=== PATIENT | female | born 1940 | race Caucasian/White ===

== ENCOUNTER 2019-08-01 20:48 | Emergency (ER) | payer MEDICARE ==
--- NOTE | 2019-08-01 20:59 | ERPHSYRPT ---
- History of Present Illness Time Seen by Provider: 08/01/19 20:59 Source: patient, family Exam Limitations: no limitations, clinical condition Physician History: Pt is here with c/c of cough and congestion with her usual shortness of breath. Pt additionally has a runny congested nose. Pt has a sore throat aas well. Pt has been feeling poorly for 2 days and notes that whenever she gets ill it advances quickly into her chest and this is moving down. Ptnotes that she coughs alot and hard and to the point of vomiting. Pt has COPD so states that she is her usual amount of SOB. Pt had a Generic mix of Duoneb at 16:30 today. Timing/Duration: day(s) (2) Modifying Factors: Improves With: medication (Pt told nursing that she had taken a dose of Zithromax yesterday and then another one today and is worse anyway. ) Allergies/Adverse Reactions: Penicillins Allergy (Severe, Verified 08/01/19 21:05) Difficulty Breathing codeine Allergy (Intermediate, Verified 08/01/19 21:05) Nausea and Vomiting metformin Allergy (Intermediate, Verified 08/01/19 21:05) Nausea and Vomiting Sulfa (Sulfonamide Antibiotics) Allergy (Intermediate, Verified 08/01/19 21:05) Itching ibuprofen Allergy (Verified 08/01/19 21:05) morphine Adverse Reaction (Intermediate, Verified 08/01/19 21:05) HALLUCINATIONS Home Medications: Carvedilol 12.5 mg [Coreg 12.5 mg] 6.25 mg PO DAILY 06/11/13 [History] Glipizide 10 mg [Glucotrol 10 MG] 10 mg PO DAILY 06/11/13 [History] Losartan Potassium 50 mg [Cozaar 50 MG] 1 tab PO DAILY 06/11/13 [History] Vit/Fe Fumarate/FA [ Formula Tablet] 1 tab PO DAILY 06/11/13 [ History] Atorvastatin Calcium [Lipitor] 40 mg PO DAILY 06/19/13 [History] Aspirin [Aspirin EC] 81 mg PO DAILY 10/03/13 [History] Albuterol 2.5 mg/3 ml Neb [Proventil 2.5 mg/3 ml Neb] 2.5 mg IH TID [History] Alprazolam 0.25 mg [xanAX 0.25 MG] 0.25 mg PO BID PRN PRN 08/01/19 [ History] Clopidogrel Bisulfate 75 mg [PLAVIX 75 MG Tablet] 75 mg PO DAILY 08/01/19 [History] Hx Tetanus, Diphtheria Vaccination/Date Given: No Hx Influenza Vaccination/Date Given: No Hx Pneumococcal Vaccination/Date Given: No - Review of Systems Constitutional: Malaise Eyes: Itchy, Tearing Ears, Nose, & Throat: Ear Pain, Nose Congestion, Nose Discharge, Throat Pain, Hoarse Respiratory: Cough, Dyspnea Cardiac: No Symptoms Abdominal/Gastrointestinal: No Symptoms Genitourinary Symptoms: No Symptoms Musculoskeletal: No Symptoms Skin: No Symptoms Neurological: No Symptoms Psychological: No Symptoms Endocrine: No Symptoms Hematologic/Lymphatic: No Symptoms Immunological/Allergic: No Symptoms All Other Systems: Reviewed and Negative - Past Medical History Pertinent Past Medical History: Yes Neurological History: No Pertinent History ENT History: No Pertinent History Cardiac History: Coronary Artery Disease, High Cholesterol, Hypertension Respiratory History: COPD Endocrine Medical History: Diabetes Type II Musculoskeletal History: No Pertinent History GI Medical History: No Pertinent History History: No Pertinent History Psycho-Social History: No Pertinent History Female Reproductive Disorders: No Pertinent History - Past Surgical History Past Surgical History: Yes Neuro Surgical History: No Pertinent History Cardiac: CABG, Vascular Surgery, Other Respiratory: No Pertinent History Gastrointestinal: Other Genitourinary: No Pertinent History Musculoskeletal: No Pertinent History Female Surgical History: No Pertinent History Other Surgical History: right artery bypass grafT. QUAD BYPASS. COLONOSCOPY 1 WK AGO - Social History Smoking Status: Former smoker How long have you smoked: 40yrs Exposure to second hand smoke: No Drug Use: none Patient Lives Alone: No Significant Family History: heart disease - Nursing Vital Signs Nursing Vital Signs: Initial Vital Signs Temperature 98.2 F 08/01/19 20:55 Pulse Rate 96 H 08/01/19 20:55 Respiratory Rate 18 08/01/19 20:55 Blood Pressure 143/82 08/01/19 20:55 O2 Sat by Pulse Oximetry 94 L 08/01/19 20:55 Pain Scale Pain Intensity 4 - Physical Exam General Appearance: no apparent distress Eye Exam: PERRL/EOMI, eyes nml inspection, No scleral icterus, No pale conjunctivae Ears, Nose, Throat Exam: normal ENT inspection, TMs normal, pharyngeal erythema (minimal) Neck Exam: normal inspection Respiratory Exam: diminished breath sounds, prolonged expirations, wheezing, No crackles/rales Cardiovascular Exam: regular rate/rhythm, normal heart sounds, normal peripheral pulses, No murmur, No friction rub, No gallop Gastrointestinal/Abdomen Exam: soft, normal bowel sounds, No tenderness, No distention, No mass, No guarding, No pulsatile mass, No hepatomegaly, No bruit Pelvic Exam: not done Rectal Exam: not done Back Exam: normal inspection (increased kyphosis) Extremity Exam: normal inspection, normal range of motion (at baseline) Neurologic Exam: alert, oriented x 3, cooperative, normal mood/affect, nml cerebellar function, sensation nml, No motor deficits, No sensory deficit Skin Exam: normal color, warm, dry, No rash, No petechiae, No jaundice Lymphatic Exam: No adenopathy SpO2 Interpretation: normal SpO2: 94 O2 Delivery: Room Air Ordered Tests: Active Orders 24 hr Category Date Time Status CHEST 2 VIEWS (PA AND LAT) Stat Exams 08/01/19 22:03 Taken CBC W DIFF Stat Lab 08/01/19 21:30 Completed CMP Stat Lab 08/01/19 21:30 Completed Lactic Acid Stat Lab 08/01/19 21:32 Completed Peak Expiratory Flow Rate ONCE RT 08/01/19 21:34 Active Respiratory Therapy Assessment DAILY RT 08/01/19 21:34 Active Medication Summary Discontinued Medications Generic Name Dose Route Start Last Admin Trade Name Freq PRN Reason Stop Dose Admin Acetaminophen Confirm 08/02/19 00:26 Tylenol 325 Mg Administered 08/02/19 00:27 Dose 650 mg .ROUTE .STK-MED ONE Acetaminophen 650 mg 08/02/19 00:33 08/02/19 00:35 Tylenol 325 Mg PO 08/02/19 00:34 650 mg STAT STA Administration Albuterol/Ipratropium 3 ml 08/01/19 21:23 08/01/19 21:34 Duoneb 0.5-3 Mg/3 Ml Neb IH 08/01/19 21:24 3 ml STAT ONE Administration Albuterol/Ipratropium Confirm 08/01/19 21:32 Duoneb 0.5-3 Mg/3 Ml Neb Administered 08/01/19 21:33 Dose 3 ml IH .STK-MED ONE Levofloxacin/Dextrose 750 mg in 150 mls @ 100 mls/hr 08/01/19 22:58 08/02/19 00:56 Levofloxacin 750mg/150ml D5w IV 08/02/19 00:27 Infused STAT STA Infusion Levofloxacin/Dextrose Confirm 08/01/19 23:04 Levofloxacin 750mg/150ml D5w Administered 08/01/19 23:05 Dose 750 mg in 150 mls @ ud IV .STK-MED ONE Methylprednisolone Sodium Succinate 80 mg 08/01/19 21:23 08/01/19 21:40 Solu-Medrol 125 Mg IV 08/01/19 21:24 80 mg STAT ONE Administration Methylprednisolone Sodium Succinate Confirm 08/01/19 21:38 Solu-Medrol 125 Mg Administered 08/01/19 21:39 Dose 125 mg .ROUTE .STK-MED ONE Prochlorperazine Edisylate 10 mg 08/02/19 00:16 08/02/19 00:34 Compazine 10 Mg/2 Ml IV 08/02/19 00:17 Not Given STAT ONE Prochlorperazine Edisylate Confirm 08/02/19 00:22 Compazine 10 Mg/2 Ml Administered 08/02/19 00:23 Dose 10 mg .ROUTE .STK-MED ONE Lab/Rad Data: Laboratory Result Diagrams 08/01/19 21:30 08/01/19 21:30 Laboratory Results 08/01/19 08/01/19 08/01/19 Range/Units Unknown 22:00 21:32 WBC (4.0-10.5) K/mm3 RBC (4.1-5.4) M/mm3 Hgb (12.0-16.0) gm/dl Hct (35-47) % MCV (78-100) fl MCH (26-32) pg MCHC (32-36) g/dl RDW (11.5-14.0) % Plt Count (150-450) K/mm3 MPV (6-9.5) fl Gran % (36.0-66.0) % Eos # (Auto) (0-0.5) Absolute Lymphs (auto) (1.0-4.6) Absolute Monos (auto) (0.0-1.3) Lymphocytes % (24.0-44.0) % Monocytes % (0.0-12.0) % Eosinophils % (0.00-5.0) % Basophils % (0.0-0.4) % Absolute Granulocytes (1.4-6.9) Basophils # (0-0.4) Sodium (137-145) mmol/L Potassium (3.5-5.1) mmol/L Chloride (98-107) mmol/L Carbon Dioxide (22-30) mmol/L Anion Gap (5-15) MEQ/L BUN (7-17) mg/dL Creatinine (0.52-1.04) mg/dL Estimated GFR ML/MIN Glucose (74-106) mg/dL Lactic Acid 1.3 (0.4-2.0) Calcium (8.4-10.2) mg/dL Total Bilirubin (0.2-1.3) mg/dL AST (14-36) U/L ALT (0-35) U/L Alkaline Phosphatase (38-126) U/L Serum Total Protein (6.3-8.2) g/dL Albumin (3.5-5.0) g/dL Influenza Type A Ag NEGATIVE (NEGATIVE) Influenza Type B Ag NEGATIVE (NEGATIVE) RSV (PCR) NEGATIVE (Negative) Group A Strep Antibody NEGATIVE (NEGATIVE) 08/01/19 08/01/19 Range/Units 21:30 21:30 WBC 8.0 (4.0-10.5) K/mm3 RBC 4.54 (4.1-5.4) M/mm3 Hgb 13.3 (12.0-16.0) gm/dl Hct 41.0 (35-47) % MCV 90.3 (78-100) fl MCH 29.3 (26-32) pg MCHC 32.4 (32-36) g/dl RDW 13.9 (11.5-14.0) % Plt Count 194 (150-450) K/mm3 MPV 10.8 H (6-9.5) fl Gran % 67.9 H (36.0-66.0) % Eos # (Auto) 0.41 (0-0.5) Absolute Lymphs (auto) 1.20 (1.0-4.6) Absolute Monos (auto) 0.94 (0.0-1.3) Lymphocytes % 14.9 L (24.0-44.0) % Monocytes % 11.7 (0.0-12.0) % Eosinophils % 5.1 H (0.00-5.0) % Basophils % 0.4 (0.0-0.4) % Absolute Granulocytes 5.46 (1.4-6.9) Basophils # 0.03 (0-0.4) Sodium 138 (137-145) mmol/L Potassium 3.9 (3.5-5.1) mmol/L Chloride 101 (98-107) mmol/L Carbon Dioxide 29 (22-30) mmol/L Anion Gap 11.8 (5-15) MEQ/L BUN 18 H (7-17) mg/dL Creatinine 0.95 (0.52-1.04) mg/dL Estimated GFR > 60.0 ML/MIN Glucose 166 H (74-106) mg/dL Lactic Acid (0.4-2.0) Calcium 9.2 (8.4-10.2) mg/dL Total Bilirubin 0.60 (0.2-1.3) mg/dL AST 24 (14-36) U/L ALT 17 (0-35) U/L Alkaline Phosphatase 67 (38-126) U/L Serum Total Protein 7.5 (6.3-8.2) g/dL Albumin 4.0 (3.5-5.0) g/dL Influenza Type A Ag (NEGATIVE) Influenza Type B Ag (NEGATIVE) RSV (PCR) (Negative) Group A Strep Antibody (NEGATIVE) - Progress Progress: improved Progress Note: 08/02/19 01:04 Duoneb, antibiotic and tylenol have helped pt. Will have pt take meds for cough -tesselon and antibiotic at home and f/u with her PCP. Discussed with .: Jaxson - Departure Departure Disposition: Home Clinical Impression: Community acquired pneumonia Condition: Stable Critical Care Time: No Referrals: JONNY BROWNE MD [Primary Care Provider] - Additional Instructions: YOu have an early Pneumonia and will need to take the antibiotic Levaquin as well as you may benefit from the Tessalon Perles for cough suppression. You should continue with your home Albuterol and Ipatropium Gibson nebulizer treatments. Take prednisone as prescribed. Drink plenty of water to thin our secretions. Follow up with your primary care doctor in the next 2-7 days REturn to the ER with emergent medical issues. Prescriptions: Benzonatate [Tessalon Perle] 100 mg PO Q8H #30 capsule Levofloxacin [Levaquin 500 MG Tablet] 500 mg PO DAILY #7 tablet Prednisone 20 mg [Deltasone 20 mg] 20 mg PO DAILY 10 Days #11 tablet
[2019-08-01] MEDS ORDERED: DUONEB 0.5-3 MG/3 ml Neb IH ONE ×2 (21:23→21:32)
[2019-08-01] MEDS ORDERED: solu-MEDROL 125 MG IV ONE (21:23)
[2019-08-01] MEDS ORDERED: solu-MEDROL 125 MG ONE (21:38)
[2019-08-01 21:43] LABS: Absolute Neutrophil Ct (ANC) 5.46 (1.4-6.9); BASOPHIL % 0.4 % (0.0-0.4); Basophil (Absolute #) 0.03 (0-0.4); Eosinophil % 5.1 % (0.00-5.0); Eosinophil (Absolute #) 0.41 (0-0.5); Hemoglobin 13.3 gm/dl (12.0-16.0); Lymphocytes % 14.9 % (24.0-44.0); Mean Cell Volume 90.3 fl (78-100); Mean Corpuscular Hemoglobin 29.3 pg (26-32); Mean Corpuscular Hgb Concent. 32.4 g/dl (32-36); Mean Platelet Volume 10.8 fl (6-9.5); Monocyte (Absolute #) 0.94 (0.0-1.3); Monocytes % 11.7 % (0.0-12.0); Neutrophil % 67.9 % (36.0-66.0); Platelet Count 194 K/mm3 (150-450); Red Blood Count 4.54 M/mm3 (4.1-5.4); Red Cell Distribution Width 13.9 % (11.5-14.0)
[2019-08-01 21:55] LABS: ALKALINE PHOSPHATASE 67 U/L (38-126); ANION GAP 11.8 MEQ/L (5-15); BLOOD UREA NITROGEN 18 mg/dL (7-17); CHLORIDE 101 mmol/L (98-107); Calcium 9.2 mg/dL (8.4-10.2); Carbon Dioxide 29 mmol/L (22-30); Creatinine 1 0.95 mg/dL (0.52-1.04); Glucose 166 mg/dL (74-106); Potassium 3.9 mmol/L (3.5-5.1); SGOT/AST 24 U/L (14-36); SGPT/ALT 17 U/L (0-35); SODIUM 138 mmol/L (137-145); Total Protein 7.5 g/dL (6.3-8.2)
[2019-08-01 22:54] LABS: INFLUENZA A NEGATIVE (NEGATIVE); INFLUENZA B NEGATIVE (NEGATIVE); RESPIRATORY SYNCTIAL VIRUS NEGATIVE (Negative)
[2019-08-01] MEDS ORDERED: LEVOFLOXACIN 750MG/150ML D5W 750 MG/150 ML BAG IV STA (22:58)
[2019-08-01] MEDS ORDERED: LEVOFLOXACIN 750MG/150ML D5W 750 MG/150 ML BAG IV ONE (23:04)
[2019-08-02] MEDS ORDERED: Compazine 10 MG/2 ML IV ONE (00:16)
[2019-08-02] MEDS ORDERED: Compazine 10 MG/2 ML ONE (00:22)
[2019-08-02] MEDS ORDERED: TYLENOL 325 MG ONE (00:26)
[2019-08-02] MEDS ORDERED: TYLENOL 325 MG PO STA (00:33)
[2019-08-02 01:10] VITALS: O2SAT 94
[2019-08-02 01:35] VITALS: BP 134/84; PULSE 76
--- NOTE | 2019-08-02 08:42 | XRAY ---
Indication: Cough 6 days. Comparison: March 19, 2019. PA/lateral chest again demonstrates right middle lobe subsegmental atelectasis/scarring. No focal infiltrate, consolidation, or large effusion. Heart and mediastinal structures within normal limits again with CABG surgery. Bony thorax intact again with degenerative changes. Impression: Stable nonacute chest with chronic features.
== END 2019-08-02 01:35 | disposition home or self-care (01) ==
LOC: ED 20:48
DX: J18.9 Pneumonia, unspecified organism (principal); R09.89 Other specified symptoms and signs involving the circulatory and respiratory systems; J44.9 Chronic obstructive pulmonary disease, unspecified; Z79.899 Other long term (current) drug therapy; R05 Cough; H92.09 Otalgia, unspecified ear
CPT/HCPCS: 36000; 36415; 71046; 80053; 83605; 85025; 87631; 87651; 94150; 94640; 96365; 96366; 96374; 99284; J1956; J2930; A9270-GY

== ENCOUNTER 2019-08-17 10:39 | Emergency (ER) | payer MEDICARE ==
[2019-08-17 10:58] VITALS: BP 94/69; PULSE 92; O2SAT 98
--- NOTE | 2019-08-17 11:07 | ERPHSYRPT ---
- History of Present Illness Time Seen by Provider: 08/17/19 11:04 Source: patient Exam Limitations: no limitations Patient Subjective Stated Complaint: Pt sat up coughing in bed in the middle of the night and the next thing she knew her was standing over her, she had passed out from coughing, when she fell out of bed she thinks she hit the night stand or the trash can and she injured her right shoulder and right wrist , pt has a lot of bruising to both areas, denies hitting head, pt is on blood thinners Triage Nursing Assessment: Pt walked into the ER, bruising to right shoulder and right wrist, hypotensive, pulses normal, capillary refill normal, rates pain 7/10, denies hitting head, denies any other injury Physician History: Pt sat up coughing in bed in the middle of the night and the next thing she knew her was standing over her, she had passed out from coughing, when she fell out of bed she thinks she hit the night stand or the trash can and she injured her right shoulder and right wrist, pt has a lot of bruising to both areas, denies hitting head, pt is on blood thinners Occurred: this morning Method of Injury: fell Severity of Pain-Max: mild Severity of Pain-Current: mild Extremities Pain Location: shoulder: right, wrist: right Modifying Factors: Improves With: nothing Associated Symptoms: none Body Map: 1 - bruised area 2 - bruised area Allergies/Adverse Reactions: Penicillins Allergy (Severe, Verified 08/17/19 10:58) Difficulty Breathing codeine Allergy (Intermediate, Verified 08/17/19 10:58) Nausea and Vomiting metformin Allergy (Intermediate, Verified 08/17/19 10:58) Nausea and Vomiting Sulfa (Sulfonamide Antibiotics) Allergy (Intermediate, Verified 08/17/19 10:58) Itching ibuprofen Allergy (Verified 08/17/19 10:58) morphine Adverse Reaction (Intermediate, Verified 08/17/19 10:58) HALLUCINATIONS Home Medications: Carvedilol 12.5 mg [Coreg 12.5 mg] 6.25 mg PO DAILY 06/11/13 [History] Glipizide 10 mg [Glucotrol 10 MG] 10 mg PO DAILY 06/11/13 [History] Losartan Potassium 50 mg [Cozaar 50 MG] 1 tab PO DAILY 06/11/13 [History] Vit/Fe Fumarate/FA [ Formula Tablet] 1 tab PO DAILY 06/11/13 [ History] Atorvastatin Calcium [Lipitor] 40 mg PO DAILY 06/19/13 [History] Aspirin [Aspirin EC] 81 mg PO DAILY 10/03/13 [History] Albuterol 2.5 mg/3 ml Neb [Proventil 2.5 mg/3 ml Neb] 2.5 mg IH TID [History] Alprazolam 0.25 mg [xanAX 0.25 MG] 0.25 mg PO BID PRN PRN 08/01/19 [ History] Clopidogrel Bisulfate 75 mg [PLAVIX 75 MG Tablet] 75 mg PO DAILY 08/01/19 [History] Hx Tetanus, Diphtheria Vaccination/Date Given: No Hx Influenza Vaccination/Date Given: No Hx Pneumococcal Vaccination/Date Given: No - Review of Systems Constitutional: No Symptoms Eyes: No Symptoms Ears, Nose, & Throat: No Symptoms Respiratory: No Symptoms Cardiac: No Symptoms Abdominal/Gastrointestinal: No Symptoms Musculoskeletal: Fall Skin: No Symptoms Neurological: No Symptoms Psychological: No Symptoms - Past Medical History Pertinent Past Medical History: Yes Neurological History: No Pertinent History ENT History: No Pertinent History Cardiac History: Coronary Artery Disease, High Cholesterol, Hypertension Respiratory History: COPD Endocrine Medical History: Diabetes Type II Musculoskeletal History: No Pertinent History GI Medical History: No Pertinent History History: No Pertinent History Psycho-Social History: No Pertinent History Female Reproductive Disorders: No Pertinent History - Past Surgical History Past Surgical History: Yes Neuro Surgical History: No Pertinent History Cardiac: CABG, Vascular Surgery, Other Respiratory: No Pertinent History Gastrointestinal: Other Genitourinary: No Pertinent History Musculoskeletal: No Pertinent History Female Surgical History: No Pertinent History Other Surgical History: right artery bypass grafT. QUAD BYPASS. COLONOSCOPY 1 WK AGO - Social History Smoking Status: Former smoker How long have you smoked: 40yrs Exposure to second hand smoke: No Drug Use: none Patient Lives Alone: No Significant Family History: heart disease - Nursing Vital Signs Nursing Vital Signs: Initial Vital Signs Temperature 97.8 F 08/17/19 10:44 Pulse Rate 92 H 08/17/19 10:44 Blood Pressure 94/69 08/17/19 10:44 O2 Sat by Pulse Oximetry 98 08/17/19 10:44 Pain Scale Pain Intensity 7 - Physical Exam General Appearance: no apparent distress Eyes, Ears, Nose, Throat Exam: normal ENT inspection Neck Exam: normal inspection Cardiovascular/Respiratory Exam: chest non-tender Abdominal Exam: non-tender Shoulder Exam: ecchymosis (right shoulder) Wrist Exam: ecchymosis (right wrist) SpO2: 98 - Course Nursing assessment & vital signs reviewed: Yes - Radiology Exams Shoulder X-ray Interpretation: Reviewed by me, Negative, No Fracture, No Subluxation Wrist X-ray Interpretation: Reviewed by me, Negative, No Fracture, No Subluxation Ordered Tests: Active Orders 24 hr Category Date Time Status SHOULDER Stat Exams 08/17/19 10:55 Taken WRIST (MIN 3 VIEWS) Stat Exams 08/17/19 10:55 Taken - Progress Progress: improved, pain not gone completely Counseled pt/family regarding: diagnosis, need for follow-up, rad results - Departure Departure Disposition: Home Clinical Impression: Wrist contusion Qualifiers: Encounter type: initial encounter Laterality: right Qualified Code(s): S60.211A - Contusion of right wrist, initial encounter Shoulder contusion Qualifiers: Encounter type: initial encounter Laterality: right Qualified Code(s): S40.011A - Contusion of right shoulder, initial encounter Condition: Stable Critical Care Time: No Referrals: JONNY BROWNE MD [Primary Care Provider] - Instructions: Wrist Sprain, Shoulder Sprain Additional Instructions: SPRAINS/STRAINS/CONTUSIONS 1. Rest the affected area as much as possible for the next few days. 2. Apply ice to the affected area for 20-30 minutes at a time, several times a day. 3. If you receive an elastic wrap, wear it only while awake for comfort and support. Re-wrap the elastic wrap if it feels too tight or too loose. 4. If swelling is present, elevate the affected part above the level of the heart for at least 2 to 3 days. 5. Use splints, slings, or crutches as instructed. 6. Watch for severe swelling, coldness, numbness, and discoloration of the fingers and toes. See your family physician or return to the emergency department if any of these are noted. Discharge/Care Plan JACKMIGEL TERRY was seen on 08/17/19 in the Emergency Room. The patient was counseled regarding Diagnosis,Lab results, Imaging studies, need for follow up and when to return to the Emergency Room. Prescriptions given: Discharge Note I have spoken with the patient and/or caregivers. I have explained the patient' s condition, diagnosis and treatment plan based on the information available to me at this time. I have answered the patient's and/or caregiver's questions and addressed any concerns. The patient and/or caregivers have as good understanding of the patient's diagnosis, condition and treatment plan as can be expected at this point. The vital signs have been stable. The patient's condition is stable and appropriate for discharge from the emergency department. The patient will pursue further outpatient evaluation with the primary care physician or other designated or consulting physician as outlined in the discharge instructions. The patient and/or caregivers are agreeable to this plan of care and follow-up instructions have been explained in detail. The patient and/or caregivers have received these instruction. The patient/and or caregivers are aware that any significant change in condition or worsening of symptoms should prompt an immediate return to this or the closest emergency department or call 911.
--- NOTE | 2019-08-17 19:55 | XRAY ---
Indication: Pain following fall. Comparison: None AP and scapular Y view of the right shoulder demonstrates mild osteopenia, moderate AC degenerative arthropathy, axilla surgical clips, aortic calcifications, and CABG surgery. No other bony, articular, or soft tissue abnormalities.
--- NOTE | 2019-08-17 19:56 | XRAY ---
Indication: Pain following fall. Comparison: None 3 views of the right wrist demonstrates mild osteopenia and moderate degenerative changes of the 1st metacarpal multangular scaphoid articulation. No other bony, articular, or soft tissue abnormalities.
== END 2019-08-17 11:33 | disposition home or self-care (01) ==
LOC: ED 10:39
DX: S60.211A Contusion of right wrist, initial encounter (principal); S40.011A Contusion of right shoulder, initial encounter
CPT/HCPCS: 73030; 73110; 99283

== ENCOUNTER 2022-04-10 17:58 | Emergency (ER) | payer MEDICARE ==
[2022-04-10] MEDS ORDERED: ARZOL Silver Nitrate Applicator TP ONE (18:20)
--- NOTE | 2022-04-10 18:40 | ERPHSYRPT ---
- History of Present Illness Source: patient Exam Limitations: no limitations Patient Subjective Stated Complaint: pt to er with complaints of bleeding. pt states she had a skin tag lanced by doctor lynette on monday on her chest. pt states states her necklace got caught on the scab and she has been bleeding since. states she has gone through 3 bandages. Triage Nursing Assessment: pt to ER for bleeding on chest. pt had skin tag removed monday. pt state a necklace got caught today and ripped the scab off. pt gone through 3 bandages today. pt on blood thinners. pt ambulatory. skin pwd. A&Ox3. Physician History: 82 yo wf on Plavix/Aspirin presents w bleeding from skin tag removal site on chest. Pt had skin tag removed 2 days ago. She has no other complaints at this time. Timing/Duration: today Severity: mild Modifying Factors: Improves With: nothing Associated Symptoms: denies symptoms Allergies/Adverse Reactions: Penicillins Allergy (Severe, Verified 04/10/22 18:20) Difficulty Breathing codeine Allergy (Intermediate, Verified 04/10/22 18:20) Nausea and Vomiting metformin Allergy (Intermediate, Verified 04/10/22 18:20) Nausea and Vomiting Sulfa (Sulfonamide Antibiotics) Allergy (Intermediate, Verified 04/10/22 18:20) Itching ibuprofen Allergy (Verified 04/10/22 18:20) morphine Adverse Reaction (Intermediate, Verified 04/10/22 18:20) HALLUCINATIONS Home Medications: Carvedilol 12.5 mg [Coreg 12.5 mg] 6.25 mg PO DAILY 06/11/13 [History] Glipizide 10 mg [Glucotrol 10 MG] 10 mg PO DAILY 06/11/13 [History] Losartan Potassium 50 mg [Cozaar 50 MG] 1 tab PO DAILY 06/11/13 [History] Vit/Fe Fumarate/FA [ Formula Tablet] 1 tab PO DAILY 06/11/13 [History] Atorvastatin Calcium [Lipitor] 40 mg PO DAILY 06/19/13 [History] Aspirin [Aspirin EC] 81 mg PO DAILY 10/03/13 [History] ALPRAZolam 0.25 MG [xanAX 0.25 MG] 0.25 mg PO BID PRN PRN 08/01/19 [History] Albuterol 2.5 mg/3 ml Neb [Proventil 2.5 mg/3 ml Neb] 2.5 mg IH TID 08/01/19 [History] Clopidogrel Bisulfate [PLAVIX 75 MG Tablet] 75 mg PO DAILY 08/01/19 [History] Hx Tetanus, Diphtheria Vaccination/Date Given: No Hx Influenza Vaccination/Date Given: No Hx Pneumococcal Vaccination/Date Given: No Travel Risk - International Travel Have you traveled outside of the country in past 3 weeks: No - Coronavirus Screening Are you exhibiting any of the following symptoms?: No Close contact with a COVID-19 positive Pt in past 14-21 Days: No - Vaccine Status Have you recieved a Covid-19 vaccination: Yes [place] Operator: Unknown - Vaccination Dates Dates if Unknown: unk - Review of Systems Constitutional: No Symptoms Eyes: No Symptoms Ears, Nose, & Throat: No Symptoms Respiratory: No Symptoms Cardiac: No Symptoms Abdominal/Gastrointestinal: No Symptoms Genitourinary Symptoms: No Symptoms Musculoskeletal: No Symptoms Skin: No Symptoms Neurological: No Symptoms Psychological: No Symptoms Endocrine: No Symptoms Hematologic/Lymphatic: No Symptoms Immunological/Allergic: Pollen Allergy - Past Medical History Pertinent Past Medical History: Yes Neurological History: No Pertinent History ENT History: No Pertinent History Cardiac History: Coronary Artery Disease, High Cholesterol, Hypertension Respiratory History: COPD Endocrine Medical History: Diabetes Type II Musculoskeletal History: No Pertinent History GI Medical History: No Pertinent History History: No Pertinent History Psycho-Social History: No Pertinent History Female Reproductive Disorders: No Pertinent History - Past Surgical History Past Surgical History: Yes Neuro Surgical History: No Pertinent History Cardiac: CABG, Vascular Surgery, Other Respiratory: No Pertinent History Gastrointestinal: Other Genitourinary: No Pertinent History Musculoskeletal: No Pertinent History Female Surgical History: No Pertinent History Other Surgical History: right artery bypass grafT. QUAD BYPASS. COLONOSCOPY 1 WK AGO - Social History Smoking Status: Former smoker How long have you smoked: 40yrs Exposure to second hand smoke: No Drug Use: none Patient Lives Alone: No Significant Family History: heart disease - Nursing Vital Signs Nursing Vital Signs: Initial Vital Signs Temperature 96.8 F 04/10/22 18:08 Pulse Rate 77 04/10/22 18:08 Respiratory Rate 18 04/10/22 18:08 Blood Pressure 136/97 04/10/22 18:08 O2 Sat by Pulse Oximetry 87 L 04/10/22 18:08 Pain Scale Pain Intensity 0 Low sats - Physical Exam General Appearance: no apparent distress Eye Exam: PERRL/EOMI, eyes nml inspection Ears, Nose, Throat Exam: normal ENT inspection, TMs normal, pharynx normal, moist mucous membranes Neck Exam: normal inspection, non-tender, supple, full range of motion, No meningismus, No mass, No Brudzinski, No Kernig's Respiratory Exam: crackles/rales (Faints Rales at bases B), No respiratory distress Cardiovascular Exam: regular rate/rhythm, murmur (2/6 LENIN), capillary refill <2 sec Gastrointestinal/Abdomen Exam: soft, normal bowel sounds, No tenderness Back Exam: normal inspection, normal range of motion, No CVA tenderness, No vertebral tenderness Extremity Exam: normal inspection, normal range of motion Neurologic Exam: alert, oriented x 3, cooperative, 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 tested, normal mood/affect Skin Exam: other (Small amount of bleeding from superior chest skin tag removal site) Lymphatic Exam: No adenopathy SpO2 Interpretation: hypoxic SpO2: 87 O2 Delivery: Room Air - Course Nursing assessment & vital signs reviewed: Yes Ordered Tests: Medication Summary Discontinued Medications Generic Name Dose Route Start Last Admin Trade Name Kamryn PRN Reason Stop Dose Admin Silver Nitrate Confirm 04/10/22 18:20 Silver Nitrate 1 Pkt Each Administered 04/10/22 18:21 Dose 6 pkt TP .STK-MED ONE - Progress Progress: improved Progress Note: 04/10/22 18:37 Skin tag removal site bleeding easily stopped w AgNo3 stick x 3/No comps Counseled pt/family regarding: diagnosis, need for follow-up - Departure Departure Disposition: Home Clinical Impression: Post-op bleeding Condition: Stable Critical Care Time: No Referrals: JONNY BROWNE MD [Primary Care Provider] - Follow up/PCP as directed Instructions: Bleeding After Surgery Additional Instructions: Do not pick or scratch area If bleeding restarts hold pressure Return to ER if bleeding does not stop after 30 minutes of pressure
[2022-04-10 19:04] VITALS: BP 132/68; PULSE 69
[2022-04-10 20:02] VITALS: O2SAT 87
== END 2022-04-10 19:03 | disposition home or self-care (01) ==
LOC: ED 17:58
DX: L76.21 Postprocedural hemorrhage of skin and subcutaneous tissue following a dermatologic procedure (principal); E78.5 Hyperlipidemia, unspecified; I10 Essential (primary) hypertension; J44.9 Chronic obstructive pulmonary disease, unspecified; E11.9 Type 2 diabetes mellitus without complications; Z79.84 Long term (current) use of oral hypoglycemic drugs; Z79.02 Long term (current) use of antithrombotics/antiplatelets; Z79.899 Other long term (current) drug therapy
CPT/HCPCS: 99281; A9270-GY

== ENCOUNTER 2023-06-11 01:02 | Emergency (ER) | payer MEDICARE ==
[2023-06-11 01:36] VITALS: TEMP 99.6
[2023-06-11] MEDS ORDERED: DUONEB 0.5-3 MG/3 ml Neb IH ONE ×2 (02:09→02:17)
[2023-06-11 02:13] VITALS: O2SAT 97
[2023-06-11 02:31] LABS: BASOPHIL % 0.4 % (0.0-0.4); Basophil (Absolute #) 0.04 x10^3/uL (0-0.4); Eosinophil % 2.5 % (0.00-5.0); Eosinophil (Absolute #) 0.24 x10^3/uL (0-0.5); Hematocrit 45.1 % (35-47); Hemoglobin 14.4 g/dL (12.0-16.0); IMMATURE GRAN # 0.03 x10^3u/L (0.00-0.03); IMMATURE GRAN % 0.3 % (0.00-0.4); Lymphocyte (Absolute #) 0.82 x10^3/uL (1.0-4.6); Lymphocytes % 8.4 % (24.0-44.0); Mean Corpuscular Hemoglobin 29.7 pg (26-32); Mean Corpuscular Hgb Concent. 31.9 g/dL (32-36); Mean Platelet Volume 10.5 fL (7.5-11.0); Monocyte (Absolute #) 0.71 x10^3/uL (0.0-1.3); Monocytes % 7.3 % (0.0-12.0); Neutrophil % 81.1 % (36.0-66.0); Platelet Count 231 x10^3/uL (150-450); Red Blood Count 4.85 x10^6/uL (4.1-5.4); Red Cell Distribution Width 13.9 % (11.5-14.0); White Blood Count 9.7 x10^3/uL (4.0-10.5)
--- NOTE | 2023-06-11 02:33 | ERPHSYRPT ---
- History of Present Illness Time Seen by Provider: 06/11/23 01:55 Source: patient Exam Limitations: no limitations Patient Subjective Stated Complaint: pt states that her daughter has Covid and her has covid and was discharged this morning from this hospital. pt s tates she started coughing and has intermittently coughed up white phlegm. denies fever, chills, n/v, diarrhea, sob, difficulty with breathing, lightheadedness, dizziness, change in appetite, change in urination or bowel elimination. dry nonproductive cough noted. Triage Nursing Assessment: pt brought into room 7 via EMS stretcher and transfered into ED bed via staff x2. pt is alert and oriented times three, able to speak in complete sentences, able to move all extremities, and with resp even and unlabored. pt on 3LPM oxygen per [place] which pt using at home as needed. no JVD or edema noted, bilat radial and pedal pulses palpable, heart sounds present and regular, anterior/ posterior lung sounds coarse throughout. LBM 06/09/23. denies fever, chills, n/v, diarrhea, sob, difficulty with breathing, lightheadedness, dizziness, change in appetite, change in urination or bowel elimination. dry nonproductive cough noted. Physician History: 83yo f presents w/ complaints of cough. Pt states she tested positive for covid this afternoon and has had a significant dry cough for around 12h. Pt states her was recently hospitalized for covid and her daughter currently has covid. Pt currently denies cp, soa, n/v/abdominal pain, chills, fevers, body aches, diarrhea. Pt states "she just wanted to get checked out since she is covid positive." Pt has outpatient appt w/ PCP scheduled for Monday06/13/23. Timing/Duration: today Cough Quality/Degree: dry cough Possible Cause: no prior episodes Modifying Factors: Improves With: nothing Associated Symptoms: cough Allergies/Adverse Reactions: Penicillins Allergy (Severe, Verified 06/11/23 01:07) Difficulty Breathing codeine Allergy (Intermediate, Verified 06/11/23 01:07) Nausea and Vomiting metformin Allergy (Intermediate, Verified 06/11/23 01:07) Nausea and Vomiting Sulfa (Sulfonamide Antibiotics) Allergy (Intermediate, Verified 06/11/23 01:07) Itching ibuprofen Allergy (Verified 06/11/23 01:07) morphine Adverse Reaction (Intermediate, Verified 06/11/23 01:07) HALLUCINATIONS Home Medications: Carvedilol 12.5 mg [Coreg 12.5 mg] 6.25 mg PO DAILY 06/11/13 [History] Glipizide 10 mg [Glucotrol 10 MG] 10 mg PO DAILY 06/11/13 [History] Losartan Potassium 50 mg [Cozaar 50 MG] 1 tab PO DAILY 06/11/13 [History] Vit/Fe Fumarate/FA [ Formula Tablet] 1 tab PO DAILY 06/11/13 [History] Atorvastatin Calcium [Lipitor] 40 mg PO DAILY 06/19/13 [History] Aspirin [Aspirin EC] 81 mg PO DAILY 10/03/13 [History] ALPRAZolam 0.25 MG [xanAX 0.25 MG] 0.25 mg PO BID PRN PRN 08/01/19 [History] Albuterol 2.5 mg/3 ml Neb [Proventil 2.5 mg/3 ml Neb] 2.5 mg IH TID 1 10/02/18 [History] Clopidogrel Bisulfate [PLAVIX 75 MG Tablet] 75 mg PO DAILY 08/01/19 [History] Hx Tetanus, Diphtheria Vaccination/Date Given: Yes Hx Influenza Vaccination/Date Given: Yes (2021) Hx Pneumococcal Vaccination/Date Given: Yes Immunizations Up to Date: Yes Travel Risk - International Travel Have you traveled outside of the country in past 3 weeks: No - Coronavirus Screening Are you exhibiting any of the following symptoms?: Yes Symptoms: Cough: New Onset Close contact with a COVID-19 positive Pt in past 14-21 Days: Yes - Vaccine Status Have you recieved a Covid-19 vaccination: Yes 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 - Vaccination Dates Dates if Unknown: unknown - Review of Systems Constitutional: No Fever, No Chills Ears, Nose, & Throat: Sinus Drainage Respiratory: Cough Cardiac: No Chest Pain, No Edema, No Syncope Abdominal/Gastrointestinal: No Abdominal Pain, No Nausea, No Vomiting, No Diarrhea - Past Medical History Pertinent Past Medical History: Yes Neurological History: No Pertinent History ENT History: No Pertinent History Cardiac History: Coronary Artery Disease, High Cholesterol, Hypertension Respiratory History: COPD Endocrine Medical History: Diabetes Type II Musculoskeletal History: No Pertinent History GI Medical History: No Pertinent History History: No Pertinent History Psycho-Social History: No Pertinent History Female Reproductive Disorders: No Pertinent History - Past Surgical History Past Surgical History: Yes Neuro Surgical History: No Pertinent History Cardiac: CABG, Vascular Surgery, Other Respiratory: No Pertinent History Gastrointestinal: Other Genitourinary: No Pertinent History Musculoskeletal: Orthopedic Surgery Female Surgical History: No Pertinent History Other Surgical History: right artery bypass grafT. QUAD BYPASS. COLONOSCOPY 1 WK AGO. left hand surgery - Social History Smoking Status: Former smoker How long have you smoked: 40yrs Exposure to second hand smoke: No Drug Use: none Patient Lives Alone: No Significant Family History: heart disease - Nursing Vital Signs Nursing Vital Signs: Initial Vital Signs Temperature 99.6 F 06/11/23 01:07 Pulse Rate 97 H 06/11/23 01:07 Respiratory Rate 22 06/11/23 01:07 Blood Pressure 123/86 06/11/23 01:07 O2 Sat by Pulse Oximetry 93 L 06/11/23 01:07 Pain Scale Pain Intensity 0 - Physical Exam General Appearance: no apparent distress, alert Eye Exam: PERRL/EOMI, eyes nml inspection Ears, Nose, Throat Exam: normal ENT inspection, TMs normal, pharynx normal, moist mucous membranes Respiratory Exam: normal breath sounds, lungs clear, other (no wheezes, no rhonchi, no stridor, good air movement), No respiratory distress Cardiovascular Exam: regular rate/rhythm, normal heart sounds Neurologic Exam: alert, oriented x 3, cooperative, normal mood/affect, No motor deficits SpO2 Interpretation: normal SpO2: 97 O2 Delivery: Nasal Cannula (on 3L O2 at baseline) - Course Nursing assessment & vital signs reviewed: Yes Ordered Tests: Active Orders 24 hr Category Date Time Status Isolation, Initiate & Maintain STAT Care 06/11/23 02:09 Active CHEST 1 VIEW (PORTABLE) Stat Exams 06/11/23 02:09 Taken CBC W DIFF Stat Lab 06/11/23 02:29 Completed CMP Stat Lab 06/11/23 02:29 Completed Respiratory Therapy Assessment DAILY RT 06/11/23 02:33 Completed Medication Summary Discontinued Medications Generic Name Dose Route Start Last Admin Trade Name Freq PRN Reason Stop Dose Admin Albuterol/Ipratropium 3 ml 06/11/23 02:09 06/11/23 02:15 Ipratropium/Albuterol Sulfate 3 Ml Ampul.Neb IH 06/11/23 02:10 3 ml STAT ONE Administration Albuterol/Ipratropium Confirm 06/11/23 02:17 Ipratropium/Albuterol Sulfate 3 Ml Ampul.Neb Administered 06/11/23 02:18 Dose 3 ml IH .STK-MED ONE Lab/Rad Data: Laboratory Result Diagrams 06/11/23 02:29 06/11/23 02:29 Laboratory Results 06/11/23 06/11/23 Range/Units 02: 02:29 WBC 9.7 (4.0-10.5) x10^3/uL RBC 4.85 (4.1-5.4) x10^6/uL Hgb 14.4 (12.0-16.0) g/dL Hct 45.1 (35-47) % MCV 93.0 (78-100) fL MCH 29.7 (26-32) pg MCHC 31.9 L (32-36) g/dL RDW 13.9 (11.5-14.0) % Plt Count 231 (150-450) x10^3/uL MPV 10.5 (7.5-11.0) fL Gran % 81.1 H (36.0-66.0) % Immature Gran % (Auto) 0.3 (0.00-0.4) % Nucleat RBC Rel Count 0.0 (0.00-0.1) % Eos # (Auto) 0.24 (0-0.5) x10^3/uL Immature Gran # (Auto) 0.03 (0.00-0.03) x10^3u/L Absolute Lymphs (auto) 0.82 L (1.0-4.6) x10^3/uL Absolute Monos (auto) 0.71 (0.0-1.3) x10^3/uL Absolute Nucleated RBC 0.00 (0.00-0.01) x10^3u/L Lymphocytes % 8.4 L (24.0-44.0) % Monocytes % 7.3 (0.0-12.0) % Eosinophils % 2.5 (0.00-5.0) % Basophils % 0.4 (0.0-0.4) % Absolute Granulocytes 7.90 H (1.4-6.9) x10^3/uL Basophils # 0.04 (0-0.4) x10^3/uL Sodium 136 L (137-145) mmol/L Potassium 4.2 (3.5-5.1) mmol/L Chloride 96 L (98-107) mmol/L Carbon Dioxide 34 H (22-30) mmol/L Anion Gap 9.8 (5-15) MEQ/L BUN 14 (7-17) mg/dL Creatinine 0.69 (0.52-1.04) mg/dL Estimated GFR > 60.0 ML/MIN Glucose 141 H (74-106) mg/dL Calcium 8.9 (8.4-10.2) mg/dL Total Bilirubin 0.60 (0.2-1.3) mg/dL AST 39 H (14-36) U/L ALT 26 (0-35) U/L Alkaline Phosphatase 96 (38-126) U/L Serum Total Protein 7.4 (6.3-8.2) g/dL Albumin 4.0 (3.5-5.0) g/dL - Progress Progress: improved Air Movement: good Progress Note: 06/11/23 03:09 cxr negative for acute process positive covid at home w/ sick contacts lab workup insignificant, vitals stable pt reports feeling much better after duoneb pt agreeable to dc home w/ prescription for paxlovid and tesselon pearls Blood Culture(s) Obtained: No Antibiotics given: No Counseled pt/family regarding: lab results, diagnosis, need for follow-up, rad results Medical Desision Making - Diagnostic Testing Diagnostic test were ordered, analyzed, and reviewed by me: Yes Radiological Interpretation: Interpreted by me - Risk of complications Low Risk: Low risk of morbidity from additional dx testing or treatment - Departure Departure Disposition: Home Clinical Impression: COVID Cough Qualifiers: Cough type: acute Qualified Code(s): R05.1 - Acute cough Condition: Stable Critical Care Time: No Referrals: JONNY BROWNE MD [Primary Care Provider] - Follow up/PCP as directed Prescriptions: Nirmatrelvir/Ritonavir [Paxlovid 2X150 mg-100 mg (Eua)] 1 each PO UD 5 Days #1 dosepack
[2023-06-11 02:44] LABS: ALKALINE PHOSPHATASE 96 U/L (38-126); ANION GAP 9.8 MEQ/L (5-15); BLOOD UREA NITROGEN 14 mg/dL (7-17); CHLORIDE 96 mmol/L (98-107); Calcium 8.9 mg/dL (8.4-10.2); Carbon Dioxide 34 mmol/L (22-30); Creatinine 1 0.69 mg/dL (0.52-1.04); EST GLOMERULAR FILTRATION RATE > 60.0 ML/MIN; Glucose 141 mg/dL (74-106); Potassium 4.2 mmol/L (3.5-5.1); SGOT/AST 39 U/L (14-36); SGPT/ALT 26 U/L (0-35); SODIUM 136 mmol/L (137-145); Total Protein 7.4 g/dL (6.3-8.2)
[2023-06-11 03:18] VITALS: BP 104/76; PULSE 94; RESP 18
--- NOTE | 2023-06-11 08:34 | XRAY ---
Indication: Cough. Comparison: August 01, 2019 Portable chest again hyperinflated with chronic lung markings and small left infrahilar calcified granuloma. No focal infiltrate, consolidation, or large effusion. Heart not enlarged again with CABG. Bony thorax intact again with osteopenia, mild degenerative changes, and right axillary surgical clips. Impression: Nonacute hyperinflated chest with chronic features.
== END 2023-06-11 03:37 | disposition home or self-care (01) ==
LOC: ED 01:02
DX: U07.1 COVID-19 (principal); R05.1 Acute cough; E78.5 Hyperlipidemia, unspecified; I10 Essential (primary) hypertension; E11.9 Type 2 diabetes mellitus without complications; Z79.84 Long term (current) use of oral hypoglycemic drugs; Z79.02 Long term (current) use of antithrombotics/antiplatelets; Z79.899 Other long term (current) drug therapy
CPT/HCPCS: 36415; 71045; 80053; 85025; 94640; 99283; A9270-GY

== ENCOUNTER 2023-11-17 21:34 | Emergency (ER) | payer MEDICARE ==
[2023-11-17 21:55] VITALS: RESP 18; TEMP 96.9
[2023-11-17] MEDS ORDERED: ARZOL Silver Nitrate Applicator TP ONE (22:04)
[2023-11-17 22:38] VITALS: O2SAT 96
[2023-11-17] MEDS: ARZOL Silver Nitrate Applicator TP ONE (22:54)
[2023-11-17 23:02] VITALS: BP 177/109; PULSE 92
--- NOTE | 2023-11-17 23:09 | ERPHSYRPT ---
- History of Present Illness Time Seen by Provider: 11/17/23 21:45 Source: patient, family Patient Subjective Stated Complaint: pt states she a skin tag remove this morning and it has been bleeding all night Triage Nursing Assessment: pt ambulated into the er; pt is axo x4; c/o bleeding to the rt cheek; pt denies pain; moderate amound of bleed present to rt cheek; pin hole size hole to rt cheek; no respiratory distress present; hypertensive Physician History: 83yo f presents via private vehicle for bleeding lesion on right cheek following minor laser skin procedure at 0900 this AM. Pt reports she started to have some bleeding around 3h prior to arrival, bleeding did soak through multiple gauze pads and at that time decided to come to ED. Pt had small lesion removed by Dr Crespo, pt is unsure what the lesion was. Pt does take plavix, took her dose this evening. Pt currently denies cp, soa, n/v. Timing/Duration: today Allergies/Adverse Reactions: Penicillins Allergy (Severe, Verified 11/17/23 21:40) Difficulty Breathing codeine Allergy (Intermediate, Verified 11/17/23 21:40) Nausea and Vomiting metformin Allergy (Intermediate, Verified 11/17/23 21:40) Nausea and Vomiting Sulfa (Sulfonamide Antibiotics) Allergy (Intermediate, Verified 11/17/23 21:40) Itching ibuprofen Allergy (Verified 11/17/23 21:40) morphine Adverse Reaction (Intermediate, Verified 11/17/23 21:40) HALLUCINATIONS Home Medications: Carvedilol 12.5 mg [Coreg 12.5 mg] 6.25 mg PO DAILY 06/11/13 [History] Glipizide 10 mg [Glucotrol 10 MG] 10 mg PO DAILY 06/11/13 [History] Vit/Fe Fumarate/FA [ Formula Tablet] 1 tab PO DAILY 06/11/13 [History] Atorvastatin Calcium [Lipitor] 40 mg PO DAILY 06/19/13 [History] Aspirin [Aspirin EC] 81 mg PO DAILY 10/03/13 [History] ALPRAZolam 0.25 MG [xanAX 0.25 MG] 0.25 mg PO BID PRN PRN 08/01/19 [History] Albuterol 2.5 mg/3 ml Neb [Proventil 2.5 mg/3 ml Neb] 2.5 mg IH TID 08/01/19 [History] Clopidogrel Bisulfate [PLAVIX 75 MG Tablet] 75 mg PO DAILY 08/01/19 [History] Furosemide [Lasix] 20 mg PO DAILY 11/17/23 [History] Gabapentin 600 mg PO TID 11/17/23 [History] Insulin Detemir [Levemir Flexpen] 30 units SQ DAILY 11/17/23 [History] Ipratropium Rohwer 1 puff IH QID 11/17/23 [History] Metoprolol Succinate 12.5 mg PO DAILY 11/17/23 [History] Hx Tetanus, Diphtheria Vaccination/Date Given: Yes Hx Influenza Vaccination/Date Given: Yes Hx Pneumococcal Vaccination/Date Given: Yes Immunizations Up to Date: No Travel Risk - International Travel Have you traveled outside of the country in past 3 weeks: No - Emerging Infectious Disease Are you exhibiting symptoms associated with any current EIDs: No - Review of Systems Constitutional: No Symptoms Respiratory: No Symptoms Cardiac: No Symptoms Abdominal/Gastrointestinal: No Symptoms Skin: Skin Lesions - Past Medical History Pertinent Past Medical History: Yes Neurological History: No Pertinent History ENT History: No Pertinent History Cardiac History: Coronary Artery Disease, High Cholesterol, Hypertension, Myocardial Infarction (ND) Respiratory History: COPD, Other Endocrine Medical History: Diabetes Type II Musculoskeletal History: Osteoarthritis GI Medical History: No Pertinent History History: No Pertinent History Psycho-Social History: No Pertinent History Female Reproductive Disorders: No Pertinent History Other Medical History: PATIENT HAD CABG X 4 2010 AND REPORTS SOME ARTERY BYPASS FROM HER ARMPIT DOWN HER SIDE AND CAROTID ENDARTERECTOMY ON LEFT - Past Surgical History Past Surgical History: Yes Neuro Surgical History: No Pertinent History Cardiac: CABG, Vascular Surgery, Other Respiratory: No Pertinent History Gastrointestinal: Other Genitourinary: No Pertinent History Musculoskeletal: Orthopedic Surgery Female Surgical History: No Pertinent History Other Surgical History: right artery bypass grafT. QUAD BYPASS. COLONOSCOPY 1 WK AGO. left hand surgery Significant Family History: heart disease - Social History Smoking Status: Former smoker How long have you smoked: 40yrs Exposure to second hand smoke: No Drug Use: none Patient Lives Alone: No - Nursing Vital Signs Nursing Vital Signs: Initial Vital Signs Pulse Rate 92 H 11/17/23 21:40 Blood Pressure 182/112 11/17/23 21:40 O2 Sat by Pulse Oximetry 96 11/17/23 21:40 Pain Scale Pain Intensity 0 - Physical Exam General Appearance: no apparent distress, alert Respiratory Exam: normal breath sounds, lungs clear, No chest tenderness Cardiovascular Exam: regular rate/rhythm Neurologic Exam: alert, oriented x 3, cooperative, normal mood/affect, sensation nml Skin Exam: normal color, warm, other (post-op healing lesion w/ bleeding vessel roughly 1mm in diameter, productive of dark blood - small volume; lesion appears well healing otherwise; non TTP) SpO2 Interpretation: normal SpO2: 96 O2 Delivery: Room Air Ordered Tests: Medication Summary Discontinued Medications Generic Name Dose Route Start Last Admin Trade Name Freq PRN Reason Stop Dose Admin Silver Nitrate Confirm 11/17/23 22:04 Silver Nitrate 1 Pkt Each Administered 11/17/23 22:05 Dose 1 pkt TP .STK-MED ONE Silver Nitrate 1 pkt 11/17/23 22:05 11/17/23 22:54 Silver Nitrate 1 Pkt Each TP 11/17/23 22:06 1 pkt STAT ONE Administration - Progress Progress: improved Progress Note: 11/17/23 23:09 bleeding stopped following application of 3 silver nitrate sticks re-examination after 10-20-30 minutes showed continued hemostasis plan for dc home w/ non-stick gauze to be worn at night to avoid scratching while sleeping given additional non-stick gauze and tape for use for additional nights call for f/u appointment w/ PCP and/or Dr Crespo first lynette next week Return to ED if - bleeding returns and does not stop w/ application of direct pressure Medical Desision Making - Risk of complications Minimal Risk: Minimal risk of morbidity - Departure Departure Disposition: Home Clinical Impression: Postoperative hemorrhage of skin following dermatologic procedure Condition: Stable Critical Care Time: No Referrals: JONNY BROWNE MD [Primary Care Provider] - Follow up/PCP as directed Additional Instructions: plan for dc home w/ non-stick gauze to be worn at night to avoid scratching w hile sleeping given additional non-stick gauze and tape for use for additional nights call for f/u appointment w/ PCP and/or Dr Crespo first lynette next week Return to ED if - bleeding returns and does not stop w/ application of direct pressure
== END 2023-11-17 23:28 | disposition home or self-care (01) ==
LOC: ED 21:34
DX: L76.21 Postprocedural hemorrhage of skin and subcutaneous tissue following a dermatologic procedure (principal); E78.5 Hyperlipidemia, unspecified; I10 Essential (primary) hypertension; E11.9 Type 2 diabetes mellitus without complications; Z79.02 Long term (current) use of antithrombotics/antiplatelets; Z79.84 Long term (current) use of oral hypoglycemic drugs; Z79.4 Long term (current) use of insulin; Z79.899 Other long term (current) drug therapy
CPT/HCPCS: 99281; A9270-GY

== ENCOUNTER 2024-07-25 16:00 | Observation (INO) | payer MEDICARE ==
[2024-07-25] MEDS ORDERED: DUONEB 0.5-3 MG/3 ml Neb IH ONE (16:08)
[2024-07-25] MEDS: DUONEB 0.5-3 MG/3 ml Neb IH ONE (16:22)
[2024-07-25 16:27] LABS: A-aADO2 47; ABG HEMOGLOBIN 14.2; ABG POTASSIUM 3.8 (3.5-5.1); ABG SITE rt brach; ARTERIAL BLD GAS O2 SATURATION 99.9 % (95-100); ARTERIAL BLOOD GAS BASE EXCESS 8.7 (-2.0-2.0); ARTERIAL BLOOD GAS FIO2 32 %; ARTERIAL BLOOD GAS PCO2 51 mmHg (35-45); ARTERIAL BLOOD GAS PO2 117 mmHg (75-100); ARTERIAL BLOOD GAS pH 7.44 (7.35-7.45); CARBOXYHEMOGLOBIN 1.8 % THgb (0.0-6.9); HCO3- 34.6 (22-28); HGB O2 SAT 97.4 g/dF (94-100); Lactic Acid 1.1 (0.4-2.0); Methhemoglobin 0.7 % (1.4-1.5); paO2 pAO1 0.71
--- NOTE | 2024-07-25 16:27 | ERPHSYRPT ---
- History of Present Illness Time Seen by Provider: 07/25/24 16:02 Source: patient, family Exam Limitations: no limitations Patient Subjective Stated Complaint: Pt c/o of shortness of breath for 3 days Triage Nursing Assessment: Pt brought to the ER by her , hypoxic, denies pain, brought into the ER by a wheel chair, pt came in without oxygen but states that she has recently began wearing 24hrs a day just a couple of days ago, pulses normal, skin n/w/d, denies chest pain, resting comfortably on the bed at this time Physician History: 84 years old female with history of hypertension, hyperlipidemia, diabetes mellitus, coronary artery disease with CABG, chronic respiratory failure from COPD, 2.5 L oxygen as needed presented in the ER with 3 days history of increasing shortness of breath initially with exertion and no even resting. She is using neb treatments every 4 hourly with no significant relief. Patient can hardly move from one room to another without getting short of air. She has to rest to catch her breath. Denies any chest pain or tightness. Also reports having chronic cough which is worsening lately. Patient reports earlier she got choked on some fruit and was having a coughing spell. Denies any fever or chills/sick contact. Does have some lower extremity swelling which is a little worse than usual around ankles. Patient's oxygen saturation is in 80s on presentation, placed on 2.5 L oxygen and improved in low 90s. Allergies/Adverse Reactions: Penicillins Allergy (Severe, Verified 07/25/24 16:10) Difficulty Breathing codeine Allergy (Intermediate, Verified 07/25/24 16:10) Nausea and Vomiting metformin Allergy (Intermediate, Verified 07/25/24 16:10) Nausea and Vomiting Sulfa (Sulfonamide Antibiotics) Allergy (Intermediate, Verified 07/25/24 16:10) Itching ibuprofen Allergy (Verified 07/25/24 16:10) morphine Adverse Reaction (Intermediate, Verified 07/25/24 16:10) HALLUCINATIONS Home Medications: Carvedilol 12.5 mg [Coreg 12.5 mg] 6.25 mg PO DAILY 06/11/13 [History] Glipizide 10 mg [Glucotrol 10 MG] 10 mg PO DAILY 06/11/13 [History] Vit/Fe Fumarate/FA [ Formula Tablet] 1 tab PO DAILY 10/29/13 [History] Atorvastatin Calcium [Lipitor] 40 mg PO DAILY 06/19/13 [History] Aspirin [Aspirin EC] 81 mg PO DAILY 10/03/13 [History] ALPRAZolam 0.25 MG [xanAX 0.25 MG] 0.25 mg PO BID PRN PRN 08/01/19 [History] Albuterol 2.5 mg/3 ml Neb [Proventil 2.5 mg/3 ml Neb] 2.5 mg IH TID 08/01/19 [History] Clopidogrel Bisulfate [PLAVIX 75 MG Tablet] 75 mg PO DAILY 08/01/19 [History] Furosemide [Lasix] 20 mg PO DAILY 11/17/23 [History] Gabapentin 600 mg PO TID 11/17/23 [History] Insulin Detemir [Levemir Flexpen] 30 units SQ DAILY 11/17/23 [History] Ipratropium [place] 1 puff IH QID 11/17/23 [History] Metoprolol Succinate 12.5 mg PO DAILY 11/17/23 [History] Hx Tetanus, Diphtheria Vaccination/Date Given: Yes Hx Influenza Vaccination/Date Given: Yes Hx Pneumococcal Vaccination/Date Given: Yes Travel Risk - International Travel Have you traveled outside of the country in past 3 weeks: No - Emerging Infectious Disease Are you exhibiting symptoms associated with any current EIDs: Yes Symptoms: Shortness of Breath - Review of Systems Constitutional: Fatigue, Weakness Eyes: No Symptoms Ears, Nose, & Throat: No Symptoms Respiratory: Cough, Dyspnea, Dyspnea on Exertion (JOHN), Wheezing Cardiac: Edema Abdominal/Gastrointestinal: No Symptoms Genitourinary Symptoms: No Symptoms Musculoskeletal: Arthralgias Skin: No Symptoms Neurological: No Symptoms Psychological: No Symptoms Endocrine: No Symptoms Hematologic/Lymphatic: No Symptoms - Past Medical History Pertinent Past Medical History: Yes Neurological History: No Pertinent History ENT History: No Pertinent History Cardiac History: Coronary Artery Disease, High Cholesterol, Hypertension, Myocardial Infarction ([place]) Respiratory History: COPD, Other Endocrine Medical History: Diabetes Type II Musculoskeletal History: Osteoarthritis GI Medical History: No Pertinent History History: No Pertinent History Psycho-Social History: No Pertinent History Female Reproductive Disorders: No Pertinent History Other Medical History: CAROTID ENDARTERECTOMY ON LEFT, 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 - Past Surgical History Past Surgical History: Yes Neuro Surgical History: No Pertinent History Cardiac: CABG, Vascular Surgery, Other Respiratory: No Pertinent History Gastrointestinal: Other Genitourinary: No Pertinent History Musculoskeletal: Orthopedic Surgery Female Surgical History: No Pertinent History Other Surgical History: right artery bypass graft, left hand surgery Significant Family History: heart disease - Social History Smoking Status: Former smoker How long have you smoked: 40yrs Exposure to second hand smoke: No Drug Use: none Patient Lives Alone: No - Social Determinants of Health Will the patient participate in the screening: Yes Do you worry about a steady place to live?: No Do you have any problems with any of the following?: No known problems In the past 12 months,have you had to go without utilities?: No Transportation Issues: No Has anyone in your support network made you feel unsafe?: No Have you or anyone in your house had to go without enough: No - Nursing Vital Signs Nursing Vital Signs: Initial Vital Signs Pulse Rate 90 07/25/24 16:01 Respiratory Rate 22 07/25/24 16:01 Blood Pressure 114/78 07/25/24 16:01 O2 Sat by Pulse Oximetry 99 07/25/24 16:01 Pain Scale Pain Intensity 0 - Physical Exam General Appearance: no apparent distress, alert Eye Exam: eyes nml inspection Ears, Nose, Throat Exam: hearing grossly normal, normal pharynx Neck Exam: normal inspection, non-tender, supple, full range of motion Respiratory Exam: diminished breath sounds, rhonchi Cardiovascular/Chest Exam: normal heart sounds, regular rate/rhythm, edema (Non pitting edema around ankles) Abdominal/Gastrointestinal Exam: soft, normal bowel sounds, No tenderness Extremity Exam: non-tender, normal range of motion Neurologic Exam: alert, oriented x 3, cooperative Skin Exam: normal color SpO2 Interpretation: O2 applied SpO2: 88 O2 Delivery: Nasal Cannula - Course EKG Interpreted by Me: RATE (90), Sinus Rhythm, Right Lucas Deviation, Right [place] Block, Other (Mild ST depression in anterolateral leads) Ordered Tests: Active Orders 24 hr Category Date Time Status Bedrest ROUTINE Activity 07/25/24 22:29 Active Up With Assistance ROUTINE Activity 07/25/24 22:29 Active Call Admit Doctor for Orders ON ADMISSION Care 07/25/24 22:29 Active Code Status Order ROUTINE Care 07/25/24 22:29 Active Fall Protocol Q1H Care 07/25/24 22:29 Active Oxygen-ED Only Nasal Cannula 2 lpm Care 07/25/24 16:16 Completed POCT Glucose Check ACHS Care 07/25/24 22:[address] in Observation ROUTINE Care 07/25/24 22:29 Active Telemetry q6h Care 07/25/24 22:29 Active CHEST 1 VIEW (PORTABLE) Stat Exams 07/25/24 16:16 Completed ARTERIAL BLOOD GASES Stat Lab 07/25/24 16:16 Completed BLOOD CULTURE Stat Lab 07/25/24 16:54 Received CBC W DIFF Stat Lab 07/25/24 16:50 Completed CMP Stat Lab 07/25/24 16:50 Completed CULTURE,URINE Stat Lab 07/25/24 21:42 Received Lactic Acid Stat Lab 07/25/24 16:16 Completed MAGNESIUM Stat Lab 07/25/24 16:50 Completed NT PRO BNPII Stat Lab 07/25/24 16:50 Completed TROPONIN Q4H Lab 07/25/24 16:50 Completed TROPONIN Q4H Lab 07/25/24 19:15 Completed TROPONIN Q4H Lab 07/26/24 00:30 Ordered UA W/RFX UR CULTURE Stat Lab 07/25/24 21:42 Completed Oxygen Nasal Cannula 2 lpm RT 07/25/24 22:29 Active Pulse Oximetry CONTINUOUS RT 07/25/24 22:29 Completed Respiratory Therapy Assessment DAILY RT 07/25/24 16:23 Completed Respiratory Therapy Consult ONCE RT 07/25/24 22:29 Active Transfer Order Routine Transfer 07/25/24 Completed Medication Summary Discontinued Medications Generic Name Dose Route Start Last Admin Trade Name Jayq PRN Reason Stop Dose Admin Albuterol/Ipratropium Confirm 07/25/24 16:08 Ipratropium/Albuterol Sulfate 3 Ml Ampul.Neb Administered 07/25/24 16:09 Dose 3 ml IH .STK-MED ONE Albuterol/Ipratropium 3 ml 07/25/24 16:16 07/25/24 16:22 Ipratropium/Albuterol Sulfate 3 Ml Ampul.Neb IH 07/25/24 16:17 3 ml STAT ONE Administration Aspirin 324 mg 07/25/24 18:08 07/25/24 18:30 Aspirin 81 Mg Tab.Chew PO 07/25/24 18:09 324 mg STAT ONE Administration Aspirin Confirm 07/25/24 18:29 Aspirin 81 Mg Tab.Chew Administered 07/25/24 18:30 Dose 324 mg .ROUTE .STK-MED ONE Methylprednisolone Sodium 0 mg 07/25/24 16:16 07/25/24 17:36 Succinate 125 mg/ Sterile IV 07/25/24 16:17 125 mg Water 2 ml STAT ONE Administration Levofloxacin/Dextrose 750 mg in 150 mls @ 100 mls/hr 07/25/24 17:58 07/25/24 20:15 Levofloxacin 750mg/150ml D5w IV 07/25/24 19:27 Infused STAT STA Infusion Levofloxacin/Dextrose Confirm 07/25/24 18:29 Levofloxacin 750mg/150ml D5w Administered 07/25/24 18:30 Dose 750 mg in 150 mls @ ud IV .STK-MED ONE Methylprednisolone Sodium Succinate Confirm 07/25/24 17:35 Methylprednis Sod Succ 125 Mg/2 Ml Vial Administered 07/25/24 17:36 Dose 125 mg .ROUTE .STK-MED ONE Sterile Water Confirm 07/25/24 17:35 Water For Injection,Sterile 10 Ml Vial Administered 07/25/24 17:36 Dose 10 ml IJ .STK-MED ONE Lab/Rad Data: Laboratory Result Diagrams 07/25/24 16:50 07/25/24 16:50 Laboratory Results 07/25/24 07/25/24 07/25/24 Range/Units 21:42 19:15 17:00 WBC (3.98-10.04) x10^3/uL RBC (3.93-5.22) x10^6/uL Hgb (11.2-15.7) g/dL Hct (34.1-44.9) % MCV (79.4-94.8) fL MCH (25.6-32.2) pg MCHC (32.2-35.5) g/dL RDW (11.7-14.4) % Plt Count (182-369) x10^3/uL MPV (9.4-12.3) fL Gran % (34.0-71.1) % Immature Gran % (Auto) (0.001-0.429) % Nucleat RBC Rel Count (0.00-0.2) % Eos # (Auto) (0.04-0.36) x10^3/uL Immature Gran # (Auto) (0.001-0.031) x10^3u/L Absolute Lymphs (auto) (1.18-3.74) x10^3/uL Absolute Monos (auto) (0.24-0.86) x10^3/uL Absolute Nucleated RBC (0.00-0.012) x10^3u/L Lymphocytes % (19.3-51.7) % Monocytes % (4.7-12.5) % Eosinophils % (0.7-5.8) % Basophils % (0.1-1.2) % Absolute Granulocytes (1.56-6.13) x10^3/uL Basophils # (0.01-0.08) x10^3/uL Puncture Site pCO2 (35-45) mmHg pO2 (75-100) mmHg Base Excess (-2.0-2.0) O2 Saturation (94-100) g/dF ABG pH (7.35-7.45) ABG HCO3 (22-28) ABG O2 Sat (Measured) (95-100) % [place] Test A-a Gradient a/A Ratio Hemoglobin Carboxyhemoglobin (0.0-6.9) % THgb Methemoglobin (1.4-1.5) % Potassium (3.5-5.1) Temperature C POC O2 Flow Rate % Sodium (135-145) mmol/L Chloride (98-107) mmol/L Carbon Dioxide (22-30) mmol/L Anion Gap (5-15) MEQ/L BUN (7-17) mg/dL Creatinine (0.52-1.04) mg/dL Estimated GFR ML/MIN Glucose (74-106) mg/dL Lactic Acid (0.4-2.0) Calcium (8.4-10.2) mg/dL Magnesium (1.6-2.3) mg/dL Total Bilirubin (0.2-1.3) mg/dL AST (14-36) U/L ALT (0-35) U/L Alkaline Phosphatase (38-126) U/L Troponin I 0.108 H* (0.000-0.033) ng/mL NT-Pro-B Natriuret Pep (<300) pg/mL Serum Total Protein (6.3-8.2) g/dL Albumin (3.5-5.0) g/dL Urine Color Yellow (Yellow) Urine Appearance Clear (Clear) Urine pH 5.0 (4.6-8.0) Ur Specific [place] 1.020 (1.005-1.030) Urine Protein Negative (Negative) Urine Glucose (UA) >=1000 A (Negative) mg/dL Urine Ketones Negative (Negative) Urine Blood Negative (Negative) Urine Nitrite Negative (Negative) Urine Bilirubin Negative (Negative) Urine Urobilinogen 0.2 (0.2) mg/dL Ur Leukocyte Esterase Small A (Negative) U Hyaline Cast (Auto) NONE SEEN (0-2) /LPF Urine Microscopic RBC 0-2 (0-5) /HPF Urine Microscopic WBC 11-20 A (0-5) /HPF Ur Epithelial Cells Rare (None Seen) /HPF Urine Bacteria None Seen (None Seen) /HPF Urine Culture Reflexed YES (NO) Influenza Type A Ag NEGATIVE (NEGATIVE) Influenza Type B Ag NEGATIVE (NEGATIVE) RSV (PCR) NEGATIVE (NEGATIVE) SARS-CoV-2 (PCR) NEGATIVE (NEGATIVE) 07/25/24 07/25/24 07/25/24 Range/Units 16:50 16:50 16:16 WBC 5.5 (3.98-10.04) x10^3/uL RBC 4.73 (3.93-5.22) x10^6/uL Hgb 13.3 (11.2-15.7) g/dL Hct 41.7 (34.1-44.9) % MCV 88.2 (79.4-94.8) fL MCH 28.1 (25.6-32.2) pg MCHC 31.9 L (32.2-35.5) g/dL RDW 15.3 H (11.7-14.4) % Plt Count 179 L (182-369) x10^3/uL MPV 11.4 (9.4-12.3) fL Gran % 69.2 (34.0-71.1) % Immature Gran % (Auto) 0.2 (0.001-0.429) % Nucleat RBC Rel Count 0.0 (0.00-0.2) % Eos # (Auto) 0.11 (0.04-0.36) x10^3/uL Immature Gran # (Auto) 0.01 (0.001-0.031) x10^3u/L Absolute Lymphs (auto) 1.08 L (1.18-3.74) x10^3/uL Absolute Monos (auto) 0.43 (0.24-0.86) x10^3/uL Absolute Nucleated RBC 0.00 (0.00-0.012) x10^3u/L Lymphocytes % 19.8 (19.3-51.7) % Monocytes % 7.9 (4.7-12.5) % Eosinophils % 2.0 (0.7-5.8) % Basophils % 0.9 (0.1-1.2) % Absolute Granulocytes 3.77 (1.56-6.13) x10^3/uL Basophils # 0.05 (0.01-0.08) x10^3/uL Puncture Site rt brach pCO2 51 H (35-45) mmHg pO2 117 H (75-100) mmHg Base Excess 8.7 H (-2.0-2.0) O2 Saturation 97.4 (94-100) g/dF ABG pH 7.44 (7.35-7.45) ABG HCO3 34.6 H* (22-28) ABG O2 Sat (Measured) 99.9 (95-100) % [place]f Test n/a A-a Gradient 47 a/A Ratio 0.71 Hemoglobin 14.2 Carboxyhemoglobin 1.8 (0.0-6.9) % THgb Methemoglobin 0.7 L (1.4-1.5) % Potassium 3.9 3.8 (3.5-5.1) Temperature 37.0 C POC O2 Flow Rate 32 % Sodium 137 (135-145) mmol/L Chloride 101 (98-107) mmol/L Carbon Dioxide 31 H (22-30) mmol/L Anion Gap 8.9 (5-15) MEQ/L BUN 17 (7-17) mg/dL Creatinine 0.71 (0.52-1.04) mg/dL Estimated GFR 84.8 ML/MIN Glucose 117 H (74-106) mg/dL Lactic Acid 1.1 (0.4-2.0) Calcium 9.1 (8.4-10.2) mg/dL Magnesium 1.9 (1.6-2.3) mg/dL Total Bilirubin 0.70 (0.2-1.3) mg/dL AST 33 (14-36) U/L ALT 25 (0-35) U/L Alkaline Phosphatase 90 (38-126) U/L Troponin I 0.096 H* (0.000-0.033) ng/mL NT-Pro-B Natriuret Pep 7430 (<300) pg/mL Serum Total Protein 6.6 (6.3-8.2) g/dL Albumin 3.6 (3.5-5.0) g/dL Urine Color (Yellow) Urine Appearance (Clear) Urine pH (4.6-8.0) Ur Specific [place] (1.005-1.030) Urine Protein (Negative) Urine Glucose (UA) (Negative) mg/dL Urine Ketones (Negative) Urine Blood (Negative) Urine Nitrite (Negative) Urine Bilirubin (Negative) Urine Urobilinogen (0.2) mg/dL Ur Leukocyte Esterase (Negative) U Hyaline Cast (Auto) (0-2) /LPF Urine Microscopic RBC (0-5) /HPF Urine Microscopic WBC (0-5) /HPF Ur Epithelial Cells (None Seen) /HPF Urine Bacteria (None Seen) /HPF Urine Culture Reflexed (NO) Influenza Type A Ag (NEGATIVE) Influenza Type B Ag (NEGATIVE) RSV (PCR) (NEGATIVE) SARS-CoV-2 (PCR) (NEGATIVE) - Progress Progress: improved Air Movement: good Progress Note: 07/25/24 21:33 84 years old with multiple medical problems including CABG, COPD, diabetes mellitus is evaluated in the ER for worsening shortness of breath where she has to use oxygen which normally she does not at home. Even with oxygen she was getting short of breath. She is given Solu-Medrol and neb treatment on arrival, placed on 3 L oxygen with improvement in work of breathing. She is feeling better on reevaluation. Workup showed normal white count, chemistries fairly unremarkable except for initial troponin of 0.096 and the repeat is 0.108. She is given aspirin. She continues to deny having any chest pain. EKG showed sinus rhythm with right bundle branch block and no obvious ST elevation, does have some questionable depression in the anterolateral leads. Chest x-ray showe d right-sided pleural effusion with some infiltrative process. She is given a dose of Levaquin as well. I believe patient is having CHF exacerbation and elevated troponin is possibly secondary to it. On reevaluation patient is able to ambulate in the ER to the bathroom without any limitation and without oxygen and feeling better. I have shared the results of workup with Dr. Dorado, recommended obtaining CT chest without contrast which is done and patient is accepted for admission. I have shared the results of workup with patient and family and plan of admission which they understand and agree. Blood Culture(s) Obtained: Yes Antibiotics given: Yes Discussed with : Teddy Will see patient in: hospital (observation) Counseled pt/family regarding: lab results, diagnosis, rad results Medical Desision Making - Independent Historian Additional History obtained from: Spouse, Child - Discussion of managment Care discussed with:: hospitalist (Dr. Dorado) Reviewed:: Test results Agreed on:: Treatment plan, place in obs Will see patient: in hospital - Diagnostic Testing Diagnostic test were ordered, analyzed, and reviewed by me: Yes Radiological Interpretation: Reviewed by me - Risk of complications The pt has a mod risk of morbidity or mortality based on: Need for prescription drug management The pt has a high risk of morbidity or mortality based on: Decision regarding hospitilization or escalation of hosp level of care - Departure Departure Disposition: Observation Clinical Impression: Community acquired pneumonia, NSTEMI (non-ST elevated myocardial infarction) Condition: Stable Critical Care Time: No
[2024-07-25 17:08] LABS: Absolute Neutrophil Ct (ANC) 3.77 x10^3/uL (1.56-6.13); BASOPHIL % 0.9 % (0.1-1.2); Basophil (Absolute #) 0.05 x10^3/uL (0.01-0.08); Eosinophil (Absolute #) 0.11 x10^3/uL (0.04-0.36); Hematocrit 41.7 % (34.1-44.9); Hemoglobin 13.3 g/dL (11.2-15.7); IMMATURE GRAN # 0.01 x10^3u/L (0.001-0.031); IMMATURE GRAN % 0.2 % (0.001-0.429); Lymphocyte (Absolute #) 1.08 x10^3/uL (1.18-3.74); Lymphocytes % 19.8 % (19.3-51.7); Mean Cell Volume 88.2 fL (79.4-94.8); Mean Corpuscular Hemoglobin 28.1 pg (25.6-32.2); Mean Corpuscular Hgb Concent. 31.9 g/dL (32.2-35.5); Mean Platelet Volume 11.4 fL (9.4-12.3); Monocyte (Absolute #) 0.43 x10^3/uL (0.24-0.86); Monocytes % 7.9 % (4.7-12.5); Neutrophil % 69.2 % (34.0-71.1); Platelet Count 179 x10^3/uL (182-369); Red Blood Count 4.73 x10^6/uL (3.93-5.22); Red Cell Distribution Width 15.3 % (11.7-14.4); White Blood Count 5.5 x10^3/uL (3.98-10.04)
--- NOTE | 2024-07-25 17:26 | XRAY ---
Indication: Short of breath. Comparison: July 22, 2024 Portable chest demonstrates stable right costophrenic angle pleural effusion/thickening with new adjacent right base infiltrate/atelectasis. Remaining heart and left lung unremarkable again with incidental CABG.
[2024-07-25 17:35] LABS: ALBUMIN 3.6 g/dL (3.5-5.0); ANION GAP 8.9 MEQ/L (5-15); BILIRUBIN,TOTAL 0.7 mg/dL (0.2-1.3); Calcium 9.1 mg/dL (8.4-10.2); Creatinine 1 0.71 mg/dL (0.52-1.04); EST GLOMERULAR FILTRATION RATE 84.8 ML/MIN; MAGNESIUM 1.9 mg/dL (1.6-2.3); Potassium 3.9 mmol/L (3.5-5.1); Total Protein 6.6 g/dL (6.3-8.2)
[2024-07-25] MEDS ORDERED: Sterile H2O 10 ml IJ ONE (17:35)
[2024-07-25] MEDS ORDERED: solu-MEDROL ONE (17:35)
[2024-07-25] MEDS: solu-MEDROL 125 MG, Sterile H2O 10 ml 2 ML IV ONE (17:36)
[2024-07-25 17:44] LABS: INFLUENZA A NEGATIVE (NEGATIVE); INFLUENZA B NEGATIVE (NEGATIVE); RESPIRATORY SYNCTIAL VIRUS NEGATIVE (NEGATIVE); SARS-CoV-2 Xpert Express NEGATIVE (NEGATIVE)
[2024-07-25 17:56] LABS: TROPONIN 0.096 ng/mL (0.000-0.033)
[2024-07-25] MEDS ORDERED: BABY ASPIRIN 81 MG CHEW ONE (18:29)
[2024-07-25] MEDS ORDERED: LEVOFLOXACIN 750MG/150ML D5W 750 MG/150 ML BAG IV ONE (18:29)
[2024-07-25] MEDS: BABY ASPIRIN 81 MG CHEW PO ONE (18:30)
[2024-07-25] MEDS: LEVOFLOXACIN 750MG/150ML D5W 750 MG/150 ML BAG IV STA (18:33)
[2024-07-25 22:05] LABS: Appearance Clear (Clear); Bacteria None Seen /HPF (None Seen); Bilirubin Negative (Negative); Blood Negative (Negative); Epithelial Cells Rare /HPF (None Seen); Glucose, Urine >=1000 mg/dL (Negative); Hyaline Casts NONE SEEN /LPF (0-2); Ketones Negative (Negative); Leukocyte Esterase Small (Negative); Nitrite Negative (Negative); Protein,Urine Dip Negative (Negative); RBC 0-2 /HPF (0-5); Urobilinogen 0.2 mg/dL (0.2)
[2024-07-26] MEDS ORDERED: DUONEB 0.5-3 MG/3 ml Neb IH ONE (00:56)
[2024-07-26] MEDS: DUONEB 0.5-3 MG/3 ml Neb IH SCH (01:00)
[2024-07-26] MEDS: HUMALOG SQ PRN (04:12)
[2024-07-26 05:30] LABS: Hematocrit 40.7 % (34.1-44.9); Hemoglobin 12.8 g/dL (11.2-15.7); Mean Cell Volume 87.9 fL (79.4-94.8); Mean Corpuscular Hemoglobin 27.6 pg (25.6-32.2); Mean Corpuscular Hgb Concent. 31.4 g/dL (32.2-35.5); Mean Platelet Volume 11.3 fL (9.4-12.3); Platelet Count 181 x10^3/uL (182-369); Red Blood Count 4.63 x10^6/uL (3.93-5.22); Red Cell Distribution Width 15.1 % (11.7-14.4); White Blood Count 4.3 x10^3/uL (3.98-10.04)
[2024-07-26] MEDS ORDERED: Sterile H2O 10 ml IJ ONE (05:35)
[2024-07-26] MEDS ORDERED: solu-MEDROL ONE (05:35)
[2024-07-26 05:59] LABS: ALBUMIN 3.6 g/dL (3.5-5.0); ANION GAP 7.9 MEQ/L (5-15); BILIRUBIN,TOTAL 0.5 mg/dL (0.2-1.3); Calcium 8.8 mg/dL (8.4-10.2); Creatinine 1 0.75 mg/dL (0.52-1.04); EST GLOMERULAR FILTRATION RATE 79.4 ML/MIN; Potassium 4.1 mmol/L (3.5-5.1); Total Protein 6.7 g/dL (6.3-8.2)
[2024-07-26] MEDS: solu-MEDROL 40 MG, Sterile H2O 10 ml 1 ML IV SCH (06:08)
[2024-07-26] MEDS: PIPERACILLIN/TAZOBACTAM 3.375 GM in Sodium Chloride 100ML MINI-BAG PLUS 100 ML IV SCH (06:41)
[2024-07-26] MEDS ORDERED: NON-FORMULARY ITEM (Meclizine Hcl [Meclizine Hcl] 12.5 MG Tablet) PO PRN (11:37)
[2024-07-26] MEDS ORDERED: ANTIVERT 25 MG PO PRN (12:15)
[2024-07-26] MEDS: Lasix 20 MG/2 ML IV SCH (12:18)
[2024-07-26] MEDS: Zithromax 500 MG/ 250 ML NaCl Premix 500 MG/250 ML IVPB IV SCH (12:19)
[2024-07-26] MEDS ORDERED: MEDICATION INTERVENTION MC SCH (12:30)
[2024-07-26] MEDS ORDERED: PROVENTIL 2.5 MG/3 ML NEB IH SCH (13:00)
[2024-07-26] MEDS: Klor Con PO SCH (13:23)
[2024-07-26] MEDS: Cardizem 30 MG PO SCH (13:23)
[2024-07-26] MEDS: PLAVIX Tablet PO SCH (13:23)
[2024-07-26] MEDS: ECOTRIN 81 MG PO SCH (13:24)
[2024-07-26] MEDS: JARDIANCE PO SCH (13:40)
[2024-07-26] MEDS: Lopressor 25MG Tab PO SCH (15:26)
[2024-07-26] MEDS: Lyrica 50MG PO SCH (15:27)
--- NOTE | 2024-07-26 15:31 | PCM.HP ---
History of Present Illness - Chief Complaint Chief Complaint: NSTEMI, community acquired pneumonia Date: 07/26/24 History of Present Illness: Ms. Soriano is an 84 year-old gentleman with HTN, HLD, DM2, CAD s/p CABG, COPD who presents shortness of breath and cough. She admits to two days of symptoms and upon arrival to [place], she was noted to be hypoxic in the setting of laboratory data that was remarkable for elevated cardiac enzymes and chest imaging that was remarkable for air space disease. Flu and COVID were negative. On my examination, she is feeling better denying any current fevers, chills, nausea, vomiting, diarrhea, syncope, presyncope, visual changes, orthopnea, PND, odynophagia, dysphagia, chest pain, shortness of breath, belly pain, dysuria, hematuria, melena, hematochezia, or neurological changes. All other systems were reviewed and were negative. - Review of Systems Constitutional: No Fever, No Chills Eyes: No Symptoms Ears, Nose, & Throat: No Symptoms Respiratory: Cough, Short Of Breath Cardiac: No Chest Pain, No Edema, No Syncope Abdominal/Gastrointestinal: No Abdominal Pain, No Nausea, No Vomiting, No Diarrhea Genitourinary Symptoms: No Dysuria Musculoskeletal: No Back Pain, No Neck Pain Skin: No Rash Neurological: No Dizziness, No Focal Weakness, No Sensory Changes Psychological: No Symptoms Endocrine: No Symptoms Hematologic/Lymphatic: No Symptoms Immunological/Allergic: No Symptoms Medications & Allergies Home Medications: Home Medication List Glipizide 10 mg [Glucotrol 10 MG] 10 mg PO DAILY 06/11/13 [History Confirmed 07/26/24] Vit/Fe Fumarate/FA [ Formula Tablet] 1 tab PO DAILY 06/11/13 [History Confirmed 07/26/24] Atorvastatin Calcium [Lipitor] 40 mg PO HS 06/19/13 [History Confirmed 07/26/24] Aspirin [Aspirin EC] 81 mg PO DAILY 10/03/13 [History Confirmed 07/26/24] Albuterol 2.5 mg/3 ml Neb [Proventil 2.5 mg/3 ml Neb] 2.5 mg IH TID 08/01/19 [History Confirmed 07/26/24] Clopidogrel Bisulfate [PLAVIX 75 MG Tablet] 75 mg PO DAILY 08/01/19 [History Confirmed 07/26/24] Furosemide [Lasix] 20 mg PO DAILY 11/17/23 [History Confirmed 07/26/24] ALPRAZolam [Alprazolam] 0.5 mg PO HS PRN 07/26/24 [History Confirmed 07/26/24] Diltiazem HCl 30 mg [Cardizem 30 MG] 30 mg PO DAILY 07/26/24 [History Confirmed 07/26/24] Docusate Sodium 100 mg [Docusate Sodium 100 MG] 100 mg PO DAILY PRN 07/26/24 [History Confirmed 07/26/24] Empagliflozin [Jardiance] 10 mg PO DAILY 07/26/24 [History Confirmed 07/26/24] Insulin Glargine,Hum.rec.anlog [Lantus] 30 units SQ DAILY 07/26/24 [History Confirmed 07/26/24] Meclizine HCl 12.5 mg PO TID PRN 07/26/24 [History Confirmed 07/26/24] Metoprolol Tartrate 25 mg [Lopressor 25MG Tab] 12.5 mg PO TID 07/26/24 [History Confirmed 07/26/24] Potassium Chloride 10 meq PO UD 07/26/24 [History Confirmed 07/26/24] Pregabalin 50 mg [Lyrica 50MG] 50 mg PO TID 07/26/24 [History Confirmed 07/26/24] Tiotropium [place] Inhaler [Spiriva 18 Mcg/Cap Inhaler] 2 puff IH Q6H PRN PRN 07/26/24 [History Confirmed 07/26/24] Ubidecarenone [Co Q-10] 50 mg PO HS 07/26/24 [History Confirmed 07/26/24] Allergies/Adverse Reactions: Allergies Allergy/AdvReac Type Severity Reaction Status Date / Time Penicillins Allergy Severe Difficulty Verified 07/25/24 16:10 Breathing codeine Allergy Intermediate Nausea and Verified 07/25/24 16:10 Vomiting metformin Allergy Intermediate Nausea and Verified 07/25/24 16:10 Vomiting Sulfa (Sulfonamide Allergy Intermediate Itching Verified 07/25/24 16:10 Antibiotics) ibuprofen Allergy Verified 07/25/24 16:10 morphine AdvReac Intermediate HALLUCINATI Verified 07/25/24 16:10 ONS - Past Medical History Past Medical History: Yes Neurological History: No Pertinent History ENT History: No Pertinent History Cardiac History: Coronary Artery Disease, High Cholesterol, Hypertension, M yocardial Infarction ([place]) Respiratory History: COPD, Other Endocrine Medical History: Diabetes Type II Musculoskelatal History: Osteoarthritis GI Medical History: No Pertinent History History: No Pertinent History Pyscho-Social History: No Pertinent History Reproductive Disorders: No Pertinent History Comment: CAROTID ENDARTERECTOMY ON LEFT, [employer]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 - Past Surgical History Past Surgical History: Yes Neuro Surgical History: No Pertinent History Cardiac History: CABG, Vascular Surgery, Other Respiratory Surgery: No Pertinent History GI Surgical History: Other Genitourinary Surgical Hx: No Pertinent History Musculskeletal Surgical Hx: Orthopedic Surgery Female Surgical History: No Pertinent History Other Surgical History: right artery bypass graft, left hand surgery Significant Family History: heart disease - Social History Smoking Status: Former smoker How long have you smoked: 40yrs Exposure to second hand smoke: No Alcohol: None Drug Use: none - Social Determinants of Health Will the patient participate in the screening: Yes Do you worry about a steady place to live?: No Do you have any problems with any of the following?: No known problems In the past 12 months,have you had to go without utilities?: No Have you or anyone in your house had to go without enough: No Transportation Issues: No Has anyone in your support network made you feel unsafe?: No Does the patient want assistance with any of the above?: No - Physical Exam Vital Signs: Vital Signs - 24 hr Temp Pulse Resp BP BP Pulse Ox 07/26/24 11:34 97.9 F 99 H 18 113/62 98 07/26/24 10:20 96 H 16 96 07/26/24 08:00 97.3 F 81 18 93/50 95 07/26/24 06:36 78 18 95 07/26/24 04:43 98 07/26/24 04:00 98.1 F 91 H 16 115/60 97 07/26/24 01:00 94 H 20 98 07/26/24 00:13 88 L 07/26/24 00:00 97.6 F 106 H 18 125/72 93 L 07/25/24 22:32 97.6 F 106 H 18 125/72 93 L 07/25/24 22:00 94 H 18 112/78 95 07/25/24 21:30 97 H 18 121/83 95 07/25/24 21:18 100 H 20 132/88 96 07/25/24 20:00 90 19 110/79 96 07/25/24 19:30 94 H 20 119/76 97 07/25/24 19:00 91 H 22 132/78 97 07/25/24 18:30 91 H 18 124/98 97 07/25/24 18:00 86 19 132/80 97 07/25/24 17:30 89 15 106/66 99 07/25/24 17:00 85 17 111/79 99 07/25/24 16:30 85 13 117/71 97 07/25/24 16:23 94 H 19 98 07/25/24 16:03 98.3 F 91 H 16 114/78 88 L 07/25/24 16:01 90 22 114/78 99 General Appearance: no apparent distress, alert Neurologic Exam: alert, oriented x 3, cooperative, normal mood/affect, nml cerebellar function, nml station & gait, sensation nml, No motor deficits Eye Exam: PERRL/EOMI, eyes nml inspection Ears, Nose, Throat Exam: normal ENT inspection, TMs normal, pharynx normal, m oist mucous membranes Neck Exam: normal inspection, non-tender, supple, full range of motion Respiratory Exam: normal breath sounds, lungs clear, No respiratory distress Cardiovascular Exam: regular rate/rhythm, normal heart sounds, normal peripheral pulses Gastrointestinal/Abdomen Exam: soft, normal bowel sounds, No tenderness, No mass Back Exam: normal inspection, normal range of motion, No CVA tenderness, No vertebral tenderness Extremity Exam: normal inspection, normal range of motion, pelvis stable Skin Exam: normal color, warm, dry, No rash Lymphatic Exam: No adenopathy Results - Labs Lab/Micro Results: Lab Results-Last 24 Hours 07/25/24 07/25/24 07/25/24 Range/Units 16:16 16:50 16:50 WBC 5.5 (3.98-10.04) x10^3/uL RBC 4.73 (3.93-5.22) x10^6/uL Hgb 13.3 (11.2-15.7) g/dL Hct 41.7 (34.1-44.9) % MCV 88.2 (79.4-94.8) fL MCH 28.1 (25.6-32.2) pg MCHC 31.9 L (32.2-35.5) g/dL RDW 15.3 H (11.7-14.4) % Plt Count 179 L (182-369) x10^3/uL MPV 11.4 (9.4-12.3) fL Gran % 69.2 (34.0-71.1) % Immature Gran % (Auto) 0.2 (0.001-0.429) % Nucleat RBC Rel Count 0.0 (0.00-0.2) % Eos # (Auto) 0.11 (0.04-0.36) x10^3/uL Immature Gran # (Auto) 0.01 (0.001-0.031) x10^3u/L Absolute Lymphs (auto) 1.08 L (1.18-3.74) x10^3/uL Absolute Monos (auto) 0.43 (0.24-0.86) x10^3/uL Absolute Nucleated RBC 0.00 (0.00-0.012) x10^3u/L Lymphocytes % 19.8 (19.3-51.7) % Monocytes % 7.9 (4.7-12.5) % Eosinophils % 2.0 (0.7-5.8) % Basophils % 0.9 (0.1-1.2) % Absolute Granulocytes 3.77 (1.56-6.13) x10^3/uL Basophils # 0.05 (0.01-0.08) x10^3/uL Puncture Site rt brach pCO2 51 H (35-45) mmHg pO2 117 H (75-100) mmHg Base Excess 8.7 H (-2.0-2.0) O2 Saturation 97.4 (94-100) g/dF ABG pH 7.44 (7.35-7.45) ABG HCO3 34.6 H* (22-28) ABG O2 Sat (Measured) 99.9 (95-100) % Altaf Test n/a A-a Gradient 47 a/A Ratio 0.71 Hemoglobin 14.2 Carboxyhemoglobin 1.8 (0.0-6.9) % THgb Methemoglobin 0.7 L (1.4-1.5) % Potassium 3.8 3.9 (3.5-5.1) Temperature 37.0 C POC O2 Flow Rate 32 % Sodium 137 (135-145) mmol/L Chloride 101 (98-107) mmol/L Carbon Dioxide 31 H (22-30) mmol/L Anion Gap 8.9 (5-15) MEQ/L BUN 17 (7-17) mg/dL Creatinine 0.71 (0.52-1.04) mg/dL Estimated GFR 84.8 ML/MIN Glucose 117 H (74-106) mg/dL POC Glucometer (74 to 106) mg/dL Lactic Acid 1.1 (0.4-2.0) Calcium 9.1 (8.4-10.2) mg/dL Magnesium 1.9 (1.6-2.3) mg/dL Total Bilirubin 0.70 (0.2-1.3) mg/dL AST 33 (14-36) U/L ALT 25 (0-35) U/L Alkaline Phosphatase 90 (38-126) U/L Troponin I 0.096 H* (0.000-0.033) ng/mL NT-Pro-B Natriuret Pep 7430 (<300) pg/mL Serum Total Protein 6.6 (6.3-8.2) g/dL Albumin 3.6 (3.5-5.0) g/dL Urine Color (Yellow) Urine Appearance (Clear) Urine pH (4.6-8.0) Ur Specific [place] (1.005-1.030) Urine Protein (Negative) Urine Glucose (UA) (Negative) mg/dL Urine Ketones (Negative) Urine Blood (Negative) Urine Nitrite (Negative) Urine Bilirubin (Negative) Urine Urobilinogen (0.2) mg/dL Ur Leukocyte Esterase (Negative) U Hyaline Cast (Auto) (0-2) /LPF Urine Microscopic RBC (0-5) /HPF Urine Microscopic WBC (0-5) /HPF Ur Epithelial Cells (None Seen) /HPF Urine Bacteria (None Seen) /HPF Urine Culture Reflexed (NO) Influenza Type A Ag (NEGATIVE) Influenza Type B Ag (NEGATIVE) RSV (PCR) (NEGATIVE) SARS-CoV-2 (PCR) (NEGATIVE) 07/25/24 07/25/24 07/25/24 Range/Units 17:00 19:15 21:42 WBC (3.98-10.04) x10^3/uL RBC (3.93-5.22) x10^6/uL Hgb (11.2-15.7) g/dL Hct (34.1-44.9) % MCV (79.4-94.8) fL MCH (25.6-32.2) pg MCHC (32.2-35.5) g/dL RDW (11.7-14.4) % Plt Count (182-369) x10^3/uL MPV (9.4-12.3) fL Gran % (34.0-71.1) % Immature Gran % (Auto) (0.001-0.429) % Nucleat RBC Rel Count (0.00-0.2) % Eos # (Auto) (0.04-0.36) x10^3/uL Immature Gran # (Auto) (0.001-0.031) x10^3u/L Absolute Lymphs (auto) (1.18-3.74) x10^3/uL Absolute Monos (auto) (0.24-0.86) x10^3/uL Absolute Nucleated RBC (0.00-0.012) x10^3u/L Lymphocytes % (19.3-51.7) % Monocytes % (4.7-12.5) % Eosinophils % (0.7-5.8) % Basophils % (0.1-1.2) % Absolute Granulocytes (1.56-6.13) x10^3/uL Basophils # (0.01-0.08) x10^3/uL Puncture Site pCO2 (35-45) mmHg pO2 (75-100) mmHg Base Excess (-2.0-2.0) O2 Saturation (94-100) g/dF ABG pH (7.35-7.45) ABG HCO3 (22-28) ABG O2 Sat (Measured) (95-100) % [place]f Test A-a Gradient a/A Ratio Hemoglobin Carboxyhemoglobin (0.0-6.9) % THgb Methemoglobin (1.4-1.5) % Potassium (3.5-5.1) Temperature C POC O2 Flow Rate % Sodium (135-145) mmol/L Chloride (98-107) mmol/L Carbon Dioxide (22-30) mmol/L Anion Gap (5-15) MEQ/L BUN (7-17) mg/dL Creatinine (0.52-1.04) mg/dL Estimated GFR ML/MIN Glucose (74-106) mg/dL POC Glucometer (74 to 106) mg/dL Lactic Acid (0.4-2.0) Calcium (8.4-10.2) mg/dL Magnesium (1.6-2.3) mg/dL Total Bilirubin (0.2-1.3) mg/dL AST (14-36) U/L ALT (0-35) U/L Alkaline Phosphatase (38-126) U/L Troponin I 0.108 H* (0.000-0.033) ng/mL NT-Pro-B Natriuret Pep (<300) pg/mL Serum Total Protein (6.3-8.2) g/dL Albumin (3.5-5.0) g/dL Urine Color Yellow (Yellow) Urine Appearance Clear (Clear) Urine pH 5.0 (4.6-8.0) Ur Specific [place] 1.020 (1.005-1.030) Urine Protein Negative (Negative) Urine Glucose (UA) >=1000 A (Negative) mg/dL Urine Ketones Negative (Negative) Urine Blood Negative (Negative) Urine Nitrite Negative (Negative) Urine Bilirubin Negative (Negative) Urine Urobilinogen 0.2 (0.2) mg/dL Ur Leukocyte Esterase Small A (Negative) U Hyaline Cast (Auto) NONE SEEN (0-2) /LPF Urine Microscopic RBC 0-2 (0-5) /HPF Urine Microscopic WBC 11-20 A (0-5) /HPF Ur Epithelial Cells Rare (None Seen) /HPF Urine Bacteria None Seen (None Seen) /HPF Urine Culture Reflexed YES (NO) Influenza Type A Ag NEGATIVE (NEGATIVE) Influenza Type B Ag NEGATIVE (NEGATIVE) RSV (PCR) NEGATIVE (NEGATIVE) SARS-CoV-2 (PCR) NEGATIVE (NEGATIVE) 07/26/24 07/26/24 07/26/24 Range/Units 00:15 04:04 05:28 WBC 4.3 (3.98-10.04) x10^3/uL RBC 4.63 (3.93-5.22) x10^6/uL Hgb 12.8 (11.2-15.7) g/dL Hct 40.7 (34.1-44.9) % MCV 87.9 (79.4-94.8) fL MCH 27.6 (25.6-32.2) pg MCHC 31.4 L (32.2-35.5) g/dL RDW 15.1 H (11.7-14.4) % Plt Count 181 L (182-369) x10^3/uL MPV 11.3 (9.4-12.3) fL Gran % (34.0-71.1) % Immature Gran % (Auto) (0.001-0.429) % Nucleat RBC Rel Count (0.00-0.2) % Eos # (Auto) (0.04-0.36) x10^3/uL Immature Gran # (Auto) (0.001-0.031) x10^3u/L Absolute Lymphs (auto) (1.18-3.74) x10^3/uL Absolute Monos (auto) (0.24-0.86) x10^3/uL Absolute Nucleated RBC (0.00-0.012) x10^3u/L Lymphocytes % (19.3-51.7) % Monocytes % (4.7-12.5) % Eosinophils % (0.7-5.8) % Basophils % (0.1-1.2) % Absolute Granulocytes (1.56-6.13) x10^3/uL Basophils # (0.01-0.08) x10^3/uL Puncture Site pCO2 (35-45) mmHg pO2 (75-100) mmHg Base Excess (-2.0-2.0) O2 Saturation (94-100) g/dF ABG pH (7.35-7.45) ABG HCO3 (22-28) ABG O2 Sat (Measured) (95-100) % Altaf Test A-a Gradient a/A Ratio Hemoglobin Carboxyhemoglobin (0.0-6.9) % THgb Methemoglobin (1.4-1.5) % Potassium (3.5-5.1) Temperature C POC O2 Flow Rate % Sodium (135-145) mmol/L Chloride (98-107) mmol/L Carbon Dioxide (22-30) mmol/L Anion Gap (5-15) MEQ/L BUN (7-17) mg/dL Creatinine (0.52-1.04) mg/dL Estimated GFR ML/MIN Glucose (74-106) mg/dL POC Glucometer 201 H (74 to 106) mg/dL Lactic Acid (0.4-2.0) Calcium (8.4-10.2) mg/dL Magnesium (1.6-2.3) mg/dL Total Bilirubin (0.2-1.3) mg/dL AST (14-36) U/L ALT (0-35) U/L Alkaline Phosphatase (38-126) U/L Troponin I 0.083 H* (0.000-0.033) ng/mL NT-Pro-B Natriuret Pep (<300) pg/mL Serum Total Protein (6.3-8.2) g/dL Albumin (3.5-5.0) g/dL Urine Color (Yellow) Urine Appearance (Clear) Urine pH (4.6-8.0) Ur Specific [place] (1.005-1.030) Urine Protein (Negative) Urine Glucose (UA) (Negative) mg/dL Urine Ketones (Negative) Urine Blood (Negative) Urine Nitrite (Negative) Urine Bilirubin (Negative) Urine Urobilinogen (0.2) mg/dL Ur Leukocyte Esterase (Negative) U Hyaline Cast (Auto) (0-2) /LPF Urine Microscopic RBC (0-5) /HPF Urine Microscopic WBC (0-5) /HPF Ur Epithelial Cells (None Seen) /HPF Urine Bacteria (None Seen) /HPF Urine Culture Reflexed (NO) Influenza Type A Ag (NEGATIVE) Influenza Type B Ag (NEGATIVE) RSV (PCR) (NEGATIVE) SARS-CoV-2 (PCR) (NEGATIVE) 07/26/24 07/26/24 07/26/24 Range/Units 05:28 07:04 11:04 WBC (3.98-10.04) x10^3/uL RBC (3.93-5.22) x10^6/uL Hgb (11.2-15.7) g/dL Hct (34.1-44.9) % MCV (79.4-94.8) fL MCH (25.6-32.2) pg MCHC (32.2-35.5) g/dL RDW (11.7-14.4) % Plt Count (182-369) x10^3/uL MPV (9.4-12.3) fL Gran % (34.0-71.1) % Immature Gran % (Auto) (0.001-0.429) % Nucleat RBC Rel Count (0.00-0.2) % Eos # (Auto) (0.04-0.36) x10^3/uL Immature Gran # (Auto) (0.001-0.031) x10^3u/L Absolute Lymphs (auto) (1.18-3.74) x10^3/uL Absolute Monos (auto) (0.24-0.86) x10^3/uL Absolute Nucleated RBC (0.00-0.012) x10^3u/L Lymphocytes % (19.3-51.7) % Monocytes % (4.7-12.5) % Eosinophils % (0.7-5.8) % Basophils % (0.1-1.2) % Absolute Granulocytes (1.56-6.13) x10^3/uL Basophils # (0.01-0.08) x10^3/uL Puncture Site pCO2 (35-45) mmHg pO2 (75-100) mmHg Base Excess (-2.0-2.0) O2 Saturation (94-100) g/dF ABG pH (7.35-7.45) ABG HCO3 (22-28) ABG O2 Sat (Measured) (95-100) % [place]f Test A-a Gradient a/A Ratio Hemoglobin Carboxyhemoglobin (0.0-6.9) % THgb Methemoglobin (1.4-1.5) % Potassium 4.1 (3.5-5.1) Temperature C POC O2 Flow Rate % Sodium 137 (135-145) mmol/L Chloride 100 (98-107) mmol/L Carbon Dioxide 33 H (22-30) mmol/L Anion Gap 7.9 (5-15) MEQ/L BUN 22 H (7-17) mg/dL Creatinine 0.75 (0.52-1.04) mg/dL Estimated GFR 79.4 ML/MIN Glucose 206 H (74-106) mg/dL POC Glucometer 170 H 236 H (74 to 106) mg/dL Lactic Acid (0.4-2.0) Calcium 8.8 (8.4-10.2) mg/dL Magnesium 2.0 (1.6-2.3) mg/dL Total Bilirubin 0.50 (0.2-1.3) mg/dL AST 30 (14-36) U/L ALT 25 (0-35) U/L Alkaline Phosphatase 84 (38-126) U/L Troponin I (0.000-0.033) ng/mL NT-Pro-B Natriuret Pep (<300) pg/mL Serum Total Protein 6.7 (6.3-8.2) g/dL Albumin 3.6 (3.5-5.0) g/dL Urine Color (Yellow) Urine Appearance (Clear) Urine pH (4.6-8.0) Ur Specific [place] (1.005-1.030) Urine Protein (Negative) Urine Glucose (UA) (Negative) mg/dL Urine Ketones (Negative) Urine Blood (Negative) Urine Nitrite (Negative) Urine Bilirubin (Negative) Urine Urobilinogen (0.2) mg/dL Ur Leukocyte Esterase (Negative) U Hyaline Cast (Auto) (0-2) /LPF Urine Microscopic RBC (0-5) /HPF Urine Microscopic WBC (0-5) /HPF Ur Epithelial Cells (None Seen) /HPF Urine Bacteria (None Seen) /HPF Urine Culture Reflexed (NO) Influenza Type A Ag (NEGATIVE) Influenza Type B Ag (NEGATIVE) RSV (PCR) (NEGATIVE) SARS-CoV-2 (PCR) (NEGATIVE) Accuchecks Date 07/26/24 Date 07/26/24 Date 07/26/24 Time 04:00 - Radiology Impressions Radiology Exams & Impressions: Radiology Procedures Category Date Time Status CHEST 1 VIEW (PORTABLE) Stat Exams 07/25/24 16:16 Completed ECHO W/2D AND DOPPLER [US] Routine Exams 07/26/24 15:15 Ordered - Other Procedures and Tests Respiratory Therapy 07/25/24 16:23 Respiratory Therapy Assessment DAILY 07/25/24 22:29 Oxygen Nasal Cannula 2 lpm Assessment/Plan (1) Community acquired pneumonia Current Visit: Yes Status: Acute Assessment & Plan: ANTIBIOTICS AND STEROIDS Azithromycin Zosyn Solumedrol ASSESSMENT 1. Acute Hypoxemic Respiratory Failure 2. Pneumonia 3. Acute COPD Exacerbation 4. Non-ST Elevation Myocardial Infarction 5. Hypertension 6. Hyperlipidemia 7. Type II Diabetes Mellitus 8. Coronary Artery Disease s/p CAB PLAN 1. Wean oxygen to maintain SaO2 > 90%; currently on 2L 2. Chest imaging with airspace disease; CT non-contrasted ordered 3. Azithro + Zosyn; COVID/Flu negative 4. IV steroids + duonebs 5. Trend cardiac enzymyes; Echo in AM; no need for therapeutic AC 6. Continue home cardiac and diabetic regimen 7. Might need q4hr CBG + ISS given she will be on IV steroids Lovenox The entirety of this encounter was done via telemedicine with audio and visual. Consent was obtained for a telemedicine encounter. José Miguel Dorado MD Pulmonary and Critical Care Medicine Code(s): J18.9 - PNEUMONIA, UNSPECIFIED ORGANISM Telemedicine Encounter - Telemedicine Encounter Telemedicine Encounter: "The entirety of this encounter was performed via Telemedicine" This visit was performed using real-time audio and video connection between my location and thepatients locationwith the assistance of a surrogateat the patients location. Written or verbal consent was obtained from the patient/guardian to perform this visit usingHead[facility] technology. Any patient questions regarding the telemedicine interaction were answered.
[2024-07-26] MEDS: ENOXAPARIN SODIUM SQ SCH (16:20)
[2024-07-26] MEDS: Spiriva 18 Mcg/Cap Inhaler IH SCH (18:45)
[2024-07-26] MEDS: Docusate Sodium 100 MG PO PRN (19:37)
[2024-07-26] MEDS: ZOCOR 20MG PO SCH (21:13)
[2024-07-26] MEDS ORDERED: NON-FORMULARY ITEM (Atorvastatin Calcium [Lipitor] 20 MG Tablet) PO SCH (22:00)
[2024-07-26] MEDS ORDERED: UBIDECARENONE 50 MG PO SCH (22:00)
--- NOTE | 2024-07-27 05:05 | PCM.DS ---
Discharge Summary Date of Admission: 07/25/24 22:23 Date of Discharge: 07/27/24 Admitting Physician: HANY IRENE MD Primary Care Provider: JONNY BROWNE ORLIN Allergies Allergies Penicillins Allergy (Severe, Verified 07/25/24 16:10) Difficulty Breathing codeine Allergy (Intermediate, Verified 07/25/24 16:10) Nausea and Vomiting metformin Allergy (Intermediate, Verified 07/25/24 16:10) Nausea and Vomiting Sulfa (Sulfonamide Antibiotics) Allergy (Intermediate, Verified 07/25/24 16:10) Itching ibuprofen Allergy (Verified 07/25/24 16:10) morphine Adverse Reaction (Intermediate, Verified 07/25/24 16:10) HALLUCINATIONS Hospital Summary - Hospital Course Hospital Course: HPI: Ms. Soriano is an 84 year-old gentleman with HTN, HLD, DM2, CAD s/p CABG, COPD who presents shortness of breath and cough. She admits to two days of symptoms and u ad arrival to [place], she was noted to be hypoxic in the setting of laboratory data that was remarkable for elevated cardiac enzymes and chest imaging that was remarkable for right base infiltrate. Flu and COVID were negative. Patient refused chest CT. Received IP treatment with azithromycin/zosy n - changed to Levaquin due to allergy. Dyspnea and cough improved. UTI with gram + ID -pending final culture and sensitivity. At baseline oxygen. Patient requesting discharge home today. Will discharge on Levaquin and prednisone for pneumonia and UTI coverage. Will contact patient with final culture results if any antibiotic changes. Patient has home nebulizer and home oxygen. Discharge Note New Diagnosis:UTI/Pneumonia New Medications: Levaquin/prednisone Follow Up: PCP Results pending: Final urine culture Latest Assessment & Plan (1) Community acquired pneumonia Current Visit: Yes Status: Acute Assessment & Plan: ANTIBIOTICS AND STEROIDS Azithromycin Zosyn Solumedrol ASSESSMENT 1. Acute Hypoxemic Respiratory Failure 2. Pneumonia 3. Acute COPD Exacerbation 4. Non-ST Elevation Myocardial Infarction 5. Hypertension 6. Hyperlipidemia 7. Type II Diabetes Mellitus 8. Coronary Artery Disease s/p CAB 9. UTI PLAN 1. Wean oxygen to maintain SaO2 > 90%; currently on 2L 2. Chest imaging with airspace disease; CT non-contrasted ordered 3. Azithro + Zosyn; COVID/Flu negative 4. IV steroids + duonebs 5. Trend cardiac enzymyes; Echo in AM; no need for therapeutic AC 6. Continue home cardiac and diabetic regimen 7. Might need q4hr CBG + ISS given she will be on IV steroids Lovenox I spent 35 minutes [id number] with the patient on the day of discharge performing discharge exam, discussing hospital stay and discharge instructions with patient and caregivers, preparation of discharge records, prescriptions & referral forms and addressing any questions/concerns the patient had as documented above. - Vitals & Intake/Output Vital Signs: Vital Signs Temperature 97.2 F 07/26/24 23:40 Pulse Rate 76 07/26/24 23:40 Respiratory Rate 20 07/26/24 23:40 Blood Pressure 91/55 07/26/24 23:40 O2 Sat by Pulse Oximetry 100 07/26/24 23:40 Intake & Output: Intake & Output 07/24/24 07/25/24 07/26/24 07/27/24 11:59 11:59 11:59 11:59 Intake Total 960 1200 Output Total 500 400 Balance 460 800 Weight 58 kg - Lab Result Diagrams: 07/27/24 05:25 07/27/24 05:25 Lab Results-Last 24 Hrs: Lab Results-Last 24 Hours 07/26/24 07/26/24 07/26/24 Range/Units 05:28 05:28 07:04 WBC 4.3 (3.98-10.04) x10^3/uL RBC 4.63 (3.93-5.22) x10^6/uL Hgb 12.8 (11.2-15.7) g/dL Hct 40.7 (34.1-44.9) % MCV 87.9 (79.4-94.8) fL MCH 27.6 (25.6-32.2) pg MCHC 31.4 L (32.2-35.5) g/dL RDW 15.1 H (11.7-14.4) % Plt Count 181 L (182-369) x10^3/uL MPV 11.3 (9.4-12.3) fL Sodium 137 (135-145) mmol/L Potassium 4.1 (3.5-5.1) mmol/L Chloride 100 (98-107) mmol/L Carbon Dioxide 33 H (22-30) mmol/L Anion Gap 7.9 (5-15) MEQ/L BUN 22 H (7-17) mg/dL Creatinine 0.75 (0.52-1.04) mg/dL Estimated GFR 79.4 ML/MIN Glucose 206 H (74-106) mg/dL POC Glucometer 170 H (74 to 106) mg/dL Calcium 8.8 (8.4-10.2) mg/dL Magnesium 2.0 (1.6-2.3) mg/dL Total Bilirubin 0.50 (0.2-1.3) mg/dL AST 30 (14-36) U/L ALT 25 (0-35) U/L Alkaline Phosphatase 84 (38-126) U/L Serum Total Protein 6.7 (6.3-8.2) g/dL Albumin 3.6 (3.5-5.0) g/dL 07/26/24 07/26/24 07/26/24 Range/Units 11:04 16:19 20:53 WBC (3.98-10.04) x10^3/uL RBC (3.93-5.22) x10^6/uL Hgb (11.2-15.7) g/dL Hct (34.1-44.9) % MCV (79.4-94.8) fL MCH (25.6-32.2) pg MCHC (32.2-35.5) g/dL RDW (11.7-14.4) % Plt Count (182-369) x10^3/uL MPV (9.4-12.3) fL Sodium (135-145) mmol/L Potassium (3.5-5.1) mmol/L Chloride (98-107) mmol/L Carbon Dioxide (22-30) mmol/L Anion Gap (5-15) MEQ/L BUN (7-17) mg/dL Creatinine (0.52-1.04) mg/dL Estimated GFR ML/MIN Glucose (74-106) mg/dL POC Glucometer 236 H 212 H 287 H (74 to 106) mg/dL Calcium (8.4-10.2) mg/dL Magnesium (1.6-2.3) mg/dL Total Bilirubin (0.2-1.3) mg/dL AST (14-36) U/L ALT (0-35) U/L Alkaline Phosphatase (38-126) U/L Serum Total Protein (6.3-8.2) g/dL Albumin (3.5-5.0) g/dL 07/27/24 Range/Units 00:48 WBC (3.98-10.04) x10^3/uL RBC (3.93-5.22) x10^6/uL Hgb (11.2-15.7) g/dL Hct (34.1-44.9) % MCV (79.4-94.8) fL MCH (25.6-32.2) pg MCHC (32.2-35.5) g/dL RDW (11.7-14.4) % Plt Count (182-369) x10^3/uL MPV (9.4-12.3) fL Sodium (135-145) mmol/L Potassium (3.5-5.1) mmol/L Chloride (98-107) mmol/L Carbon Dioxide (22-30) mmol/L Anion Gap (5-15) MEQ/L BUN (7-17) mg/dL Creatinine (0.52-1.04) mg/dL Estimated GFR ML/MIN Glucose (74-106) mg/dL POC Glucometer 137 H (74 to 106) mg/dL Calcium (8.4-10.2) mg/dL Magnesium (1.6-2.3) mg/dL Total Bilirubin (0.2-1.3) mg/dL AST (14-36) U/L ALT (0-35) U/L Alkaline Phosphatase (38-126) U/L Serum Total Protein (6.3-8.2) g/dL Albumin (3.5-5.0) g/dL Micro Results-Entire Visit: Accuchecks Date 07/27/24 Date 07/26/24 Date 07/26/24 Date 07/26/24 Date 07/26/24 Time 00:45 Time 20:55 - Radiology Exams Ordered Rad Exams-Entire Visit: Radiology Procedures Category Date Time Status CHEST 1 VIEW (PORTABLE) Stat Exams 07/25/24 16:16 Completed ECHO W/2D AND DOPPLER [US] Routine Exams 07/26/24 15:15 Taken - Procedures and Test Procedures and Tests throughout Hospitalization: Therapy Orders & Screens 07/25/24 16:23 Respiratory Therapy Assessment DAILY Comment: 07/25/24 22:29 Oxygen Nasal Cannula 2 lpm Comment: Respiratory Therapy Consult ONCE Comment: Reason For Exam: 07/26/24 03:52 Respiratory Therapy Assessment DAILY Comment: Diagnosis: NSTEMI, community acquired pneumonia 07/26/24 18:49 Incentive Spirometry UD Comment: Diagnosis: NSTEMI, community acquired pneumonia Discharge Exam General Appearance: no apparent distress Neurologic Exam: alert, oriented x 3, cooperative Eye Exam: PERRL Ears, Nose, Throat Exam: normal ENT inspection Neck Exam: normal inspection Respiratory Exam: crackles/rales Cardiovascular Exam: regular rate/rhythm, normal heart sounds Gastrointestinal/Abdomen Exam: soft, normal bowel sounds Pelvic Exam: deferred Rectal Exam: deferred Back Exam: normal inspection Extremity Exam: normal inspection Skin Exam: normal color Final Diagnosis/Problem List - Final Discharge Diagnosis/Problem (1) Community acquired pneumonia Current Visit: Yes Status: Acute Code(s): J18.9 - PNEUMONIA, UNSPECIFIED ORGANISM (2) COPD exacerbation Current Visit: Yes Status: Chronic Code(s): J44.1 - CHRONIC OBSTRUCTIVE PULMONARY DISEASE W (ACUTE) EXACERBATION (3) HTN (hypertension) Current Visit: Yes Status: Chronic Code(s): I10 - ESSENTIAL (PRIMARY) HYPERTENSION (4) HLD (hyperlipidemia) Current Visit: Yes Status: Chronic Code(s): E78.5 - HYPERLIPIDEMIA, UNSPECIFIED (5) Type 2 diabetes mellitus Current Visit: Yes Status: Chronic (6) CAD (coronary artery disease) Current Visit: Yes Status: Chronic Code(s): I25.10 - ATHSCL HEART DISEASE OF [place] CORONARY ARTERY W/O ANG PCTRS - Discharge Discharge Date: 07/27/24 Disposition: Home, Self-Care Condition: Stable Prescriptions: New Prednisone 20 mg [Deltasone 20 mg] 20 mg PO BID 5 Days #10 tablet levoFLOXacin [Levofloxacin] 750 mg PO DAILY 7 Days #7 tablet Continue Vit/Fe Fumarate/FA [ Formula Tablet] 1 tab PO DAILY Glipizide 10 mg [Glucotrol 10 MG] 10 mg PO DAILY Atorvastatin Calcium [Lipitor] 40 mg PO HS Aspirin [Aspirin EC] 81 mg PO DAILY Clopidogrel Bisulfate [PLAVIX Tablet] 75 mg PO DAILY Albuterol 2.5 mg/3 ml Neb [Proventil 2.5 mg/3 ml Neb] 2.5 mg IH TID Furosemide [Lasix] 20 mg PO DAILY Metoprolol Tartrate 25 mg [Lopressor 25MG Tab] 12.5 mg PO TID Pregabalin 50 mg [Lyrica 50MG] 50 mg PO TID Docusate Sodium 100 mg [Docusate Sodium 100 MG] 100 mg PO DAILY PRN PRN Reason: Constipation Potassium Chloride 10 meq PO UD Meclizine HCl 12.5 mg PO TID PRN PRN Reason: Dizziness Diltiazem HCl 30 mg [Cardizem 30 MG] 30 mg PO DAILY Empagliflozin [Jardiance] 10 mg PO DAILY Ubidecarenone [Co Q-10] 50 mg PO HS Tiotropium [place] Inhaler [Spiriva 18 Mcg/Cap Inhaler] 2 puff IH Q6H PRN PRN PRN Reason: Shortness Of Breath ALPRAZolam [Alprazolam] 0.5 mg PO HS PRN PRN Reason: Anxiety/Agitation Insulin Glargine,Hum.rec.anlog [Lantus] 30 units SQ DAILY Instructions: Peptic ulcers Additional Instructions: IF YOU HAVE ANY TROUBLE WITH YOUR OXYGEN CALL [facility] AT [phone]. THEY SHOULD HAVE 24 HR EMERGENCY OPTION IF AFTER HOURS. Follow up with: JONNY BROWNE MD [Primary Care Provider] - 08/02/24 2:15 pm
[2024-07-27 05:36] LABS: Absolute Neutrophil Ct (ANC) 8.47 x10^3/uL (1.56-6.13); BASOPHIL % 0.1 % (0.1-1.2); Basophil (Absolute #) 0.01 x10^3/uL (0.01-0.08); Eosinophil (Absolute #) 0 x10^3/uL (0.04-0.36); Hematocrit 40.6 % (34.1-44.9); Hemoglobin 12.7 g/dL (11.2-15.7); IMMATURE GRAN # 0.05 x10^3u/L (0.001-0.031); IMMATURE GRAN % 0.5 % (0.001-0.429); Lymphocyte (Absolute #) 0.44 x10^3/uL (1.18-3.74); Lymphocytes % 4.8 % (19.3-51.7); Mean Cell Volume 87.9 fL (79.4-94.8); Mean Corpuscular Hemoglobin 27.5 pg (25.6-32.2); Mean Corpuscular Hgb Concent. 31.3 g/dL (32.2-35.5); Mean Platelet Volume 11.7 fL (9.4-12.3); Monocyte (Absolute #) 0.15 x10^3/uL (0.24-0.86); Monocytes % 1.6 % (4.7-12.5); Platelet Count 188 x10^3/uL (182-369); Red Blood Count 4.62 x10^6/uL (3.93-5.22); Red Cell Distribution Width 15.2 % (11.7-14.4); White Blood Count 9.1 x10^3/uL (3.98-10.04)
[2024-07-27 05:55] LABS: ALBUMIN 3.8 g/dL (3.5-5.0); ANION GAP 10.3 MEQ/L (5-15); BILIRUBIN,TOTAL 0.6 mg/dL (0.2-1.3); Creatinine 1 1.03 mg/dL (0.52-1.04); EST GLOMERULAR FILTRATION RATE 54.3 ML/MIN; Total Protein 6.7 g/dL (6.3-8.2)
[2024-07-27 08:26] LABS: Slide Review 1 YES
[2024-07-27] MEDS ORDERED: Levofloxacin 500 MG Tablet PO SCH (10:00)
[2024-07-27] MEDS ORDERED: PRENATAL VIT PO SCH (10:00)
[2024-07-27] MEDS ORDERED: [UNRECOGNIZED DRUG - OTHER] PO SCH (10:00)
[2024-07-27] MEDS ORDERED: FE FUMARATE PO SCH (10:00)
[2024-07-27] MEDS: Levofloxacin 250MG Tablet PO SCH (10:32)
[2024-07-27] MEDS: Levofloxacin 500 MG Tablet PO SCH (10:32)
[2024-07-27] MEDS: THERAGRAN MULTIVITAMIN PO SCH (10:33)
[2024-07-27] MEDS: LASIX 20 MG PO SCH (11:14)
[2024-07-27] MEDS: DELTASONE 20 MG PO SCH (11:14)
[2024-07-27] MEDS: Zithromax 500 MG/ 250 ML NaCl Premix 500 MG/250 ML IVPB IV ONE (11:14)
[2024-07-27 11:20] VITALS: BP 132/66; TEMP 97.5
[2024-07-27 11:22] VITALS: PULSE 88; RESP 16; O2SAT 97
[2024-07-27] MEDS: TYLENOL 325 MG PO STA (11:57)
== END 2024-07-27 14:23 | disposition home or self-care (01) ==
LOC: ED 16:00 → MED SURG 22:23
PROVIDERS: ADMIT Internal Medicine Critical Care Medicine; ATTEND Internal Medicine Critical Care Medicine
DX: J18.9 Pneumonia, unspecified organism (principal); J44.1 Chronic obstructive pulmonary disease with (acute) exacerbation; R06.02 Shortness of breath; I10 Essential (primary) hypertension; E78.5 Hyperlipidemia, unspecified; E11.9 Type 2 diabetes mellitus without complications; I25.10 Atherosclerotic heart disease of native coronary artery without angina pectoris; Z95.0 Presence of cardiac pacemaker; Z79.01 Long term (current) use of anticoagulants; Z79.899 Other long term (current) drug therapy
CPT/HCPCS: 0241U; 36415; 36600; 71045; 80053; 81001; 82375; 82803; 82947; 83605; 83735; 83880; 84484; 85025; 85027; 87040; 87086; 93268; 93306; 94640; 94760; 96360; 96374; 99285; G0378; Q3014; J0456; J1650; J1817; J1940; J1956; J2919; A9270-GY

== ENCOUNTER 2024-09-08 16:23 | Emergency (ER) | payer MEDICARE ==
[2024-09-08 16:39] VITALS: BP 134/86; PULSE 102; TEMP 96.9; O2SAT 93
--- NOTE | 2024-09-08 16:46 | ERPHSYRPT ---
- History of Present Illness Patient Subjective Stated Complaint: Pt c/o Triage Nursing Assessment: Pt brought to the ER by her , vitals wnl, rates pain as 8/10, pulses normal, skin n/w/d, left foot 2nd toe is bruised and red, remaining toes and pad of foot is red and swollen, pt denies injury, reports toe hurting off and on for a week but more painful today Physician History: Patient is a 84-year-old female with significant past medical history of coronary artery disease hypertension type 2 diabetes mellitus started having pain in her left second toe associated with redness and pain. She denies any other injury. She denies any fever chills nausea vomiting chest pain or shortness of breath. Patient was brought into ER by her in wheelchair. Method of Injury: unknown Quality: constant Severity of Pain-Max: mild Severity of Pain-Current: mild Lower Extremities Pain: foot: left, 2nd toe: left Modifying Factors: Improves With: nothing Associated Symptoms: none Allergies/Adverse Reactions: Penicillins Allergy (Severe, Verified 09/08/24 16:39) Difficulty Breathing codeine Allergy (Intermediate, Verified 09/08/24 16:39) Nausea and Vomiting metformin Allergy (Intermediate, Verified 09/08/24 16:39) Nausea and Vomiting Sulfa (Sulfonamide Antibiotics) Allergy (Intermediate, Verified 09/08/24 16:39) Itching ibuprofen Allergy (Verified 09/08/24 16:39) azithromycin [From Zithromax] Adverse Reaction (Intermediate, Verified 09/08/24 16:39) Headache IV ZITHROMAX CAUSEA HEADACHE AND MUSCLE SPASMS morphine Adverse Reaction (Intermediate, Verified 09/08/24 16:39) HALLUCINATIONS Home Medications: Glipizide 10 mg [Glucotrol 10 MG] 10 mg PO DAILY 06/11/13 [History] Vit/Fe Fumarate/FA [ Formula Tablet] 1 tab PO DAILY 06/11/13 [History] Atorvastatin Calcium [Lipitor] 40 mg PO HS 06/19/13 [History] Aspirin [Aspirin EC] 81 mg PO DAILY 10/03/13 [History] Albuterol 2.5 mg/3 ml Neb [Proventil 2.5 mg/3 ml Neb] 2.5 mg IH TID 08/01/19 [History] Clopidogrel Bisulfate [PLAVIX Tablet] 75 mg PO DAILY 08/01/19 [History] Furosemide [Lasix] 20 mg PO DAILY 11/17/23 [History] ALPRAZolam [Alprazolam] 0.5 mg PO HS PRN 07/26/24 [History] Diltiazem HCl 30 mg [Cardizem 30 MG] 30 mg PO DAILY 07/26/24 [History] Docusate Sodium 100 mg [Docusate Sodium 100 MG] 100 mg PO DAILY PRN 07/26/24 [History] Empagliflozin [Jardiance] 10 mg PO DAILY 07/26/24 [History] Insulin Glargine,Hum.rec.anlog [Lantus] 30 units SQ DAILY 07/26/24 [History] Meclizine HCl 12.5 mg PO TID PRN 07/26/24 [History] Metoprolol Tartrate 25 mg [Lopressor 25MG Tab] 12.5 mg PO TID 07/26/24 [History] Potassium Chloride 10 meq PO UD 07/26/24 [History] Pregabalin 50 mg [Lyrica 50MG] 50 mg PO TID 07/26/24 [History] Tiotropium [place] Inhaler [Spiriva 18 Mcg/Cap Inhaler] 2 puff IH Q6H PRN PRN 07/26/24 [History] Ubidecarenone [Co Q-10] 50 mg PO HS 07/26/24 [History] Hx Tetanus, Diphtheria Vaccination/Date Given: Yes Hx Influenza Vaccination/Date Given: Yes Hx Pneumococcal Vaccination/Date Given: Yes Travel Risk - International Travel Have you traveled outside of the country in past 3 weeks: No - Emerging Infectious Disease Are you exhibiting symptoms associated with any current EIDs: No Symptoms: Shortness of Breath - Review of Systems Constitutional: No Fever, No Chills Eyes: No Symptoms Ears, Nose, & Throat: No Symptoms Respiratory: No Cough, No Dyspnea Cardiac: No Chest Pain, No Edema, No Syncope Abdominal/Gastrointestinal: No Abdominal Pain, No Nausea, No Vomiting, No Diarrhea Genitourinary Symptoms: No Dysuria Musculoskeletal: Joint Pain, Joint Swelling (left foot), No Back Pain, No Neck Pain Skin: No Rash Neurological: No Dizziness, No Focal Weakness, No Sensory Changes Psychological: No Symptoms Endocrine: No Symptoms All Other Systems: Reviewed and Negative - Past Medical History Pertinent Past Medical History: Yes Neurological History: No Pertinent History ENT History: No Pertinent History Cardiac History: Coronary Artery Disease, High Cholesterol, Hypertension, Myocardial Infarction ([place]) Respiratory History: COPD, Other Endocrine Medical History: Diabetes Type II Musculoskeletal History: Osteoarthritis GI Medical History: No Pertinent History History: No Pertinent History Psycho-Social History: No Pertinent History Female Reproductive Disorders: No Pertinent History Other Medical History: CAROTID ENDARTERECTOMY ON LEFT, Medicaid Plan Compliance Director: Dr. Gavin - Past Surgical History Past Surgical History: Yes Neuro Surgical History: No Pertinent History Cardiac: CABG, Vascular Surgery, Other Respiratory: No Pertinent History Gastrointestinal: Other Genitourinary: No Pertinent History Musculoskeletal: Orthopedic Surgery Female Surgical History: No Pertinent History Other Surgical History: right artery bypass graft, left hand surgery Significant Family History: heart disease - Social History Smoking Status: Former smoker How long have you smoked: 40yrs Exposure to second hand smoke: No Drug Use: none Patient Lives Alone: No - Social Determinants of Health Will the patient participate in the screening: Yes Do you worry about a steady place to live?: No Do you have any problems with any of the following?: No known problems In the past 12 months,have you had to go without utilities?: No Transportation Issues: No Has anyone in your support network made you feel unsafe?: No Have you or anyone in your house had to go without enough: No - Nursing Vital Signs Nursing Vital Signs: Initial Vital Signs Temperature 96.9 F 09/08/24 16:29 Pulse Rate 102 H 09/08/24 16:29 Blood Pressure 134/86 09/08/24 16:29 O2 Sat by Pulse Oximetry 93 L 09/08/24 16:29 Pain Scale Pain Intensity 8 - Physical Exam General Appearance: alert Eyes, Ears, Nose, Throat Exam: moist mucous membranes Neck Exam: non-tender, supple Cardiovascular/Respiratory Exam: chest non-tender, normal breath sounds, regular rate/rhythm, no respiratory distress Gastrointestinal/Abdominal Exam: non-tender, guarding Back Exam: normal inspection, No vertebral tenderness Hips Exam: bilateral: non-tender Legs Exam: bilateral leg: non-tender Knees Exam: bilateral knee: non-tender Ankle Exam: bilateral ankle: non-tender Foot Exam: left foot: ecchymosis, pain, soft tissue tenderness, swelling (2nd toe) Neuro/Tendon Exam: normal sensation, normal motor functions Mental Status Exam: alert, oriented x 3, cooperative Skin Exam: normal color, warm, dry SpO2: 93 - Course Nursing assessment & vital signs reviewed: Yes - Radiology Exams Foot X-ray Interpretation: Interpreted by me, Reviewed by me, Negative, No Fracture Ordered Tests: Active Orders 24 hr Category Date Time Status FOOT (MINIMUM 3 VIEWS) Stat Exams 09/08/24 16:42 Taken CBC W DIFF Stat Lab 09/08/24 16:50 Completed CMP Stat Lab 09/08/24 16:50 Completed Uric Acid Stat Lab 09/08/24 16:50 Completed Lab/Rad Data: Laboratory Result Diagrams 09/08/24 16:50 09/08/24 16:50 Laboratory Results 09/08/24 09/08/24 Range/Units 16:50 16:50 WBC 7.2 (3.98-10.04) x10^3/uL RBC 4.65 (3.93-5.22) x10^6/uL Hgb 12.9 (11.2-15.7) g/dL Hct 41.2 (34.1-44.9) % MCV 88.6 (79.4-94.8) fL MCH 27.7 (25.6-32.2) pg MCHC 31.3 L (32.2-35.5) g/dL RDW 17.5 H (11.7-14.4) % Plt Count 144 L (182-369) x10^3/uL MPV 12.0 (9.4-12.3) fL Gran % 64.9 (34.0-71.1) % Immature Gran % (Auto) 0.3 (0.001-0.429) % Nucleat RBC Rel Count 0.0 (0.00-0.2) % Eos # (Auto) 0.12 (0.04-0.36) x10^3/uL Immature Gran # (Auto) 0.02 (0.001-0.031) x10^3u/L Absolute Lymphs (auto) 1.59 (1.18-3.74) x10^3/uL Absolute Monos (auto) 0.77 (0.24-0.86) x10^3/uL Absolute Nucleated RBC 0.00 (0.00-0.012) x10^3u/L Lymphocytes % 22.0 (19.3-51.7) % Monocytes % 10.7 (4.7-12.5) % Eosinophils % 1.7 (0.7-5.8) % Basophils % 0.4 (0.1-1.2) % Absolute Granulocytes 4.69 (1.56-6.13) x10^3/uL Basophils # 0.03 (0.01-0.08) x10^3/uL Sodium 140 (135-145) mmol/L Potassium 4.4 (3.5-5.1) mmol/L Chloride 104 (98-107) mmol/L Carbon Dioxide 30 (22-30) mmol/L Anion Gap 9.8 (5-15) MEQ/L BUN 24 H (7-17) mg/dL Creatinine 0.75 (0.52-1.04) mg/dL Estimated GFR 79.4 ML/MIN Glucose 122 H (74-106) mg/dL Uric Acid 4.3 (2.6-6.0) mg/dL Calcium 9.2 (8.4-10.2) mg/dL Total Bilirubin 0.70 (0.2-1.3) mg/dL AST 35 (14-36) U/L ALT 22 (0-35) U/L Alkaline Phosphatase 70 (38-126) U/L Serum Total Protein 6.6 (6.3-8.2) g/dL Albumin 3.9 (3.5-5.0) g/dL - Progress Progress: unchanged Counseled pt/family regarding: lab results, diagnosis, need for follow-up, rad results Medical Desision Making - Independent Historian Additional History obtained from: Spouse - Diagnostic Testing Diagnostic test were ordered, analyzed, and reviewed by me: Yes Radiological Interpretation: Interpreted by me, Reviewed by me - Risk of complications Low Risk: Low risk of morbidity from additional dx testing or treatment - Departure Departure Disposition: Home Clinical Impression: Metatarsalgia, left foot Condition: Stable Critical Care Time: No Referrals: JONNY BROWNE MD [Primary Care Provider] - Follow up/PCP as directed Instructions: Toe Injury (DC) Additional Instructions: Discharge/Care Plan MIGEL SANTIAGO was seen on 09/08/24 in the Emergency Room. The patient was counseled regarding Diagnosis,Lab results, Imaging studies, need for follow up and when to return to the Emergency Room. Prescriptions given: Discharge Note I have spoken with the patient and/or caregivers. I have explained the patient's condition, diagnosis and treatment plan based on the information available to me at this time. I have answered the patient's and/or caregiver's questions and addressed any concerns. The patient and/or caregivers have as good understanding of the patient's diagnosis, condition and treatment plan as can be expected at this point. The vital signs have been stable. The patient's condition is stable and appropriate for discharge from the emergency department. The patient will pursue further outpatient evaluation with the primary care physician or other designated or consulting physician as outlined in the discharge instructions. The patient and/or caregivers are agreeable to this plan of care and follow-up instructions have been explained in detail. The patient and/or caregivers have received these instruction. The patient/and or caregivers are aware that any significant change in condition or worsening of symptoms should prompt an immediate return to this or the closest emergency department or call 911. JACKMIGEL TERRY was seen on 09/08/24 n the Emergency Room. At that time you were treated for an emergent condition, during your visit Laboratory, Radiology and/or other procedures may have been ordered. It is very important that you follow-up with your Primary Care Physician JONNY BROWNE within the next 24- 48 hours to review your Emergency Room visit and the final results of testing that was ordered. Some test results such as Urine Cultures, Blood Cultures, and other cultures if ordered will not be finalized for 24-48 hours. If you do not have a Primary Care Provider please call the medical records department at [phone] ext [phone] to obtain a copy of your results or you may sign into our patient portal to obtain these results by visiting us @ [email or web address] and completing the following steps: 1. Click on the Patient Portal link 2. Click the Patient Self Enrollment Link to complete the enrollment form and entering your 3. Once the enrollment form is completed you will receive an email with a temporary ID and password at the email address you provided. 4. Next choose a user name and password. Your user name must be at least 4 characters long and your password must be at least 4 characters long. 5. Choose a security question from the list and provide your answer to the question. If you already have signed into the Health Portal you may access your Health Care Information 06/03 by the following steps: 1. Login to our website @ [email or web address] 2. Enter your original user name and password. FAQS The [facility] Health Portal is an online tool that contains your Lab Results, Radiology Reports, Visit History, Discharge Instructions and Health Summary Lab and Radiology Results will not be available for 72 hours on the portal. The Portal is a secure site, passwords are encryted and URLs are re-written so they cannot be copied and pasted. You and authorized family members are the only ones who can access your Portal. Also there is a timeout feature that protects your information if you leave the Portal page open. If you have technical difficulty please use the Contact Us link on the page this will allow you to submit any questions you have regarding the Portal or you may contact the Medical Record Department at [phone] ext [phone]. Prescriptions: Indomethacin 25 mg [Indocin 25 MG] 25 mg PO TID #10 cap
[2024-09-08 17:00] LABS: Absolute Neutrophil Ct (ANC) 4.69 x10^3/uL (1.56-6.13); BASOPHIL % 0.4 % (0.1-1.2); Basophil (Absolute #) 0.03 x10^3/uL (0.01-0.08); Eosinophil % 1.7 % (0.7-5.8); Eosinophil (Absolute #) 0.12 x10^3/uL (0.04-0.36); Hematocrit 41.2 % (34.1-44.9); Hemoglobin 12.9 g/dL (11.2-15.7); IMMATURE GRAN # 0.02 x10^3u/L (0.001-0.031); IMMATURE GRAN % 0.3 % (0.001-0.429); Lymphocyte (Absolute #) 1.59 x10^3/uL (1.18-3.74); Mean Cell Volume 88.6 fL (79.4-94.8); Mean Corpuscular Hemoglobin 27.7 pg (25.6-32.2); Mean Corpuscular Hgb Concent. 31.3 g/dL (32.2-35.5); Monocyte (Absolute #) 0.77 x10^3/uL (0.24-0.86); Monocytes % 10.7 % (4.7-12.5); Neutrophil % 64.9 % (34.0-71.1); Platelet Count 144 x10^3/uL (182-369); Red Blood Count 4.65 x10^6/uL (3.93-5.22); Red Cell Distribution Width 17.5 % (11.7-14.4); White Blood Count 7.2 x10^3/uL (3.98-10.04)
[2024-09-08 17:14] LABS: ALBUMIN 3.9 g/dL (3.5-5.0); ANION GAP 9.8 MEQ/L (5-15); BILIRUBIN,TOTAL 0.7 mg/dL (0.2-1.3); Calcium 9.2 mg/dL (8.4-10.2); Creatinine 1 0.75 mg/dL (0.52-1.04); EST GLOMERULAR FILTRATION RATE 79.4 ML/MIN; Potassium 4.4 mmol/L (3.5-5.1); Total Protein 6.6 g/dL (6.3-8.2); Uric Acid 4.3 mg/dL (2.6-6.0)
[2024-09-08] MEDS ORDERED: TORAdol 30 mg Injection ONE (17:29)
[2024-09-08] MEDS: TORAdol 30 mg Injection IM ONE (17:33)
--- NOTE | 2024-09-08 18:36 | XRAY ---
Indication: Pain. Comparison: None 3 nonweightbearing views left foot demonstrates osteopenia, tiny spurring base 5th metatarsal/plantar calcaneus, and mild scattered vascular calcifications. No acute bony, articular, or soft tissue abnormalities.
== END 2024-09-08 18:09 | disposition home or self-care (01) ==
LOC: ED 16:23
DX: M77.42 Metatarsalgia, left foot (principal); I10 Essential (primary) hypertension; E11.9 Type 2 diabetes mellitus without complications; Z79.84 Long term (current) use of oral hypoglycemic drugs; Z79.02 Long term (current) use of antithrombotics/antiplatelets; Z79.4 Long term (current) use of insulin; Z79.899 Other long term (current) drug therapy
CPT/HCPCS: 36415; 73630; 80053; 84550; 85025; 96372; 99283; 99284; J1885

== ENCOUNTER 2024-09-16 10:09 | Observation (INO) | payer MEDICARE ==
--- NOTE | 2024-09-16 10:17 | ERPHSYRPT ---
- History of Present Illness Time Seen by Provider: 09/16/24 10:17 Source: patient, family Exam Limitations: no limitations Physician History: This is an 84-year-old white female patient of Dr. Gracia who arrives by private vehicle accompanied by her spouse secondary to worsening shortness of breath over several weeks. Patient initially went to the urgent care clinic without her oxygen on and was found to be short of breath and her room air oxygen saturation levels in the 80s. She is supposed to be on 2 L of oxygen via nasal cannula 06/03. Patient was sent to our emergency department and we placed her on 2 L oxygen via nasal cannula and her room air oxygen saturation level was 98% at the time of my examination. She is in no distress and she states she is deyvi thing better. Patient has a history of CHF, COPD, hyperlipidemia, hypertension and diabetes. Patient states that she does get pneumonia often. Patient does not have chest pain Severity of Dyspnea-Max: moderate Severity of Dyspnea-Current: mild Possible Cause: occasional episodes Modifying Factors: Improves With: activity Associated Symptoms: weakness, No chest pain/discomfort Allergies/Adverse Reactions: Penicillins Allergy (Severe, Verified 09/16/24 10:14) Difficulty Breathing codeine Allergy (Intermediate, Verified 09/16/24 10:14) Nausea and Vomiting metformin Allergy (Intermediate, Verified 09/16/24 10:14) Nausea and Vomiting Sulfa (Sulfonamide Antibiotics) Allergy (Intermediate, Verified 09/16/24 10:14) Itching ibuprofen Allergy (Verified 09/16/24 10:14) azithromycin [From Zithromax] Adverse Reaction (Intermediate, Verified 09/16/24 10:14) Headache IV ZITHROMAX CAUSEA HEADACHE AND MUSCLE SPASMS morphine Adverse Reaction (Intermediate, Verified 09/16/24 10:14) HALLUCINATIONS Home Medications: Glipizide 10 mg [Glucotrol 10 MG] 10 mg PO DAILY 06/11/13 [History] Vit/Fe Fumarate/FA [ Formula Tablet] 1 tab PO DAILY 06/11/13 [History] Atorvastatin Calcium [Lipitor] 40 mg PO HS 06/19/13 [History] Aspirin [Aspirin EC] 81 mg PO DAILY 10/03/13 [History] Albuterol 2.5 mg/3 ml Neb [Proventil 2.5 mg/3 ml Neb] 2.5 mg IH TID 08/01/19 [History] Clopidogrel Bisulfate [PLAVIX Tablet] 75 mg PO DAILY 08/01/19 [History] Furosemide [Lasix] 20 mg PO DAILY 11/17/23 [History] ALPRAZolam [Alprazolam] 0.5 mg PO HS PRN 07/26/24 [History] Diltiazem HCl 30 mg [Cardizem 30 MG] 30 mg PO DAILY 07/26/24 [History] Docusate Sodium 100 mg [Docusate Sodium 100 MG] 100 mg PO DAILY PRN 07/26/24 [History] Empagliflozin [Jardiance] 10 mg PO DAILY 07/26/24 [History] Insulin Glargine,Hum.rec.anlog [Lantus] 30 units SQ DAILY 07/26/24 [History] Meclizine HCl 12.5 mg PO TID PRN 07/26/24 [History] Metoprolol Tartrate 25 mg [Lopressor 25MG Tab] 12.5 mg PO TID 07/26/24 [ History] Potassium Chloride 10 meq PO UD 07/26/24 [History] Pregabalin 50 mg [Lyrica 50MG] 50 mg PO TID 07/26/24 [History] Tiotropium [place] Inhaler [Spiriva 18 Mcg/Cap Inhaler] 2 puff IH Q6H PRN PRN 07/26/24 [History] Ubidecarenone [Co Q-10] 50 mg PO HS 07/26/24 [History] Hx Tetanus, Diphtheria Vaccination/Date Given: Yes Hx Influenza Vaccination/Date Given: Yes Hx Pneumococcal Vaccination/Date Given: Yes Travel Risk - Emerging Infectious Disease Are you exhibiting symptoms associated with any current EIDs: No Symptoms: Shortness of Breath - Review of Systems Constitutional: No Symptoms Eyes: No Symptoms Ears, Nose, & Throat: No Symptoms Respiratory: Dyspnea, Dyspnea on Exertion (JOHN) Cardiac: No Symptoms Abdominal/Gastrointestinal: No Symptoms Genitourinary Symptoms: No Symptoms Musculoskeletal: No Symptoms Skin: No Symptoms Neurological: No Symptoms Psychological: No Symptoms Endocrine: No Symptoms Hematologic/Lymphatic: No Symptoms Immunological/Allergic: No Symptoms All Other Systems: Reviewed and Negative - Past Medical History Pertinent Past Medical History: Yes Neurological History: No Pertinent History ENT History: No Pertinent History Cardiac History: Coronary Artery Disease, High Cholesterol, Hypertension, Myocardial Infarction (ID) Respiratory History: COPD, Other Endocrine Medical History: Diabetes Type II Musculoskeletal History: Osteoarthritis GI Medical History: No Pertinent History History: No Pertinent History Psycho-Social History: No Pertinent History Female Reproductive Disorders: No Pertinent History Other Medical History: CAROTID ENDARTERECTOMY ON LEFT, Certified Optician: Dr. Gavin - Past Surgical History Past Surgical History: Yes Neuro Surgical History: No Pertinent History Cardiac: CABG, Vascular Surgery, Other Respiratory: No Pertinent History Gastrointestinal: Other Genitourinary: No Pertinent History Musculoskeletal: Orthopedic Surgery Female Surgical History: No Pertinent History Other Surgical History: right artery bypass graft, left hand surgery Significant Family History: heart disease - Social History Smoking Status: Former smoker How long have you smoked: 40yrs Exposure to second hand smoke: No Drug Use: none Patient Lives Alone: No - Social Determinants of Health Will the patient participate in the screening: Yes Do you worry about a steady place to live?: No In the past 12 months,have you had to go without utilities?: No Transportation Issues: No Has anyone in your support network made you feel unsafe?: No Have you or anyone in your house had to go without enough: No - Nursing Vital Signs Nursing Vital Signs: Initial Vital Signs Temperature 97.3 F 09/16/24 10:15 Pulse Rate 98 H 09/16/24 10:15 Respiratory Rate 20 09/16/24 10:15 Blood Pressure 121/82 09/16/24 10:15 O2 Sat by Pulse Oximetry 98 09/16/24 10:15 Pain Scale Pain Intensity 0 - Physical Exam General Appearance: no apparent distress, alert, anxiety, thin Eye Exam: PERRL/EOMI, eyes nml inspection Ears, Nose, Throat Exam: hearing grossly normal, normal ENT inspection, normal pharynx Neck Exam: normal inspection, non-tender, supple, full range of motion Respiratory Exam: normal breath sounds, lungs clear, airway intact, No chest tenderness, No respiratory distress Cardiovascular/Chest Exam: normal heart sounds, regular rate/rhythm Abdominal/Gastrointestinal Exam: soft, normal bowel sounds, No tenderness Rectal Exam: not done Extremity Exam: non-tender, normal range of motion, normal inspection Neurologic Exam: alert, oriented x 3, cooperative, private household worker II-XII nml as tested, normal mood/affect, nml cerebellar function, nml station & gait, sensation nml Skin Exam: normal color, warm, dry Lymphatic Exam: No adenopathy SpO2 Interpretation: normal SpO2: 98 O2 Delivery: Nasal Cannula (2 L oxygen via nasal cannula) - Course Nursing assessment & vital signs reviewed: Yes EKG Interpreted by Me: RATE (100), Sinus Tach, NORMAL AXIS, NORMAL INTERVALS, Right Bundle Branch Block, Other (No acute ischemic changes. QTc is 498) Ordered Tests: Active Orders 24 hr Category Date Time Status EKG-ER Only STAT Care 09/16/24 10:35 Active IV Insertion STAT Care 09/16/24 10:35 Active Oxygen-ED Only Nasal Cannula 2 lpm Care 09/16/24 10:35 Active Pulse Oximetry (ED) STAT Care 09/16/24 10:35 Active CHEST 1 VIEW (PORTABLE) Stat Exams 09/16/24 10:36 Completed BLOOD CULTURE Stat Lab 09/16/24 10:55 Received CBC W DIFF Stat Lab 09/16/24 10:50 Completed CMP Stat Lab 09/16/24 10:50 Results Lactic Acid Stat Lab 09/16/24 10:35 Completed MAGNESIUM Stat Lab 09/16/24 10:50 Results NT PRO BNPII Stat Lab 09/16/24 10:50 Results TROPONIN Q4H Lab 09/16/24 10:50 Completed TROPONIN Q4H Lab 09/16/24 14:45 Ordered TROPONIN Q4H Lab 09/16/24 18:45 Ordered Medication Summary Discontinued Medications Generic Name Dose Route Start Last Admin Trade Name Freq PRN Reason Stop Dose Admin Furosemide 40 mg 09/16/24 11:34 09/16/24 12:00 Furosemide 40 Mg/4 Ml Vial IV 09/16/24 11:35 40 mg STAT ONE Administration Furosemide Confirm 09/16/24 11:58 Furosemide 40 Mg/4 Ml Vial Administered 09/16/24 11:59 Dose 40 mg .ROUTE .STK-MED ONE Levofloxacin/Dextrose 500 mg in 100 mls @ 100 mls/hr 09/16/24 11:35 09/16/24 13:05 Levofloxacin 500mg/100ml D5w IV 09/16/24 12:34 Infused STAT STA Infusion Levofloxacin/Dextrose Confirm 09/16/24 11:59 Levofloxacin 500mg/100ml D5w Administered 09/16/24 12:00 Dose 500 mg in 100 mls @ ud IV .K-MED ONE Lab/Rad Data: Laboratory Result Diagrams 09/16/24 10:50 09/16/24 10:50 Laboratory Results 09/16/24 09/16/24 09/16/24 Range/Units 10:50 10:50 10:50 WBC (3.98-10.04) x10^3/uL RBC (3.93-5.22) x10^6/uL Hgb (11.2-15.7) g/dL Hct (34.1-44.9) % MCV (79.4-94.8) fL MCH (25.6-32.2) pg MCHC (32.2-35.5) g/dL RDW (11.7-14.4) % Plt Count (182-369) x10^3/uL MPV (9.4-12.3) fL Gran % (34.0-71.1) % Immature Gran % (Auto) (0.001-0.429) % Nucleat RBC Rel Count (0.00-0.2) % Eos # (Auto) (0.04-0.36) x10^3/uL Immature Gran # (Auto) (0.001-0.031) x10^3u/L Absolute Lymphs (auto) (1.18-3.74) x10^3/uL Absolute Monos (auto) (0.24-0.86) x10^3/uL Absolute Nucleated RBC (0.00-0.012) x10^3u/L Lymphocytes % (19.3-51.7) % Monocytes % (4.7-12.5) % Eosinophils % (0.7-5.8) % Basophils % (0.1-1.2) % Absolute Granulocytes (1.56-6.13) x10^3/uL Basophils # (0.01-0.08) x10^3/uL Sodium 140 (135-145) mmol/L Sodium Direct Pending Potassium 4.3 (3.5-5.1) mmol/L Chloride 100 (98-107) mmol/L Carbon Dioxide 33 H (22-30) mmol/L Anion Gap 11.3 (5-15) MEQ/L BUN 16 (7-17) mg/dL Venous BUN Pending Creatinine 0.79 (0.52-1.04) mg/dL Estimated GFR 74.6 ML/MIN Glucose 88 (74-106) mg/dL Lactic Acid (0.4-2.0) Calcium 8.9 (8.4-10.2) mg/dL Ionized Calcium Pending Magnesium 2.0 (1.6-2.3) mg/dL Total Bilirubin 1.20 (0.2-1.3) mg/dL AST 33 (14-36) U/L ALT 20 (0-35) U/L Alkaline Phosphatase 91 (38-126) U/L Troponin I 0.027 (0.000-0.033) ng/mL NT-Pro-B Natriuret Pep 7100 (<300) pg/mL Serum Total Protein 6.4 (6.3-8.2) g/dL Albumin 3.9 (3.5-5.0) g/dL Influenza Type A Ag NEGATIVE (NEGATIVE) Influenza Type B Ag NEGATIVE (NEGATIVE) RSV (PCR) NEGATIVE (NEGATIVE) SARS-CoV-2 (PCR) NEGATIVE (NEGATIVE) 09/16/24 09/16/24 Range/Units 10:50 10:35 WBC 5.4 (3.98-10.04) x10^3/uL RBC 4.67 (3.93-5.22) x10^6/uL Hgb 13.2 (11.2-15.7) g/dL Hct 41.8 (34.1-44.9) % MCV 89.5 (79.4-94.8) fL MCH 28.3 (25.6-32.2) pg MCHC 31.6 L (32.2-35.5) g/dL RDW 17.8 H (11.7-14.4) % Plt Count 166 L (182-369) x10^3/uL MPV 10.9 (9.4-12.3) fL Gran % 72.3 H (34.0-71.1) % Immature Gran % (Auto) 0.7 H (0.001-0.429) % Nucleat RBC Rel Count 0.0 (0.00-0.2) % Eos # (Auto) 0.16 (0.04-0.36) x10^3/uL Immature Gran # (Auto) 0.04 H (0.001-0.031) x10^3u/L Absolute Lymphs (auto) 0.83 L (1.18-3.74) x10^3/uL Absolute Monos (auto) 0.44 (0.24-0.86) x10^3/uL Absolute Nucleated RBC 0.00 (0.00-0.012) x10^3u/L Lymphocytes % 15.3 L (19.3-51.7) % Monocytes % 8.1 (4.7-12.5) % Eosinophils % 2.9 (0.7-5.8) % Basophils % 0.7 (0.1-1.2) % Absolute Granulocytes 3.92 (1.56-6.13) x10^3/uL Basophils # 0.04 (0.01-0.08) x10^3/uL Sodium (135-145) mmol/L Sodium Direct Potassium (3.5-5.1) mmol/L Chloride (98-107) mmol/L Carbon Dioxide (22-30) mmol/L Anion Gap (5-15) MEQ/L BUN (7-17) mg/dL Venous BUN Creatinine (0.52-1.04) mg/dL Estimated GFR ML/MIN Glucose (74-106) mg/dL Lactic Acid 1.4 (0.4-2.0) Calcium (8.4-10.2) mg/dL Ionized Calcium Magnesium (1.6-2.3) mg/dL Total Bilirubin (0.2-1.3) mg/dL AST (14-36) U/L ALT (0-35) U/L Alkaline Phosphatase (38-126) U/L Troponin I (0.000-0.033) ng/mL NT-Pro-B Natriuret Pep (<300) pg/mL Serum Total Protein (6.3-8.2) g/dL Albumin (3.5-5.0) g/dL Influenza Type A Ag (NEGATIVE) Influenza Type B Ag (NEGATIVE) RSV (PCR) (NEGATIVE) SARS-CoV-2 (PCR) (NEGATIVE) - Progress Progress: improved, re-examined Air Movement: good Progress Note: 09/16/24 11:17 My medical decision making and the assignment of moderate complexity is based on review of the patient's past medical history, review the patient's medication list, reviewed patient drug allergy list, history present illness and physical findings on examination. The workup in this patient includes placement of intravenous line, twelve-lead EKG, CBC, CMP, BNP, troponin level, chest x-ray, viral swabs and monotest. Differential diagnosis includes but is not limited to arrhythmia, COPD exacerbation, CHF exacerbation, pneumonia, myocardial infarction, viral illness 09/16/24 11:34 The chest x-ray was interpreted by the radiologist and I reviewed the impression. The impression states new, mild bibasilar infiltrates versus atelec tasis. Stable small right and new small left base effusion 09/16/24 13:12 I interpreted the patient's laboratory data results. The troponin is in the normal range. Her BNP is over 7000 and there is physical findings, radiographic evidence of pleural effusion and CHF exacerbation as well as clinical signs. There is also evidence of mild bibasilar infiltrates and pleural effusion present. I spoke with Dr. Romero, our telehospitalist on-call at this time. I reviewed the patient history, presenting complaint, physical findings on examination and workup results. We will admit this patient into the hospital and provide the patient with diuretics and intravenous antibiotics. Blood Culture(s) Obtained: No Antibiotics given: Yes Counseled pt/family regarding: lab results, diagnosis, need for follow-up, rad results Medical Desision Making - Independent Historian Additional History obtained from: Spouse - Diagnostic Testing Diagnostic test were ordered, analyzed, and reviewed by me: Yes Radiological Interpretation: Reviewed by me, Teleradiologist Report - Risk of complications The pt has a high risk of morbidity or mortality based on: Decision regarding hospitilization or escalation of hosp level of care - Departure Departure Disposition: In-patient Admission Clinical Impression: CHF exacerbation, Bilateral pulmonary infiltrates on chest x-ray Condition: Fair Critical Care Time: No Referrals: JONNY GRACIA MD [Primary Care Provider] - Follow up/PCP as directed Instructions: Heart Failure
[2024-09-16 11:08] LABS: Absolute Neutrophil Ct (ANC) 3.92 x10^3/uL (1.56-6.13); BASOPHIL % 0.7 % (0.1-1.2); Basophil (Absolute #) 0.04 x10^3/uL (0.01-0.08); Eosinophil % 2.9 % (0.7-5.8); Eosinophil (Absolute #) 0.16 x10^3/uL (0.04-0.36); Hematocrit 41.8 % (34.1-44.9); Hemoglobin 13.2 g/dL (11.2-15.7); IMMATURE GRAN # 0.04 x10^3u/L (0.001-0.031); IMMATURE GRAN % 0.7 % (0.001-0.429); Lymphocyte (Absolute #) 0.83 x10^3/uL (1.18-3.74); Lymphocytes % 15.3 % (19.3-51.7); Mean Cell Volume 89.5 fL (79.4-94.8); Mean Corpuscular Hemoglobin 28.3 pg (25.6-32.2); Mean Corpuscular Hgb Concent. 31.6 g/dL (32.2-35.5); Mean Platelet Volume 10.9 fL (9.4-12.3); Monocyte (Absolute #) 0.44 x10^3/uL (0.24-0.86); Monocytes % 8.1 % (4.7-12.5); Neutrophil % 72.3 % (34.0-71.1); Platelet Count 166 x10^3/uL (182-369); Red Blood Count 4.67 x10^6/uL (3.93-5.22); Red Cell Distribution Width 17.8 % (11.7-14.4); White Blood Count 5.4 x10^3/uL (3.98-10.04)
--- NOTE | 2024-09-16 11:29 | XRAY ---
Indication: Short of breath. Comparison: August, Portable chest demonstrates new mild bibasilar infiltrates/atelectasis. Stable small right and new small left base effusions. Heart not enlarged again with CABG. Bony thorax intact again with osteopenia and degenerative changes.
[2024-09-16 11:47] LABS: INFLUENZA A NEGATIVE (NEGATIVE); INFLUENZA B NEGATIVE (NEGATIVE); RESPIRATORY SYNCTIAL VIRUS NEGATIVE (NEGATIVE); SARS-CoV-2 Xpert Express NEGATIVE (NEGATIVE)
[2024-09-16] MEDS ORDERED: Lasix 40 MG/4 ML ONE (11:58)
[2024-09-16] MEDS ORDERED: Levofloxacin 500MG/100ML D5W 500 MG/100 ML BAG IV ONE (11:59)
[2024-09-16] MEDS: Lasix 40 MG/4 ML IV ONE (12:00)
[2024-09-16] MEDS: Levofloxacin 500MG/100ML D5W 500 MG/100 ML BAG IV STA (12:01)
[2024-09-16 12:16] LABS: ALBUMIN 3.9 g/dL (3.5-5.0); ANION GAP 11.3 MEQ/L (5-15); BILIRUBIN,TOTAL 1.2 mg/dL (0.2-1.3); Calcium 8.9 mg/dL (8.4-10.2); Creatinine 1 0.79 mg/dL (0.52-1.04); EST GLOMERULAR FILTRATION RATE 74.6 ML/MIN; Potassium 4.3 mmol/L (3.5-5.1); Total Protein 6.4 g/dL (6.3-8.2)
--- NOTE | 2024-09-16 14:41 | PCM.HP ---
History of Present Illness - Chief Complaint Chief Complaint: SOB Date: 09/16/24 History of Present Illness: is a 84 year old female with a pmhx of CHF, CAD (CABG 2010), COPD (2L at baseline), DMII, HLD, HTN, and OA Who presented to ED 09/16/24 with complaints of shortness of breath. Patient reports symptoms have been ongoing over the past month but became worse yesterday. She denies cough, fever, CP, N/V/D. No recent sick contacts. She was admitted for pneumonia at [facility] 07-26-07/27/24 and reports she has not felt at baseline since. Upon arrival to ED patient was on RA and hypoxic. She was placed on 2L NC which is her baseline and spo2 improved to 98%. EKG per ED physician read RATE (100), Sinus Tach, NORMAL AXIS, NORMAL INTERVALS, Right Bundle Branch Block, Other (No acute ischemic changes. QTc is 498). CXR demonstrates new mild bibasilar infiltrates/atelectasis. Stable small right and new small left base effusions. Lab findings remarkable for BNP elevated at 7100. Patient given lasix and levofloxacin in ED. Admit for CHF exacerbation and pneumonia. Plan for diuresis, IV abx, and steroids. - Review of Systems Constitutional: Weakness Eyes: No Symptoms Ears, Nose, & Throat: No Symptoms Respiratory: Cough, Short Of Breath, Wheezing Cardiac: Edema (BLE 2+ pitting) Abdominal/Gastrointestinal: No Symptoms Genitourinary Symptoms: No Symptoms Musculoskeletal: No Symptoms Skin: No Symptoms Neurological: No Symptoms Psychological: No Symptoms Endocrine: No Symptoms Hematologic/Lymphatic: No Symptoms Immunological/Allergic: No Symptoms Medications & Allergies Home Medications: Home Medication List Glipizide 10 mg [Glucotrol 10 MG] 10 mg PO DAILY 06/11/13 [History Confirmed 09/16/24] Atorvastatin Calcium [Lipitor] 40 mg PO HS 06/19/13 [History Confirmed 09/16/24] Aspirin [Aspirin EC] 81 mg PO DAILY 10/03/13 [History Confirmed 09/16/24] Albuterol 2.5 mg/3 ml Neb [Proventil 2.5 mg/3 ml Neb] 2.5 mg IH TID 08/01/19 [History Confirmed 09/16/24] Clopidogrel Bisulfate [PLAVIX Tablet] 75 mg PO DAILY 08/01/19 [History Confirmed 09/16/24] Furosemide [Lasix] 20 mg PO DAILY 11/17/23 [History Confirmed 09/16/24] ALPRAZolam [Alprazolam] 0.5 mg PO HS PRN 07/26/24 [History Confirmed 09/16/24] Diltiazem HCl 30 mg [Cardizem 30 MG] 30 mg PO DAILY 07/26/24 [History Confirmed 09/16/24] Empagliflozin [Jardiance] 10 mg PO DAILY 07/26/24 [History Confirmed 09/16/24] Insulin Glargine,Hum.rec.anlog [Lantus] 30 units SQ DAILY 07/26/24 [History Confirmed 09/16/24] Meclizine HCl 12.5 mg PO TID PRN 07/26/24 [History Confirmed 09/16/24] Metoprolol Tartrate 25 mg [Lopressor 25MG Tab] 12.5 mg PO DAILY 07/26/24 [History Confirmed 09/16/24] Potassium Chloride 10 meq PO DAILY 07/26/24 [History Confirmed 09/16/24] Pregabalin 50 mg [Lyrica 50MG] 50 mg PO TID 07/26/24 [History Confirmed 09/16/24] Tiotropium [place] Inhaler [Spiriva 18 Mcg/Cap Inhaler] 2 puff IH Q6H PRN PRN 07/26/24 [History Confirmed 09/16/24] Nitroglycerin 0.4 mg Tablet [Nitrostat 0.4 MG Tablet] 0.4 mg PO Q5MIN PRN MR X 3 PRN 09/16/24 [History Confirmed 09/16/24] Allergies/Adverse Reactions: Allergies Allergy/AdvReac Type Severity Reaction Status Date / Time Penicillins Allergy Severe Difficulty Verified 09/16/24 10:14 Breathing codeine Allergy Intermediate Nausea and Verified 09/16/24 10:14 Vomiting metformin Allergy Intermediate Nausea and Verified 09/16/24 10:14 Vomiting Sulfa (Sulfonamide Allergy Intermediate Itching Verified 09/16/24 10:14 Antibiotics) ibuprofen Allergy Verified 09/16/24 10:14 azithromycin [From Zithromax] AdvReac Intermediate Headache Verified 09/16/24 10:14 morphine AdvReac Intermediate HALLUCINATI Verified 09/16/24 10:14 ONS - Past Medical History Past Medical History: Yes Neurological History: No Pertinent History ENT History: No Pertinent History Cardiac History: Congestive Heart Failure, Coronary Artery Disease, High Cholesterol, Hypertension, Myocardial Infarction (MA) Respiratory History: COPD, Other Endocrine Medical History: Diabetes Type II Musculoskelatal History: Osteoarthritis GI Medical History: No Pertinent History History: No Pertinent History Pyscho-Social History: No Pertinent History Reproductive Disorders: No Pertinent History Comment: CAROTID ENDARTERECTOMY ON LEFT, 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 - Past Surgical History Past Surgical History: Yes Neuro Surgical History: No Pertinent History Cardiac History: CABG, Vascular Surgery, Other Respiratory Surgery: No Pertinent History GI Surgical History: Other Genitourinary Surgical Hx: No Pertinent History Musculskeletal Surgical Hx: Orthopedic Surgery Female Surgical History: No Pertinent History Other Surgical History: right artery bypass graft, left hand surgery Significant Family History: heart disease - Social History Smoking Status: Former smoker How long have you smoked: 40yrs Exposure to second hand smoke: No Alcohol: None Drug Use: none - Social Determinants of Health Will the patient participate in the screening: Yes Do you worry about a steady place to live?: No Do you have any problems with any of the following?: No known problems In the past 12 months,have you had to go without utilities?: No Have you or anyone in your house had to go without enough: No Transportation Issues: No Has anyone in your support network made you feel unsafe?: No Does the patient want assistance with any of the above?: No - Physical Exam Vital Signs: Vital Signs - 24 hr Temp Pulse Resp BP BP Pulse Ox 09/16/24 13:30 88 18 104/71 99 09/16/24 13:18 98 09/16/24 13:00 86 15 113/72 09/16/24 12:30 88 19 124/75 09/16/24 12:10 90 20 113/86 100 09/16/24 12:05 96 09/16/24 12:00 94 H 23 113/86 100 09/16/24 11:30 96 H 20 132/90 100 09/16/24 11:00 94 H 19 131/88 100 09/16/24 10:30 97 H 21 130/85 09/16/24 10:15 97.3 F 103 H 20 121/82 121/82 88 L General Appearance: no apparent distress Neurologic Exam: alert, oriented x 3, cooperative Eye Exam: PERRL/EOMI Ears, Nose, Throat Exam: normal ENT inspection Neck Exam: normal inspection Respiratory Exam: diminished breath sounds, wheezing Cardiovascular Exam: regular rate/rhythm, normal heart sounds Pelvic Exam: not done Rectal Exam: deferred Back Exam: normal inspection Extremity Exam: swelling (BLE +2 pitting edema) Skin Exam: normal color Results - Labs Lab/Micro Results: Lab Results-Last 24 Hours 09/16/24 09/16/24 09/16/24 Range/Units 10:35 10:50 10:50 WBC 5.4 (3.98-10.04) x10^3/uL RBC 4.67 (3.93-5.22) x10^6/uL Hgb 13.2 (11.2-15.7) g/dL Hct 41.8 (34.1-44.9) % MCV 89.5 (79.4-94.8) fL MCH 28.3 (25.6-32.2) pg MCHC 31.6 L (32.2-35.5) g/dL RDW 17.8 H (11.7-14.4) % Plt Count 166 L (182-369) x10^3/uL MPV 10.9 (9.4-12.3) fL Gran % 72.3 H (34.0-71.1) % Immature Gran % (Auto) 0.7 H (0.001-0.429) % Nucleat RBC Rel Count 0.0 (0.00-0.2) % Eos # (Auto) 0.16 (0.04-0.36) x10^3/uL Immature Gran # (Auto) 0.04 H (0.001-0.031) x10^3u/L Absolute Lymphs (auto) 0.83 L (1.18-3.74) x10^3/uL Absolute Monos (auto) 0.44 (0.24-0.86) x10^3/uL Absolute Nucleated RBC 0.00 (0.00-0.012) x10^3u/L Lymphocytes % 15.3 L (19.3-51.7) % Monocytes % 8.1 (4.7-12.5) % Eosinophils % 2.9 (0.7-5.8) % Basophils % 0.7 (0.1-1.2) % Absolute Granulocytes 3.92 (1.56-6.13) x10^3/uL Basophils # 0.04 (0.01-0.08) x10^3/uL Sodium 140 (135-145) mmol/L Sodium Direct Cancelled Potassium 4.3 (3.5-5.1) mmol/L Chloride 100 (98-107) mmol/L Carbon Dioxide 33 H (22-30) mmol/L Anion Gap 11.3 (5-15) MEQ/L BUN 16 (7-17) mg/dL Venous BUN Cancelled Creatinine 0.79 (0.52-1.04) mg/dL Estimated GFR 74.6 ML/MIN Glucose 88 (74-106) mg/dL Lactic Acid 1.4 (0.4-2.0) Calcium 8.9 (8.4-10.2) mg/dL Ionized Calcium Cancelled Magnesium 2.0 (1.6-2.3) mg/dL Total Bilirubin 1.20 (0.2-1.3) mg/dL AST 33 (14-36) U/L ALT 20 (0-35) U/L Alkaline Phosphatase 91 (38-126) U/L Troponin I (0.000-0.033) ng/mL NT-Pro-B Natriuret Pep 7100 (<300) pg/mL Serum Total Protein 6.4 (6.3-8.2) g/dL Albumin 3.9 (3.5-5.0) g/dL Influenza Type A Ag (NEGATIVE) Influenza Type B Ag (NEGATIVE) RSV (PCR) (NEGATIVE) SARS-CoV-2 (PCR) (NEGATIVE) 09/16/24 09/16/24 Range/Units 10:50 10:50 WBC (3.98-10.04) x10^3/uL RBC (3.93-5.22) x10^6/uL Hgb (11.2-15.7) g/dL Hct (34.1-44.9) % MCV (79.4-94.8) fL MCH (25.6-32.2) pg MCHC (32.2-35.5) g/dL RDW (11.7-14.4) % Plt Count (182-369) x10^3/uL MPV (9.4-12.3) fL Gran % (34.0-71.1) % Immature Gran % (Auto) (0.001-0.429) % Nucleat RBC Rel Count (0.00-0.2) % Eos # (Auto) (0.04-0.36) x10^3/uL Immature Gran # (Auto) (0.001-0.031) x10^3u/L Absolute Lymphs (auto) (1.18-3.74) x10^3/uL Absolute Monos (auto) (0.24-0.86) x10^3/uL Absolute Nucleated RBC (0.00-0.012) x10^3u/L Lymphocytes % (19.3-51.7) % Monocytes % (4.7-12.5) % Eosinophils % (0.7-5.8) % Basophils % (0.1-1.2) % Absolute Granulocytes (1.56-6.13) x10^3/uL Basophils # (0.01-0.08) x10^3/uL Sodium (135-145) mmol/L Sodium Direct Potassium (3.5-5.1) mmol/L Chloride (98-107) mmol/L Carbon Dioxide (22-30) mmol/L Anion Gap (5-15) MEQ/L BUN (7-17) mg/dL Venous BUN Creatinine (0.52-1.04) mg/dL Estimated GFR ML/MIN Glucose (74-106) mg/dL Lactic Acid (0.4-2.0) Calcium (8.4-10.2) mg/dL Ionized Calcium Magnesium (1.6-2.3) mg/dL Total Bilirubin (0.2-1.3) mg/dL AST (14-36) U/L ALT (0-35) U/L Alkaline Phosphatase (38-126) U/L Troponin I 0.027 (0.000-0.033) ng/mL NT-Pro-B Natriuret Pep (<300) pg/mL Serum Total Protein (6.3-8.2) g/dL Albumin (3.5-5.0) g/dL Influenza Type A Ag NEGATIVE (NEGATIVE) Influenza Type B Ag NEGATIVE (NEGATIVE) RSV (PCR) NEGATIVE (NEGATIVE) SARS-CoV-2 (PCR) NEGATIVE (NEGATIVE) - Radiology Impressions Radiology Exams & Impressions: Radiology Procedures Category Date Time Status CHEST 1 VIEW (PORTABLE) Stat Exams 09/16/24 10:36 Completed Assessment/Plan (1) Pneumonia Current Visit: Yes Status: Acute Assessment & Plan: -Supplemental oxygen with goal spo2 > 91% - patient is supposed to be on 2L oxygen -ABG prn if significant hypoxia/lethargy -Patient given levaquin due to multiple allergies will continue -LA WNL -Respiratory panel negative -sputum culture -Bcult x 2 pending -RT eval -solumedrol 40 bid -NEBS/INH Code(s): J18.9 - PNEUMONIA, UNSPECIFIED ORGANISM (2) CHF exacerbation Current Visit: Yes Status: Acute Assessment & Plan: -Echo from 07/26/24 reviewed with EF at 30-35% -Pt follows with Dr. Gavin OP -Lasix given in ED- will continue 40mg bid -Trend cardiac enzymes -continue home meds Code(s): I50.9 - HEART FAILURE, UNSPECIFIED (3) COPD exacerbation Current Visit: Yes Status: Acute Assessment & Plan: -see pneumonia Code(s): J44.1 - CHRONIC OBSTRUCTIVE PULMONARY DISEASE W (ACUTE) EXACERBATION (4) HLD (hyperlipidemia) Current Visit: Yes Status: Acute Assessment & Plan: -continue home statin Code(s): E78.5 - HYPERLIPIDEMIA, UNSPECIFIED (5) HTN (hypertension) Current Visit: Yes Status: Acute Assessment & Plan: -stable continue home meds Code(s): I10 - ESSENTIAL (PRIMARY) HYPERTENSION (6) CAD (coronary artery disease) Current Visit: Yes Status: Acute Assessment & Plan: -s/p bypass -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 Gavin -continue home medications Code(s): I25.10 - ATHSCL HEART DISEASE OF [place] CORONARY ARTERY W/O ANG PCTRS (7) Type 2 diabetes mellitus Current Visit: No Status: Chronic Assessment & Plan: -ADA diet -SSI/glargine -accuchecks VTE: Lovenox PPI: Protonix Dispo: 1-2 days Telemedicine Encounter - Telemedicine Encounter Telemedicine Encounter: "The entirety of this encounter was performed via Telemedicine" This visit was performed using real-time audio and video connection between my location and thepatients locationwith the assistance of a surrogateat the patients location. Written or verbal consent was obtained from the patient/guardian to perform this visit usingsynchronoustelemedicine technology. Any patient questions regarding the telemedicine interaction were answered.
[2024-09-16] MEDS ORDERED: TYLENOL 325 MG PO PRN (15:03)
[2024-09-16] MEDS ORDERED: HUMULIN R SQ PRN (15:03)
[2024-09-16] MEDS ORDERED: DUONEB 0.5-3 MG/3 ml Neb IH PRN ×2 (15:16→16:33)
[2024-09-16] MEDS: DUONEB 0.5-3 MG/3 ml Neb IH SCH (16:36)
[2024-09-16] MEDS ORDERED: Spiriva 18 Mcg/Cap Inhaler IH PRN (17:18)
[2024-09-16] MEDS ORDERED: NON-FORMULARY ITEM (Meclizine Hcl [Meclizine Hcl] 12.5 MG Tablet) PO PRN (17:18)
[2024-09-16] MEDS ORDERED: xanAX 0.5 MG PO PRN (17:18)
[2024-09-16] MEDS ORDERED: Nitrostat 0.4 MG Tablet SL PRN (17:18)
[2024-09-16] MEDS: Lasix 40 MG/4 ML IV SCH (17:38)
[2024-09-16] MEDS: ZOCOR 20MG PO SCH (21:13)
[2024-09-16] MEDS ORDERED: PROVENTIL 2.5 MG/3 ML NEB IH SCH (22:00)
[2024-09-16] MEDS ORDERED: NON-FORMULARY ITEM (Atorvastatin Calcium [Lipitor] 20 MG Tablet) PO SCH (22:00)
[2024-09-17 05:10] LABS: Absolute Neutrophil Ct (ANC) 3.63 x10^3/uL (1.56-6.13); BASOPHIL % 0.5 % (0.1-1.2); Basophil (Absolute #) 0.03 x10^3/uL (0.01-0.08); Eosinophil (Absolute #) 0.28 x10^3/uL (0.04-0.36); Hematocrit 41.1 % (34.1-44.9); Hemoglobin 12.8 g/dL (11.2-15.7); IMMATURE GRAN # 0.02 x10^3u/L (0.001-0.031); IMMATURE GRAN % 0.4 % (0.001-0.429); Lymphocyte (Absolute #) 1.05 x10^3/uL (1.18-3.74); Lymphocytes % 18.8 % (19.3-51.7); Mean Corpuscular Hemoglobin 27.4 pg (25.6-32.2); Mean Corpuscular Hgb Concent. 31.1 g/dL (32.2-35.5); Mean Platelet Volume 11.5 fL (9.4-12.3); Monocyte (Absolute #) 0.57 x10^3/uL (0.24-0.86); Monocytes % 10.2 % (4.7-12.5); Neutrophil % 65.1 % (34.0-71.1); Platelet Count 180 x10^3/uL (182-369); Red Blood Count 4.67 x10^6/uL (3.93-5.22); Red Cell Distribution Width 17.3 % (11.7-14.4); White Blood Count 5.6 x10^3/uL (3.98-10.04)
--- NOTE | 2024-09-17 05:16 | PCM.NOTE ---
Date and Time: 09/17/24 0516 Subjective Assessment: is a 84 year old female with a pmhx of CHF, CAD (CABG 2010), COPD (2L at baseline), DMII, HLD, HTN, and OA Who presented to ED 09/16/24 with complaints of shortness of breath. Patient reports symptoms have been ongoing over the past month but became worse yesterday. She denies cough, fever, CP, N/V/D. No recent sick contacts. She was admitted for pneumonia at [facility] 07-26-07/27/24 and reports she has not felt at baseline since. Upon arrival to ED patient was on RA and hypoxic. She was placed on 2L NC which is her baseline and spo2 improved to 98%. EKG per ED physician read RATE (100), Sinus Tach, NORMAL AXIS, NORMAL INTERVALS, Right Bundle Branch Block, Other (No acute ischemic changes. QTc is 498). CXR demonstrates new mild bibasilar infiltrates/atelectasis. Stable small right and new small left base effusions. Lab findings remarkable for BNP elevated at 7100. Patient given lasix and levofloxacin in ED. Admit for CHF exacerbation and pneumonia. Plan for diuresis, IV abx, and steroids. 09/17/24: Met with patient bedside. Endorses improvement in dyspnea and BLE edema. At baseline oxygen of 2L. Advised patient to elevate legs. Plan to continue diuresis,steroids, and abx. Most likely can dc tomorrow pending treatment response. - Review of Systems Constitutional: No Symptoms Eyes: No Symptoms Ears, Nose, & Throat: No Symptoms Respiratory: Cough, Short Of Breath Cardiac: Edema (BLE +2 pitting) Abdominal/Gastrointestinal: No Symptoms Genitourinary Symptoms: No Symptoms Musculoskeletal: No Symptoms Skin: No Symptoms Neurological: No Symptoms Psychological: No Symptoms Endocrine: No Symptoms Hematologic/Lymphatic: No Symptoms Immunological/Allergic: No Symptoms Objective Exam General Appearance: no apparent distress Neurologic Exam: alert, oriented x 3, cooperative Skin Exam: normal color Eye Exam: PERRL Ears, Nose, Throat Exam: normal ENT inspection Neck Exam: normal inspection Respiratory Exam: crackles/rales Cardiovascular Exam: regular rate/rhythm, normal heart sounds Gastrointestinal/Abdomen Exam: soft, normal bowel sounds Extremity Exam: swelling (BLE 2+ pitting) Back Exam: normal inspection Pelvic Exam: deferred Rectal Exam: deferred Objective Data Vital Signs: Vital Signs - 24 hr Temp Pulse Resp BP BP Pulse Ox 09/17/24 04:00 97.3 F 94 H 18 118/78 96 09/17/24 00:00 98.2 F 88 17 115/70 96 09/16/24 20:00 97.8 F 97 H 20 111/60 96 09/16/24 17:15 97 F 88 18 130/72 91 L 09/16/24 17:03 88 18 91 L 09/16/24 14:35 97 F 88 15 130/72 96 09/16/24 14:00 67 18 124/80 99 09/16/24 13:30 88 18 104/71 99 09/16/24 13:18 98 09/16/24 13:00 86 15 113/72 09/16/24 12:30 88 19 124/75 09/16/24 12:10 90 20 113/86 100 09/16/24 12:05 96 09/16/24 12:00 94 H 23 113/86 100 09/16/24 11:30 96 H 20 132/90 100 09/16/24 11:00 94 H 19 131/88 100 09/16/24 10:30 97 H 21 130/85 09/16/24 10:15 97.3 F 103 H 20 121/82 121/82 88 L Pain Assessment - Last Documented Pain Intensity 0 Intake and Output: Intake & Output 09/14/24 09/15/24 09/16/24 09/17/24 11:59 11:59 11:59 11:59 Intake Total 360 Output Total 300 Balance 60 Weight 58.2 kg 56.1 kg Lab Results: Lab Results-Last 24 Hours 09/16/24 09/16/24 09/16/24 Range/Units 10:35 10:45 10:50 WBC 5.4 (3.98-10.04) x10^3/uL RBC 4.67 (3.93-5.22) x10^6/uL Hgb 13.2 (11.2-15.7) g/dL Hct 41.8 (34.1-44.9) % MCV 89.5 (79.4-94.8) fL MCH 28.3 (25.6-32.2) pg MCHC 31.6 L (32.2-35.5) g/dL RDW 17.8 H (11.7-14.4) % Plt Count 166 L (182-369) x10^3/uL MPV 10.9 (9.4-12.3) fL Gran % 72.3 H (34.0-71.1) % Immature Gran % (Auto) 0.7 H (0.001-0.429) % Nucleat RBC Rel Count 0.0 (0.00-0.2) % Eos # (Auto) 0.16 (0.04-0.36) x10^3/uL Immature Gran # (Auto) 0.04 H (0.001-0.031) x10^3u/L Absolute Lymphs (auto) 0.83 L (1.18-3.74) x10^3/uL Absolute Monos (auto) 0.44 (0.24-0.86) x10^3/uL Absolute Nucleated RBC 0.00 (0.00-0.012) x10^3u/L Lymphocytes % 15.3 L (19.3-51.7) % Monocytes % 8.1 (4.7-12.5) % Eosinophils % 2.9 (0.7-5.8) % Basophils % 0.7 (0.1-1.2) % Absolute Granulocytes 3.92 (1.56-6.13) x10^3/uL Basophils # 0.04 (0.01-0.08) x10^3/uL Sodium (135-145) mmol/L Sodium Direct Potassium (3.5-5.1) mmol/L Chloride (98-107) mmol/L Carbon Dioxide (22-30) mmol/L Anion Gap (5-15) MEQ/L BUN (7-17) mg/dL Venous BUN Creatinine (0.52-1.04) mg/dL Estimated GFR ML/MIN Glucose (74-106) mg/dL POC Glucometer (74 to 106) mg/dL Hemoglobin A1c 6.95 H (4.5-6.0) % Lactic Acid 1.4 (0.4-2.0) Calcium (8.4-10.2) mg/dL Ionized Calcium Magnesium (1.6-2.3) mg/dL Total Bilirubin (0.2-1.3) mg/dL AST (14-36) U/L ALT (0-35) U/L Alkaline Phosphatase (38-126) U/L Troponin I (0.000-0.033) ng/mL NT-Pro-B Natriuret Pep (<300) pg/mL Serum Total Protein (6.3-8.2) g/dL Albumin (3.5-5.0) g/dL Influenza Type A Ag (NEGATIVE) Influenza Type B Ag (NEGATIVE) RSV (PCR) (NEGATIVE) SARS-CoV-2 (PCR) (NEGATIVE) 09/16/24 09/16/24 09/16/24 Range/Units 10:50 10:50 10:50 WBC (3.98-10.04) x10^3/uL RBC (3.93-5.22) x10^6/uL Hgb (11.2-15.7) g/dL Hct (34.1-44.9) % MCV (79.4-94.8) fL MCH (25.6-32.2) pg MCHC (32.2-35.5) g/dL RDW (11.7-14.4) % Plt Count (182-369) x10^3/uL MPV (9.4-12.3) fL Gran % (34.0-71.1) % Immature Gran % (Auto) (0.001-0.429) % Nucleat RBC Rel Count (0.00-0.2) % Eos # (Auto) (0.04-0.36) x10^3/uL Immature Gran # (Auto) (0.001-0.031) x10^3u/L Absolute Lymphs (auto) (1.18-3.74) x10^3/uL Absolute Monos (auto) (0.24-0.86) x10^3/uL Absolute Nucleated RBC (0.00-0.012) x10^3u/L Lymphocytes % (19.3-51.7) % Monocytes % (4.7-12.5) % Eosinophils % (0.7-5.8) % Basophils % (0.1-1.2) % Absolute Granulocytes (1.56-6.13) x10^3/uL Basophils # (0.01-0.08) x10^3/uL Sodium 140 (135-145) mmol/L Sodium Direct Cancelled Potassium 4.3 (3.5-5.1) mmol/L Chloride 100 (98-107) mmol/L Carbon Dioxide 33 H (22-30) mmol/L Anion Gap 11.3 (5-15) MEQ/L BUN 16 (7-17) mg/dL Venous BUN Cancelled Creatinine 0.79 (0.52-1.04) mg/dL Estimated GFR 74.6 ML/MIN Glucose 88 (74-106) mg/dL POC Glucometer (74 to 106) mg/dL Hemoglobin A1c (4.5-6.0) % Lactic Acid (0.4-2.0) Calcium 8.9 (8.4-10.2) mg/dL Ionized Calcium Cancelled Magnesium 2.0 (1.6-2.3) mg/dL Total Bilirubin 1.20 (0.2-1.3) mg/dL AST 33 (14-36) U/L ALT 20 (0-35) U/L Alkaline Phosphatase 91 (38-126) U/L Troponin I 0.027 (0.000-0.033) ng/mL NT-Pro-B Natriuret Pep 7100 (<300) pg/mL Serum Total Protein 6.4 (6.3-8.2) g/dL Albumin 3.9 (3.5-5.0) g/dL Influenza Type A Ag NEGATIVE (NEGATIVE) Influenza Type B Ag NEGATIVE (NEGATIVE) RSV (PCR) NEGATIVE (NEGATIVE) SARS-CoV-2 (PCR) NEGATIVE (NEGATIVE) 09/16/24 09/16/24 09/16/24 Range/Units 14:47 16:40 19:00 WBC (3.98-10.04) x10^3/uL RBC (3.93-5.22) x10^6/uL Hgb (11.2-15.7) g/dL Hct (34.1-44.9) % MCV (79.4-94.8) fL MCH (25.6-32.2) pg MCHC (32.2-35.5) g/dL RDW (11.7-14.4) % Plt Count (182-369) x10^3/uL MPV (9.4-12.3) fL Gran % (34.0-71.1) % Immature Gran % (Auto) (0.001-0.429) % Nucleat RBC Rel Count (0.00-0.2) % Eos # (Auto) (0.04-0.36) x10^3/uL Immature Gran # (Auto) (0.001-0.031) x10^3u/L Absolute Lymphs (auto) (1.18-3.74) x10^3/uL Absolute Monos (auto) (0.24-0.86) x10^3/uL Absolute Nucleated RBC (0.00-0.012) x10^3u/L Lymphocytes % (19.3-51.7) % Monocytes % (4.7-12.5) % Eosinophils % (0.7-5.8) % Basophils % (0.1-1.2) % Absolute Granulocytes (1.56-6.13) x10^3/uL Basophils # (0.01-0.08) x10^3/uL Sodium (135-145) mmol/L Sodium Direct Potassium (3.5-5.1) mmol/L Chloride (98-107) mmol/L Carbon Dioxide (22-30) mmol/L Anion Gap (5-15) MEQ/L BUN (7-17) mg/dL Venous BUN Creatinine (0.52-1.04) mg/dL Estimated GFR ML/MIN Glucose (74-106) mg/dL POC Glucometer 73 L (74 to 106) mg/dL Hemoglobin A1c (4.5-6.0) % Lactic Acid (0.4-2.0) Calcium (8.4-10.2) mg/dL Ionized Calcium Magnesium (1.6-2.3) mg/dL Total Bilirubin (0.2-1.3) mg/dL AST (14-36) U/L ALT (0-35) U/L Alkaline Phosphatase (38-126) U/L Troponin I 0.042 H* 0.050 H* (0.000-0.033) ng/mL NT-Pro-B Natriuret Pep (<300) pg/mL Serum Total Protein (6.3-8.2) g/dL Albumin (3.5-5.0) g/dL Influenza Type A Ag (NEGATIVE) Influenza Type B Ag (NEGATIVE) RSV (PCR) (NEGATIVE) SARS-CoV-2 (PCR) (NEGATIVE) 09/16/24 09/16/24 Range/Units 21:21 21:55 WBC (3.98-10.04) x10^3/uL RBC (3.93-5.22) x10^6/uL Hgb (11.2-15.7) g/dL Hct (34.1-44.9) % MCV (79.4-94.8) fL MCH (25.6-32.2) pg MCHC (32.2-35.5) g/dL RDW (11.7-14.4) % Plt Count (182-369) x10^3/uL MPV (9.4-12.3) fL Gran % (34.0-71.1) % Immature Gran % (Auto) (0.001-0.429) % Nucleat RBC Rel Count (0.00-0.2) % Eos # (Auto) (0.04-0.36) x10^3/uL Immature Gran # (Auto) (0.001-0.031) x10^3u/L Absolute Lymphs (auto) (1.18-3.74) x10^3/uL Absolute Monos (auto) (0.24-0.86) x10^3/uL Absolute Nucleated RBC (0.00-0.012) x10^3u/L Lymphocytes % (19.3-51.7) % Monocytes % (4.7-12.5) % Eosinophils % (0.7-5.8) % Basophils % (0.1-1.2) % Absolute Granulocytes (1.56-6.13) x10^3/uL Basophils # (0.01-0.08) x10^3/uL Sodium (135-145) mmol/L Sodium Direct Potassium (3.5-5.1) mmol/L Chloride (98-107) mmol/L Carbon Dioxide (22-30) mmol/L Anion Gap (5-15) MEQ/L BUN (7-17) mg/dL Venous BUN Creatinine (0.52-1.04) mg/dL Estimated GFR ML/MIN Glucose (74-106) mg/dL POC Glucometer 117 H (74 to 106) mg/dL Hemoglobin A1c (4.5-6.0) % Lactic Acid (0.4-2.0) Calcium (8.4-10.2) mg/dL Ionized Calcium Magnesium (1.6-2.3) mg/dL Total Bilirubin (0.2-1.3) mg/dL AST (14-36) U/L ALT (0-35) U/L Alkaline Phosphatase (38-126) U/L Troponin I 0.056 H* (0.000-0.033) ng/mL NT-Pro-B Natriuret Pep (<300) pg/mL Serum Total Protein (6.3-8.2) g/dL Albumin (3.5-5.0) g/dL Influenza Type A Ag (NEGATIVE) Influenza Type B Ag (NEGATIVE) RSV (PCR) (NEGATIVE) SARS-CoV-2 (PCR) (NEGATIVE) Radiology Exams: Radiology Procedures Category Date Time Status CHEST 1 VIEW (PORTABLE) Stat Exams 09/16/24 10:36 Completed Assessment/Plan (1) Pneumonia Current Visit: Yes Status: Acute Assessment & Plan: -Supplemental oxygen with goal spo2 > 91% - patient is supposed to be on 2L oxygen -ABG prn if significant hypoxia/lethargy -Patient given levaquin due to multiple allergies will continue -LA WNL -Respiratory panel negative -sputum culture -Bcult x 2 pending -RT eval --NEBS/INH 09/17: -Prednisone 20mg bid -Continue levaquin -sp culture pending collection -at baseline oxygen 2L -bcult pending WBC reviewed and wnl at 5.6 Code(s): J18.9 - PNEUMONIA, UNSPECIFIED ORGANISM (2) CHF exacerbation Current Visit: Yes Status: Acute Assessment & Plan: -Echo from 07/26/24 reviewed with EF at 30-35% -Pt follows with Dr. Gavin OP -Lasix given in ED- will continue 40mg bid -Trend cardiac enzymes -continue home meds 09/17/24: -Continue lasix 40mg bid -CMP/CBC reviewed -BNP reviewed at 7340 Code(s): I50.9 - HEART FAILURE, UNSPECIFIED (3) COPD exacerbation Current Visit: Yes Status: Acute Assessment & Plan: -see pneumonia Code(s): J44.1 - CHRONIC OBSTRUCTIVE PULMONARY DISEASE W (ACUTE) EXACERBATION (4) HLD (hyperlipidemia) Current Visit: Yes Status: Acute Assessment & Plan: -continue home statin Code(s): E78.5 - HYPERLIPIDEMIA, UNSPECIFIED (5) HTN (hypertension) Current Visit: Yes Status: Acute Assessment & Plan: -stable continue home meds Code(s): I10 - ESSENTIAL (PRIMARY) HYPERTENSION (6) CAD (coronary artery disease) Current Visit: Yes Status: Acute Assessment & Plan: -s/p bypass -Director Of Development And Marketing - Dr. Gavin -continue home medications Code(s): I25.10 - ATHSCL HEART DISEASE OF [place] CORONARY ARTERY W/O ANG PCTRS (7) Type 2 diabetes mellitus Current Visit: No Status: Chronic Assessment & Plan: -ADA diet -SSI/glargine -accuchecks VTE: Lovenox PPI: Protonix Dispo: 1-2 days Code(s): J18.9 - PNEUMONIA, UNSPECIFIED ORGANISM (2) CHF exacerbation Current Visit: Yes Status: Acute Code(s): I50.9 - HEART FAILURE, UNSPECIFIED (3) COPD exacerbation Current Visit: Yes Status: Acute Code(s): J44.1 - CHRONIC OBSTRUCTIVE PULMONARY DISEASE W (ACUTE) EXACERBATION (4) HLD (hyperlipidemia) Current Visit: Yes Status: Acute Code(s): E78.5 - HYPERLIPIDEMIA, UNSPECIFIED (5) HTN (hypertension) Current Visit: Yes Status: Acute Code(s): I10 - ESSENTIAL (PRIMARY) HYPERTENSION (6) CAD (coronary artery disease) Current Visit: Yes Status: Acute Code(s): I25.10 - ATHSCL HEART DISEASE OF [place] CORONARY ARTERY W/O ANG PCTRS (7) Type 2 diabetes mellitus Current Visit: No Status: Chronic
[2024-09-17 05:35] LABS: ALBUMIN 3.7 g/dL (3.5-5.0); ANION GAP 8.5 MEQ/L (5-15); BILIRUBIN,TOTAL 1.1 mg/dL (0.2-1.3); Calcium 8.6 mg/dL (8.4-10.2); Creatinine 1 0.89 mg/dL (0.52-1.04); EST GLOMERULAR FILTRATION RATE 64.7 ML/MIN; Potassium 3.7 mmol/L (3.5-5.1); Total Protein 6.3 g/dL (6.3-8.2)
[2024-09-17] MEDS: Spiriva 18 Mcg/Cap Inhaler IH SCH (07:05)
[2024-09-17] MEDS: LEVOFLOXACIN 750MG/150ML D5W 750 MG/150 ML BAG IV SCH (09:18)
[2024-09-17] MEDS: ENOXAPARIN SODIUM SQ SCH (09:19)
[2024-09-17] MEDS: Lantus Insulin SQ SCH (09:20)
[2024-09-17] MEDS: HUMALOG SQ PRN (09:20)
[2024-09-17] MEDS: ANTIVERT 25 MG PO PRN (09:23)
[2024-09-17] MEDS: Lopressor 25MG Tab PO SCH (09:23)
[2024-09-17] MEDS: Klor Con PO SCH (09:23)
[2024-09-17] MEDS: PLAVIX Tablet PO SCH (09:24)
[2024-09-17] MEDS: Cardizem 30 MG PO SCH (09:24)
[2024-09-17] MEDS: ECOTRIN 81 MG PO SCH (09:25)
[2024-09-17] MEDS: JARDIANCE PO SCH (09:25)
[2024-09-17] MEDS ORDERED: DUONEB 0.5-3 MG/3 ml Neb IH PRN (12:30)
[2024-09-17] MEDS: Zofran 4 MG/2 ML VIAL IV PRN (12:46)
[2024-09-17] MEDS: DELTASONE 20 MG PO SCH (22:37)
[2024-09-18] MEDS: Lyrica 50MG PO SCH (01:17)
--- NOTE | 2024-09-18 04:55 | PCM.DS ---
Discharge Summary Date of Admission: 09/16/24 14:25 Date of Discharge: 09/18/24 Admitting Physician: JESSE VASQUEZ MD Primary Care Provider: JONNY BROWNE ORLIN Allergies Allergies Penicillins Allergy (Severe, Verified 09/17/24 00:46) Difficulty Breathing codeine Allergy (Intermediate, Verified 09/17/24 00:46) Nausea and Vomiting metformin Allergy (Intermediate, Verified 09/17/24 00:46) Nausea and Vomiting Sulfa (Sulfonamide Antibiotics) Allergy (Intermediate, Verified 09/17/24 00:46) Itching ibuprofen Allergy (Verified 09/17/24 00:46) azithromycin [From Zithromax] Adverse Reaction (Intermediate, Verified 09/17/24 00:46) Headache IV ZITHROMAX CAUSEA HEADACHE AND MUSCLE SPASMS morphine Adverse Reaction (Intermediate, Verified 09/17/24 00:46) HALLUCINATIONS Hospital Summary - Hospital Course Hospital Course: is a 84 year old female with a pmhx of CHF, CAD (CABG 2010), COPD (2L at baseline), DMII, HLD, HTN, and OA Who presented to ED 09/16/24 with complaints of shortness of breath. Patient reports symptoms have been ongoing over the past month but became worse yesterday. She denies cough, fever, CP, N/V/D. No recent sick contacts. She was admitted for pneumonia at [facility] 07-26-07/27/24 and reports she has not felt at baseline since. Upon arrival to ED patient was on RA and hypoxic. She was placed on 2L NC which is her baseline and spo2 improved to 98%. EKG per ED physician read RATE (100), Sinus Tach, NORMAL AXIS, NORMAL INTERVALS, Right Bundle Branch Block, Other (No acute ischemic changes. QTc is 498). CXR demonstrates new mild bibasilar infiltrates/atelectasis. Stable small right and new small left base effusions. Lab findings remarkable for BNP elevated at 7100. Patient given lasix and levofloxacin in ED. Admit for CHF exacerbation and pneumonia. IP treatment with levaquin/steroids/diuresis. Endorses improvement in dyspnea and BLE edema. At baseline oxygen of 2L. Advised patient to continue to elevate legs when sitting. Daily weights- if she gains 3lbs in on day or 5lbs in one week she is to contact her horse trainer. Will dismiss on levaquin and steroids. Discharge Note New Diagnosis: CHF exacerbation/pneumonia New Medications: Levaquin/prednisone Follow Up: pcp/pulm/cardiology Results pending: gram stain/sp culture Latest Assessment & Plan (1) Pneumonia Current Visit: Yes Status: Acute Assessment & Plan: -Supplemental oxygen with goal spo2 > 91% - patient is supposed to be on 2L oxygen -ABG prn if significant hypoxia/lethargy -Patient given levaquin due to multiple allergies will continue -LA WNL -Respiratory panel negative -sputum culture -Bcult x 2 pending -RT eval --NEBS/INH 09/17: -Prednisone 20mg bid -Continue levaquin -sp culture pending collection -at baseline oxygen 2L -bcult pending WBC reviewed and wnl at 5.6 Code(s): J18.9 - PNEUMONIA, UNSPECIFIED ORGANISM (2) CHF exacerbation Current Visit: Yes Status: Acute Assessment & Plan: -Echo from 07/26/24 reviewed with EF at 30-35% -Pt follows with Dr. Honeycutt OP -Lasix given in ED- will continue 40mg bid -Trend cardiac enzymes -continue home meds 09/17/24: -Continue lasix 40mg bid -CMP/CBC reviewed -BNP reviewed at 7340 Code(s): I50.9 - HEART FAILURE, UNSPECIFIED (3) COPD exacerbation Current Visit: Yes Status: Acute Assessment & Plan: -see pneumonia Code(s): J44.1 - CHRONIC OBSTRUCTIVE PULMONARY DISEASE W (ACUTE) EXACERBATION (4) HLD (hyperlipidemia) Current Visit: Yes Status: Acute Assessment & Plan: -continue home statin Code(s): E78.5 - HYPERLIPIDEMIA, UNSPECIFIED (5) HTN (hypertension) Current Visit: Yes Status: Acute Assessment & Plan: -stable continue home meds Code(s): I10 - ESSENTIAL (PRIMARY) HYPERTENSION (6) CAD (coronary artery disease) Current Visit: Yes Status: Acute Assessment & Plan: -s/p bypass -Painter Hand - Dr. Honeycutt -continue home medications Code(s): I25.10 - ATHSCL HEART DISEASE OF [place] CORONARY ARTERY W/O ANG PCTRS (7) Type 2 diabetes mellitus Current Visit: No Status: Chronic Assessment & Plan: -ADA diet -SSI/glargine -accuchecks I spent 35 minutes [id number] with the patient on the day of discharge performing discharge exam, discussing hospital stay and discharge instructions with patient and caregivers, preparation of discharge records, prescriptions & referral forms and addressing any questions/concerns the patient had as documented above. - Vitals & Intake/Output Vital Signs: Vital Signs Temperature 97.5 F 09/18/24 04:00 Pulse Rate 90 09/18/24 04:00 Respiratory Rate 18 09/18/24 04:00 Blood Pressure 86/50 09/18/24 04:00 O2 Sat by Pulse Oximetry 93 L 09/18/24 04:00 Intake & Output: Intake & Output 09/15/24 09/16/24 09/17/24 09/18/24 11:59 11:59 11:59 11:59 Intake Total 1420 749 Output Total 600 2450 Balance 820 -1701 Weight 58.2 kg 56.1 kg - Lab Result Diagrams: 09/17/24 04:47 09/17/24 04:47 Lab Results-Last 24 Hrs: Lab Results-Last 24 Hours 09/17/24 09/17/24 09/17/24 Range/Units 04:47 04:47 07:45 WBC 5.6 (3.98-10.04) x10^3/uL RBC 4.67 (3.93-5.22) x10^6/uL Hgb 12.8 (11.2-15.7) g/dL Hct 41.1 (34.1-44.9) % MCV 88.0 (79.4-94.8) fL MCH 27.4 (25.6-32.2) pg MCHC 31.1 L (32.2-35.5) g/dL RDW 17.3 H (11.7-14.4) % Plt Count 180 L (182-369) x10^3/uL MPV 11.5 (9.4-12.3) fL Gran % 65.1 (34.0-71.1) % Immature Gran % (Auto) 0.4 (0.001-0.429) % Nucleat RBC Rel Count 0.0 (0.00-0.2) % Eos # (Auto) 0.28 (0.04-0.36) x10^3/uL Immature Gran # (Auto) 0.02 (0.001-0.031) x10^3u/L Absolute Lymphs (auto) 1.05 L (1.18-3.74) x10^3/uL Absolute Monos (auto) 0.57 (0.24-0.86) x10^3/uL Absolute Nucleated RBC 0.00 (0.00-0.012) x10^3u/L Lymphocytes % 18.8 L (19.3-51.7) % Monocytes % 10.2 (4.7-12.5) % Eosinophils % 5.0 (0.7-5.8) % Basophils % 0.5 (0.1-1.2) % Absolute Granulocytes 3.63 (1.56-6.13) x10^3/uL Basophils # 0.03 (0.01-0.08) x10^3/uL Sodium 136 (135-145) mmol/L Potassium 3.7 (3.5-5.1) mmol/L Chloride 93 L (98-107) mmol/L Carbon Dioxide 38 H (22-30) mmol/L Anion Gap 8.5 (5-15) MEQ/L BUN 17 (7-17) mg/dL Creatinine 0.89 (0.52-1.04) mg/dL Estimated GFR 64.7 ML/MIN Glucose 123 H (74-106) mg/dL POC Glucometer 169 H (74 to 106) mg/dL Calcium 8.6 (8.4-10.2) mg/dL Total Bilirubin 1.10 (0.2-1.3) mg/dL AST 33 (14-36) U/L ALT 19 (0-35) U/L Alkaline Phosphatase 76 (38-126) U/L NT-Pro-B Natriuret Pep 7340 (<300) pg/mL Serum Total Protein 6.3 (6.3-8.2) g/dL Albumin 3.7 (3.5-5.0) g/dL 09/17/24 09/17/24 09/17/24 Range/Units 11:44 16:58 20:27 WBC (3.98-10.04) x10^3/uL RBC (3.93-5.22) x10^6/uL Hgb (11.2-15.7) g/dL Hct (34.1-44.9) % MCV (79.4-94.8) fL MCH (25.6-32.2) pg MCHC (32.2-35.5) g/dL RDW (11.7-14.4) % Plt Count (182-369) x10^3/uL MPV (9.4-12.3) fL Gran % (34.0-71.1) % Immature Gran % (Auto) (0.001-0.429) % Nucleat RBC Rel Count (0.00-0.2) % Eos # (Auto) (0.04-0.36) x10^3/uL Immature Gran # (Auto) (0.001-0.031) x10^3u/L Absolute Lymphs (auto) (1.18-3.74) x10^3/uL Absolute Monos (auto) (0.24-0.86) x10^3/uL Absolute Nucleated RBC (0.00-0.012) x10^3u/L Lymphocytes % (19.3-51.7) % Monocytes % (4.7-12.5) % Eosinophils % (0.7-5.8) % Basophils % (0.1-1.2) % Absolute Granulocytes (1.56-6.13) x10^3/uL Basophils # (0.01-0.08) x10^3/uL Sodium (135-145) mmol/L Potassium (3.5-5.1) mmol/L Chloride (98-107) mmol/L Carbon Dioxide (22-30) mmol/L Anion Gap (5-15) MEQ/L BUN (7-17) mg/dL Creatinine (0.52-1.04) mg/dL Estimated GFR ML/MIN Glucose (74-106) mg/dL POC Glucometer 178 H 96 148 H (74 to 106) mg/dL Calcium (8.4-10.2) mg/dL Total Bilirubin (0.2-1.3) mg/dL AST (14-36) U/L ALT (0-35) U/L Alkaline Phosphatase (38-126) U/L NT-Pro-B Natriuret Pep (<300) pg/mL Serum Total Protein (6.3-8.2) g/dL Albumin (3.5-5.0) g/dL Micro Results-Entire Visit: Microbiology 09/16/24 10:50 Blood Culture - Preliminary Blood 09/16/24 10:55 Blood Culture - Preliminary Blood Accuchecks Date 09/17/24 Date 09/17/24 Date 09/17/24 Time 20:45 Time 17:29 Time 07:59 - Radiology Exams Ordered Rad Exams-Entire Visit: Radiology Procedures Category Date Time Status CHEST 1 VIEW (PORTABLE) Stat Exams 09/16/24 10:36 Completed - Procedures and Test Procedures and Tests throughout Hospitalization: Therapy Orders & Screens 09/16/24 15:03 EKG REPEAT IN AM Comment: Oxygen Nasal Cannula 2 lpm Comment: Respiratory Therapy Consult ONCE Comment: Reason For Exam: 09/16/24 17:02 Respiratory Therapy Assessment DAILY Comment: Diagnosis: SOB 09/16/24 17:35 RT Screen per Nursing Assess ONCE Comment: Protocol Order Physician Instructions: Greater than 3 points order RT Admission Screen Reason For Exam: Triggered on Admission Diagnosis: SOB Diagnosis: SOB Pneumonia: No Home O2: Yes Asthma: No CHF: Yes Home CPAP/BIPAP: No Home Nebs/MDI: Yes Total Points: 13 Final Diagnosis/Problem List - Final Discharge Diagnosis/Problem (1) Pneumonia Current Visit: Yes Status: Acute Code(s): J18.9 - PNEUMONIA, UNSPECIFIED ORGANISM (2) CHF exacerbation Current Visit: Yes Status: Acute Code(s): I50.9 - HEART FAILURE, UNSPECIFIED (3) COPD exacerbation Current Visit: Yes Status: Chronic Code(s): J44.1 - CHRONIC OBSTRUCTIVE PULMONARY DISEASE W (ACUTE) EXACERBATION (4) HLD (hyperlipidemia) Current Visit: Yes Status: Chronic Code(s): E78.5 - HYPERLIPIDEMIA, UNSPECIFIED (5) HTN (hypertension) Current Visit: Yes Status: Chronic Code(s): I10 - ESSENTIAL (PRIMARY) HYPERTENSION (6) CAD (coronary artery disease) Current Visit: Yes Status: Chronic Code(s): I25.10 - ATHSCL HEART DISEASE OF [place] CORONARY ARTERY W/O ANG PCTRS (7) Type 2 diabetes mellitus Current Visit: No Status: Chronic - Discharge Discharge Date: 09/18/24 Disposition: Home, Self-Care Condition: Fair Prescriptions: No Action Glipizide 10 mg [Glucotrol 10 MG] 10 mg PO DAILY Atorvastatin Calcium [Lipitor] 40 mg PO HS Aspirin [Aspirin EC] 81 mg PO DAILY Clopidogrel Bisulfate [PLAVIX Tablet] 75 mg PO DAILY Albuterol 2.5 mg/3 ml Neb [Proventil 2.5 mg/3 ml Neb] 2.5 mg IH TID Furosemide [Lasix] 20 mg PO DAILY Metoprolol Tartrate 25 mg [Lopressor 25MG Tab] 12.5 mg PO DAILY Pregabalin 50 mg [Lyrica 50MG] 50 mg PO TID Potassium Chloride 10 meq PO DAILY Meclizine HCl 12.5 mg PO TID PRN PRN Reason: Dizziness Diltiazem HCl 30 mg [Cardizem 30 MG] 30 mg PO DAILY Empagliflozin [Jardiance] 10 mg PO DAILY Tiotropium Hassell Inhaler [Spiriva 18 Mcg/Cap Inhaler] 2 puff IH Q6H P RN PRN PRN Reason: Shortness Of Breath ALPRAZolam [Alprazolam] 0.5 mg PO HS PRN PRN Reason: Anxiety/Agitation Insulin Glargine,Hum.rec.anlog [Lantus] 30 units SQ DAILY Nitroglycerin 0.4 mg Tablet [Nitrostat 0.4 MG Tablet] 0.4 mg PO Q5MIN PRN MR X 3 PRN PRN Reason: Chest Pain Follow up with: JONNY BROWNE MD [Primary Care Provider] - KLEVER HONEYCUTT [Family Provider] -
[2024-09-18 05:22] LABS: Absolute Neutrophil Ct (ANC) 5.56 x10^3/uL (1.56-6.13); BASOPHIL % 0.3 % (0.1-1.2); Basophil (Absolute #) 0.02 x10^3/uL (0.01-0.08); Eosinophil % 0.5 % (0.7-5.8); Eosinophil (Absolute #) 0.03 x10^3/uL (0.04-0.36); Hematocrit 41.4 % (34.1-44.9); Hemoglobin 13.3 g/dL (11.2-15.7); IMMATURE GRAN # 0.01 x10^3u/L (0.001-0.031); IMMATURE GRAN % 0.2 % (0.001-0.429); Lymphocyte (Absolute #) 0.56 x10^3/uL (1.18-3.74); Lymphocytes % 8.8 % (19.3-51.7); Mean Cell Volume 86.3 fL (79.4-94.8); Mean Corpuscular Hemoglobin 27.7 pg (25.6-32.2); Mean Corpuscular Hgb Concent. 32.1 g/dL (32.2-35.5); Mean Platelet Volume 11.4 fL (9.4-12.3); Monocyte (Absolute #) 0.16 x10^3/uL (0.24-0.86); Monocytes % 2.5 % (4.7-12.5); Neutrophil % 87.7 % (34.0-71.1); Platelet Count 207 x10^3/uL (182-369); Red Cell Distribution Width 17.3 % (11.7-14.4); White Blood Count 6.3 x10^3/uL (3.98-10.04)
[2024-09-18 05:44] LABS: ALBUMIN 4.2 g/dL (3.5-5.0); ANION GAP 11.8 MEQ/L (5-15); BILIRUBIN,TOTAL 0.9 mg/dL (0.2-1.3); Calcium 9.2 mg/dL (8.4-10.2); Creatinine 1 1.03 mg/dL (0.52-1.04); EST GLOMERULAR FILTRATION RATE 54.3 ML/MIN; Potassium 4.1 mmol/L (3.5-5.1)
[2024-09-18 07:11] LABS: Slide Review 1 YES
[2024-09-18] MEDS: PROAMATINE PO ONE ×2 (09:06→15:36)
[2024-09-18] MEDS: Protonix 40MG Tablet PO SCH (09:45)
--- NOTE | 2024-09-18 12:57 | PCM.NOTE ---
Date and Time: 09/18/24 1250 Subjective Assessment: is a 84 year old female with a pmhx of CHF, CAD (CABG 2010), COPD (2L at baseline), DMII, HLD, HTN, and OA Who presented to ED 09/16/24 with complaints of shortness of breath. Patient reports symptoms have been ongoing over the past month but became worse yesterday. She denies cough, fever, CP, N/V/D. No recent sick contacts. She was admitted for pneumonia at [facility] 07-26-07/27/24 and reports she has not felt at baseline since. Upon arrival to ED patient was on RA and hypoxic. She was placed on 2L NC which is her baseline and spo2 improved to 98%. EKG per ED physician read RATE (100), Sinus Tach, NORMAL AXIS, NORMAL INTERVALS, Right Bundle Branch Block, Other (No acute ischemic changes. QTc is 498). CXR demonstrates new mild bibasilar infiltrates/atelectasis. Stable small right and new small left base effusions. Lab findings remarkable for BNP elevated at 7100. Patient given lasix and levofloxacin in ED. Admit for CHF exacerbation and pneumonia. IP treatment with levaquin/steroids/diuresis. Endorses improvement in dyspnea and BLE edema. At baseline oxygen of 2L. Advised patient to continue to elevate legs when sitting. 09/18/24: Met with patient bedside. Endorses continued improvement in dyspnea. Edema improved. BP low this morning. Patient states that she often has low blood pressure if her medications are all given at once and states she splits them up throughout the day. - Review of Systems Constitutional: Weakness Eyes: No Symptoms Ears, Nose, & Throat: No Symptoms Respiratory: Cough, Short Of Breath Cardiac: Edema Abdominal/Gastrointestinal: No Symptoms Genitourinary Symptoms: No Symptoms Musculoskeletal: No Symptoms Skin: No Symptoms Neurological: No Symptoms Psychological: No Symptoms Endocrine: No Symptoms Hematologic/Lymphatic: No Symptoms Immunological/Allergic: No Symptoms Objective Exam General Appearance: no apparent distress Neurologic Exam: alert, oriented x 3, cooperative Skin Exam: normal color Eye Exam: PERRL Ears, Nose, Throat Exam: normal ENT inspection Neck Exam: normal inspection Lymphatic Exam: adenopathy Respiratory Exam: crackles/rales, wheezing Cardiovascular Exam: regular rate/rhythm, normal heart sounds Gastrointestinal/Abdomen Exam: soft, normal bowel sounds Extremity Exam: swelling (BLE edema +2 pitting) Back Exam: normal inspection Pelvic Exam: deferred Rectal Exam: deferred Objective Data Vital Signs: Vital Signs - 24 hr Temp Pulse Resp BP BP Pulse Ox 09/18/24 11:37 97.7 F 94 H 16 87/53 92 L 09/18/24 10:51 85 16 98 09/18/24 09:45 82/60 09/18/24 08:00 78/42 09/18/24 07:30 97.8 F 95 H 16 92/53 98 09/18/24 05:21 93 H 16 95 09/18/24 04:00 97.5 F 90 18 86/50 93 L 09/18/24 00:00 97.7 F 90 16 88/55 94 L 09/17/24 20:00 98.3 F 88 18 105/70 94 L 09/17/24 19:01 85 16 94 L 09/17/24 16:00 97.6 F 85 16 89/53 97 09/17/24 14:36 78 16 96 Pain Assessment - Last Documented Pain Intensity 0 Intake and Output: Intake & Output 09/16/24 09/17/24 09/18/24 09/19/24 11:59 11:59 11:59 11:59 Intake Total 1420 1469 Output Total 600 2450 Balance 820 -981 Weight 58.2 kg 56.1 kg Lab Results: Lab Results-Last 24 Hours 09/17/24 09/17/24 09/18/24 Range/Units 16:58 20:27 05:12 WBC 6.3 (3.98-10.04) x10^3/uL RBC 4.80 (3.93-5.22) x10^6/uL Hgb 13.3 (11.2-15.7) g/dL Hct 41.4 (34.1-44.9) % MCV 86.3 (79.4-94.8) fL MCH 27.7 (25.6-32.2) pg MCHC 32.1 L (32.2-35.5) g/dL RDW 17.3 H (11.7-14.4) % Plt Count 207 (182-369) x10^3/uL MPV 11.4 (9.4-12.3) fL Gran % 87.7 H (34.0-71.1) % Immature Gran % (Auto) 0.2 (0.001-0.429) % Nucleat RBC Rel Count 0.0 (0.00-0.2) % Eos # (Auto) 0.03 L (0.04-0.36) x10^3/uL Immature Gran # (Auto) 0.01 (0.001-0.031) x10^3u/L Absolute Lymphs (auto) 0.56 L (1.18-3.74) x10^3/uL Absolute Monos (auto) 0.16 L (0.24-0.86) x10^3/uL Absolute Nucleated RBC 0.00 (0.00-0.012) x10^3u/L Lymphocytes % 8.8 L (19.3-51.7) % Monocytes % 2.5 L (4.7-12.5) % Eosinophils % 0.5 L (0.7-5.8) % Basophils % 0.3 (0.1-1.2) % Absolute Granulocytes 5.56 (1.56-6.13) x10^3/uL Basophils # 0.02 (0.01-0.08) x10^3/uL Sodium (135-145) mmol/L Potassium (3.5-5.1) mmol/L Chloride (98-107) mmol/L Carbon Dioxide (22-30) mmol/L Anion Gap (5-15) MEQ/L BUN (7-17) mg/dL Creatinine (0.52-1.04) mg/dL Estimated GFR ML/MIN Glucose (74-106) mg/dL POC Glucometer 96 148 H (74 to 106) mg/dL Calcium (8.4-10.2) mg/dL Total Bilirubin (0.2-1.3) mg/dL AST (14-36) U/L ALT (0-35) U/L Alkaline Phosphatase (38-126) U/L Serum Total Protein (6.3-8.2) g/dL Albumin (3.5-5.0) g/dL Slides for Path Review YES 09/18/24 09/18/24 09/18/24 Range/Units 05:12 07:42 11:26 WBC (3.98-10.04) x10^3/uL RBC (3.93-5.22) x10^6/uL Hgb (11.2-15.7) g/dL Hct (34.1-44.9) % MCV (79.4-94.8) fL MCH (25.6-32.2) pg MCHC (32.2-35.5) g/dL RDW (11.7-14.4) % Plt Count (182-369) x10^3/uL MPV (9.4-12.3) fL Gran % (34.0-71.1) % Immature Gran % (Auto) (0.001-0.429) % Nucleat RBC Rel Count (0.00-0.2) % Eos # (Auto) (0.04-0.36) x10^3/uL Immature Gran # (Auto) (0.001-0.031) x10^3u/L Absolute Lymphs (auto) (1.18-3.74) x10^3/uL Absolute Monos (auto) (0.24-0.86) x10^3/uL Absolute Nucleated RBC (0.00-0.012) x10^3u/L Lymphocytes % (19.3-51.7) % Monocytes % (4.7-12.5) % Eosinophils % (0.7-5.8) % Basophils % (0.1-1.2) % Absolute Granulocytes (1.56-6.13) x10^3/uL Basophils # (0.01-0.08) x10^3/uL Sodium 134 L (135-145) mmol/L Potassium 4.1 (3.5-5.1) mmol/L Chloride 91 L (98-107) mmol/L Carbon Dioxide 35 H (22-30) mmol/L Anion Gap 11.8 (5-15) MEQ/L BUN 22 H (7-17) mg/dL Creatinine 1.03 (0.52-1.04) mg/dL Estimated GFR 54.3 ML/MIN Glucose 172 H (74-106) mg/dL POC Glucometer 238 H 253 H (74 to 106) mg/dL Calcium 9.2 (8.4-10.2) mg/dL Total Bilirubin 0.90 (0.2-1.3) mg/dL AST 28 (14-36) U/L ALT 19 (0-35) U/L Alkaline Phosphatase 81 (38-126) U/L Serum Total Protein 7.0 (6.3-8.2) g/dL Albumin 4.2 (3.5-5.0) g/dL Slides for Path Review Multi-Disciplinary Progress Notes: Multi-Disciplinary Progress Notes 09/18/24 12:10 Case Management Note by Svetlana Ferrer S/W PATIENT- SHE CONTINUES TO PLAN TO RETURN HOME WITH HER SPOUSE AND HHC AT TIME OF DC. SHE DENIES ANY NEW NEEDS AT TIME OF DC. PATIENT ALREADY HAS 24/7 OXYGEN AT HOME Initialized on 09/18/24 12:10 - END OF NOTE 09/17/24 12:56 Case Management Note by Svetlana Ferrer PATIENT HAS [facility] THEY WERE NOTIFIED PATIENT HERE OBS. THEY WILL NEED NOTIFIED AT TIME OF DC AT [phone]. THEY WILL NEED FAXED THE DC INSTRUCTIONS, DC MED LIST AND DC SUMMARY TO [phone] Initialized on 09/17/24 12:56 - END OF NOTE Assessment/Plan (1) Pneumonia Current Visit: Yes Status: Acute Assessment & Plan: -Supplemental oxygen with goal spo2 > 91% - patient is supposed to be on 2L oxygen -ABG prn if significant hypoxia/lethargy -Patient given levaquin due to multiple allergies will continue -LA WNL -Respiratory panel negative -sputum culture -Bcult x 2 pending -RT eval --NEBS/INH 09/17: -Prednisone 20mg bid -Continue levaquin -sp culture pending collection -at baseline oxygen 2L -bcult pending WBC reviewed and wnl at 5.6 09/18: -WBC reviewed and wnl at 6.3 -At baseline oxygen 2L -Dyspnea/cough improved -continue levaquin and prednisone Code(s): J18.9 - PNEUMONIA, UNSPECIFIED ORGANISM (2) CHF exacerbation Current Visit: Yes Status: Acute Assessment & Plan: -Echo from 07/26/24 reviewed with EF at 30-35% -Pt follows with Dr. Gavin OP -Lasix given in ED- will continue 40mg bid -Trend cardiac enzymes -continue home meds 09/17/24: -Continue lasix 40mg bid -CMP/CBC reviewed -BNP reviewed at 7340 09/18/24 -BP soft this morning - hold morning dose -re-time home meds as she takes them at home Code(s): I50.9 - HEART FAILURE, UNSPECIFIED (3) COPD exacerbation Current Visit: Yes Status: Acute Assessment & Plan: -see pneumonia Code(s): J44.1 - CHRONIC OBSTRUCTIVE PULMONARY DISEASE W (ACUTE) EXACERBATION (4) HLD (hyperlipidemia) Current Visit: Yes Status: Acute Assessment & Plan: -continue home statin Code(s): E78.5 - HYPERLIPIDEMIA, UNSPECIFIED (5) HTN (hypertension) Current Visit: Yes Status: Acute Assessment & Plan: -stable continue home meds 09/18: -Hypotensive this morning- hold BP meds- continue to monitor closely Code(s): I10 - ESSENTIAL (PRIMARY) HYPERTENSION (6) CAD (coronary artery disease) Current Visit: Yes Status: Acute Assessment & Plan: -s/p bypass -New Account Interviewer - Dr. Gavin -continue home medications Code(s): I25.10 - ATHSCL HEART DISEASE OF [place] CORONARY ARTERY W/O ANG PCTRS (7) Type 2 diabetes mellitus Current Visit: No Status: Chronic Assessment & Plan: -ADA diet -SSI/glargine -accuchecks VTE: Lovenox PPI: Protonix Dispo: 1-2 days Code(s): J18.9 - PNEUMONIA, UNSPECIFIED ORGANISM (2) CHF exacerbation Current Visit: Yes Status: Acute Code(s): I50.9 - HEART FAILURE, UNSPECIFIED (3) COPD exacerbation Current Visit: Yes Status: Chronic Code(s): J44.1 - CHRONIC OBSTRUCTIVE PULMONARY DISEASE W (ACUTE) EXACERBATION (4) HLD (hyperlipidemia) Current Visit: Yes Status: Chronic Code(s): E78.5 - HYPERLIPIDEMIA, UNSPECIFIED (5) HTN (hypertension) Current Visit: Yes Status: Chronic Code(s): I10 - ESSENTIAL (PRIMARY) HYPERTENSION (6) CAD (coronary artery disease) Current Visit: Yes Status: Chronic Code(s): I25.10 - ATHSCL HEART DISEASE OF [place] CORONARY ARTERY W/O ANG PCTRS (7) Type 2 diabetes mellitus Current Visit: No Status: Chronic
[2024-09-19 05:15] LABS: Absolute Neutrophil Ct (ANC) 6.93 x10^3/uL (1.56-6.13); BASOPHIL % 0.1 % (0.1-1.2); Basophil (Absolute #) 0.01 x10^3/uL (0.01-0.08); Eosinophil (Absolute #) 0 x10^3/uL (0.04-0.36); Hematocrit 37.6 % (34.1-44.9); IMMATURE GRAN # 0.02 x10^3u/L (0.001-0.031); IMMATURE GRAN % 0.3 % (0.001-0.429); Lymphocyte (Absolute #) 0.42 x10^3/uL (1.18-3.74); Lymphocytes % 5.5 % (19.3-51.7); Mean Cell Volume 86.8 fL (79.4-94.8); Mean Corpuscular Hemoglobin 27.7 pg (25.6-32.2); Mean Corpuscular Hgb Concent. 31.9 g/dL (32.2-35.5); Mean Platelet Volume 11.7 fL (9.4-12.3); Monocyte (Absolute #) 0.25 x10^3/uL (0.24-0.86); Monocytes % 3.3 % (4.7-12.5); Neutrophil % 90.8 % (34.0-71.1); Platelet Count 222 x10^3/uL (182-369); Red Blood Count 4.33 x10^6/uL (3.93-5.22); White Blood Count 7.6 x10^3/uL (3.98-10.04)
--- NOTE | 2024-09-19 05:31 | PCM.NOTE ---
Date and Time: 09/19/24 0529 Subjective Assessment: is a 84 year old female with a pmhx of CHF, CAD (CABG 2010), COPD (2L at baseline), DMII, HLD, HTN, and OA Who presented to ED 09/16/24 with complaints of shortness of breath. Patient reports symptoms have been ongoing over the past month but became worse yesterday. She denies cough, fever, CP, N/V/D. No recent sick contacts. She was admitted for pneumonia at [facility] 07-26-07/27/24 and reports she has not felt at baseline since. Upon arrival to ED patient was on RA and hypoxic. She was placed on 2L NC which is her baseline and spo2 improved to 98%. EKG per ED physician read RATE (100), Sinus Tach, NORMAL AXIS, NORMAL INTERVALS, Right Bundle Branch Block, Other (No acute ischemic changes. QTc is 498). CXR demonstrates new mild bibasilar infiltrates/atelectasis. Stable small right and new small left base effusions. Lab findings remarkable for BNP elevated at 7100. Patient given lasix and levofloxacin in ED. Admit for CHF exacerbation and pneumonia. IP treatment with levaquin/steroids/diuresis. Endorses improvement in dyspnea and BLE edema. At baseline oxygen of 2L. Advised patient to continue to elevate legs when sitting. 09/18/24: Met with patient bedside. Endorses continued improvement in dyspnea. Edema improved. BP low this morning. Patient states that she often has low blood pressure if her medications are all given at once and states she splits them up throughout the day. Objective Data Vital Signs: Vital Signs - 24 hr Temp Pulse Resp BP BP Pulse Ox 09/19/24 05:00 81 18 96 09/19/24 03:51 97.7 F 78 15 80/50 97 09/19/24 01:00 73 17 09/18/24 19:48 98.8 F 85 18 91/51 97 09/18/24 18:29 85 16 93 L 09/18/24 17:00 86 15 83/47 93 L 09/18/24 14:56 74 14 96 09/18/24 14:00 88 82/54 09/18/24 11:37 97.7 F 94 H 16 87/53 92 L 09/18/24 10:51 85 16 98 09/18/24 09:45 82/60 09/18/24 08:00 78/42 09/18/24 07:30 97.8 F 95 H 16 92/53 98 Pain Assessment - Last Documented Pain Intensity 0 Intake and Output: Intake & Output 09/16/24 09/17/24 09/18/24 09/19/24 11:59 11:59 11:59 11:59 Intake Total 1420 1469 400 Output Total 600 2450 700 Balance 820 -981 -300 Weight 58.2 kg 56.1 kg 55.8 kg Lab Results: Lab Results-Last 24 Hours 09/18/24 09/18/24 09/18/24 Range/Units 05:12 05:12 07:42 WBC 6.3 (3.98-10.04) x10^3/uL RBC 4.80 (3.93-5.22) x10^6/uL Hgb 13.3 (11.2-15.7) g/dL Hct 41.4 (34.1-44.9) % MCV 86.3 (79.4-94.8) fL MCH 27.7 (25.6-32.2) pg MCHC 32.1 L (32.2-35.5) g/dL RDW 17.3 H (11.7-14.4) % Plt Count 207 (182-369) x10^3/uL MPV 11.4 (9.4-12.3) fL Gran % 87.7 H (34.0-71.1) % Immature Gran % (Auto) 0.2 (0.001-0.429) % Nucleat RBC Rel Count 0.0 (0.00-0.2) % Eos # (Auto) 0.03 L (0.04-0.36) x10^3/uL Immature Gran # (Auto) 0.01 (0.001-0.031) x10^3u/L Absolute Lymphs (auto) 0.56 L (1.18-3.74) x10^3/uL Absolute Monos (auto) 0.16 L (0.24-0.86) x10^3/uL Absolute Nucleated RBC 0.00 (0.00-0.012) x10^3u/L Lymphocytes % 8.8 L (19.3-51.7) % Monocytes % 2.5 L (4.7-12.5) % Eosinophils % 0.5 L (0.7-5.8) % Basophils % 0.3 (0.1-1.2) % Absolute Granulocytes 5.56 (1.56-6.13) x10^3/uL Basophils # 0.02 (0.01-0.08) x10^3/uL Sodium 134 L (135-145) mmol/L Potassium 4.1 (3.5-5.1) mmol/L Chloride 91 L (98-107) mmol/L Carbon Dioxide 35 H (22-30) mmol/L Anion Gap 11.8 (5-15) MEQ/L BUN 22 H (7-17) mg/dL Creatinine 1.03 (0.52-1.04) mg/dL Estimated GFR 54.3 ML/MIN Glucose 172 H (74-106) mg/dL POC Glucometer 238 H (74 to 106) mg/dL Calcium 9.2 (8.4-10.2) mg/dL Total Bilirubin 0.90 (0.2-1.3) mg/dL AST 28 (14-36) U/L ALT 19 (0-35) U/L Alkaline Phosphatase 81 (38-126) U/L Serum Total Protein 7.0 (6.3-8.2) g/dL Albumin 4.2 (3.5-5.0) g/dL Slides for Path Review YES 09/18/24 09/18/24 09/18/24 Range/Units 11:26 17:09 20:38 WBC (3.98-10.04) x10^3/uL RBC (3.93-5.22) x10^6/uL Hgb (11.2-15.7) g/dL Hct (34.1-44.9) % MCV (79.4-94.8) fL MCH (25.6-32.2) pg MCHC (32.2-35.5) g/dL RDW (11.7-14.4) % Plt Count (182-369) x10^3/uL MPV (9.4-12.3) fL Gran % (34.0-71.1) % Immature Gran % (Auto) (0.001-0.429) % Nucleat RBC Rel Count (0.00-0.2) % Eos # (Auto) (0.04-0.36) x10^3/uL Immature Gran # (Auto) (0.001-0.031) x10^3u/L Absolute Lymphs (auto) (1.18-3.74) x10^3/uL Absolute Monos (auto) (0.24-0.86) x10^3/uL Absolute Nucleated RBC (0.00-0.012) x10^3u/L Lymphocytes % (19.3-51.7) % Monocytes % (4.7-12.5) % Eosinophils % (0.7-5.8) % Basophils % (0.1-1.2) % Absolute Granulocytes (1.56-6.13) x10^3/uL Basophils # (0.01-0.08) x10^3/uL Sodium (135-145) mmol/L Potassium (3.5-5.1) mmol/L Chloride (98-107) mmol/L Carbon Dioxide (22-30) mmol/L Anion Gap (5-15) MEQ/L BUN (7-17) mg/dL Creatinine (0.52-1.04) mg/dL Estimated GFR ML/MIN Glucose (74-106) mg/dL POC Glucometer 253 H 170 H 252 H (74 to 106) mg/dL Calcium (8.4-10.2) mg/dL Total Bilirubin (0.2-1.3) mg/dL AST (14-36) U/L ALT (0-35) U/L Alkaline Phosphatase (38-126) U/L Serum Total Protein (6.3-8.2) g/dL Albumin (3.5-5.0) g/dL Slides for Path Review 09/19/24 09/19/24 Range/Units 03:31 05:07 WBC 7.6 (3.98-10.04) x10^3/uL RBC 4.33 (3.93-5.22) x10^6/uL Hgb 12.0 (11.2-15.7) g/dL Hct 37.6 (34.1-44.9) % MCV 86.8 (79.4-94.8) fL MCH 27.7 (25.6-32.2) pg MCHC 31.9 L (32.2-35.5) g/dL RDW 17.0 H (11.7-14.4) % Plt Count 222 (182-369) x10^3/uL MPV 11.7 (9.4-12.3) fL Gran % 90.8 H (34.0-71.1) % Immature Gran % (Auto) 0.3 (0.001-0.429) % Nucleat RBC Rel Count 0.0 (0.00-0.2) % Eos # (Auto) 0 L (0.04-0.36) x10^3/uL Immature Gran # (Auto) 0.02 (0.001-0.031) x10^3u/L Absolute Lymphs (auto) 0.42 L (1.18-3.74) x10^3/uL Absolute Monos (auto) 0.25 (0.24-0.86) x10^3/uL Absolute Nucleated RBC 0.00 (0.00-0.012) x10^3u/L Lymphocytes % 5.5 L (19.3-51.7) % Monocytes % 3.3 L (4.7-12.5) % Eosinophils % 0.0 L (0.7-5.8) % Basophils % 0.1 (0.1-1.2) % Absolute Granulocytes 6.93 H (1.56-6.13) x10^3/uL Basophils # 0.01 (0.01-0.08) x10^3/uL Sodium (135-145) mmol/L Potassium (3.5-5.1) mmol/L Chloride (98-107) mmol/L Carbon Dioxide (22-30) mmol/L Anion Gap (5-15) MEQ/L BUN (7-17) mg/dL Creatinine (0.52-1.04) mg/dL Estimated GFR ML/MIN Glucose (74-106) mg/dL POC Glucometer 213 H (74 to 106) mg/dL Calcium (8.4-10.2) mg/dL Total Bilirubin (0.2-1.3) mg/dL AST (14-36) U/L ALT (0-35) U/L Alkaline Phosphatase (38-126) U/L Serum Total Protein (6.3-8.2) g/dL Albumin (3.5-5.0) g/dL Slides for Path Review Multi-Disciplinary Progress Notes: Multi-Disciplinary Progress Notes 09/18/24 12:10 Case Management Note by Svetlana Ferrer S/W PATIENT- SHE CONTINUES TO PLAN TO RETURN HOME WITH HER SPOUSE AND HHC AT TIME OF DC. SHE DENIES ANY NEW NEEDS AT TIME OF DC. PATIENT ALREADY HAS 24/7 OXYGEN AT HOME Initialized on 09/18/24 12:10 - END OF NOTE Assessment/Plan (1) Pneumonia Current Visit: Yes Status: Acute Assessment & Plan: -Supplemental oxygen with goal spo2 > 91% - patient is supposed to be on 2L oxygen -ABG prn if significant hypoxia/lethargy -Patient given levaquin due to multiple allergies will continue -LA WNL -Respiratory panel negative -sputum culture -Bcult x 2 pending -RT eval --NEBS/INH 09/17: -Prednisone 20mg bid -Continue levaquin -sp culture pending collection -at baseline oxygen 2L -bcult pending WBC reviewed and wnl at 5.6 09/18: -WBC reviewed and wnl at 6.3 -At baseline oxygen 2L -Dyspnea/cough improved -continue levaquin and prednisone 09/19 -CBC reviewed with WBC WNL Code(s): J18.9 - PNEUMONIA, UNSPECIFIED ORGANISM (2) CHF exacerbation Current Visit: Yes Status: Acute Assessment & Plan: -Echo from 07/26/24 reviewed with EF at 30-35% -Pt follows with Dr. Gavin OP -Lasix given in ED- will continue 40mg bid -Trend cardiac enzymes -continue home meds 09/17/24: -Continue lasix 40mg bid -CMP/CBC reviewed -BNP reviewed at 7340 09/18/24 -BP soft this morning - hold lasix -re-time home meds as she takes them at home Code(s): I50.9 - HEART FAILURE, UNSPECIFIED (3) COPD exacerbation Current Visit: Yes Status: Acute Assessment & Plan: -see pneumonia Code(s): J44.1 - CHRONIC OBSTRUCTIVE PULMONARY DISEASE W (ACUTE) EXACERBATION (4) HLD (hyperlipidemia) Current Visit: Yes Status: Acute Assessment & Plan: -continue home statin Code(s): E78.5 - HYPERLIPIDEMIA, UNSPECIFIED (5) HTN (hypertension) Current Visit: Yes Status: Acute Assessment & Plan: -stable continue home meds 09/18: -Hypotensive this morning- hold BP meds- continue to monitor closely Code(s): I10 - ESSENTIAL (PRIMARY) HYPERTENSION (6) CAD (coronary artery disease) Current Visit: Yes Status: Acute Assessment & Plan: -s/p bypass -Float Nurse - Dr. Gavin -continue home medications Code(s): I25.10 - ATHSCL HEART DISEASE OF [place] CORONARY ARTERY W/O ANG PCTRS (7) Type 2 diabetes mellitus Current Visit: No Status: Chronic Assessment & Plan: -ADA diet -SSI/glargine -accuchecks VTE: Lovenox PPI: Protonix Dispo: 1-2 days Code(s): J18.9 - PNEUMONIA, UNSPECIFIED ORGANISM (2) CHF exacerbation Current Visit: Yes Status: Acute Code(s): I50.9 - HEART FAILURE, UNSPECIFIED (3) COPD exacerbation Current Visit: Yes Status: Chronic Code(s): J44.1 - CHRONIC OBSTRUCTIVE PULMONARY DISEASE W (ACUTE) EXACERBATION (4) HLD (hyperlipidemia) Current Visit: Yes Status: Chronic Code(s): E78.5 - HYPERLIPIDEMIA, UNSPECIFIED (5) HTN (hypertension) Current Visit: Yes Status: Chronic Code(s): I10 - ESSENTIAL (PRIMARY) HYPERTENSION (6) CAD (coronary artery disease) Current Visit: Yes Status: Chronic Code(s): I25.10 - ATHSCL HEART DISEASE OF [place] CORONARY ARTERY W/O ANG PCTRS (7) Type 2 diabetes mellitus Current Visit: No Status: Chronic
[2024-09-19 05:48] LABS: ALBUMIN 3.7 g/dL (3.5-5.0); ANION GAP 9.7 MEQ/L (5-15); BILIRUBIN,TOTAL 0.6 mg/dL (0.2-1.3); Calcium 9.2 mg/dL (8.4-10.2); Creatinine 1 0.9 mg/dL (0.52-1.04); EST GLOMERULAR FILTRATION RATE 63.8 ML/MIN; Potassium 4.1 mmol/L (3.5-5.1); Total Protein 6.3 g/dL (6.3-8.2)
[2024-09-19 07:56] LABS: Slide Review 1 YES
[2024-09-19] MEDS: HUMALOG SQ PRN (08:29)
[2024-09-19] MEDS: PROAMATINE PO SCH (10:34)
--- NOTE | 2024-09-19 10:47 | PCM.DS ---
Discharge Summary Date of Admission: 09/16/24 14:25 Date of Discharge: 09/19/24 Admitting Physician: JESSE VASQUEZ MD Primary Care Provider: JONNY BROWNE ORLIN Allergies Allergies Penicillins Allergy (Severe, Verified 09/17/24 00:46) Difficulty Breathing codeine Allergy (Intermediate, Verified 09/17/24 00:46) Nausea and Vomiting metformin Allergy (Intermediate, Verified 09/17/24 00:46) Nausea and Vomiting Sulfa (Sulfonamide Antibiotics) Allergy (Intermediate, Verified 09/17/24 00:46) Itching ibuprofen Allergy (Verified 09/17/24 00:46) azithromycin [From Zithromax] Adverse Reaction (Intermediate, Verified 09/17/24 00:46) Headache IV ZITHROMAX CAUSEA HEADACHE AND MUSCLE SPASMS morphine Adverse Reaction (Intermediate, Verified 09/17/24 00:46) HALLUCINATIONS Hospital Summary - Hospital Course Hospital Course: is a 84 year old female with a pmhx of CHF, CAD (CABG 2010), COPD (2L at baseline), DMII, HLD, HTN, and OA Who presented to ED 09/16/24 with complaints of shortness of breath. Patient reports symptoms have been ongoing over the past month but became worse yesterday. She denies cough, fever, CP, N/V/D. No recent sick contacts. She was admitted for pneumonia at [facility] 07-26-07/27/24 and reports she has not felt at baseline since. Upon arrival to ED patient was on RA and hypoxic. She was placed on 2L NC which is her baseline and spo2 improved to 98%. EKG per ED physician read RATE (100), Sinus Tach, NORMAL AXIS, NORMAL INTERVALS, Right Bundle Branch Block, Other (No acute ischemic changes. QTc is 498). CXR demonstrates new mild bibasilar infiltrates/atelectasis. Stable small right and new small left base effusions. Lab findings remarkable for BNP elevated at 7100. Patient given lasix and levofloxacin in ED. Admit for CHF exacerbation and pneumonia. IP treatment with levaquin/steroids/diuresis. Endorses improvement in dyspnea and BLE edema. At baseline oxygen of 2L. Endorses continued improvement in dyspnea. Edema improved. Patient states that she often has low blood pressure if her medications are all given at once and states she splits them up throughout the day. Will add midodrine to help with hypotension. Labs and vitals stable- patient ready for discharge. Discharge Note New Diagnosis: Pneumonia/CHF exacerbtion New Medications:Levaquin/prednisone/midodrine Follow Up: PCP/cardiology/pulm Latest Assessment & Plan (1) Pneumonia Current Visit: Yes Status: Acute Assessment & Plan: -Supplemental oxygen with goal spo2 > 91% - patient is supposed to be on 2L oxygen -ABG prn if significant hypoxia/lethargy -Patient given levaquin due to multiple allergies will continue -LA WNL -Respiratory panel negative -sputum culture -Bcult x 2 pending -RT eval --NEBS/INH 09/17: -Prednisone 20mg bid -Continue levaquin -sp culture pending collection -at baseline oxygen 2L -bcult pending WBC reviewed and wnl at 5.6 09/18: -WBC reviewed and wnl at 6.3 -At baseline oxygen 2L -Dyspnea/cough improved -continue levaquin and prednisone 09/19 -CBC reviewed with WBC WNL Code(s): J18.9 - PNEUMONIA, UNSPECIFIED ORGANISM (2) CHF exacerbation Current Visit: Yes Status: Acute Assessment & Plan: -Echo from 07/26/24 reviewed with EF at 30-35% -Pt follows with Dr. Romaine BATISTA -Lasix given in ED- will continue 40mg bid -Trend cardiac enzymes -continue home meds 09/17/24: -Continue lasix 40mg bid -CMP/CBC reviewed -BNP reviewed at 7340 09/18/24 -BP soft this morning - hold lasix -re-time home meds as she takes them at home Code(s): I50.9 - HEART FAILURE, UNSPECIFIED (3) COPD exacerbation Current Visit: Yes Status: Acute Assessment & Plan: -see pneumonia Code(s): J44.1 - CHRONIC OBSTRUCTIVE PULMONARY DISEASE W (ACUTE) EXACERBATION (4) HLD (hyperlipidemia) Current Visit: Yes Status: Acute Assessment & Plan: -continue home statin Code(s): E78.5 - HYPERLIPIDEMIA, UNSPECIFIED (5) HTN (hypertension) Current Visit: Yes Status: Acute Assessment & Plan: -stable continue home meds 09/18: -Hypotensive this morning- hold BP meds- continue to monitor closely Code(s): I10 - ESSENTIAL (PRIMARY) HYPERTENSION (6) CAD (coronary artery disease) Current Visit: Yes Status: Acute Assessment & Plan: -s/p bypass -[facility] - Dr. Gavin -continue home medications Code(s): I25.10 - ATHSCL HEART DISEASE OF [place] CORONARY ARTERY W/O ANG PCTRS (7) Type 2 diabetes mellitus Current Visit: No Status: Chronic Assessment & Plan: -ADA diet -SSI/glargine -accuchecks I spent 35 minutes [id number] with the patient on the day of discharge performing discharge exam, discussing hospital stay and discharge instructions with patient and caregivers, preparation of discharge records, prescriptions & referral forms and addressing any questions/concerns the patient had as doc umented above. - Vitals & Intake/Output Vital Signs: Vital Signs Temperature 98.1 F 09/19/24 07:39 Pulse Rate 85 09/19/24 07:39 Respiratory Rate 16 09/19/24 07:39 Blood Pressure 119/78 09/19/24 07:39 O2 Sat by Pulse Oximetry 97 09/19/24 07:39 Intake & Output: Intake & Output 09/16/24 09/17/24 09/18/24 09/19/24 11:59 11:59 11:59 11:59 Intake Total 1420 1469 840 Output Total 600 2450 1200 Balance 820 -981 -360 Weight 58.2 kg 56.1 kg 55.8 kg 53.8 kg - Lab Result Diagrams: 09/19/24 05:07 09/19/24 05:07 Lab Results-Last 24 Hrs: Lab Results-Last 24 Hours 09/18/24 09/18/24 09/18/24 Range/Units 11:26 17:09 20:38 WBC (3.98-10.04) x10^3/uL RBC (3.93-5.22) x10^6/uL Hgb (11.2-15.7) g/dL Hct (34.1-44.9) % MCV (79.4-94.8) fL MCH (25.6-32.2) pg MCHC (32.2-35.5) g/dL RDW (11.7-14.4) % Plt Count (182-369) x10^3/uL MPV (9.4-12.3) fL Gran % (34.0-71.1) % Immature Gran % (Auto) (0.001-0.429) % Nucleat RBC Rel Count (0.00-0.2) % Eos # (Auto) (0.04-0.36) x10^3/uL Immature Gran # (Auto) (0.001-0.031) x10^3u/L Absolute Lymphs (auto) (1.18-3.74) x10^3/uL Absolute Monos (auto) (0.24-0.86) x10^3/uL Absolute Nucleated RBC (0.00-0.012) x10^3u/L Lymphocytes % (19.3-51.7) % Monocytes % (4.7-12.5) % Eosinophils % (0.7-5.8) % Basophils % (0.1-1.2) % Absolute Granulocytes (1.56-6.13) x10^3/uL Basophils # (0.01-0.08) x10^3/uL Sodium (135-145) mmol/L Potassium (3.5-5.1) mmol/L Chloride (98-107) mmol/L Carbon Dioxide (22-30) mmol/L Anion Gap (5-15) MEQ/L BUN (7-17) mg/dL Creatinine (0.52-1.04) mg/dL Estimated GFR ML/MIN Glucose (74-106) mg/dL POC Glucometer 253 H 170 H 252 H (74 to 106) mg/dL Calcium (8.4-10.2) mg/dL Total Bilirubin (0.2-1.3) mg/dL AST (14-36) U/L ALT (0-35) U/L Alkaline Phosphatase (38-126) U/L Serum Total Protein (6.3-8.2) g/dL Albumin (3.5-5.0) g/dL Slides for Path Review 09/19/24 09/19/24 09/19/24 Range/Units 03:31 05:07 05:07 WBC 7.6 (3.98-10.04) x10^3/uL RBC 4.33 (3.93-5.22) x10^6/uL Hgb 12.0 (11.2-15.7) g/dL Hct 37.6 (34.1-44.9) % MCV 86.8 (79.4-94.8) fL MCH 27.7 (25.6-32.2) pg MCHC 31.9 L (32.2-35.5) g/dL RDW 17.0 H (11.7-14.4) % Plt Count 222 (182-369) x10^3/uL MPV 11.7 (9.4-12.3) fL Gran % 90.8 H (34.0-71.1) % Immature Gran % (Auto) 0.3 (0.001-0.429) % Nucleat RBC Rel Count 0.0 (0.00-0.2) % Eos # (Auto) 0 L (0.04-0.36) x10^3/uL Immature Gran # (Auto) 0.02 (0.001-0.031) x10^3u/L Absolute Lymphs (auto) 0.42 L (1.18-3.74) x10^3/uL Absolute Monos (auto) 0.25 (0.24-0.86) x10^3/uL Absolute Nucleated RBC 0.00 (0.00-0.012) x10^3u/L Lymphocytes % 5.5 L (19.3-51.7) % Monocytes % 3.3 L (4.7-12.5) % Eosinophils % 0.0 L (0.7-5.8) % Basophils % 0.1 (0.1-1.2) % Absolute Granulocytes 6.93 H (1.56-6.13) x10^3/uL Basophils # 0.01 (0.01-0.08) x10^3/uL Sodium 135 (135-145) mmol/L Potassium 4.1 (3.5-5.1) mmol/L Chloride 94 L (98-107) mmol/L Carbon Dioxide 36 H (22-30) mmol/L Anion Gap 9.7 (5-15) MEQ/L BUN 29 H (7-17) mg/dL Creatinine 0.90 (0.52-1.04) mg/dL Estimated GFR 63.8 ML/MIN Glucose 205 H (74-106) mg/dL POC Glucometer 213 H (74 to 106) mg/dL Calcium 9.2 (8.4-10.2) mg/dL Total Bilirubin 0.60 (0.2-1.3) mg/dL AST 26 (14-36) U/L ALT 18 (0-35) U/L Alkaline Phosphatase 70 (38-126) U/L Serum Total Protein 6.3 (6.3-8.2) g/dL Albumin 3.7 (3.5-5.0) g/dL Slides for Path Review YES 09/19/24 Range/Units 07:32 WBC (3.98-10.04) x10^3/uL RBC (3.93-5.22) x10^6/uL Hgb (11.2-15.7) g/dL Hct (34.1-44.9) % MCV (79.4-94.8) fL MCH (25.6-32.2) pg MCHC (32.2-35.5) g/dL RDW (11.7-14.4) % Plt Count (182-369) x10^3/uL MPV (9.4-12.3) fL Gran % (34.0-71.1) % Immature Gran % (Auto) (0.001-0.429) % Nucleat RBC Rel Count (0.00-0.2) % Eos # (Auto) (0.04-0.36) x10^3/uL Immature Gran # (Auto) (0.001-0.031) x10^3u/L Absolute Lymphs (auto) (1.18-3.74) x10^3/uL Absolute Monos (auto) (0.24-0.86) x10^3/uL Absolute Nucleated RBC (0.00-0.012) x10^3u/L Lymphocytes % (19.3-51.7) % Monocytes % (4.7-12.5) % Eosinophils % (0.7-5.8) % Basophils % (0.1-1.2) % Absolute Granulocytes (1.56-6.13) x10^3/uL Basophils # (0.01-0.08) x10^3/uL Sodium (135-145) mmol/L Potassium (3.5-5.1) mmol/L Chloride (98-107) mmol/L Carbon Dioxide (22-30) mmol/L Anion Gap (5-15) MEQ/L BUN (7-17) mg/dL Creatinine (0.52-1.04) mg/dL Estimated GFR ML/MIN Glucose (74-106) mg/dL POC Glucometer 270 H (74 to 106) mg/dL Calcium (8.4-10.2) mg/dL Total Bilirubin (0.2-1.3) mg/dL AST (14-36) U/L ALT (0-35) U/L Alkaline Phosphatase (38-126) U/L Serum Total Protein (6.3-8.2) g/dL Albumin (3.5-5.0) g/dL Slides for Path Review Micro Results-Entire Visit: Microbiology 09/16/24 10:50 Blood Culture - Preliminary Blood 09/16/24 10:55 Blood Culture - Preliminary Blood Accuchecks Date 09/19/24 Date 09/18/24 Date 09/18/24 Time 07:40 Time 21:30 Time 17:27 - Procedures and Test Procedures and Tests throughout Hospitalization: Therapy Orders & Screens 09/16/24 15:03 EKG REPEAT IN AM Comment: Oxygen Nasal Cannula 2 lpm Comment: Respiratory Therapy Consult ONCE Comment: Reason For Exam: 09/16/24 17:02 Respiratory Therapy Assessment DAILY Comment: Diagnosis: SOB 09/16/24 17:35 RT Screen per Nursing Assess ONCE Comment: Protocol Order Physician Instructions: Greater than 3 points order RT Admission Screen Reason For Exam: Triggered on Admission Diagnosis: SOB Diagnosis: SOB Pneumonia: No Home O2: Yes Asthma: No CHF: Yes Home CPAP/BIPAP: No Home Nebs/MDI: Yes Total Points: 13 Discharge Exam General Appearance: no apparent distress Neurologic Exam: alert, oriented x 3, cooperative Eye Exam: PERRL Ears, Nose, Throat Exam: normal ENT inspection Neck Exam: normal inspection Respiratory Exam: diminished breath sounds Cardiovascular Exam: regular rate/rhythm, normal heart sounds Gastrointestinal/Abdomen Exam: soft, normal bowel sounds Pelvic Exam: deferred Rectal Exam: deferred Back Exam: normal inspection Extremity Exam: swelling (BLE edema 1+) Skin Exam: normal color Final Diagnosis/Problem List - Final Discharge Diagnosis/Problem (1) Pneumonia Current Visit: Yes Status: Acute Code(s): J18.9 - PNEUMONIA, UNSPECIFIED ORGANISM (2) CHF exacerbation Current Visit: Yes Status: Acute Code(s): I50.9 - HEART FAILURE, UNSPECIFIED (3) COPD exacerbation Current Visit: Yes Status: Chronic Code(s): J44.1 - CHRONIC OBSTRUCTIVE PULMONARY DISEASE W (ACUTE) EXACERBATION (4) HLD (hyperlipidemia) Current Visit: Yes Status: Chronic Code(s): E78.5 - HYPERLIPIDEMIA, UNSPECIFIED (5) HTN (hypertension) Current Visit: Yes Status: Chronic Code(s): I10 - ESSENTIAL (PRIMARY) HYPERTENSION (6) CAD (coronary artery disease) Current Visit: Yes Status: Chronic Code(s): I25.10 - ATHSCL HEART DISEASE OF [place] CORONARY ARTERY W/O ANG PCTRS (7) Type 2 diabetes mellitus Current Visit: No Status: Chronic - Discharge Discharge Date: 09/19/24 Disposition: Home, Self-Care Condition: Stable Prescriptions: New Prednisone 20 mg [Deltasone 20 mg] 20 mg PO BID 5 Days #10 tablet levoFLOXacin [Levofloxacin] 750 mg PO DAILY 7 Days #7 tablet Midodrine HCl 5 mg PO TID 30 Days #90 tablet Continue Glipizide 10 mg [Glucotrol 10 MG] 10 mg PO DAILY Atorvastatin Calcium [Lipitor] 40 mg PO HS Aspirin [Aspirin EC] 81 mg PO DAILY Clopidogrel Bisulfate [PLAVIX Tablet] 75 mg PO DAILY Albuterol 2.5 mg/3 ml Neb [Proventil 2.5 mg/3 ml Neb] 2.5 mg IH TID Furosemide [Lasix] 20 mg PO DAILY Metoprolol Tartrate 25 mg [Lopressor 25MG Tab] 12.5 mg PO DAILY Pregabalin 50 mg [Lyrica 50MG] 50 mg PO TID Potassium Chloride 10 meq PO DAILY Meclizine HCl 12.5 mg PO TID PRN PRN Reason: Dizziness Diltiazem HCl 30 mg [Cardizem 30 MG] 30 mg PO DAILY Empagliflozin [Jardiance] 10 mg PO DAILY Tiotropium [place] Inhaler [Spiriva 18 Mcg/Cap Inhaler] 2 puff IH Q6H PRN PRN PRN Reason: Shortness Of Breath ALPRAZolam [Alprazolam] 0.5 mg PO HS PRN PRN Reason: Anxiety/Agitation Insulin Glargine,Hum.rec.anlog [Lantus] 30 units SQ DAILY Nitroglycerin 0.4 mg Tablet [Nitrostat 0.4 MG Tablet] 0.4 mg PO Q5MIN PRN MR X 3 PRN PRN Reason: Chest Pain Follow up with: KLEVER GAVIN [Family Provider] - 10/04/24 12:00 pm (at [facility]) SARA PRICE, [employer] [[employer] PROFESSION STAFF] - 09/25/24 2:00 pm ([facility]by to see patient for )
[2024-09-19 12:35] VITALS: BP 99/58; PULSE 89; RESP 16; TEMP 97.8; O2SAT 95
== END 2024-09-19 13:26 | disposition home health service (06) ==
LOC: ED 10:09 → MED SURG 14:25
PROVIDERS: ADMIT Internal Medicine; ATTEND Internal Medicine
DX: J18.9 Pneumonia, unspecified organism (principal); I11.0 Hypertensive heart disease with heart failure; I50.9 Heart failure, unspecified; J44.1 Chronic obstructive pulmonary disease with (acute) exacerbation; E78.5 Hyperlipidemia, unspecified; I25.10 Atherosclerotic heart disease of native coronary artery without angina pectoris; E11.9 Type 2 diabetes mellitus without complications; R60.0 Localized edema; Z79.01 Long term (current) use of anticoagulants; Z79.899 Other long term (current) drug therapy; Z95.0 Presence of cardiac pacemaker; Z99.81 Dependence on supplemental oxygen
CPT/HCPCS: 0241U; 36415; 71045; 80053; 82947; 83036; 83605; 83735; 83880; 84484; 85025; 87040; 93005; 93268; 94640; 94760; 96365; 96374; 99285; G0378; Q3014; 99284; J1650; J1817; J1940; J1956; J2405; A9270-GY

== ENCOUNTER 2024-09-27 16:13 | Observation (INO) | payer MEDICARE ==
--- NOTE | 2024-09-27 16:34 | ERPHSYRPT ---
- History of Present Illness Time Seen by Provider: 09/27/24 16:17 Source: patient Exam Limitations: no limitations Physician History: 1 hour prior to coming to the emergency room, patient got up to the bathroom after sleeping and then had loss of vision as described everything . She states the vision did not return back for 45 minutes, so she called EMS and on the way here her vision returned. She denied any change in her speech, any facial droop that she can see, any weakness in her arms or legs that is new, new loss sensation to her arms or legs, any loss of coordination to her arms and legs. Patient denied any other symptoms besides a visual loss as she had no issues or heart racing or any funny sensation in her chest, denied any pain to her chest, back or abdomen when this occurred, denied any headache with this, denied any shortness of breath, and she did not feel like she is going to pass out and denies any fainting spells. Time resolved her symptoms. Patient has not been evaluated or treated by anyone prior to coming into the emergency department. Time of Onset/Last Time Seen Normal: 1 hour ago Timing/Duration: hour(s), sudden, improved Severity: moderate Character of Deficits: vision problems Deficits: no difficulties Baseline/Normal Cognition: alert oriented x 3 Current Cognition: alert oriented x 3 Baseline Gait: uses walker Associated Symptoms: No confusion, No fatigue, No fever, No chills, No loss of consciousness, No nausea, No vomiting, No weakness, No insomnia, No muscle spasms, No numbness/tingling in legs/feet, No paresthesia, No ringing in ears, No seizures, No slurred speech, No trouble walking, No vision changes, No chest pain, No headache Allergies/Adverse Reactions: Penicillins Allergy (Severe, Verified 09/17/24 00:46) Difficulty Breathing codeine Allergy (Intermediate, Verified 09/17/24 00:46) Nausea and Vomiting metformin Allergy (Intermediate, Verified 09/17/24 00:46) Nausea and Vomiting Sulfa (Sulfonamide Antibiotics) Allergy (Intermediate, Verified 09/17/24 00:46) Itching ibuprofen Allergy (Verified 09/17/24 00:46) azithromycin [From Zithromax] Adverse Reaction (Intermediate, Verified 09/17/24 00:46) Headache IV ZITHROMAX CAUSEA HEADACHE AND MUSCLE SPASMS morphine Adverse Reaction (Intermediate, Verified 09/17/24 00:46) HALLUCINATIONS Home Medications: Glipizide 10 mg [Glucotrol 10 MG] 10 mg PO DAILY 06/11/13 [History] Atorvastatin Calcium [Lipitor] 40 mg PO HS 06/19/13 [History] Aspirin [Aspirin EC] 81 mg PO DAILY 10/03/13 [History] Albuterol 2.5 mg/3 ml Neb [Proventil 2.5 mg/3 ml Neb] 2.5 mg IH TID 08/01/19 [History] Clopidogrel Bisulfate [PLAVIX Tablet] 75 mg PO DAILY 08/01/19 [History] Furosemide [Lasix] 20 mg PO DAILY 11/17/23 [History] ALPRAZolam [Alprazolam] 0.5 mg PO HS PRN 07/26/24 [History] Diltiazem HCl 30 mg [Cardizem 30 MG] 30 mg PO DAILY 07/26/24 [History] Empagliflozin [Jardiance] 10 mg PO DAILY 07/26/24 [History] Insulin Glargine,Hum.rec.anlog [Lantus] 30 units SQ DAILY 07/26/24 [History] Meclizine HCl 12.5 mg PO TID PRN 07/26/24 [History] Metoprolol Tartrate 25 mg [Lopressor 25MG Tab] 12.5 mg PO DAILY 07/26/24 [History] Potassium Chloride 10 meq PO DAILY 07/26/24 [History] Pregabalin 50 mg [Lyrica 50MG] 50 mg PO TID 07/26/24 [History] Tiotropium Mason Inhaler [Spiriva 18 Mcg/Cap Inhaler] 2 puff IH Q6H PRN PRN 07/26/24 [History] Nitroglycerin 0.4 mg Tablet [Nitrostat 0.4 MG Tablet] 0.4 mg PO Q5MIN PRN MR X 3 PRN 09/16/24 [History] Hx Tetanus, Diphtheria Vaccination/Date Given: Yes Hx Influenza Vaccination/Date Given: Yes Hx Pneumococcal Vaccination/Date Given: Yes Travel Risk - Emerging Infectious Disease Are you exhibiting symptoms associated with any current EIDs: Yes Symptoms: Shortness of Breath - Review of Systems Constitutional: No Fever, No Chills Eyes: No Symptoms, Vision Changes, No Eye Pain, No Photophobia, No Double Vision Ears, Nose, & Throat: No Symptoms, No Epistaxis, No Mouth Pain Respiratory: No Cough, No Dyspnea Cardiac: No Chest Pain, No Edema, No Syncope Abdominal/Gastrointestinal: No Abdominal Pain, No Nausea, No Vomiting, No Diarrhea Genitourinary Symptoms: No Dysuria Musculoskeletal: No Back Pain, No Neck Pain Skin: No Rash Neurological: No Dizziness, No Focal Weakness, No Headache, No Paralysis, No Parasthesia, No Sensory Changes, No Speech Changes, No Tremors, No Vertigo Psychological: No Symptoms Endocrine: No Symptoms All Other Systems: Reviewed and Negative - Past Medical History Cardiac History: Congestive Heart Failure, Coronary Artery Disease, High Cholesterol, Hypertension, Myocardial Infarction (SC) - Past Surgical History Past Surgical History: Yes Neuro Surgical History: No Pertinent History Cardiac: CABG, Vascular Surgery, Other Respiratory: No Pertinent History Gastrointestinal: Other Genitourinary: No Pertinent History Musculoskeletal: Orthopedic Surgery Female Surgical History: No Pertinent History Other Surgical History: right artery bypass graft, left hand surgery Significant Family History: heart disease - Social History Smoking Status: Never smoker - Social Determinants of Health Will the patient participate in the screening: Yes Do you worry about a steady place to live?: No In the past 12 months,have you had to go without utilities?: No Transportation Issues: No Has anyone in your support network made you feel unsafe?: No Have you or anyone in your house had to go w/o enough food: No - Nursing Vital Signs Nursing Vital Signs: Initial Vital Signs Temperature 97.3 F 09/27/24 16:16 Pulse Rate 72 09/27/24 16:16 Respiratory Rate 18 09/27/24 16:16 Blood Pressure 114/66 09/27/24 16:16 O2 Sat by Pulse Oximetry 99 09/27/24 16:16 Pain Scale Pain Intensity 0 - [place] Coma Scale Best Eye Response (Christine): (4) open spontaneously Best Verbal Response ([place]): (5) oriented Best Motor Response ([place]): (6) obeys commands Christine Total: 15 - Physical Exam General Appearance: no apparent distress, alert Eye Exam: bilateral eye: normal inspection, PERRL, EOMI Ears, Nose, Throat Exam: normal ENT inspection, moist mucous membranes Neck Exam: normal inspection, non-tender, supple Respiratory: normal breath sounds, lungs clear, airway intact, No respiratory distress Cardiovascular: regular rate/rhythm, normal heart sounds, normal peripheral pulses, capillary refill <2 sec, No edema Gastrointestinal: soft, normal bowel sounds, No tenderness, No distention Back Exam: normal inspection Extremity Exam: normal inspection, No pedal edema 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, 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: normal speech, PERRL, tongue midline Coordination/Gait: normal finger to nose, normal gait, normal cerebellar function Motor/Sensory: no motor deficit, no sensory deficit Skin Exam: normal color, warm, dry, No rash SpO2 Interpretation: normal SpO2: 99 (Uses oxygen at home) O2 Delivery: Room Air - Course Nursing assessment & vital signs reviewed: Yes EKG Interpreted by Me: RATE (83), NORMAL AXIS, NORMAL INTERVALS, NORMAL QRS, Right Bundle Branch Block, NORMAL ST-T, Other (Rare PVC; negative previous EKG for comparison) - CT Exams Head CT Interpretation: Tele-radiologist Report, No/Intracranial Hemorrhag Ordered Tests: Active Orders 24 hr Category Date Time Status Pan Pusher STAT Care 09/27/24 16:23 Active EKG-ER Only STAT Care 09/27/24 16:21 Active NPO (ED) STAT Care 09/27/24 16:22 Active CHEST 1 VIEW (PORTABLE) Stat Exams 09/27/24 16:22 Completed HEAD WITHOUT CONTRAST [CT] Stat Exams 09/27/24 16:22 Completed ACETAMINOPHEN Stat Lab 09/27/24 17:15 Completed BLOOD CULTURE Stat Lab 09/27/24 17:15 Received CBC W DIFF Stat Lab 09/27/24 16:21 Completed CMP Stat Lab 09/27/24 17:15 Completed ETHYL ALCOHOL Stat Lab 09/27/24 17:15 Completed LITHIUM Stat Lab 09/27/24 17:15 Completed Lactic Acid Stat Lab 09/27/24 16:21 Completed MAGNESIUM Stat Lab 09/27/24 17:15 Completed POCT GLUCOSE Stat Lab 09/27/24 18:09 Completed PROTIME WITH INR Stat Lab 09/27/24 17:15 Completed SALICYLATE Stat Lab 09/27/24 17:15 Completed UA W/RFX UR CULTURE Stat Lab 09/27/24 16:22 Ordered Urine Triage Profile Stat Lab 09/27/24 16:24 Ordered VENOUS BLOOD GAS Urgent Lab 09/27/24 16:21 Completed Medication Summary Generic Name Dose Route Start Last Admin Trade Name Kamryn PRN Reason Stop Dose Admin Lactated Ringer's 1,000 mls @ 999 mls/hr 09/27/24 17:39 09/27/24 17:41 Lactated Ringers IV 09/27/24 18:39 999 mls/hr .Q1H1M ONE Administration Discontinued Medications Generic Name Dose Route Start Last Admin Trade Name Kamryn PRN Reason Stop Dose Admin Dextrose 50 ml 09/27/24 17:37 09/27/24 17:37 Dextrose 50%-Water 50 Ml Abboject IV 09/27/24 17:38 50 ml STAT ONE Administration Dextrose Confirm 09/27/24 17:37 Dextrose 50%-Water 50 Ml Abboject Administered 09/27/24 17:38 Dose 50 ml IV .STK-MED ONE Sodium Chloride Confirm 09/27/24 17:39 Sodium Chloride 0.9% 1000 Ml Administered 09/27/24 17:40 Dose 1,000 mls @ ud .ROUTE .STK-MED ONE Lactated Ringer's Confirm 09/27/24 17:40 Lactated Ringers Administered 09/27/24 17:41 Dose 1,000 mls @ ud IV .STK-MED ONE Lab/Rad Data: Laboratory Result Diagrams 09/27/24 16:21 09/27/24 17:15 Laboratory Results 09/27/24 09/27/24 09/27/24 Range/Units 18:09 17:15 17:15 WBC (3.98-10.04) x10^3/uL RBC (3.93-5.22) x10^6/uL Hgb (11.2-15.7) g/dL Hct (34.1-44.9) % MCV (79.4-94.8) fL MCH (25.6-32.2) pg MCHC (32.2-35.5) g/dL RDW (11.7-14.4) % Plt Count (182-369) x10^3/uL MPV (9.4-12.3) fL Gran % (34.0-71.1) % Immature Gran % (Auto) (0.001-0.429) % Nucleat RBC Rel Count (0.00-0.2) % Eos # (Auto) (0.04-0.36) x10^3/uL Immature Gran # (Auto) (0.001-0.031) x10^3u/L Absolute Lymphs (auto) (1.18-3.74) x10^3/uL Absolute Monos (auto) (0.24-0.86) x10^3/uL Absolute Nucleated RBC (0.00-0.012) x10^3u/L Lymphocytes % (19.3-51.7) % Monocytes % (4.7-12.5) % Eosinophils % (0.7-5.8) % Basophils % (0.1-1.2) % Absolute Granulocytes (1.56-6.13) x10^3/uL Basophils # (0.01-0.08) x10^3/uL PT (9.4-12.5) SECONDS INR (0.8-3.0) pO2/FiO2 Ratio % VBG pH (7.32-7.42) VBG pCO2 at Pat Temp (42-55) mm/Hg VBG pO2 at Pat Temp (25-40) mm/Hg VBG HCO3 (22-28) meq/L VBG O2 Sat (Drew) (95-100) VBG Base Excess (-2.0-2.0) VBG Hemoglobin VBG Carboxyhemoglobin (0.0-6.9) % T HGB POC Potassium (3.5-5.1) Sodium 136 (135-145) mmol/L Potassium 3.8 (3.5-5.1) mmol/L Chloride 96 L (98-107) mmol/L Carbon Dioxide 36 H (22-30) mmol/L Anion Gap 8.2 (5-15) MEQ/L BUN 38 H (7-17) mg/dL Creatinine 1.00 (0.52-1.04) mg/dL Estimated GFR 56.3 ML/MIN Glucose 45 L* (74-106) mg/dL POC Glucometer 95 (74 to 106) mg/dL Lactic Acid (0.4-2.0) Calcium 8.8 (8.4-10.2) mg/dL Magnesium 2.2 (1.6-2.3) mg/dL Total Bilirubin 1.10 (0.2-1.3) mg/dL AST 37 H (14-36) U/L ALT 29 (0-35) U/L Alkaline Phosphatase 67 (38-126) U/L Serum Total Protein 6.3 (6.3-8.2) g/dL Albumin 3.8 (3.5-5.0) g/dL Salicylates < 1.0 L (2-20) mg/dL Acetaminophen 11 (10-30) ug/ml [place] < 0.2 L (0.60-1.20) mmol/L Ethyl Alcohol < 10 (0-10) mg/dL 09/27/24 09/27/24 09/27/24 Range/Units 17:15 16:21 16:21 WBC (3.98-10.04) x10^3/uL RBC (3.93-5.22) x10^6/uL Hgb (11.2-15.7) g/dL Hct (34.1-44.9) % MCV (79.4-94.8) fL MCH (25.6-32.2) pg MCHC (32.2-35.5) g/dL RDW (11.7-14.4) % Plt Count (182-369) x10^3/uL MPV (9.4-12.3) fL Gran % (34.0-71.1) % Immature Gran % (Auto) (0.001-0.429) % Nucleat RBC Rel Count (0.00-0.2) % Eos # (Auto) (0.04-0.36) x10^3/uL Immature Gran # (Auto) (0.001-0.031) x10^3u/L Absolute Lymphs (auto) (1.18-3.74) x10^3/uL Absolute Monos (auto) (0.24-0.86) x10^3/uL Absolute Nucleated RBC (0.00-0.012) x10^3u/L Lymphocytes % (19.3-51.7) % Monocytes % (4.7-12.5) % Eosinophils % (0.7-5.8) % Basophils % (0.1-1.2) % Absolute Granulocytes (1.56-6.13) x10^3/uL Basophils # (0.01-0.08) x10^3/uL PT 11.0 (9.4-12.5) SECONDS INR 1.01 (0.8-3.0) pO2/FiO2 Ratio 28.0 % VBG pH 7.43 H (7.32-7.42) VBG pCO2 at Pat Temp 58 H (42-55) mm/Hg VBG pO2 at Pat Temp 37 (25-40) mm/Hg VBG HCO3 38.5 H* (22-28) meq/L VBG O2 Sat (Drew) 56.6 L (95-100) VBG Base Excess 11.6 H (-2.0-2.0) VBG Hemoglobin 14.4 VBG Carboxyhemoglobin 1.7 (0.0-6.9) % T HGB POC Potassium 5.6 H (3.5-5.1) Sodium (135-145) mmol/L Potassium (3.5-5.1) mmol/L Chloride (98-107) mmol/L Carbon Dioxide (22-30) mmol/L Anion Gap (5-15) MEQ/L BUN (7-17) mg/dL Creatinine (0.52-1.04) mg/dL Estimated GFR ML/MIN Glucose (74-106) mg/dL POC Glucometer (74 to 106) mg/dL Lactic Acid 1.1 (0.4-2.0) Calcium (8.4-10.2) mg/dL Magnesium (1.6-2.3) mg/dL Total Bilirubin (0.2-1.3) mg/dL AST (14-36) U/L ALT (0-35) U/L Alkaline Phosphatase (38-126) U/L Serum Total Protein (6.3-8.2) g/dL Albumin (3.5-5.0) g/dL Salicylates (2-20) mg/dL Acetaminophen (10-30) ug/ml [place] (0.60-1.20) mmol/L Ethyl Alcohol (0-10) mg/dL 09/27/24 Range/Units 16:21 WBC 12.5 H (3.98-10.04) x10^3/uL RBC 4.87 (3.93-5.22) x10^6/uL Hgb 13.3 (11.2-15.7) g/dL Hct 42.4 (34.1-44.9) % MCV 87.1 (79.4-94.8) fL MCH 27.3 (25.6-32.2) pg MCHC 31.4 L (32.2-35.5) g/dL RDW 17.8 H (11.7-14.4) % Plt Count 218 (182-369) x10^3/uL MPV 11.6 (9.4-12.3) fL Gran % 75.4 H (34.0-71.1) % Immature Gran % (Auto) 1.3 H (0.001-0.429) % Nucleat RBC Rel Count 0.0 (0.00-0.2) % Eos # (Auto) 0.27 (0.04-0.36) x10^3/uL Immature Gran # (Auto) 0.16 H (0.001-0.031) x10^3u/L Absolute Lymphs (auto) 1.27 (1.18-3.74) x10^3/uL Absolute Monos (auto) 1.37 H (0.24-0.86) x10^3/uL Absolute Nucleated RBC 0.00 (0.00-0.012) x10^3u/L Lymphocytes % 10.1 L (19.3-51.7) % Monocytes % 10.9 (4.7-12.5) % Eosinophils % 2.2 (0.7-5.8) % Basophils % 0.1 (0.1-1.2) % Absolute Granulocytes 9.44 H (1.56-6.13) x10^3/uL Basophils # 0.01 (0.01-0.08) x10^3/uL PT (9.4-12.5) SECONDS INR (0.8-3.0) pO2/FiO2 Ratio % VBG pH (7.32-7.42) VBG pCO2 at Pat Temp (42-55) mm/Hg VBG pO2 at Pat Temp (25-40) mm/Hg VBG HCO3 (22-28) meq/L VBG O2 Sat (Drew) (95-100) VBG Base Excess (-2.0-2.0) VBG Hemoglobin VBG Carboxyhemoglobin (0.0-6.9) % T HGB POC Potassium (3.5-5.1) Sodium (135-145) mmol/L Potassium (3.5-5.1) mmol/L Chloride (98-107) mmol/L Carbon Dioxide (22-30) mmol/L Anion Gap (5-15) MEQ/L BUN (7-17) mg/dL Creatinine (0.52-1.04) mg/dL Estimated GFR ML/MIN Glucose (74-106) mg/dL POC Glucometer (74 to 106) mg/dL Lactic Acid (0.4-2.0) Calcium (8.4-10.2) mg/dL Magnesium (1.6-2.3) mg/dL Total Bilirubin (0.2-1.3) mg/dL AST (14-36) U/L ALT (0-35) U/L Alkaline Phosphatase (38-126) U/L Serum Total Protein (6.3-8.2) g/dL Albumin (3.5-5.0) g/dL Salicylates (2-20) mg/dL Acetaminophen (10-30) ug/ml [place] (0.60-1.20) mmol/L Ethyl Alcohol (0-10) mg/dL CT head without contrast per radiology interpretation as below: Comparison: None Beam artifact from patient's earrings. Age-appropriate global atrophy and moderate periventricular degenerative micro-ischemia bilaterally. No acute intracranial hemorrhage, abnormal extra-axial fluid collection, or mass effect. Fourth ventricle is midline without hydrocephalus. Bony calvarium intact. Visualized paranasal sinuses and mastoid air cells are clear. Impression: Nonacute senile brain. Reported by: SARAY ANDINO DO Signed by: SARAY ANDINO DO Signed date/time: 09/27/24 1156 Chest x-ray per radiology interpretation as below: - Progress Progress: improved Progress Note: 09/27/24 16:24 NIH stroke scale score: 0, not a candidate for fibrinolytics 09/27/24 18:13 Patient's vision is improving as her glucose was 95 on POC 09/27/24 18:32 Patient is a 84-year-old female who woke up to go to the bathroom and then no ticed that her visual field went black and it lasted for 45 minutes with improvement on the transportation to the emergency department. My initial evaluation showed an extra-axial score 0, but I did order CT scan of the head, lab work, EKG, chest x-ray as she recently was treated for pneumonia which she finished her Levaquin for, and we continue to monitor the patient. Patient was found to have a negative chest x-ray and a negative CT of the head, she had a structural score 0 and was not a candidate for fibrinolytics, and she seemed to have an etiology to her transient vision loss due to her hypoglycemia, so after correction of her hyperglycemia in the emergency department this improved the patient. After talking with patient's daughter, it was found that patient is on high blood pressure medications, and so patient's blood pressure was low normal, so patient was also hydrated here in the emergency room when she was found to have hypoglycemia with lactated Ringer's to also give her some potassium back. Patient was discussed with the hospital service at [facility] to accept patient for observation for further monitoring of her glucose, make certain that she is not taking excess insulin as the patient said that she was taken 30 units in the hospital when she should only be taking 17 units and adjust her blood pressure medications as needed as blood cultures and urine cultures were pending on the patient also if potentially sepsis was contributing to her symptomatology and hypoglycemia. Discussed with : Alexis (At 6:15 PM on September 27 1224, discussed the patient with who accepted for admission) Will see patient in: hospital (observation) Counseled pt/family regarding: lab results, diagnosis, need for follow-up, rad results Medical Desision Making - Discussion of managment Care discussed with:: hospitalist Reviewed:: Test results, Need for additional workup Agreed on:: Treatment plan, need for follow-up, place in obs Will see patient: in hospital - Diagnostic Testing Diagnostic test were ordered, analyzed, and reviewed by me: Yes Radiological Interpretation: Reviewed by me, Teleradiologist Report - Risk of complications The pt has a high risk of morbidity or mortality based on: Drug therapy requiring intensive monitoring for toxicity, Decision regarding hospitilization or escalation of hosp level of care - Departure Departure Disposition: Observation Clinical Impression: Hypoglycemia, Transient visual loss of both eyes Condition: Fair Critical Care Time: Yes Critical Care Time(excluding separately billable procedures): Critical 30-74 mins Referrals: JONNY BROWNE MD [Primary Care Provider] - Follow up/PCP as directed
[2024-09-27 16:49] LABS: VBG BASE EXCESS 11.6 (-2.0-2.0); VBG CARBOXYHEMOGLOBIN 1.7 % T HGB (0.0-6.9); VBG HCO3- 38.5 meq/L (22-28); VBG HEMOGLOBIN 14.4; VBG O2 SATURATION 56.6 (95-100); VBG POTASSIUM 5.6 (3.5-5.1); VBG pH 7.43 (7.32-7.42)
--- NOTE | 2024-09-27 17:04 | XRAY ---
Indication: Vision loss. Multiple contiguous axial images obtained through the head without contrast. Comparison: None Beam artifact from patient's earrings. Age-appropriate global atrophy and moderate periventricular degenerative micro-ischemia bilaterally. No acute intracranial hemorrhage, abnormal extra-axial fluid collection, or mass effect. Fourth ventricle is midline without hydrocephalus. Bony calvarium intact. Visualized paranasal sinuses and mastoid air cells are clear. Impression: Nonacute senile brain.
--- NOTE | 2024-09-27 17:04 | XRAY ---
Indication: Vision change/loss. Comparison: September 16, 2024 Portable chest is now clear. Heart not enlarged again with CABG. Bony thorax intact again with osteopenia and degenerative changes. No acute findings.
[2024-09-27 17:11] LABS: Absolute Neutrophil Ct (ANC) 9.44 x10^3/uL (1.56-6.13); BASOPHIL % 0.1 % (0.1-1.2); Basophil (Absolute #) 0.01 x10^3/uL (0.01-0.08); Eosinophil % 2.2 % (0.7-5.8); Eosinophil (Absolute #) 0.27 x10^3/uL (0.04-0.36); Hematocrit 42.4 % (34.1-44.9); Hemoglobin 13.3 g/dL (11.2-15.7); IMMATURE GRAN # 0.16 x10^3u/L (0.001-0.031); IMMATURE GRAN % 1.3 % (0.001-0.429); Lymphocyte (Absolute #) 1.27 x10^3/uL (1.18-3.74); Lymphocytes % 10.1 % (19.3-51.7); Mean Cell Volume 87.1 fL (79.4-94.8); Mean Corpuscular Hemoglobin 27.3 pg (25.6-32.2); Mean Corpuscular Hgb Concent. 31.4 g/dL (32.2-35.5); Mean Platelet Volume 11.6 fL (9.4-12.3); Monocyte (Absolute #) 1.37 x10^3/uL (0.24-0.86); Monocytes % 10.9 % (4.7-12.5); Neutrophil % 75.4 % (34.0-71.1); Platelet Count 218 x10^3/uL (182-369); Red Blood Count 4.87 x10^6/uL (3.93-5.22); Red Cell Distribution Width 17.8 % (11.7-14.4); White Blood Count 12.5 x10^3/uL (3.98-10.04)
[2024-09-27 17:24] LABS: ACETAMINOPHEN 11 ug/ml (10-30); ALBUMIN 3.8 g/dL (3.5-5.0); ALKALINE PHOSPHATASE 67 U/L (38-126); ANION GAP 8.2 MEQ/L (5-15); BLOOD UREA NITROGEN 38 mg/dL (7-17); CHLORIDE 96 mmol/L (98-107); Calcium 8.8 mg/dL (8.4-10.2); Carbon Dioxide 36 mmol/L (22-30); EST GLOMERULAR FILTRATION RATE 56.3 ML/MIN; ETHYL ALCOHOL < 10 mg/dL (0-10); INR 1.01 (0.8-3.0); MAGNESIUM 2.2 mg/dL (1.6-2.3); Potassium 3.8 mmol/L (3.5-5.1); SALICYLATE < 1.0 mg/dL (2-20); SGOT/AST 37 U/L (14-36); SGPT/ALT 29 U/L (0-35); SODIUM 136 mmol/L (135-145); Total Protein 6.3 g/dL (6.3-8.2)
[2024-09-27 17:32] LABS: Glucose 45 mg/dL (74-106)
[2024-09-27] MEDS: D50W 50 ml Abboject IV ONE (17:37)
[2024-09-27] MEDS ORDERED: D50W 50 ml Abboject IV ONE (17:37)
[2024-09-27] MEDS ORDERED: Sodium Chloride 0.9% 1000 ML 0 ML ONE (17:39)
[2024-09-27] MEDS ORDERED: Lactated Ringers 1,000 ML IV ONE (17:40)
[2024-09-27] MEDS: Lactated Ringers 1,000 ML IV ONE (17:41)
[2024-09-27] MEDS ORDERED: TYLENOL 325 MG PO PRN (19:35)
[2024-09-27] MEDS ORDERED: xanAX 0.5 MG PO PRN (20:43)
[2024-09-27] MEDS ORDERED: Spiriva 18 Mcg/Cap Inhaler IH PRN (20:43)
--- NOTE | 2024-09-27 21:02 | PCM.HP ---
History of Present Illness - Chief Complaint Chief Complaint: Hypoglycemia History of Present Illness: is a 84 year old female with DM2, HTN who presents with hypogylcemia. Patient developed shaking, "blacking out" sesensation and was found to have blood sugar in the 40s. Did not hit her head, no LOC, n/v/d/f. Recently her insulin was increased to 30 units a day due to being on steroids, but the steroids were dropped and her insulin was kept at the same dosage on top of 2 other anti-diabetic medications. She reports her symptoms have resolved and has no complaints. - Review of Systems Constitutional: No Fever, No Chills Eyes: No Symptoms Ears, Nose, & Throat: No Symptoms Respiratory: No Cough, No Short Of Breath Cardiac: No Chest Pain, No Edema, No Syncope Abdominal/Gastrointestinal: No Abdominal Pain, No Nausea, No Vomiting, No Diarrhea Genitourinary Symptoms: No Dysuria Musculoskeletal: No Back Pain, No Neck Pain Skin: No Rash Neurological: No Dizziness, No Focal Weakness, No Sensory Changes Psychological: No Symptoms Endocrine: No Symptoms Hematologic/Lymphatic: No Symptoms Immunological/Allergic: No Symptoms Medications & Allergies Home Medications: Home Medication List Glipizide 10 mg [Glucotrol 10 MG] 10 mg PO DAILY 06/11/13 [History Confirmed 09/27/24] Atorvastatin Calcium [Lipitor] 40 mg PO HS 06/19/13 [History Confirmed 09/27/24] Aspirin [Aspirin EC] 81 mg PO DAILY 10/03/13 [History Confirmed 09/27/24] Albuterol 2.5 mg/3 ml Neb [Proventil 2.5 mg/3 ml Neb] 2.5 mg IH TID 08/01/19 [History Confirmed 09/27/24] Clopidogrel Bisulfate [PLAVIX Tablet] 75 mg PO DAILY 08/01/19 [History Confirmed 09/27/24] Furosemide [Lasix] 20 mg PO DAILY 11/17/23 [History Confirmed 09/27/24] ALPRAZolam [Alprazolam] 0.5 mg PO HS PRN 07/26/24 [History Confirmed 09/27/24] Diltiazem HCl 30 mg [Cardizem 30 MG] 30 mg PO DAILY 07/26/24 [History Confirmed 09/27/24] Empagliflozin [Jardiance] 10 mg PO DAILY 07/26/24 [History Confirmed 09/27/24] Insulin Glargine,Hum.rec.anlog [Lantus] 30 units SQ DAILY 07/26/24 [History Confirmed 09/27/24] Meclizine HCl 12.5 mg PO TID PRN 07/26/24 [History Confirmed 09/27/24] Metoprolol Tartrate 25 mg [Lopressor 25MG Tab] 12.5 mg PO DAILY 07/26/24 [History Confirmed 09/27/24] Potassium Chloride 10 meq PO DAILY 07/26/24 [History Confirmed 09/27/24] Pregabalin 50 mg [Lyrica 50MG] 50 mg PO TID 07/26/24 [History Confirmed 09/27/24] Tiotropium [place] Inhaler [Spiriva 18 Mcg/Cap Inhaler] 2 puff IH Q6H PRN PRN 07/26/24 [History Confirmed 09/27/24] Nitroglycerin 0.4 mg Tablet [Nitrostat 0.4 MG Tablet] 0.4 mg PO Q5MIN PRN MR X 3 PRN 09/16/24 [History Confirmed 09/27/24] Midodrine HCl 5 mg PO TID 30 Days #90 tablet 09/19/24 [Rx Confirmed 09/27/24] Allergies/Adverse Reactions: Allergies Allergy/AdvReac Type Severity Reaction Status Date / Time Penicillins Allergy Severe Difficulty Verified 09/17/24 00:46 Breathing codeine Allergy Intermediate Nausea and Verified 09/17/24 00:46 Vomiting metformin Allergy Intermediate Nausea and Verified 09/17/24 00:46 Vomiting Sulfa (Sulfonamide Allergy Intermediate Itching Verified 09/17/24 00:46 Antibiotics) ibuprofen Allergy Verified 09/17/24 00:46 azithromycin [From Zithromax] AdvReac Intermediate Headache Verified 09/17/24 00:46 morphine AdvReac Intermediate HALLUCINATI Verified 09/17/24 00:46 ONS - Past Medical History Past Medical History: Yes Neurological History: No Pertinent History ENT History: No Pertinent History Cardiac History: Congestive Heart Failure, Coronary Artery Disease, High Cholesterol, Hypertension, Myocardial Infarction ([place]) Respiratory History: COPD, Other Endocrine Medical History: Diabetes Type II Musculoskelatal History: Osteoarthritis GI Medical History: No Pertinent History History: No Pertinent History Pyscho-Social History: No Pertinent History Reproductive Disorders: No Pertinent History Comment: CAROTID ENDARTERECTOMY ON LEFT, Metal Spinner: Dr. Gavin - Past Surgical History Past Surgical History: Yes Neuro Surgical History: No Pertinent History Cardiac History: CABG, Vascular Surgery, Other Respiratory Surgery: No Pertinent History GI Surgical History: Other Genitourinary Surgical Hx: No Pertinent History Musculskeletal Surgical Hx: Orthopedic Surgery Female Surgical History: No Pertinent History Other Surgical History: right artery bypass graft, left hand surgery Significant Family History: heart disease - Social History Smoking Status: Former smoker How long have you smoked: 2010 Exposure to second hand smoke: Yes Alcohol: None Drug Use: none - Social Determinants of Health Will the patient participate in the screening: Yes Do you worry about a steady place to live?: No Do you have any problems with any of the following?: No known problems In the past 12 months,have you had to go without utilities?: No Have you or anyone in your house had to go without enough: No Transportation Issues: No Has anyone in your support network made you feel unsafe?: No Does the patient want assistance with any of the above?: No - Physical Exam Vital Signs: Vital Signs - 24 hr Temp Pulse Resp BP BP Pulse Ox 09/27/24 19:35 97.6 F 82 18 126/68 94 L 09/27/24 18:45 88 18 97 09/27/24 18:43 99 09/27/24 18:00 79 25 H 98/60 100 09/27/24 17:32 81 17 94/57 100 09/27/24 17:30 71 26 H 89/51 99 09/27/24 17:00 78 16 93/54 100 09/27/24 16:50 77 16 99 09/27/24 16:40 81 17 99 09/27/24 16:35 84 09/27/24 16:17 114/66 09/27/24 16:16 97.3 F 72 18 114/66 99 General Appearance: no apparent distress, alert Neurologic Exam: alert, oriented x 3, cooperative, normal mood/affect, nml cerebellar function, nml station & gait, sensation nml, No motor deficits Eye Exam: PERRL/EOMI, eyes nml inspection Ears, Nose, Throat Exam: normal ENT inspection, TMs normal, pharynx normal, moist mucous membranes Neck Exam: normal inspection, non-tender, supple, full range of motion Respiratory Exam: normal breath sounds, lungs clear, No respiratory distress Cardiovascular Exam: regular rate/rhythm, normal heart sounds, normal peripheral pulses Gastrointestinal/Abdomen Exam: soft, normal bowel sounds, No tenderness, No mass Back Exam: normal inspection, normal range of motion, No CVA tenderness, No vertebral tenderness Extremity Exam: normal inspection, normal range of motion, pelvis stable Skin Exam: normal color, warm, dry, No rash Lymphatic Exam: No adenopathy Results - Labs Lab/Micro Results: Lab Results-Last 24 Hours 09/27/24 09/27/24 09/27/24 Range/Units 16:21 16:21 16:21 WBC 12.5 H (3.98-10.04) x10^3/uL RBC 4.87 (3.93-5.22) x10^6/uL Hgb 13.3 (11.2-15.7) g/dL Hct 42.4 (34.1-44.9) % MCV 87.1 (79.4-94.8) fL MCH 27.3 (25.6-32.2) pg MCHC 31.4 L (32.2-35.5) g/dL RDW 17.8 H (11.7-14.4) % Plt Count 218 (182-369) x10^3/uL MPV 11.6 (9.4-12.3) fL Gran % 75.4 H (34.0-71.1) % Immature Gran % (Auto) 1.3 H (0.001-0.429) % Nucleat RBC Rel Count 0.0 (0.00-0.2) % Eos # (Auto) 0.27 (0.04-0.36) x10^3/uL Immature Gran # (Auto) 0.16 H (0.001-0.031) x10^3u/L Absolute Lymphs (auto) 1.27 (1.18-3.74) x10^3/uL Absolute Monos (auto) 1.37 H (0.24-0.86) x10^3/uL Absolute Nucleated RBC 0.00 (0.00-0.012) x10^3u/L Lymphocytes % 10.1 L (19.3-51.7) % Monocytes % 10.9 (4.7-12.5) % Eosinophils % 2.2 (0.7-5.8) % Basophils % 0.1 (0.1-1.2) % Absolute Granulocytes 9.44 H (1.56-6.13) x10^3/uL Basophils # 0.01 (0.01-0.08) x10^3/uL PT (9.4-12.5) SECONDS INR (0.8-3.0) pO2/FiO2 Ratio 28.0 % VBG pH 7.43 H (7.32-7.42) VBG pCO2 at Pat Temp 58 H (42-55) mm/Hg VBG pO2 at Pat Temp 37 (25-40) mm/Hg VBG HCO3 38.5 H* (22-28) meq/L VBG O2 Sat (Drew) 56.6 L (95-100) VBG Base Excess 11.6 H (-2.0-2.0) VBG Hemoglobin 14.4 VBG Carboxyhemoglobin 1.7 (0.0-6.9) % T HGB POC Potassium 5.6 H (3.5-5.1) Sodium (135-145) mmol/L Potassium (3.5-5.1) mmol/L Chloride (98-107) mmol/L Carbon Dioxide (22-30) mmol/L Anion Gap (5-15) MEQ/L BUN (7-17) mg/dL Creatinine (0.52-1.04) mg/dL Estimated GFR ML/MIN Glucose (74-106) mg/dL POC Glucometer (74 to 106) mg/dL Lactic Acid 1.1 (0.4-2.0) Calcium (8.4-10.2) mg/dL Magnesium (1.6-2.3) mg/dL Total Bilirubin (0.2-1.3) mg/dL AST (14-36) U/L ALT (0-35) U/L Alkaline Phosphatase (38-126) U/L Serum Total Protein (6.3-8.2) g/dL Albumin (3.5-5.0) g/dL Salicylates (2-20) mg/dL Acetaminophen (10-30) ug/ml [place] (0.60-1.20) mmol/L Ethyl Alcohol (0-10) mg/dL 09/27/24 09/27/24 09/27/24 Range/Units 17:15 17:15 17:15 WBC (3.98-10.04) x10^3/uL RBC (3.93-5.22) x10^6/uL Hgb (11.2-15.7) g/dL Hct (34.1-44.9) % MCV (79.4-94.8) fL MCH (25.6-32.2) pg MCHC (32.2-35.5) g/dL RDW (11.7-14.4) % Plt Count (182-369) x10^3/uL MPV (9.4-12.3) fL Gran % (34.0-71.1) % Immature Gran % (Auto) (0.001-0.429) % Nucleat RBC Rel Count (0.00-0.2) % Eos # (Auto) (0.04-0.36) x10^3/uL Immature Gran # (Auto) (0.001-0.031) x10^3u/L Absolute Lymphs (auto) (1.18-3.74) x10^3/uL Absolute Monos (auto) (0.24-0.86) x10^3/uL Absolute Nucleated RBC (0.00-0.012) x10^3u/L Lymphocytes % (19.3-51.7) % Monocytes % (4.7-12.5) % Eosinophils % (0.7-5.8) % Basophils % (0.1-1.2) % Absolute Granulocytes (1.56-6.13) x10^3/uL Basophils # (0.01-0.08) x10^3/uL PT 11.0 (9.4-12.5) SECONDS INR 1.01 (0.8-3.0) pO2/FiO2 Ratio % VBG pH (7.32-7.42) VBG pCO2 at Pat Temp (42-55) mm/Hg VBG pO2 at Pat Temp (25-40) mm/Hg VBG HCO3 (22-28) meq/L VBG O2 Sat (Drew) (95-100) VBG Base Excess (-2.0-2.0) VBG Hemoglobin VBG Carboxyhemoglobin (0.0-6.9) % T HGB POC Potassium (3.5-5.1) Sodium 136 (135-145) mmol/L Potassium 3.8 (3.5-5.1) mmol/L Chloride 96 L (98-107) mmol/L Carbon Dioxide 36 H (22-30) mmol/L Anion Gap 8.2 (5-15) MEQ/L BUN 38 H (7-17) mg/dL Creatinine 1.00 (0.52-1.04) mg/dL Estimated GFR 56.3 ML/MIN Glucose 45 L* (74-106) mg/dL POC Glucometer (74 to 106) mg/dL Lactic Acid (0.4-2.0) Calcium 8.8 (8.4-10.2) mg/dL Magnesium 2.2 (1.6-2.3) mg/dL Total Bilirubin 1.10 (0.2-1.3) mg/dL AST 37 H (14-36) U/L ALT 29 (0-35) U/L Alkaline Phosphatase 67 (38-126) U/L Serum Total Protein 6.3 (6.3-8.2) g/dL Albumin 3.8 (3.5-5.0) g/dL Salicylates < 1.0 L (2-20) mg/dL Acetaminophen 11 (10-30) ug/ml [place] < 0.2 L (0.60-1.20) mmol/L Ethyl Alcohol < 10 (0-10) mg/dL 09/27/24 09/27/24 Range/Units 18:09 20:39 WBC (3.98-10.04) x10^3/uL RBC (3.93-5.22) x10^6/uL Hgb (11.2-15.7) g/dL Hct (34.1-44.9) % MCV (79.4-94.8) fL MCH (25.6-32.2) pg MCHC (32.2-35.5) g/dL RDW (11.7-14.4) % Plt Count (182-369) x10^3/uL MPV (9.4-12.3) fL Gran % (34.0-71.1) % Immature Gran % (Auto) (0.001-0.429) % Nucleat RBC Rel Count (0.00-0.2) % Eos # (Auto) (0.04-0.36) x10^3/uL Immature Gran # (Auto) (0.001-0.031) x10^3u/L Absolute Lymphs (auto) (1.18-3.74) x10^3/uL Absolute Monos (auto) (0.24-0.86) x10^3/uL Absolute Nucleated RBC (0.00-0.012) x10^3u/L Lymphocytes % (19.3-51.7) % Monocytes % (4.7-12.5) % Eosinophils % (0.7-5.8) % Basophils % (0.1-1.2) % Absolute Granulocytes (1.56-6.13) x10^3/uL Basophils # (0.01-0.08) x10^3/uL PT (9.4-12.5) SECONDS INR (0.8-3.0) pO2/FiO2 Ratio % VBG pH (7.32-7.42) VBG pCO2 at Pat Temp (42-55) mm/Hg VBG pO2 at Pat Temp (25-40) mm/Hg VBG HCO3 (22-28) meq/L VBG O2 Sat (Drew) (95-100) VBG Base Excess (-2.0-2.0) VBG Hemoglobin VBG Carboxyhemoglobin (0.0-6.9) % T HGB POC Potassium (3.5-5.1) Sodium (135-145) mmol/L Potassium (3.5-5.1) mmol/L Chloride (98-107) mmol/L Carbon Dioxide (22-30) mmol/L Anion Gap (5-15) MEQ/L BUN (7-17) mg/dL Creatinine (0.52-1.04) mg/dL Estimated GFR ML/MIN Glucose (74-106) mg/dL POC Glucometer 95 148 H (74 to 106) mg/dL Lactic Acid (0.4-2.0) Calcium (8.4-10.2) mg/dL Magnesium (1.6-2.3) mg/dL Total Bilirubin (0.2-1.3) mg/dL AST (14-36) U/L ALT (0-35) U/L Alkaline Phosphatase (38-126) U/L Serum Total Protein (6.3-8.2) g/dL Albumin (3.5-5.0) g/dL Salicylates (2-20) mg/dL Acetaminophen (10-30) ug/ml [place] (0.60-1.20) mmol/L Ethyl Alcohol (0-10) mg/dL - Radiology Impressions Radiology Exams & Impressions: Radiology Procedures Category Date Time Status CHEST 1 VIEW (PORTABLE) Stat Exams 09/27/24 16:22 Completed HAND (2 VIEW) Stat Exams 09/27/24 20:51 Ordered HEAD WITHOUT CONTRAST [CT] Stat Exams 09/27/24 16:22 Completed - Other Procedures and Tests Respiratory Therapy 09/27/24 19:35 EKG PRN Oxygen Nasal Cannula 2 lpm 09/28/24 08:00 RT Screen per Nursing Assess ONCE Assessment/Plan (1) Hypoglycemia Current Visit: Yes Status: Acute Assessment & Plan: 1. This was likely due to her insulin at 30 units/day which was increased due to being on steroids which she is off now. She normally takes 14 units/day and so can restart this in the AM if she has no further low BGs tonight. 2. Holding her other diabetic medications tonight. 3. Monitoring BG 4. She is eating and so will stop IV D5NS Code(s): E16.2 - HYPOGLYCEMIA, UNSPECIFIED Telemedicine Encounter - Telemedicine Encounter Telemedicine Encounter: "The entirety of this encounter was performed via Telemedicine" This visit was performed using real-time audio and video connection between my location and thepatients locationwith the assistance of a surrogateat the patients location. Written or verbal consent was obtained from the patient/guardian to perform this visit [facility] technology. Any patient questions regarding the telemedicine interaction were answered.
[2024-09-27] MEDS ORDERED: PROVENTIL Solution 2.5 MG/0.5 ML IH ONE (21:42)
--- NOTE | 2024-09-27 21:50 | XRAY ---
Indication: Pain, swelling, bruising 5th MCP. Comparison: None 3 view left hand demonstrates osteopenia, minimal degenerative changes all IP joints, mild/moderate 1st metacarpal multangular scaphoid degenerative changes, and radiocarpal degenerative joint space loss with tiny posterior heterotopic ossification. Nonspecific soft tissue swelling posterior to 5th MCP. No other bony, articular, or soft tissue abnormalities.
[2024-09-27] MEDS: PROAMATINE PO SCH (21:58)
[2024-09-27] MEDS: ZOCOR 20MG PO SCH (21:58)
[2024-09-27] MEDS: Lyrica 50MG PO SCH (21:58)
[2024-09-27] MEDS ORDERED: NON-FORMULARY ITEM (Atorvastatin Calcium [Lipitor] 20 MG Tablet) PO SCH (22:00)
[2024-09-27] MEDS: PROVENTIL 2.5 MG/3 ML NEB IH SCH (22:08)
[2024-09-27 22:19] LABS: Amphetamine,Urine NEGATIVE (NEGATIVE); Barbiturate,Urine NEGATIVE (NEGATIVE); Benzodiazepine,Urine NEGATIVE (NEGATIVE); Cocaine,Urine NEGATIVE (NEGATIVE); Methadone,Urine NEGATIVE (NEGATIVE); Opiate,Urine POSITIVE (NEGATIVE); PCP,Urine NEGATIVE (NEGATIVE); THC,Urine NEGATIVE (NEGATIVE)
[2024-09-27 22:42] LABS: Appearance Clear (Clear); Bacteria Rare /HPF (None Seen); Bilirubin Negative (Negative); Blood Negative (Negative); Epithelial Cells Moderate /HPF (None Seen); Glucose, Urine >=1000 mg/dL (Negative); Hyaline Casts NONE SEEN /LPF (0-2); Hyphae Yeast Few /HPF (None Seen); Ketones Negative (Negative); Leukocyte Esterase Moderate (Negative); Nitrite Negative (Negative); Protein,Urine Dip Negative (Negative); RBC 0-2 /HPF (0-5); Urobilinogen 0.2 mg/dL (0.2)
--- NOTE | 2024-09-28 05:13 | PCM.NOTE ---
Date and Time: 09/28/24 0508 Subjective Assessment: HPI: is a 84 year old female with DM2, HTN who presented to ED 09/27/24 with hypogylcemia. Patient developed shaking, "blacking out" sensation and was found to have blood sugar in the 40s. Did not hit her head, no LOC, n/v/d/f. Recently her insulin was increased to 30 units a day due to being on steroids, but the steroids were dropped and her insulin was kept at the same dosage on top of 2 other anti-diabetic medications. She reports her symptoms have resolved and has no complaints. Objective Data Vital Signs: Vital Signs - 24 hr Temp Pulse Resp BP BP Pulse Ox 09/28/24 04:00 97.4 F 83 20 116/63 99 09/28/24 00:00 98.5 F 86 15 108/61 99 09/27/24 22:12 91 H 16 97 09/27/24 19:35 97.6 F 82 18 126/68 94 L 09/27/24 18:45 88 18 97 09/27/24 18:43 99 09/27/24 18:00 79 25 H 98/60 100 09/27/24 17:32 81 17 94/57 100 09/27/24 17:30 71 26 H 89/51 99 09/27/24 17:00 78 16 93/54 100 09/27/24 16:50 77 16 99 09/27/24 16:40 81 17 99 09/27/24 16:35 84 09/27/24 16:17 114/66 09/27/24 16:16 97.3 F 72 18 114/66 99 Pain Assessment - Last Documented Pain Intensity 0 Intake and Output: Intake & Output 09/25/24 09/26/24 09/27/24 09/28/24 11:59 11:59 11:59 11:59 Intake Total 1330 Output Total 300 Balance 1030 Weight 57.9 kg Lab Results: Lab Results-Last 24 Hours 09/27/24 09/27/24 09/27/24 Range/Units 16:21 16:21 16:21 WBC 12.5 H (3.98-10.04) x10^3/uL RBC 4.87 (3.93-5.22) x10^6/uL Hgb 13.3 (11.2-15.7) g/dL Hct 42.4 (34.1-44.9) % MCV 87.1 (79.4-94.8) fL MCH 27.3 (25.6-32.2) pg MCHC 31.4 L (32.2-35.5) g/dL RDW 17.8 H (11.7-14.4) % Plt Count 218 (182-369) x10^3/uL MPV 11.6 (9.4-12.3) fL Gran % 75.4 H (34.0-71.1) % Immature Gran % (Auto) 1.3 H (0.001-0.429) % Nucleat RBC Rel Count 0.0 (0.00-0.2) % Eos # (Auto) 0.27 (0.04-0.36) x10^3/uL Immature Gran # (Auto) 0.16 H (0.001-0.031) x10^3u/L Absolute Lymphs (auto) 1.27 (1.18-3.74) x10^3/uL Absolute Monos (auto) 1.37 H (0.24-0.86) x10^3/uL Absolute Nucleated RBC 0.00 (0.00-0.012) x10^3u/L Lymphocytes % 10.1 L (19.3-51.7) % Monocytes % 10.9 (4.7-12.5) % Eosinophils % 2.2 (0.7-5.8) % Basophils % 0.1 (0.1-1.2) % Absolute Granulocytes 9.44 H (1.56-6.13) x10^3/uL Basophils # 0.01 (0.01-0.08) x10^3/uL PT (9.4-12.5) SECONDS INR (0.8-3.0) pO2/FiO2 Ratio 28.0 % VBG pH 7.43 H (7.32-7.42) VBG pCO2 at Pat Temp 58 H (42-55) mm/Hg VBG pO2 at Pat Temp 37 (25-40) mm/Hg VBG HCO3 38.5 H* (22-28) meq/L VBG O2 Sat (Drew) 56.6 L (95-100) VBG Base Excess 11.6 H (-2.0-2.0) VBG Hemoglobin 14.4 VBG Carboxyhemoglobin 1.7 (0.0-6.9) % T HGB POC Potassium 5.6 H (3.5-5.1) Sodium (135-145) mmol/L Potassium (3.5-5.1) mmol/L Chloride (98-107) mmol/L Carbon Dioxide (22-30) mmol/L Anion Gap (5-15) MEQ/L BUN (7-17) mg/dL Creatinine (0.52-1.04) mg/dL Estimated GFR ML/MIN Glucose (74-106) mg/dL POC Glucometer (74 to 106) mg/dL Lactic Acid 1.1 (0.4-2.0) Calcium (8.4-10.2) mg/dL Magnesium (1.6-2.3) mg/dL Total Bilirubin (0.2-1.3) mg/dL AST (14-36) U/L ALT (0-35) U/L Alkaline Phosphatase (38-126) U/L Serum Total Protein (6.3-8.2) g/dL Albumin (3.5-5.0) g/dL Urine Color (Yellow) Urine Appearance (Clear) Urine pH (4.6-8.0) Ur Specific [place] (1.005-1.030) Urine Protein (Negative) Urine Glucose (UA) (Negative) mg/dL Urine Ketones (Negative) Urine Blood (Negative) Urine Nitrite (Negative) Urine Bilirubin (Negative) Urine Urobilinogen (0.2) mg/dL Ur Leukocyte Esterase (Negative) U Hyaline Cast (Auto) (0-2) /LPF Urine Microscopic RBC (0-5) /HPF Urine Microscopic WBC (0-5) /HPF Ur Epithelial Cells (None Seen) /HPF Urine Bacteria (None Seen) /HPF Ur Yeast w Hyphae (None Seen) /HPF Urine Culture Reflexed (NO) Salicylates (2-20) mg/dL Urine Opiates Level (NEGATIVE) Ur Methadone (NEGATIVE) Acetaminophen (10-30) ug/ml Urine Barbiturates (NEGATIVE) Ur Phencyclidine (PCP) (NEGATIVE) Urine Amphetamine (NEGATIVE) U Benzodiazepine Level (NEGATIVE) [place] (0.60-1.20) mmol/L Urine Cocaine (NEGATIVE) Urine Marijuana (THC) (NEGATIVE) Ethyl Alcohol (0-10) mg/dL 09/27/24 09/27/24 09/27/24 Range/Units 17:15 17:15 17:15 WBC (3.98-10.04) x10^3/uL RBC (3.93-5.22) x10^6/uL Hgb (11.2-15.7) g/dL Hct (34.1-44.9) % MCV (79.4-94.8) fL MCH (25.6-32.2) pg MCHC (32.2-35.5) g/dL RDW (11.7-14.4) % Plt Count (182-369) x10^3/uL MPV (9.4-12.3) fL Gran % (34.0-71.1) % Immature Gran % (Auto) (0.001-0.429) % Nucleat RBC Rel Count (0.00-0.2) % Eos # (Auto) (0.04-0.36) x10^3/uL Immature Gran # (Auto) (0.001-0.031) x10^3u/L Absolute Lymphs (auto) (1.18-3.74) x10^3/uL Absolute Monos (auto) (0.24-0.86) x10^3/uL Absolute Nucleated RBC (0.00-0.012) x10^3u/L Lymphocytes % (19.3-51.7) % Monocytes % (4.7-12.5) % Eosinophils % (0.7-5.8) % Basophils % (0.1-1.2) % Absolute Granulocytes (1.56-6.13) x10^3/uL Basophils # (0.01-0.08) x10^3/uL PT 11.0 (9.4-12.5) SECONDS INR 1.01 (0.8-3.0) pO2/FiO2 Ratio % VBG pH (7.32-7.42) VBG pCO2 at Pat Temp (42-55) mm/Hg VBG pO2 at Pat Temp (25-40) mm/Hg VBG HCO3 (22-28) meq/L VBG O2 Sat (Drew) (95-100) VBG Base Excess (-2.0-2.0) VBG Hemoglobin VBG Carboxyhemoglobin (0.0-6.9) % T HGB POC Potassium (3.5-5.1) Sodium 136 (135-145) mmol/L Potassium 3.8 (3.5-5.1) mmol/L Chloride 96 L (98-107) mmol/L Carbon Dioxide 36 H (22-30) mmol/L Anion Gap 8.2 (5-15) MEQ/L BUN 38 H (7-17) mg/dL Creatinine 1.00 (0.52-1.04) mg/dL Estimated GFR 56.3 ML/MIN Glucose 45 L* (74-106) mg/dL POC Glucometer (74 to 106) mg/dL Lactic Acid (0.4-2.0) Calcium 8.8 (8.4-10.2) mg/dL Magnesium 2.2 (1.6-2.3) mg/dL Total Bilirubin 1.10 (0.2-1.3) mg/dL AST 37 H (14-36) U/L ALT 29 (0-35) U/L Alkaline Phosphatase 67 (38-126) U/L Serum Total Protein 6.3 (6.3-8.2) g/dL Albumin 3.8 (3.5-5.0) g/dL Urine Color (Yellow) Urine Appearance (Clear) Urine pH (4.6-8.0) Ur Specific [place] (1.005-1.030) Urine Protein (Negative) Urine Glucose (UA) (Negative) mg/dL Urine Ketones (Negative) Urine Blood (Negative) Urine Nitrite (Negative) Urine Bilirubin (Negative) Urine Urobilinogen (0.2) mg/dL Ur Leukocyte Esterase (Negative) U Hyaline Cast (Auto) (0-2) /LPF Urine Microscopic RBC (0-5) /HPF Urine Microscopic WBC (0-5) /HPF Ur Epithelial Cells (None Seen) /HPF Urine Bacteria (None Seen) /HPF Ur Yeast w Hyphae (None Seen) /HPF Urine Culture Reflexed (NO) Salicylates < 1.0 L (2-20) mg/dL Urine Opiates Level (NEGATIVE) Ur Methadone (NEGATIVE) Acetaminophen 11 (10-30) ug/ml Urine Barbiturates (NEGATIVE) Ur Phencyclidine (PCP) (NEGATIVE) Urine Amphetamine (NEGATIVE) U Benzodiazepine Level (NEGATIVE) [place] < 0.2 L (0.60-1.20) mmol/L Urine Cocaine (NEGATIVE) Urine Marijuana (THC) (NEGATIVE) Ethyl Alcohol < 10 (0-10) mg/dL 09/27/24 09/27/24 09/27/24 Range/Units 18:09 18:30 18:30 WBC (3.98-10.04) x10^3/uL RBC (3.93-5.22) x10^6/uL Hgb (11.2-15.7) g/dL Hct (34.1-44.9) % MCV (79.4-94.8) fL MCH (25.6-32.2) pg MCHC (32.2-35.5) g/dL RDW (11.7-14.4) % Plt Count (182-369) x10^3/uL MPV (9.4-12.3) fL Gran % (34.0-71.1) % Immature Gran % (Auto) (0.001-0.429) % Nucleat RBC Rel Count (0.00-0.2) % Eos # (Auto) (0.04-0.36) x10^3/uL Immature Gran # (Auto) (0.001-0.031) x10^3u/L Absolute Lymphs (auto) (1.18-3.74) x10^3/uL Absolute Monos (auto) (0.24-0.86) x10^3/uL Absolute Nucleated RBC (0.00-0.012) x10^3u/L Lymphocytes % (19.3-51.7) % Monocytes % (4.7-12.5) % Eosinophils % (0.7-5.8) % Basophils % (0.1-1.2) % Absolute Granulocytes (1.56-6.13) x10^3/uL Basophils # (0.01-0.08) x10^3/uL PT (9.4-12.5) SECONDS INR (0.8-3.0) pO2/FiO2 Ratio % VBG pH (7.32-7.42) VBG pCO2 at Pat Temp (42-55) mm/Hg VBG pO2 at Pat Temp (25-40) mm/Hg VBG HCO3 (22-28) meq/L VBG O2 Sat (Drew) (95-100) VBG Base Excess (-2.0-2.0) VBG Hemoglobin VBG Carboxyhemoglobin (0.0-6.9) % T HGB POC Potassium (3.5-5.1) Sodium (135-145) mmol/L Potassium (3.5-5.1) mmol/L Chloride (98-107) mmol/L Carbon Dioxide (22-30) mmol/L Anion Gap (5-15) MEQ/L BUN (7-17) mg/dL Creatinine (0.52-1.04) mg/dL Estimated GFR ML/MIN Glucose (74-106) mg/dL POC Glucometer 95 (74 to 106) mg/dL Lactic Acid (0.4-2.0) Calcium (8.4-10.2) mg/dL Magnesium (1.6-2.3) mg/dL Total Bilirubin (0.2-1.3) mg/dL AST (14-36) U/L ALT (0-35) U/L Alkaline Phosphatase (38-126) U/L Serum Total Protein (6.3-8.2) g/dL Albumin (3.5-5.0) g/dL Urine Color Yellow (Yellow) Urine Appearance Clear (Clear) Urine pH 6.0 (4.6-8.0) Ur Specific [place] 1.020 (1.005-1.030) Urine Protein Negative (Negative) Urine Glucose (UA) >=1000 A (Negative) mg/dL Urine Ketones Negative (Negative) Urine Blood Negative (Negative) Urine Nitrite Negative (Negative) Urine Bilirubin Negative (Negative) Urine Urobilinogen 0.2 (0.2) mg/dL Ur Leukocyte Esterase Moderate A (Negative) U Hyaline Cast (Auto) NONE SEEN (0-2) /LPF Urine Microscopic RBC 0-2 (0-5) /HPF Urine Microscopic WBC 11-20 A (0-5) /HPF Ur Epithelial Cells Moderate A (None Seen) /HPF Urine Bacteria Rare A (None Seen) /HPF Ur Yeast w Hyphae Few A (None Seen) /HPF Urine Culture Reflexed YES (NO) Salicylates (2-20) mg/dL Urine Opiates Level POSITIVE A (NEGATIVE) Ur Methadone NEGATIVE (NEGATIVE) Acetaminophen (10-30) ug/ml Urine Barbiturates NEGATIVE (NEGATIVE) Ur Phencyclidine (PCP) NEGATIVE (NEGATIVE) Urine Amphetamine NEGATIVE (NEGATIVE) U Benzodiazepine Level NEGATIVE (NEGATIVE) [place] (0.60-1.20) mmol/L Urine Cocaine NEGATIVE (NEGATIVE) Urine Marijuana (THC) NEGATIVE (NEGATIVE) Ethyl Alcohol (0-10) mg/dL 09/27/24 Range/Units 20:39 WBC (3.98-10.04) x10^3/uL RBC (3.93-5.22) x10^6/uL Hgb (11.2-15.7) g/dL Hct (34.1-44.9) % MCV (79.4-94.8) fL MCH (25.6-32.2) pg MCHC (32.2-35.5) g/dL RDW (11.7-14.4) % Plt Count (182-369) x10^3/uL MPV (9.4-12.3) fL Gran % (34.0-71.1) % Immature Gran % (Auto) (0.001-0.429) % Nucleat RBC Rel Count (0.00-0.2) % Eos # (Auto) (0.04-0.36) x10^3/uL Immature Gran # (Auto) (0.001-0.031) x10^3u/L Absolute Lymphs (auto) (1.18-3.74) x10^3/uL Absolute Monos (auto) (0.24-0.86) x10^3/uL Absolute Nucleated RBC (0.00-0.012) x10^3u/L Lymphocytes % (19.3-51.7) % Monocytes % (4.7-12.5) % Eosinophils % (0.7-5.8) % Basophils % (0.1-1.2) % Absolute Granulocytes (1.56-6.13) x10^3/uL Basophils # (0.01-0.08) x10^3/uL PT (9.4-12.5) SECONDS INR (0.8-3.0) pO2/FiO2 Ratio % VBG pH (7.32-7.42) VBG pCO2 at Pat Temp (42-55) mm/Hg VBG pO2 at Pat Temp (25-40) mm/Hg VBG HCO3 (22-28) meq/L VBG O2 Sat (Drew) (95-100) VBG Base Excess (-2.0-2.0) VBG Hemoglobin VBG Carboxyhemoglobin (0.0-6.9) % T HGB POC Potassium (3.5-5.1) Sodium (135-145) mmol/L Potassium (3.5-5.1) mmol/L Chloride (98-107) mmol/L Carbon Dioxide (22-30) mmol/L Anion Gap (5-15) MEQ/L BUN (7-17) mg/dL Creatinine (0.52-1.04) mg/dL Estimated GFR ML/MIN Glucose (74-106) mg/dL POC Glucometer 148 H (74 to 106) mg/dL Lactic Acid (0.4-2.0) Calcium (8.4-10.2) mg/dL Magnesium (1.6-2.3) mg/dL Total Bilirubin (0.2-1.3) mg/dL AST (14-36) U/L ALT (0-35) U/L Alkaline Phosphatase (38-126) U/L Serum Total Protein (6.3-8.2) g/dL Albumin (3.5-5.0) g/dL Urine Color (Yellow) Urine Appearance (Clear) Urine pH (4.6-8.0) Ur Specific [place] (1.005-1.030) Urine Protein (Negative) Urine Glucose (UA) (Negative) mg/dL Urine Ketones (Negative) Urine Blood (Negative) Urine Nitrite (Negative) Urine Bilirubin (Negative) Urine Urobilinogen (0.2) mg/dL Ur Leukocyte Esterase (Negative) U Hyaline Cast (Auto) (0-2) /LPF Urine Microscopic RBC (0-5) /HPF Urine Microscopic WBC (0-5) /HPF Ur Epithelial Cells (None Seen) /HPF Urine Bacteria (None Seen) /HPF Ur Yeast w Hyphae (None Seen) /HPF Urine Culture Reflexed (NO) Salicylates (2-20) mg/dL Urine Opiates Level (NEGATIVE) Ur Methadone (NEGATIVE) Acetaminophen (10-30) ug/ml Urine Barbiturates (NEGATIVE) Ur Phencyclidine (PCP) (NEGATIVE) Urine Amphetamine (NEGATIVE) U Benzodiazepine Level (NEGATIVE) [place] (0.60-1.20) mmol/L Urine Cocaine (NEGATIVE) Urine Marijuana (THC) (NEGATIVE) Ethyl Alcohol (0-10) mg/dL Radiology Exams: Radiology Procedures Category Date Time Status CHEST 1 VIEW (PORTABLE) Stat Exams 09/27/24 16:22 Completed HAND (MINIMUM 3 VIEWS) Stat Exams 09/27/24 20:51 Completed HEAD WITHOUT CONTRAST [CT] Stat Exams 09/27/24 16:22 Completed Assessment/Plan (1) Hypoglycemia Current Visit: Yes Status: Acute Assessment & Plan: -Due to increase in insulin due to hyperglecemia with steroids -Taking 30 units/day -can switch back to her regular insulin of 14 units/day -Holding her other diabetic medications tonight. -Monitoring BG -She is eating and so will stop IV D5NS Code(s): E16.2 - HYPOGLYCEMIA, UNSPECIFIED (2) COPD (chronic obstructive pulmonary disease) Current Visit: Yes Status: Acute (3) CAD (coronary artery disease) Current Visit: No Status: Chronic Code(s): I25.10 - ATHSCL HEART DISEASE OF [place] CORONARY ARTERY W/O ANG PCTRS (4) HLD (hyperlipidemia) Current Visit: No Status: Chronic Code(s): E78.5 - HYPERLIPIDEMIA, UNSPECIFIED (5) HTN (hypertension) Current Visit: No Status: Chronic Code(s): I10 - ESSENTIAL (PRIMARY) HYPERTENSION (6) Type 2 diabetes mellitus Current Visit: No Status: Chronic
[2024-09-28] MEDS ORDERED: Spiriva 18 Mcg/Cap Inhaler IH ONE (06:33)
[2024-09-28] MEDS: Spiriva 18 Mcg/Cap Inhaler IH SCH (06:35)
[2024-09-28 06:42] LABS: Absolute Neutrophil Ct (ANC) 7.23 x10^3/uL (1.56-6.13); BASOPHIL % 0.1 % (0.1-1.2); Basophil (Absolute #) 0.01 x10^3/uL (0.01-0.08); Eosinophil % 3.4 % (0.7-5.8); Eosinophil (Absolute #) 0.32 x10^3/uL (0.04-0.36); Hematocrit 42.9 % (34.1-44.9); Lymphocyte (Absolute #) 0.93 x10^3/uL (1.18-3.74); Lymphocytes % 9.8 % (19.3-51.7); Mean Cell Volume 89.4 fL (79.4-94.8); Mean Corpuscular Hemoglobin 27.1 pg (25.6-32.2); Mean Corpuscular Hgb Concent. 30.3 g/dL (32.2-35.5); Mean Platelet Volume 11.3 fL (9.4-12.3); Monocyte (Absolute #) 0.94 x10^3/uL (0.24-0.86); Monocytes % 9.9 % (4.7-12.5); Neutrophil % 75.8 % (34.0-71.1); Platelet Count 154 x10^3/uL (182-369); Red Cell Distribution Width 17.9 % (11.7-14.4); White Blood Count 9.5 x10^3/uL (3.98-10.04)
[2024-09-28 07:10] VITALS: BP 120/72; PULSE 86; RESP 14; TEMP 97.6; O2SAT 100
[2024-09-28] MEDS ORDERED: ANTIVERT 25 MG PO PRN (07:15)
[2024-09-28] MEDS: GI COCKTAIL 45 ML (Maalox/Lidocaine) PO ONE (07:25)
[2024-09-28 07:34] LABS: ANION GAP 8.2 MEQ/L (5-15); Calcium 8.7 mg/dL (8.4-10.2); Creatinine 1 0.83 mg/dL (0.52-1.04); EST GLOMERULAR FILTRATION RATE 70.3 ML/MIN; Potassium 4.5 mmol/L (3.5-5.1)
[2024-09-28] MEDS: PROAMATINE PO SCH (08:27)
[2024-09-28] MEDS: ENOXAPARIN SODIUM SQ SCH (08:27)
[2024-09-28] MEDS: ECOTRIN 81 MG PO SCH (08:28)
[2024-09-28] MEDS: Cardizem 30 MG PO SCH (08:28)
[2024-09-28] MEDS: Lopressor 25MG Tab PO SCH (08:29)
[2024-09-28] MEDS: PLAVIX Tablet PO SCH (08:29)
[2024-09-28] MEDS: Klor Con PO SCH (08:29)
[2024-09-28] MEDS: LASIX 20 MG PO SCH (08:29)
[2024-09-28] MEDS: MARY'S MOUTHWASH PO PRN (09:09)
--- NOTE | 2024-09-28 10:09 | PCM.DS ---
Discharge Summary Date of Admission: 09/27/24 18:32 Date of Discharge: 09/28/24 Admitting Physician: JACKI ADAMSON MD Primary Care Provider: JONNY BROWNE ORLIN Allergies Allergies Penicillins Allergy (Severe, Verified 09/17/24 00:46) Difficulty Breathing codeine Allergy (Intermediate, Verified 09/17/24 00:46) Nausea and Vomiting metformin Allergy (Intermediate, Verified 09/17/24 00:46) Nausea and Vomiting Sulfa (Sulfonamide Antibiotics) Allergy (Intermediate, Verified 09/17/24 00:46) Itching ibuprofen Allergy (Verified 09/17/24 00:46) azithromycin [From Zithromax] Adverse Reaction (Intermediate, Verified 09/17/24 00:46) Headache IV ZITHROMAX CAUSEA HEADACHE AND MUSCLE SPASMS morphine Adverse Reaction (Intermediate, Verified 09/17/24 00:46) HALLUCINATIONS Hospital Summary - Hospital Course Hospital Course: is a 84 year old female with DM2, HTN who presented to ED 09/27/24 with hypogylcemia. Patient developed shaking, "blacking out" sensation and was found to have blood sugar in the 40s. Did not hit her head, no LOC, n/v/d/f. Recently her insulin was increased to 30 units a day due to being on steroids, but the steroids were dropped and her insulin was kept at the same dosage on top of 2 other anti-diabetic medications. She reports her symptoms have resolved and has no complaints. No overnight events noted. Hypoglycemia resolved. Patient states she has thrush which has impacted her eating. She reports her blood sugars at home have been in the 80-100 range. Will dismiss on Mey's Magic Potion. Advised to stop Lantus for now and keep blood sugar log and follow up with her PCP OP. She may need resumption of the lantus once her appetite improves. She also appears to have a UTI with culture pending - will send home on Cefdinir. Patient agreeable to plan and stable for discharge. Discharge Note New Diagnosis: Hypoglycemia/UTI New Medications: Cefdinir - Hold Lantus Follow Up: PCP next week Results pending: Ucult final read I spent 35 minutes [id number] with the patient on the day of discharge performing discharge exam, discussing hospital stay and discharge instructions with patient and caregivers, preparation of discharge records, prescriptions & referral forms and addressing any questions/concerns the patient had as documented above. - Vitals & Intake/Output Vital Signs: Vital Signs Temperature 97.6 F 09/28/24 07:09 Pulse Rate 86 09/28/24 07:09 Respiratory Rate 14 09/28/24 07:09 Blood Pressure 120/72 09/28/24 07:09 O2 Sat by Pulse Oximetry 100 09/28/24 07:09 Intake & Output: Intake & Output 09/25/24 09/26/24 09/27/24 09/28/24 11:59 11:59 11:59 11:59 Intake Total 1570 Output Total 700 Balance 870 Weight 58.5 kg - Lab Result Diagrams: 09/28/24 06:35 09/28/24 06:35 Lab Results-Last 24 Hrs: Lab Results-Last 24 Hours 09/27/24 09/27/24 09/27/24 Range/Units 16:21 16:21 16:21 WBC 12.5 H (3.98-10.04) x10^3/uL RBC 4.87 (3.93-5.22) x10^6/uL Hgb 13.3 (11.2-15.7) g/dL Hct 42.4 (34.1-44.9) % MCV 87.1 (79.4-94.8) fL MCH 27.3 (25.6-32.2) pg MCHC 31.4 L (32.2-35.5) g/dL RDW 17.8 H (11.7-14.4) % Plt Count 218 (182-369) x10^3/uL MPV 11.6 (9.4-12.3) fL Gran % 75.4 H (34.0-71.1) % Immature Gran % (Auto) 1.3 H (0.001-0.429) % Nucleat RBC Rel Count 0.0 (0.00-0.2) % Eos # (Auto) 0.27 (0.04-0.36) x10^3/uL Immature Gran # (Auto) 0.16 H (0.001-0.031) x10^3u/L Absolute Lymphs (auto) 1.27 (1.18-3.74) x10^3/uL Absolute Monos (auto) 1.37 H (0.24-0.86) x10^3/uL Absolute Nucleated RBC 0.00 (0.00-0.012) x10^3u/L Lymphocytes % 10.1 L (19.3-51.7) % Monocytes % 10.9 (4.7-12.5) % Eosinophils % 2.2 (0.7-5.8) % Basophils % 0.1 (0.1-1.2) % Absolute Granulocytes 9.44 H (1.56-6.13) x10^3/uL Basophils # 0.01 (0.01-0.08) x10^3/uL PT (9.4-12.5) SECONDS INR (0.8-3.0) pO2/FiO2 Ratio 28.0 % VBG pH 7.43 H (7.32-7.42) VBG pCO2 at Pat Temp 58 H (42-55) mm/Hg VBG pO2 at Pat Temp 37 (25-40) mm/Hg VBG HCO3 38.5 H* (22-28) meq/L VBG O2 Sat (Drew) 56.6 L (95-100) VBG Base Excess 11.6 H (-2.0-2.0) VBG Hemoglobin 14.4 VBG Carboxyhemoglobin 1.7 (0.0-6.9) % T HGB POC Potassium 5.6 H (3.5-5.1) Sodium (135-145) mmol/L Potassium (3.5-5.1) mmol/L Chloride (98-107) mmol/L Carbon Dioxide (22-30) mmol/L Anion Gap (5-15) MEQ/L BUN (7-17) mg/dL Creatinine (0.52-1.04) mg/dL Estimated GFR ML/MIN Glucose (74-106) mg/dL POC Glucometer (74 to 106) mg/dL Lactic Acid 1.1 (0.4-2.0) Calcium (8.4-10.2) mg/dL Magnesium (1.6-2.3) mg/dL Total Bilirubin (0.2-1.3) mg/dL AST (14-36) U/L ALT (0-35) U/L Alkaline Phosphatase (38-126) U/L Serum Total Protein (6.3-8.2) g/dL Albumin (3.5-5.0) g/dL Urine Color (Yellow) Urine Appearance (Clear) Urine pH (4.6-8.0) Ur Specific David (1.005-1.030) Urine Protein (Negative) Urine Glucose (UA) (Negative) mg/dL Urine Ketones (Negative) Urine Blood (Negative) Urine Nitrite (Negative) Urine Bilirubin (Negative) Urine Urobilinogen (0.2) mg/dL Ur Leukocyte Esterase (Negative) U Hyaline Cast (Auto) (0-2) /LPF Urine Microscopic RBC (0-5) /HPF Urine Microscopic WBC (0-5) /HPF Ur Epithelial Cells (None Seen) /HPF Urine Bacteria (None Seen) /HPF Ur Yeast w Hyphae (None Seen) /HPF Urine Culture Reflexed (NO) Salicylates (2-20) mg/dL Urine Opiates Level (NEGATIVE) Ur Methadone (NEGATIVE) Acetaminophen (10-30) ug/ml Urine Barbiturates (NEGATIVE) Ur Phencyclidine (PCP) (NEGATIVE) Urine Amphetamine (NEGATIVE) U Benzodiazepine Level (NEGATIVE) [place] (0.60-1.20) mmol/L Urine Cocaine (NEGATIVE) Urine Marijuana (THC) (NEGATIVE) Ethyl Alcohol (0-10) mg/dL 09/27/24 09/27/24 09/27/24 Range/Units 17:15 17:15 17:15 WBC (3.98-10.04) x10^3/uL RBC (3.93-5.22) x10^6/uL Hgb (11.2-15.7) g/dL Hct (34.1-44.9) % MCV (79.4-94.8) fL MCH (25.6-32.2) pg MCHC (32.2-35.5) g/dL RDW (11.7-14.4) % Plt Count (182-369) x10^3/uL MPV (9.4-12.3) fL Gran % (34.0-71.1) % Immature Gran % (Auto) (0.001-0.429) % Nucleat RBC Rel Count (0.00-0.2) % Eos # (Auto) (0.04-0.36) x10^3/uL Immature Gran # (Auto) (0.001-0.031) x10^3u/L Absolute Lymphs (auto) (1.18-3.74) x10^3/uL Absolute Monos (auto) (0.24-0.86) x10^3/uL Absolute Nucleated RBC (0.00-0.012) x10^3u/L Lymphocytes % (19.3-51.7) % Monocytes % (4.7-12.5) % Eosinophils % (0.7-5.8) % Basophils % (0.1-1.2) % Absolute Granulocytes (1.56-6.13) x10^3/uL Basophils # (0.01-0.08) x10^3/uL PT 11.0 (9.4-12.5) SECONDS INR 1.01 (0.8-3.0) pO2/FiO2 Ratio % VBG pH (7.32-7.42) VBG pCO2 at Pat Temp (42-55) mm/Hg VBG pO2 at Pat Temp (25-40) mm/Hg VBG HCO3 (22-28) meq/L VBG O2 Sat (Drew) (95-100) VBG Base Excess (-2.0-2.0) VBG Hemoglobin VBG Carboxyhemoglobin (0.0-6.9) % T HGB POC Potassium (3.5-5.1) Sodium 136 (135-145) mmol/L Potassium 3.8 (3.5-5.1) mmol/L Chloride 96 L (98-107) mmol/L Carbon Dioxide 36 H (22-30) mmol/L Anion Gap 8.2 (5-15) MEQ/L BUN 38 H (7-17) mg/dL Creatinine 1.00 (0.52-1.04) mg/dL Estimated GFR 56.3 ML/MIN Glucose 45 L* (74-106) mg/dL POC Glucometer (74 to 106) mg/dL Lactic Acid (0.4-2.0) Calcium 8.8 (8.4-10.2) mg/dL Magnesium 2.2 (1.6-2.3) mg/dL Total Bilirubin 1.10 (0.2-1.3) mg/dL AST 37 H (14-36) U/L ALT 29 (0-35) U/L Alkaline Phosphatase 67 (38-126) U/L Serum Total Protein 6.3 (6.3-8.2) g/dL Albumin 3.8 (3.5-5.0) g/dL Urine Color (Yellow) Urine Appearance (Clear) Urine pH (4.6-8.0) Ur Specific David (1.005-1.030) Urine Protein (Negative) Urine Glucose (UA) (Negative) mg/dL Urine Ketones (Negative) Urine Blood (Negative) Urine Nitrite (Negative) Urine Bilirubin (Negative) Urine Urobilinogen (0.2) mg/dL Ur Leukocyte Esterase (Negative) U Hyaline Cast (Auto) (0-2) /LPF Urine Microscopic RBC (0-5) /HPF Urine Microscopic WBC (0-5) /HPF Ur Epithelial Cells (None Seen) /HPF Urine Bacteria (None Seen) /HPF Ur Yeast w Hyphae (None Seen) /HPF Urine Culture Reflexed (NO) Salicylates < 1.0 L (2-20) mg/dL Urine Opiates Level (NEGATIVE) Ur Methadone (NEGATIVE) Acetaminophen 11 (10-30) ug/ml Urine Barbiturates (NEGATIVE) Ur Phencyclidine (PCP) (NEGATIVE) Urine Amphetamine (NEGATIVE) U Benzodiazepine Level (NEGATIVE) [place] < 0.2 L (0.60-1.20) mmol/L Urine Cocaine (NEGATIVE) Urine Marijuana (THC) (NEGATIVE) Ethyl Alcohol < 10 (0-10) mg/dL 09/27/24 09/27/24 09/27/24 Range/Units 18:09 18:30 18:30 WBC (3.98-10.04) x10^3/uL RBC (3.93-5.22) x10^6/uL Hgb (11.2-15.7) g/dL Hct (34.1-44.9) % MCV (79.4-94.8) fL MCH (25.6-32.2) pg MCHC (32.2-35.5) g/dL RDW (11.7-14.4) % Plt Count (182-369) x10^3/uL MPV (9.4-12.3) fL Gran % (34.0-71.1) % Immature Gran % (Auto) (0.001-0.429) % Nucleat RBC Rel Count (0.00-0.2) % Eos # (Auto) (0.04-0.36) x10^3/uL Immature Gran # (Auto) (0.001-0.031) x10^3u/L Absolute Lymphs (auto) (1.18-3.74) x10^3/uL Absolute Monos (auto) (0.24-0.86) x10^3/uL Absolute Nucleated RBC (0.00-0.012) x10^3u/L Lymphocytes % (19.3-51.7) % Monocytes % (4.7-12.5) % Eosinophils % (0.7-5.8) % Basophils % (0.1-1.2) % Absolute Granulocytes (1.56-6.13) x10^3/uL Basophils # (0.01-0.08) x10^3/uL PT (9.4-12.5) SECONDS INR (0.8-3.0) pO2/FiO2 Ratio % VBG pH (7.32-7.42) VBG pCO2 at Pat Temp (42-55) mm/Hg VBG pO2 at Pat Temp (25-40) mm/Hg VBG HCO3 (22-28) meq/L VBG O2 Sat (Drew) (95-100) VBG Base Excess (-2.0-2.0) VBG Hemoglobin VBG Carboxyhemoglobin (0.0-6.9) % T HGB POC Potassium (3.5-5.1) Sodium (135-145) mmol/L Potassium (3.5-5.1) mmol/L Chloride (98-107) mmol/L Carbon Dioxide (22-30) mmol/L Anion Gap (5-15) MEQ/L BUN (7-17) mg/dL Creatinine (0.52-1.04) mg/dL Estimated GFR ML/MIN Glucose (74-106) mg/dL POC Glucometer 95 (74 to 106) mg/dL Lactic Acid (0.4-2.0) Calcium (8.4-10.2) mg/dL Magnesium (1.6-2.3) mg/dL Total Bilirubin (0.2-1.3) mg/dL AST (14-36) U/L ALT (0-35) U/L Alkaline Phosphatase (38-126) U/L Serum Total Protein (6.3-8.2) g/dL Albumin (3.5-5.0) g/dL Urine Color Yellow (Yellow) Urine Appearance Clear (Clear) Urine pH 6.0 (4.6-8.0) Ur Specific David 1.020 (1.005-1.030) Urine Protein Negative (Negative) Urine Glucose (UA) >=1000 A (Negative) mg/dL Urine Ketones Negative (Negative) Urine Blood Negative (Negative) Urine Nitrite Negative (Negative) Urine Bilirubin Negative (Negative) Urine Urobilinogen 0.2 (0.2) mg/dL Ur Leukocyte Esterase Moderate A (Negative) U Hyaline Cast (Auto) NONE SEEN (0-2) /LPF Urine Microscopic RBC 0-2 (0-5) /HPF Urine Microscopic WBC 11-20 A (0-5) /HPF Ur Epithelial Cells Moderate A (None Seen) /HPF Urine Bacteria Rare A (None Seen) /HPF Ur Yeast w Hyphae Few A (None Seen) /HPF Urine Culture Reflexed YES (NO) Salicylates (2-20) mg/dL Urine Opiates Level POSITIVE A (NEGATIVE) Ur Methadone NEGATIVE (NEGATIVE) Acetaminophen (10-30) ug/ml Urine Barbiturates NEGATIVE (NEGATIVE) Ur Phencyclidine (PCP) NEGATIVE (NEGATIVE) Urine Amphetamine NEGATIVE (NEGATIVE) U Benzodiazepine Level NEGATIVE (NEGATIVE) [place] (0.60-1.20) mmol/L Urine Cocaine NEGATIVE (NEGATIVE) Urine Marijuana (THC) NEGATIVE (NEGATIVE) Ethyl Alcohol (0-10) mg/dL 09/27/24 09/28/24 09/28/24 Range/Units 20:39 05:28 06:35 WBC 9.5 (3.98-10.04) x10^3/uL RBC 4.80 (3.93-5.22) x10^6/uL Hgb 13.0 (11.2-15.7) g/dL Hct 42.9 (34.1-44.9) % MCV 89.4 (79.4-94.8) fL MCH 27.1 (25.6-32.2) pg MCHC 30.3 L (32.2-35.5) g/dL RDW 17.9 H (11.7-14.4) % Plt Count 154 L (182-369) x10^3/uL MPV 11.3 (9.4-12.3) fL Gran % 75.8 H (34.0-71.1) % Immature Gran % (Auto) 1.0 H (0.001-0.429) % Nucleat RBC Rel Count 0.0 (0.00-0.2) % Eos # (Auto) 0.32 (0.04-0.36) x10^3/uL Immature Gran # (Auto) 0.10 H (0.001-0.031) x10^3u/L Absolute Lymphs (auto) 0.93 L (1.18-3.74) x10^3/uL Absolute Monos (auto) 0.94 H (0.24-0.86) x10^3/uL Absolute Nucleated RBC 0.00 (0.00-0.012) x10^3u/L Lymphocytes % 9.8 L (19.3-51.7) % Monocytes % 9.9 (4.7-12.5) % Eosinophils % 3.4 (0.7-5.8) % Basophils % 0.1 (0.1-1.2) % Absolute Granulocytes 7.23 H (1.56-6.13) x10^3/uL Basophils # 0.01 (0.01-0.08) x10^3/uL PT (9.4-12.5) SECONDS INR (0.8-3.0) pO2/FiO2 Ratio % VBG pH (7.32-7.42) VBG pCO2 at Pat Temp (42-55) mm/Hg VBG pO2 at Pat Temp (25-40) mm/Hg VBG HCO3 (22-28) meq/L VBG O2 Sat (Drew) (95-100) VBG Base Excess (-2.0-2.0) VBG Hemoglobin VBG Carboxyhemoglobin (0.0-6.9) % T HGB POC Potassium (3.5-5.1) Sodium (135-145) mmol/L Potassium (3.5-5.1) mmol/L Chloride (98-107) mmol/L Carbon Dioxide (22-30) mmol/L Anion Gap (5-15) MEQ/L BUN (7-17) mg/dL Creatinine (0.52-1.04) mg/dL Estimated GFR ML/MIN Glucose (74-106) mg/dL POC Glucometer 148 H 223 H (74 to 106) mg/dL Lactic Acid (0.4-2.0) Calcium (8.4-10.2) mg/dL Magnesium (1.6-2.3) mg/dL Total Bilirubin (0.2-1.3) mg/dL AST (14-36) U/L ALT (0-35) U/L Alkaline Phosphatase (38-126) U/L Serum Total Protein (6.3-8.2) g/dL Albumin (3.5-5.0) g/dL Urine Color (Yellow) Urine Appearance (Clear) Urine pH (4.6-8.0) Ur Specific David (1.005-1.030) Urine Protein (Negative) Urine Glucose (UA) (Negative) mg/dL Urine Ketones (Negative) Urine Blood (Negative) Urine Nitrite (Negative) Urine Bilirubin (Negative) Urine Urobilinogen (0.2) mg/dL Ur Leukocyte Esterase (Negative) U Hyaline Cast (Auto) (0-2) /LPF Urine Microscopic RBC (0-5) /HPF Urine Microscopic WBC (0-5) /HPF Ur Epithelial Cells (None Seen) /HPF Urine Bacteria (None Seen) /HPF Ur Yeast w Hyphae (None Seen) /HPF Urine Culture Reflexed (NO) Salicylates (2-20) mg/dL Urine Opiates Level (NEGATIVE) Ur Methadone (NEGATIVE) Acetaminophen (10-30) ug/ml Urine Barbiturates (NEGATIVE) Ur Phencyclidine (PCP) (NEGATIVE) Urine Amphetamine (NEGATIVE) U Benzodiazepine Level (NEGATIVE) [place] (0.60-1.20) mmol/L Urine Cocaine (NEGATIVE) Urine Marijuana (THC) (NEGATIVE) Ethyl Alcohol (0-10) mg/dL 09/28/24 09/28/24 Range/Units 06:35 07:03 WBC (3.98-10.04) x10^3/uL RBC (3.93-5.22) x10^6/uL Hgb (11.2-15.7) g/dL Hct (34.1-44.9) % MCV (79.4-94.8) fL MCH (25.6-32.2) pg MCHC (32.2-35.5) g/dL RDW (11.7-14.4) % Plt Count (182-369) x10^3/uL MPV (9.4-12.3) fL Gran % (34.0-71.1) % Immature Gran % (Auto) (0.001-0.429) % Nucleat RBC Rel Count (0.00-0.2) % Eos # (Auto) (0.04-0.36) x10^3/uL Immature Gran # (Auto) (0.001-0.031) x10^3u/L Absolute Lymphs (auto) (1.18-3.74) x10^3/uL Absolute Monos (auto) (0.24-0.86) x10^3/uL Absolute Nucleated RBC (0.00-0.012) x10^3u/L Lymphocytes % (19.3-51.7) % Monocytes % (4.7-12.5) % Eosinophils % (0.7-5.8) % Basophils % (0.1-1.2) % Absolute Granulocytes (1.56-6.13) x10^3/uL Basophils # (0.01-0.08) x10^3/uL PT (9.4-12.5) SECONDS INR (0.8-3.0) pO2/FiO2 Ratio % VBG pH (7.32-7.42) VBG pCO2 at Pat Temp (42-55) mm/Hg VBG pO2 at Pat Temp (25-40) mm/Hg VBG HCO3 (22-28) meq/L VBG O2 Sat (Drew) (95-100) VBG Base Excess (-2.0-2.0) VBG Hemoglobin VBG Carboxyhemoglobin (0.0-6.9) % T HGB POC Potassium (3.5-5.1) Sodium 135 (135-145) mmol/L Potassium 4.5 (3.5-5.1) mmol/L Chloride 101 (98-107) mmol/L Carbon Dioxide 30 (22-30) mmol/L Anion Gap 8.2 (5-15) MEQ/L BUN 32 H (7-17) mg/dL Creatinine 0.83 (0.52-1.04) mg/dL Estimated GFR 70.3 ML/MIN Glucose 175 H (74-106) mg/dL POC Glucometer 165 H (74 to 106) mg/dL Lactic Acid (0.4-2.0) Calcium 8.7 (8.4-10.2) mg/dL Magnesium (1.6-2.3) mg/dL Total Bilirubin (0.2-1.3) mg/dL AST (14-36) U/L ALT (0-35) U/L Alkaline Phosphatase (38-126) U/L Serum Total Protein (6.3-8.2) g/dL Albumin (3.5-5.0) g/dL Urine Color (Yellow) Urine Appearance (Clear) Urine pH (4.6-8.0) Ur Specific [place] (1.005-1.030) Urine Protein (Negative) Urine Glucose (UA) (Negative) mg/dL Urine Ketones (Negative) Urine Blood (Negative) Urine Nitrite (Negative) Urine Bilirubin (Negative) Urine Urobilinogen (0.2) mg/dL Ur Leukocyte Esterase (Negative) U Hyaline Cast (Auto) (0-2) /LPF Urine Microscopic RBC (0-5) /HPF Urine Microscopic WBC (0-5) /HPF Ur Epithelial Cells (None Seen) /HPF Urine Bacteria (None Seen) /HPF Ur Yeast w Hyphae (None Seen) /HPF Urine Culture Reflexed (NO) Salicylates (2-20) mg/dL Urine Opiates Level (NEGATIVE) Ur Methadone (NEGATIVE) Acetaminophen (10-30) ug/ml Urine Barbiturates (NEGATIVE) Ur Phencyclidine (PCP) (NEGATIVE) Urine Amphetamine (NEGATIVE) U Benzodiazepine Level (NEGATIVE) [place] (0.60-1.20) mmol/L Urine Cocaine (NEGATIVE) Urine Marijuana (THC) (NEGATIVE) Ethyl Alcohol (0-10) mg/dL Micro Results-Entire Visit: Accuchecks Date 09/28/24 Date 09/28/24 Date 09/27/24 Time 07:09 Time 05:32 Time 20:45 - Radiology Exams Ordered Rad Exams-Entire Visit: Radiology Procedures Category Date Time Status CHEST 1 VIEW (PORTABLE) Stat Exams 09/27/24 16:22 Completed HAND (MINIMUM 3 VIEWS) Stat Exams 09/27/24 20:51 Completed HEAD WITHOUT CONTRAST [CT] Stat Exams 09/27/24 16:22 Completed - Procedures and Test Procedures and Tests throughout Hospitalization: Therapy Orders & Screens 09/27/24 19:35 PT Eval & Treat (MD Order) ONCE Reason for Eval:: Evaluate and treat Diagnosis: Hypoglycemia EKG PRN Comment: Oxygen Nasal Cannula 2 lpm Comment: 09/27/24 22:10 Respiratory Therapy Assessment DAILY Comment: Diagnosis: Hypoglycemia 09/28/24 08:00 RT Screen per Nursing Assess ONCE Comment: Protocol Order Physician Instructions: Greater than 3 points order RT Admission Screen Reason For Exam: Triggered on Admission Diagnosis: Hypoglycemia Diagnosis: Hypoglycemia Pneumonia: Yes Home O2: Yes Asthma: No CHF: Yes Home CPAP/BIPAP: No Home Nebs/MDI: Yes Total Points: 16 Discharge Exam General Appearance: no apparent distress Neurologic Exam: alert, oriented x 3, cooperative Eye Exam: PERRL Ears, Nose, Throat Exam: normal ENT inspection Neck Exam: normal inspection Respiratory Exam: diminished breath sounds Cardiovascular Exam: regular rate/rhythm, normal heart sounds Gastrointestinal/Abdomen Exam: soft, normal bowel sounds Pelvic Exam: deferred Rectal Exam: deferred Back Exam: normal inspection Extremity Exam: swelling (BLE +2) Skin Exam: normal color Final Diagnosis/Problem List - Final Discharge Diagnosis/Problem (1) Hypoglycemia Current Visit: Yes Status: Resolved Code(s): E16.2 - HYPOGLYCEMIA, UNSPECIFIED (2) COPD (chronic obstructive pulmonary disease) Current Visit: Yes Status: Chronic (3) CAD (coronary artery disease) Current Visit: No Status: Chronic Code(s): I25.10 - ATHSCL HEART DISEASE OF [place] CORONARY ARTERY W/O ANG PCTRS (4) HLD (hyperlipidemia) Current Visit: No Status: Chronic Code(s): E78.5 - HYPERLIPIDEMIA, UNSPECIFIED (5) HTN (hypertension) Current Visit: No Status: Chronic Code(s): I10 - ESSENTIAL (PRIMARY) HYPERTENSION (6) Type 2 diabetes mellitus Current Visit: No Status: Chronic - Discharge Discharge Date: 09/28/24 Disposition: Home, Self-Care Condition: Fair Prescriptions: New Nystatin/TCN/Hc/Diphenhydramin [Mey's Mouthwash] 10 ml PO QIDPRN PRN PRN Reason: Pain Cefdinir [Omnicef 300 mg] 300 mg PO BID 7 Days #14 cap Continue Glipizide 10 mg [Glucotrol 10 MG] 10 mg PO DAILY Atorvastatin Calcium [Lipitor] 40 mg PO HS Aspirin [Aspirin EC] 81 mg PO DAILY Clopidogrel Bisulfate [PLAVIX Tablet] 75 mg PO DAILY Albuterol 2.5 mg/3 ml Neb [Proventil 2.5 mg/3 ml Neb] 2.5 mg IH TID Furosemide [Lasix] 20 mg PO DAILY Metoprolol Tartrate 25 mg [Lopressor 25MG Tab] 12.5 mg PO DAILY Pregabalin 50 mg [Lyrica 50MG] 50 mg PO TID Potassium Chloride 10 meq PO DAILY Meclizine HCl 12.5 mg PO TID PRN PRN Reason: Dizziness Diltiazem HCl 30 mg [Cardizem 30 MG] 30 mg PO DAILY Empagliflozin [Jardiance] 10 mg PO DAILY Tiotropium [place] Inhaler [Spiriva 18 Mcg/Cap Inhaler] 2 puff IH Q6H PRN PRN PRN Reason: Shortness Of Breath ALPRAZolam [Alprazolam] 0.5 mg PO HS PRN PRN Reason: Anxiety/Agitation Nitroglycerin 0.4 mg Tablet [Nitrostat 0.4 MG Tablet] 0.4 mg PO Q5MIN PRN MR X 3 PRN PRN Reason: Chest Pain Midodrine HCl 5 mg PO TID 30 Days #90 tablet Discontinued Insulin Glargine,Hum.rec.anlog [Lantus] 30 units SQ DAILY Follow up with: JONNY BROWNE MD [Primary Care Provider] -
[2024-09-28] MEDS: OMNICEF 300 MG PO ONE (10:30)
[2024-09-28] MEDS: DIFLUCAN PO ONE (11:05)
[2024-09-28] MEDS ORDERED: PROVENTIL 2.5 MG/3 ML NEB IH SCH (13:00)
== END 2024-09-28 11:30 | disposition home health service (06) ==
LOC: ED 16:13 → MED SURG 18:32
PROVIDERS: ADMIT Student in an Organized Health Care Education/Training Program; ATTEND Student in an Organized Health Care Education/Training Program
DX: E11.649 Type 2 diabetes mellitus with hypoglycemia without coma (principal); J44.9 Chronic obstructive pulmonary disease, unspecified; I25.10 Atherosclerotic heart disease of native coronary artery without angina pectoris; E78.5 Hyperlipidemia, unspecified; I10 Essential (primary) hypertension; I25.2 Old myocardial infarction; Z95.0 Presence of cardiac pacemaker; Z79.01 Long term (current) use of anticoagulants; Z79.899 Other long term (current) drug therapy
CPT/HCPCS: 36415; 70450; 71045; 73130; 80048; 80053; 80143; 80178; 80179; 80307; 81001; 82077; 82805; 82947; 83605; 83735; 85025; 85610; 87040; 87086; 93005; 93041; 94640; 94760; 96374; 99285; G0378; Q3014; J1650; J7609; A9270-GY

== ENCOUNTER 2024-09-29 15:20 | Observation (INO) | payer MEDICARE ==
--- NOTE | 2024-09-29 16:04 | ERPHSYRPT ---
- History of Present Illness Time Seen by Provider: 09/29/24 15:30 Source: patient Exam Limitations: no limitations Patient Subjective Stated Complaint: weakness--pt was in the bathroom and felt weak and her was there and took her to the floor Triage Nursing Assessment: Pt was brought to the ER by EMS, vitals wnl, denies pain, pt was discharged from [facility] yesterday for weakness after spending one night, pulses normal, skin n/w/d, denies N&V, denies chest pain, is supposed to wear oxygen at all times but was found without it twice today, doesn't appear to be in any distress Physician History: 84-year-old female presents to emergency department for evaluation of generalized weakness. Patient was discharged from the hospital just yesterday for the same. Patient reports she was worked up for stroke. She had imaging studies and the stroke workup was negative per patient. Patient presented to our ED via EMS. Per report patient was at her home. Patient was in the bathroom. Patient felt weak and sat to the floor. Patient was assisted by her . No trauma. Patient is supposed to wear oxygen at all times. However patient has not been compliant. Patient's episode of weakness occurred while her oxygen was not in use. Patient currently conversant well-appearing and in no distress. Patient denies pain. Patient voices no other complaints or concerns at this time. Portions of this note were created with voice recognition technology. There may be grammatical, spelling, punctuation or sound alike errors P Timing/Duration: today Severity: mild Modifying Factors: Improves With: nothing Associated Symptoms: denies symptoms Allergies/Adverse Reactions: Penicillins Allergy (Severe, Verified 09/29/24 15:29) Difficulty Breathing codeine Allergy (Intermediate, Verified 09/29/24 15:29) Nausea and Vomiting metformin Allergy (Intermediate, Verified 09/29/24 15:29) Nausea and Vomiting Sulfa (Sulfonamide Antibiotics) Allergy (Intermediate, Verified 09/29/24 15:29) Itching ibuprofen Allergy (Verified 09/29/24 15:29) azithromycin [From Zithromax] Adverse Reaction (Intermediate, Verified 09/29/24 15:29) Headache IV ZITHROMAX CAUSEA HEADACHE AND MUSCLE SPASMS morphine Adverse Reaction (Intermediate, Verified 09/29/24 15:29) HALLUCINATIONS Home Medications: Glipizide 10 mg [Glucotrol 10 MG] 10 mg PO DAILY 06/11/13 [History] Atorvastatin Calcium [Lipitor] 40 mg PO HS 06/19/13 [History] Aspirin [Aspirin EC] 81 mg PO DAILY 10/03/13 [History] Albuterol 2.5 mg/3 ml Neb [Proventil 2.5 mg/3 ml Neb] 2.5 mg IH TID 08/01/19 [History] Clopidogrel Bisulfate [PLAVIX Tablet] 75 mg PO DAILY 08/01/19 [History] Furosemide [Lasix] 20 mg PO DAILY 11/17/23 [History] ALPRAZolam [Alprazolam] 0.5 mg PO HS PRN 07/26/24 [History] Diltiazem HCl 30 mg [Cardizem 30 MG] 30 mg PO DAILY 07/26/24 [History] Empagliflozin [Jardiance] 10 mg PO DAILY 07/26/24 [History] Meclizine HCl 12.5 mg PO TID PRN 07/26/24 [History] Metoprolol Tartrate 25 mg [Lopressor 25MG Tab] 12.5 mg PO DAILY 07/26/24 [History] Potassium Chloride 10 meq PO DAILY 07/26/24 [History] Pregabalin 50 mg [Lyrica 50MG] 50 mg PO TID 07/26/24 [History] Tiotropium [place] Inhaler [Spiriva 18 Mcg/Cap Inhaler] 2 puff IH Q6H PRN PRN 07/26/24 [History] Nitroglycerin 0.4 mg Tablet [Nitrostat 0.4 MG Tablet] 0.4 mg PO Q5MIN PRN MR X 3 PRN 09/16/24 [History] Hx Tetanus, Diphtheria Vaccination/Date Given: Yes Hx Influenza Vaccination/Date Given: No Hx Pneumococcal Vaccination/Date Given: No Travel Risk - International Travel Have you traveled outside of the country in past 3 weeks: No - Emerging Infectious Disease Are you exhibiting symptoms associated with any current EIDs: No Symptoms: Shortness of Breath - Review of Systems Constitutional: No Symptoms, No Fever, No Chills Eyes: No Symptoms Ears, Nose, & Throat: No Symptoms Respiratory: No Symptoms, No Cough, No Dyspnea Cardiac: No Symptoms, No Chest Pain, No Edema, No Syncope Abdominal/Gastrointestinal: No Symptoms, No Abdominal Pain, No Nausea, No Vomiting, No Diarrhea Genitourinary Symptoms: No Symptoms, No Dysuria Musculoskeletal: No Symptoms, No Back Pain, No Neck Pain Skin: No Symptoms, No Rash Neurological: No Symptoms, No Dizziness, No Focal Weakness, No Sensory Changes Psychological: No Symptoms Endocrine: No Symptoms Hematologic/Lymphatic: No Symptoms Immunological/Allergic: No Symptoms All Other Systems: Reviewed and Negative - Past Medical History Pertinent Past Medical History: Yes Neurological History: No Pertinent History ENT History: No Pertinent History Cardiac History: Congestive Heart Failure, Coronary Artery Disease, High Cholest carlos, Hypertension, Myocardial Infarction (ND) Respiratory History: COPD, Other Endocrine Medical History: Diabetes Type II Musculoskeletal History: Osteoarthritis GI Medical History: No Pertinent History History: No Pertinent History Psycho-Social History: No Pertinent History Female Reproductive Disorders: No Pertinent History Other Medical History: CAROTID ENDARTERECTOMY ON LEFT, Educational Director: Dr. Gavin - Past Surgical History Past Surgical History: Yes Neuro Surgical History: No Pertinent History Cardiac: CABG, Vascular Surgery, Other Respiratory: No Pertinent History Gastrointestinal: Other Genitourinary: No Pertinent History Musculoskeletal: Orthopedic Surgery Female Surgical History: No Pertinent History Other Surgical History: right artery bypass graft, left hand surgery Significant Family History: heart disease - Social History Smoking Status: Former smoker How long have you smoked: 2010 Exposure to second hand smoke: No Drug Use: none - Social Determinants of Health Will the patient participate in the screening: Yes Do you worry about a steady place to live?: No Do you have any problems with any of the following?: No known problems In the past 12 months,have you had to go without utilities?: No Transportation Issues: No Has anyone in your support network made you feel unsafe?: No Have you or anyone in your house had to go w/o enough food: No - Nursing Vital Signs Nursing Vital Signs: Initial Vital Signs Temperature 97.9 F 09/29/24 15:23 Pulse Rate 99 H 09/29/24 15:23 Respiratory Rate 14 09/29/24 15:23 Blood Pressure 101/72 09/29/24 15:23 O2 Sat by Pulse Oximetry 99 09/29/24 15:23 Pain Scale Pain Intensity 0 - Physical Exam General Appearance: no apparent distress, alert Eye Exam: PERRL/EOMI, eyes nml inspection Ears, Nose, Throat Exam: normal ENT inspection, moist mucous membranes Neck Exam: normal inspection, non-tender, supple, full range of motion Respiratory Exam: normal breath sounds, lungs clear, airway intact, No respiratory distress Cardiovascular Exam: regular rate/rhythm, normal heart sounds, normal peripheral pulses Gastrointestinal/Abdomen Exam: soft, normal bowel sounds, No tenderness, No mass Back Exam: normal inspection, normal range of motion, No CVA tenderness, No vertebral tenderness Extremity Exam: normal inspection, normal range of motion, pelvis stable Neurologic Exam: alert, oriented x 3, cooperative, normal mood/affect, sensation nml, No motor deficits Skin Exam: normal color, warm, dry, No rash Lymphatic Exam: No adenopathy SpO2 Interpretation: normal SpO2: 99 O2 Delivery: Room Air - Course Nursing assessment & vital signs reviewed: Yes EKG Interpreted by Me: RATE (99), Sinus Rhythm, LAFB, NORMAL INTERVALS, Right Bundle Branch Block Ordered Tests: Active Orders 24 hr Category Date Time Status Direct Support Specialist STAT Care 09/29/24 15:55 Active EKG-ER Only STAT Care 09/29/24 15:54 Active IV Insertion STAT Care 09/29/24 15:54 Active Pulse Oximetry (ED) STAT Care 09/29/24 15:54 Active CHEST 1 VIEW (PORTABLE) Stat Exams 09/29/24 16:43 Completed CBC W DIFF Stat Lab 09/29/24 16:22 Completed CMP Stat Lab 09/29/24 16:22 Completed NT PRO BNPII Stat Lab 09/29/24 16:22 Completed TROPONIN Q4H Lab 09/29/24 16:22 Completed TROPONIN Q4H Lab 09/29/24 20:00 Ordered TROPONIN Q4H Lab 09/30/24 00:00 Ordered UA W/RFX UR CULTURE Stat Lab 09/29/24 15:55 Ordered Transfer Order Routine Transfer 09/29/24 Ordered Medication Summary Generic Name Dose Route Start Last Admin Trade Name Freq PRN Reason Stop Dose Admin Furosemide 20 mg 09/30/24 10:00 Furosemide 20 Mg/Vial IV 10/30/24 09:59 QAM LUCY Sodium Chloride 1,000 mls @ 100 mls/hr 09/29/24 16:00 09/29/24 16:47 Sodium Chloride 0.9% 1000 Ml IV 10/29/24 15:59 100 mls/hr .Q10H LUCY Administration Levofloxacin/Dextrose 500 mg in 100 mls @ 100 mls/hr 09/29/24 17:54 Levofloxacin 500mg/100ml D5w IV 09/29/24 18:53 STAT STA Lab/Rad Data: Laboratory Result Diagrams 09/29/24 16:22 09/29/24 16:22 Laboratory Results 09/29/24 09/29/24 09/29/24 Range/Units 16:22 16:22 16:22 WBC (3.98-10.04) x10^3/uL RBC (3.93-5.22) x10^6/uL Hgb (11.2-15.7) g/dL Hct (34.1-44.9) % MCV (79.4-94.8) fL MCH (25.6-32.2) pg MCHC (32.2-35.5) g/dL RDW (11.7-14.4) % Plt Count (182-369) x10^3/uL MPV (9.4-12.3) fL Gran % (34.0-71.1) % Immature Gran % (Auto) (0.001-0.429) % Nucleat RBC Rel Count (0.00-0.2) % Eos # (Auto) (0.04-0.36) x10^3/uL Immature Gran # (Auto) (0.001-0.031) x10^3u/L Absolute Lymphs (auto) (1.18-3.74) x10^3/uL Absolute Monos (auto) (0.24-0.86) x10^3/uL Absolute Nucleated RBC (0.00-0.012) x10^3u/L Lymphocytes % (19.3-51.7) % Monocytes % (4.7-12.5) % Eosinophils % (0.7-5.8) % Basophils % (0.1-1.2) % Absolute Granulocytes (1.56-6.13) x10^3/uL Basophils # (0.01-0.08) x10^3/uL Sodium 139 (135-145) mmol/L Potassium 4.6 (3.5-5.1) mmol/L Chloride 100 (98-107) mmol/L Carbon Dioxide 32 H (22-30) mmol/L Anion Gap 11.0 (5-15) MEQ/L BUN 67 H (7-17) mg/dL Creatinine 0.74 (0.52-1.04) mg/dL Estimated GFR 80.7 ML/MIN Glucose 225 H (74-106) mg/dL Calcium 8.5 (8.4-10.2) mg/dL Total Bilirubin 1.00 (0.2-1.3) mg/dL AST 30 (14-36) U/L ALT 25 (0-35) U/L Alkaline Phosphatase 50 (38-126) U/L Troponin I 0.040 H* (0.000-0.033) ng/mL NT-Pro-B Natriuret Pep 8340 (<300) pg/mL Serum Total Protein 5.0 L (6.3-8.2) g/dL Albumin 3.0 L (3.5-5.0) g/dL 09/29/24 Range/Units 16:22 WBC 12.2 H (3.98-10.04) x10^3/uL RBC 3.74 L (3.93-5.22) x10^6/uL Hgb 10.3 L D (11.2-15.7) g/dL Hct 33.1 L (34.1-44.9) % MCV 88.5 (79.4-94.8) fL MCH 27.5 (25.6-32.2) pg MCHC 31.1 L (32.2-35.5) g/dL RDW 17.7 H (11.7-14.4) % Plt Count 159 L (182-369) x10^3/uL MPV 11.9 (9.4-12.3) fL Gran % 87.4 H (34.0-71.1) % Immature Gran % (Auto) 1.5 H (0.001-0.429) % Nucleat RBC Rel Count 0.0 (0.00-0.2) % Eos # (Auto) 0.05 (0.04-0.36) x10^3/uL Immature Gran # (Auto) 0.18 H (0.001-0.031) x10^3u/L Absolute Lymphs (auto) 0.66 L (1.18-3.74) x10^3/uL Absolute Monos (auto) 0.63 (0.24-0.86) x10^3/uL Absolute Nucleated RBC 0.00 (0.00-0.012) x10^3u/L Lymphocytes % 5.4 L (19.3-51.7) % Monocytes % 5.2 (4.7-12.5) % Eosinophils % 0.4 L (0.7-5.8) % Basophils % 0.1 (0.1-1.2) % Absolute Granulocytes 10.68 H (1.56-6.13) x10^3/uL Basophils # 0.01 (0.01-0.08) x10^3/uL Sodium (135-145) mmol/L Potassium (3.5-5.1) mmol/L Chloride (98-107) mmol/L Carbon Dioxide (22-30) mmol/L Anion Gap (5-15) MEQ/L BUN (7-17) mg/dL Creatinine (0.52-1.04) mg/dL Estimated GFR ML/MIN Glucose (74-106) mg/dL Calcium (8.4-10.2) mg/dL Total Bilirubin (0.2-1.3) mg/dL AST (14-36) U/L ALT (0-35) U/L Alkaline Phosphatase (38-126) U/L Troponin I (0.000-0.033) ng/mL NT-Pro-B Natriuret Pep (<300) pg/mL Serum Total Protein (6.3-8.2) g/dL Albumin (3.5-5.0) g/dL - Progress Progress: improved Progress Note: 84-year-old female presents to our ED for evaluation of general weakness. Alda toribio was recently discharged from our hospital yesterday. Physical exam essentially nonremarkable. Workup reveals a leukocytosis. Chest x-ray reveals a new infiltrate likely pneumonia. Blood cultures ordered. Patient has a BNP of 8340. Troponin is elevated however based on previous troponin patient has chronically elevated troponin levels. Patient has a new right pleural effusion. Possible CHF. Lasix administered. Plan of care discussed with patient. She agrees to admission at [facility] for further evaluation and treatment. Plan of care discussed with patient. She agrees to admission at [facility] for further evaluation and treatment. Management discussed with hospitalist who accepts admission to observation at 6:10 PM. Portions of this note were created with voice recognition technology. There may be grammatical, spelling, punctuation or sound alike errors Complexity of problem addressed is moderate acute complicated. No critical care time. Complex of data reviewed and analyzed is extensive. Test ordered test reviewed results analyzed and correlated clinically with history and physical exam. Risk of complication and or risk of morbidity/mortality of patient management is high. Patient requires hospitalization for further evaluation and treatment. Vital stable. Time spent to discharge patient is approximately 20 minutes. Plan of care established for shared decision making. No social determinants of health present to impede follow-up. Portions of this note were created with voice recognition technology. There may be grammatical, spelling, punctuation or sound alike errors 09/29/24 18:12 Counseled pt/family regarding: lab results, diagnosis, rad results - Departure Departure Disposition: Observation Clinical Impression: Leukocytosis, Symptomatic anemia, Elevated troponin, Elevated brain natriuretic peptide (BNP) level, CHF (congestive heart failure), Pleural effusion, right, Right lower lobe pulmonary infiltrate Condition: Stable Critical Care Time: No Referrals: JONNY BROWNE MD [Primary Care Provider] - Follow up/PCP as directed Instructions: Heart Failure
[2024-09-29 16:26] LABS: Absolute Neutrophil Ct (ANC) 10.68 x10^3/uL (1.56-6.13); BASOPHIL % 0.1 % (0.1-1.2); Basophil (Absolute #) 0.01 x10^3/uL (0.01-0.08); Eosinophil % 0.4 % (0.7-5.8); Eosinophil (Absolute #) 0.05 x10^3/uL (0.04-0.36); Hematocrit 33.1 % (34.1-44.9); Hemoglobin 10.3 g/dL (11.2-15.7); IMMATURE GRAN # 0.18 x10^3u/L (0.001-0.031); IMMATURE GRAN % 1.5 % (0.001-0.429); Lymphocyte (Absolute #) 0.66 x10^3/uL (1.18-3.74); Lymphocytes % 5.4 % (19.3-51.7); Mean Cell Volume 88.5 fL (79.4-94.8); Mean Corpuscular Hemoglobin 27.5 pg (25.6-32.2); Mean Corpuscular Hgb Concent. 31.1 g/dL (32.2-35.5); Mean Platelet Volume 11.9 fL (9.4-12.3); Monocyte (Absolute #) 0.63 x10^3/uL (0.24-0.86); Monocytes % 5.2 % (4.7-12.5); Neutrophil % 87.4 % (34.0-71.1); Platelet Count 159 x10^3/uL (182-369); Red Blood Count 3.74 x10^6/uL (3.93-5.22); Red Cell Distribution Width 17.7 % (11.7-14.4); White Blood Count 12.2 x10^3/uL (3.98-10.04)
[2024-09-29 16:43] LABS: Calcium 8.5 mg/dL (8.4-10.2); Creatinine 1 0.74 mg/dL (0.52-1.04); EST GLOMERULAR FILTRATION RATE 80.7 ML/MIN; Potassium 4.6 mmol/L (3.5-5.1)
[2024-09-29] MEDS ORDERED: Sodium Chloride 0.9% 1000 ML 1,000 ML ONE (16:45)
[2024-09-29] MEDS: Sodium Chloride 0.9% 1000 ML 1,000 ML IV SCH (16:47)
--- NOTE | 2024-09-29 17:35 | XRAY ---
CLINICAL HISTORY: weakness COMPARISON: with the prior study dated 09/27/2024. TECHNIQUE: An X-ray image of the chest is obtained in AP projection. FINDINGS: Stable sternotomy sutures. Scattered post-operative small metallic clips in the left pericardiac regions. Pulmonary Parenchyma: Bilateral hilar vascular congestion was noted. Scattered bilateral pulmonary reticulations were noted. Right lower lung zone patchy opacity is seen may be related to early infiltration. Small left retrocardiac opacity of indeterminate origin could be a small nodule newly noted. Blunted right costophrenic angle. Heart and Mediastinum: Heart size and shape are normal. No mediastinal widening or masses. No hilar or mediastinal lymphadenopathy. Bony Thorax: The bony thorax appears intact without fractures or deformities. Soft Tissues: Soft tissues overlying the chest wall are unremarkable. IMPRESSION: Scattered bilateral pulmonary reticulations (Stable) and a new right lower lung zone patchy opacity, could be inflammatory. Bilateral hilar vascular congestion (stable) Small left retrocardiac opacity of indeterminate origin could be a small nodule newly noted. Blunted right costophrenic angle, could denote minimal effusion (new) Electronically Signed by: Isaiah Main MD. (09/29/2024 17:31:59 EST)
[2024-09-29] MEDS ORDERED: Lasix 20 MG/2 ML ONE (18:26)
[2024-09-29] MEDS ORDERED: Levofloxacin 500MG/100ML D5W 500 MG/100 ML BAG IV ONE (18:27)
[2024-09-29] MEDS: Lasix 20 MG/2 ML IV SCH (18:29)
[2024-09-29] MEDS: Levofloxacin 500MG/100ML D5W 500 MG/100 ML BAG IV STA (18:29)
[2024-09-29] MEDS ORDERED: TYLENOL 325 MG PO PRN (19:52)
[2024-09-29] MEDS ORDERED: Spiriva 18 Mcg/Cap Inhaler IH PRN (19:56)
--- NOTE | 2024-09-29 20:08 | PCM.HP ---
History of Present Illness - Chief Complaint Chief Complaint: Pneumonia, symptomatic anemia Date: 09/29/24 History of Present Illness: Ms. SANTIAGO is a 84 year old female with a past medical history significant for hypertension, diabetes, CHF, hyperlipidemia, COPD and recent admission for weakness where she was worked up for stroke that was negative. She was eventually discharged home but returns today after her had noticed increased weakness when she was going to the bathroom. Upon arrival, she was found to be anemic and CXR demonstrated what appears to be pneumonia. She is seen via telehealth but is quite lethargic and having a spell where she became nonresponsive, but then snapped out of it. No further history could be obtained. - Review of Systems All Other Systems: Unable due to condition Medications & Allergies Home Medications: Home Medication List Glipizide 10 mg [Glucotrol 10 MG] 10 mg PO DAILY 06/11/13 [History Confirmed 09/29/24] Atorvastatin Calcium [Lipitor] 40 mg PO HS 06/19/13 [History Confirmed 09/29/24] Aspirin [Aspirin EC] 81 mg PO DAILY 10/03/13 [History Confirmed 09/29/24] Albuterol 2.5 mg/3 ml Neb [Proventil 2.5 mg/3 ml Neb] 2.5 mg IH TID 08/01/19 [History Confirmed 09/29/24] Clopidogrel Bisulfate [PLAVIX Tablet] 75 mg PO DAILY 08/01/19 [History Confirmed 09/29/24] Furosemide [Lasix] 20 mg PO DAILY 11/17/23 [History Confirmed 09/29/24] ALPRAZolam [Alprazolam] 0.5 mg PO HS PRN 07/26/24 [History Confirmed 09/29/24] Diltiazem HCl 30 mg [Cardizem 30 MG] 30 mg PO DAILY 07/26/24 [History Confirmed 09/29/24] Empagliflozin [Jardiance] 10 mg PO DAILY 07/26/24 [History Confirmed 09/29/24] Meclizine HCl 12.5 mg PO TID PRN 07/26/24 [History Confirmed 09/29/24] Metoprolol Tartrate 25 mg [Lopressor 25MG Tab] 12.5 mg PO DAILY 07/26/24 [History Confirmed 09/29/24] Potassium Chloride 10 meq PO DAILY 07/26/24 [History Confirmed 09/29/24] Pregabalin 50 mg [Lyrica 50MG] 50 mg PO TID 07/26/24 [History Confirmed 09/29/24] Tiotropium [place] Inhaler [Spiriva 18 Mcg/Cap Inhaler] 2 puff IH Q6H PRN PRN 07/26/24 [History Confirmed 09/29/24] Nitroglycerin 0.4 mg Tablet [Nitrostat 0.4 MG Tablet] 0.4 mg PO Q5MIN PRN MR X 3 PRN 09/16/24 [History Confirmed 09/29/24] Midodrine HCl 5 mg PO TID 30 Days #90 tablet 09/19/24 [Rx Confirmed 09/29/24] Nitrofurantoin Macrocrystal [Nitrofurantoin] 100 mg PO BID 5 Days #10 cap 09/28/24 [Rx Confirmed 09/29/24] Nystatin/TCN/Hc/Diphenhydramin [Mey's Mouthwash] 10 ml PO QIDPRN PRN 09/28/24 [Rx Confirmed 09/29/24] Allergies/Adverse Reactions: Allergies Allergy/AdvReac Type Severity Reaction Status Date / Time Penicillins Allergy Severe Difficulty Verified 09/29/24 15:29 Breathing codeine Allergy Intermediate Nausea and Verified 09/29/24 15:29 Vomiting metformin Allergy Intermediate Nausea and Verified 09/29/24 15:29 Vomiting Sulfa (Sulfonamide Allergy Intermediate Itching Verified 09/29/24 15:29 Antibiotics) ibuprofen Allergy Verified 09/29/24 15:29 azithromycin [From Zithromax] AdvReac Intermediate Headache Verified 09/29/24 15:29 morphine AdvReac Intermediate HALLUCINATI Verified 09/29/24 15:29 ONS - Past Medical History Past Medical History: Yes Neurological History: No Pertinent History ENT History: No Pertinent History Cardiac History: Congestive Heart Failure, Coronary Artery Disease, High Cholesterol, Hypertension, Myocardial Infarction (OR) Respiratory History: COPD, Other Endocrine Medical History: Diabetes Type II Musculoskelatal History: Osteoarthritis GI Medical History: No Pertinent History History: No Pertinent History Pyscho-Social History: No Pertinent History Reproductive Disorders: No Pertinent History Comment: CAROTID ENDARTERECTOMY ON LEFT, 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 Gavin - Past Surgical History Past Surgical History: Yes Neuro Surgical History: No Pertinent History Cardiac History: CABG, Vascular Surgery, Other Respiratory Surgery: No Pertinent History GI Surgical History: Other Genitourinary Surgical Hx: No Pertinent History Musculskeletal Surgical Hx: Orthopedic Surgery Female Surgical History: No Pertinent History Other Surgical History: right artery bypass graft, left hand surgery Significant Family History: heart disease - Social History Smoking Status: Former smoker How long have you smoked: 2010 Exposure to second hand smoke: No Alcohol: None Drug Use: none - Social Determinants of Health Will the patient participate in the screening: Yes Do you worry about a steady place to live?: No Do you have any problems with any of the following?: No known problems In the past 12 months,have you had to go without utilities?: No Have you or anyone in your house had to go without enough: No Transportation Issues: No Has anyone in your support network made you feel unsafe?: No Does the patient want assistance with any of the above?: No - Physical Exam Vital Signs: Vital Signs - 24 hr Temp Pulse Resp BP BP Pulse Ox 09/29/24 18:16 99 09/29/24 18:00 71/56 100 09/29/24 17:30 96 H 3 L 83/58 99 09/29/24 17:00 97 H 5 L 83/50 09/29/24 16:42 100 09/29/24 16:35 98 H 20 72/53 95 09/29/24 16:30 103 H 18 80/56 100 09/29/24 16:00 102 H 16 81/60 84 L 09/29/24 15:30 98 H 18 93/57 100 09/29/24 15:23 97.9 F 99 H 14 101/72 99 General Appearance: lethargy Neurologic Exam: uncooperative Ears, Nose, Throat Exam: dry mucous membranes Neck Exam: supple Respiratory Exam: No respiratory distress Cardiovascular Exam: regular rate/rhythm Gastrointestinal/Abdomen Exam: soft Extremity Exam: No pedal edema, No swelling Skin Exam: normal color, No rash Results - Labs Lab/Micro Results: Lab Results-Last 24 Hours 09/29/24 09/29/24 09/29/24 Range/Units 16:22 16:22 16:22 WBC 12.2 H (3.98-10.04) x10^3/uL RBC 3.74 L (3.93-5.22) x10^6/uL Hgb 10.3 L D (11.2-15.7) g/dL Hct 33.1 L (34.1-44.9) % MCV 88.5 (79.4-94.8) fL MCH 27.5 (25.6-32.2) pg MCHC 31.1 L (32.2-35.5) g/dL RDW 17.7 H (11.7-14.4) % Plt Count 159 L (182-369) x10^3/uL MPV 11.9 (9.4-12.3) fL Gran % 87.4 H (34.0-71.1) % Immature Gran % (Auto) 1.5 H (0.001-0.429) % Nucleat RBC Rel Count 0.0 (0.00-0.2) % Eos # (Auto) 0.05 (0.04-0.36) x10^3/uL Immature Gran # (Auto) 0.18 H (0.001-0.031) x10^3u/L Absolute Lymphs (auto) 0.66 L (1.18-3.74) x10^3/uL Absolute Monos (auto) 0.63 (0.24-0.86) x10^3/uL Absolute Nucleated RBC 0.00 (0.00-0.012) x10^3u/L Lymphocytes % 5.4 L (19.3-51.7) % Monocytes % 5.2 (4.7-12.5) % Eosinophils % 0.4 L (0.7-5.8) % Basophils % 0.1 (0.1-1.2) % Absolute Granulocytes 10.68 H (1.56-6.13) x10^3/uL Basophils # 0.01 (0.01-0.08) x10^3/uL Sodium 139 (135-145) mmol/L Potassium 4.6 (3.5-5.1) mmol/L Chloride 100 (98-107) mmol/L Carbon Dioxide 32 H (22-30) mmol/L Anion Gap 11.0 (5-15) MEQ/L BUN 67 H (7-17) mg/dL Creatinine 0.74 (0.52-1.04) mg/dL Estimated GFR 80.7 ML/MIN Glucose 225 H (74-106) mg/dL POC Glucometer (74 to 106) mg/dL Calcium 8.5 (8.4-10.2) mg/dL Total Bilirubin 1.00 (0.2-1.3) mg/dL AST 30 (14-36) U/L ALT 25 (0-35) U/L Alkaline Phosphatase 50 (38-126) U/L Troponin I 0.040 H* (0.000-0.033) ng/mL NT-Pro-B Natriuret Pep (<300) pg/mL Serum Total Protein 5.0 L (6.3-8.2) g/dL Albumin 3.0 L (3.5-5.0) g/dL 09/29/24 09/29/24 09/29/24 Range/Units 16:22 18:17 19:54 WBC (3.98-10.04) x10^3/uL RBC (3.93-5.22) x10^6/uL Hgb (11.2-15.7) g/dL Hct (34.1-44.9) % MCV (79.4-94.8) fL MCH (25.6-32.2) pg MCHC (32.2-35.5) g/dL RDW (11.7-14.4) % Plt Count (182-369) x10^3/uL MPV (9.4-12.3) fL Gran % (34.0-71.1) % Immature Gran % (Auto) (0.001-0.429) % Nucleat RBC Rel Count (0.00-0.2) % Eos # (Auto) (0.04-0.36) x10^3/uL Immature Gran # (Auto) (0.001-0.031) x10^3u/L Absolute Lymphs (auto) (1.18-3.74) x10^3/uL Absolute Monos (auto) (0.24-0.86) x10^3/uL Absolute Nucleated RBC (0.00-0.012) x10^3u/L Lymphocytes % (19.3-51.7) % Monocytes % (4.7-12.5) % Eosinophils % (0.7-5.8) % Basophils % (0.1-1.2) % Absolute Granulocytes (1.56-6.13) x10^3/uL Basophils # (0.01-0.08) x10^3/uL Sodium (135-145) mmol/L Potassium (3.5-5.1) mmol/L Chloride (98-107) mmol/L Carbon Dioxide (22-30) mmol/L Anion Gap (5-15) MEQ/L BUN (7-17) mg/dL Creatinine (0.52-1.04) mg/dL Estimated GFR ML/MIN Glucose (74-106) mg/dL POC Glucometer 260 H (74 to 106) mg/dL Calcium (8.4-10.2) mg/dL Total Bilirubin (0.2-1.3) mg/dL AST (14-36) U/L ALT (0-35) U/L Alkaline Phosphatase (38-126) U/L Troponin I 0.036 H* (0.000-0.033) ng/mL NT-Pro-B Natriuret Pep 8340 (<300) pg/mL Serum Total Protein (6.3-8.2) g/dL Albumin (3.5-5.0) g/dL Microbiology 09/29/24 18:13 Blood Culture Gram Stain - Final Blood Not Reportable 09/29/24 18:13 Blood Culture Gram Stain - Final Blood Not Reportable - Radiology Impressions Radiology Exams & Impressions: Radiology Procedures Category Date Time Status CHEST 1 VIEW (PORTABLE) Stat Exams 09/29/24 16:43 Completed HEAD WITHOUT CONTRAST [CT] Stat Exams 09/29/24 19:54 Ordered HEAD WITHOUT CONTRAST [CT] Stat Exams 09/29/24 20:00 Ordered Assessment/Plan (1) Weakness Current Visit: Yes Status: Acute Assessment & Plan: Weakness likely related to infection but need to rule out CVA 1. Admit to hospital 2. Will obtain CT head 3. Will check ABG 4. Monitor neuro signs 5. Telemetry 6. DVT/GI prophylaxis Code(s): R53.1 - WEAKNESS (2) CHF (congestive heart failure) Current Visit: Yes Status: Acute Qualifiers: Heart failure chronicity: chronic Assessment & Plan: Clinically euvolemic 1. Will hold diuretics 2. Hold SGLT2 3. Monitor on telemetry 4. Follow I/Os Code(s): I50.9 - HEART FAILURE, UNSPECIFIED (3) Right lower lobe pulmonary infiltrate Current Visit: Yes Status: Acute Assessment & Plan: Likely hospital acquired pneumonia from previous stay 1. Will start empiric antibiotics 2. Check sputum cultures 3. Trend WBC Code(s): R91.8 - OTHER NONSPECIFIC ABNORMAL FINDING OF LUNG FIELD (4) Symptomatic anemia Current Visit: Yes Status: Acute Assessment & Plan: Likely from blood draws versus GI loss 1. Trend H/H 2. Stool guiaic 3. Check anemia profile Code(s): D64.9 - ANEMIA, UNSPECIFIED (5) COPD exacerbation Current Visit: No Status: Chronic Assessment & Plan: Stable though exacerbated by pneumonia 1. Duonebs 2. Supplemental oxygen, defer steroids 3. Monitor O2 sats Code(s): J44.1 - CHRONIC OBSTRUCTIVE PULMONARY DISEASE W (ACUTE) EXACERBATION (6) Type 2 diabetes mellitus Current Visit: No Status: Chronic Assessment & Plan: Suspect some hypoglycemia in setting of infection 1. ADA diet when more awake 2. FSBS 3. D5 IVFs for now 4. Hold glipizide, jardiance Telemedicine Encounter - Telemedicine Encounter Telemedicine Encounter: "The entirety of this encounter was performed via Telemedicine" This visit was performed using real-time audio and video connection between my location and thepatients locationwith the assistance of a surrogateat the patients location. Written or verbal consent was obtained from the patient/guardian to perform this visit using[facility] services[facility]ine[facility] technology. Any patient questions regarding the telemedicine interaction were answered.
[2024-09-29 20:14] LABS: Appearance Clear (Clear); Bacteria Rare /HPF (None Seen); Bilirubin Negative (Negative); Blood Moderate (Negative); Epithelial Cells None Seen /HPF (None Seen); Glucose, Urine >=1000 mg/dL (Negative); Hyaline Casts NONE SEEN /LPF (0-2); Ketones Trace (Negative); Leukocyte Esterase Negative (Negative); Nitrite Negative (Negative); Protein,Urine Dip Negative (Negative); RBC 0-2 /HPF (0-5); Specific Gravity 1.025 (1.005-1.030); Urobilinogen 0.2 mg/dL (0.2)
[2024-09-29 20:14] LABS: A-aADO2 35; ABG HEMOGLOBIN 9.5; ABG POTASSIUM 4.2 (3.5-5.1); ARTERIAL BLOOD GAS BASE EXCESS 6.6 (-2.0-2.0); ARTERIAL BLOOD GAS FIO2 28 %; ARTERIAL BLOOD GAS PCO2 40 mmHg (35-45); ARTERIAL BLOOD GAS PO2 115 mmHg (75-100); ARTERIAL BLOOD GAS pH 7.49 (7.35-7.45); CARBOXYHEMOGLOBIN 2.4 % THgb (0.0-6.9); HCO3- 30.5 (22-28); HGB O2 SAT 97.2 g/dF (94-100); Methhemoglobin 0.4 % (1.4-1.5); paO2 pAO1 0.77
[2024-09-29 20:15] LABS: ABG SITE RBA; ALLEN TEST OK? YES
--- NOTE | 2024-09-29 20:56 | XRAY ---
CLINICAL HISTORY: ams COMPARISON: 09/27/2024 - TECHNIQUE: Multiple axial images are obtained from the skull base to the vertex without contrast. CT scan was performed according to ALARA (as low as reasonable achievable). FINDINGS: There is cerebral atrophy. No evidence of space occupying lesion, hemorrhage, edema, mass effect, midline shift, extra axial collection, or hydrocephalus is noted. Basal cisterns are symmetric and normal in size and configuration. Foci of calcification are seen in the right parietal lobe There are scattered periventricular hypodensities as can be seen with chronic microvascular ischemic changes. The kemp-white matter differentiation is preserved. Visualized paranasal sinuses and mastoid air cells are well aerated. Orbital contents are within normal limits. Bony structures are intact. IMPRESSION: 1. No evidence of acute intracranial abnormality is demonstrated. 2. Chronic microvascular ischemic changes. 3. Cerebral atrophy. 4.Foci of calcification are seen in the right parietal lobe- likely to be old granulomas 5. No significant interval changes. Electronically Signed by: Juve Sanders MD. (09/29/2024 20:52:27 EST)
[2024-09-29] MEDS: PROVENTIL Solution 2.5 MG/0.5 ML IH SCH (22:08)
[2024-09-29] MEDS: NON-FORMULARY ITEM (Atorvastatin Calcium [Lipitor] 20 MG Tablet) PO SCH (22:47)
[2024-09-30] MEDS ORDERED: DUONEB 0.5-3 MG/3 ml Neb IH SCH (01:00)
[2024-09-30] MEDS: Dextrose 5%-NS IV Solution 1000 ML 1,000 ML IV SCH (02:10)
[2024-09-30 02:14] LABS: Absolute Neutrophil Ct (ANC) 11.39 x10^3/uL (1.56-6.13); BASOPHIL % 0.1 % (0.1-1.2); Basophil (Absolute #) 0.01 x10^3/uL (0.01-0.08); Eosinophil % 0.1 % (0.7-5.8); Eosinophil (Absolute #) 0.01 x10^3/uL (0.04-0.36); Hematocrit 27.7 % (34.1-44.9); Hemoglobin 8.7 g/dL (11.2-15.7); IMMATURE GRAN # 0.21 x10^3u/L (0.001-0.031); IMMATURE GRAN % 1.7 % (0.001-0.429); Lymphocyte (Absolute #) 0.52 x10^3/uL (1.18-3.74); Lymphocytes % 4.1 % (19.3-51.7); Mean Cell Volume 89.1 fL (79.4-94.8); Mean Corpuscular Hgb Concent. 31.4 g/dL (32.2-35.5); Mean Platelet Volume 11.9 fL (9.4-12.3); Monocyte (Absolute #) 0.48 x10^3/uL (0.24-0.86); Monocytes % 3.8 % (4.7-12.5); Neutrophil % 90.2 % (34.0-71.1); Platelet Count 141 x10^3/uL (182-369); Red Blood Count 3.11 x10^6/uL (3.93-5.22); Red Cell Distribution Width 17.6 % (11.7-14.4); White Blood Count 12.6 x10^3/uL (3.98-10.04)
[2024-09-30 02:21] LABS: ALBUMIN 2.8 g/dL (3.5-5.0); ANION GAP 10.2 MEQ/L (5-15); Calcium 7.9 mg/dL (8.4-10.2); Creatinine 1 0.76 mg/dL (0.52-1.04); EST GLOMERULAR FILTRATION RATE 78.2 ML/MIN; Potassium 4.4 mmol/L (3.5-5.1); Total Protein 4.7 g/dL (6.3-8.2)
[2024-09-30] MEDS: MAALOX ES 30 ML UNIT DOSE PO ONE (05:19)
--- NOTE | 2024-09-30 05:22 | PCM.NOTE ---
Date and Time: 09/30/24 0515 Subjective Assessment: is a 84 year old female with a pmhx of CHF, CAD (CABG 2010), COPD (2L at baseline), DMII, HLD, HTN, and OA Who presented to ED 09/29/24 for evaluation of increased weakness. Patient was discharged from the hospital the day prior for a hypoglycemic episode. Per report patient was at her home. CT head 09/27/24 was negative at that visit. Patient was in the bathroom. Patient felt weak and sat to the floor. Patient was assisted by her . No trauma. Patient is supposed to wear oxygen at all times. However patient has not been compliant. Patient's episode of weakness occurred while her oxygen was not in use. Initial labs show anemia and leukocytosis. CXR Scattered bilateral pulmonary reticulations (Stable) and a new right lower lung zone patchy opacity, could be inflammatory. Bilateral hilar vascular congestion (stable) Small left retrocardiac opacity of indeterminate origin. CT head 09/29/24 with no acute findings. Objective Data Vital Signs: Vital Signs - 24 hr Temp Pulse Resp BP BP Pulse Ox 09/30/24 04:00 96.7 F 97 H 18 99/52 94 L 09/30/24 00:00 97.3 F 101 H 17 100/57 99 09/29/24 22:14 95 H 16 98 09/29/24 21:24 95 09/29/24 20:50 97.7 F 102 H 16 102/58 99 09/29/24 18:16 99 09/29/24 18:00 71/56 100 09/29/24 17:30 96 H 3 L 83/58 99 09/29/24 17:00 97 H 5 L 83/50 09/29/24 16:42 100 09/29/24 16:35 98 H 20 72/53 95 09/29/24 16:30 103 H 18 80/56 100 09/29/24 16:00 102 H 16 81/60 84 L 09/29/24 15:30 98 H 18 93/57 100 09/29/24 15:23 97.9 F 99 H 14 101/72 99 Pain Assessment - Last Documented Pain Intensity 4 Intake and Output: Intake & Output 02/14/25 02/15/25 02/16/25 02/17/25 11:59 11:59 11:59 11:59 Weight 50.5 kg Lab Results: Lab Results-Last 24 Hours 09/29/24 09/29/24 09/29/24 Range/Units 16:22 16:22 16:22 WBC 12.2 H (3.98-10.04) x10^3/uL RBC 3.74 L (3.93-5.22) x10^6/uL Hgb 10.3 L D (11.2-15.7) g/dL Hct 33.1 L (34.1-44.9) % MCV 88.5 (79.4-94.8) fL MCH 27.5 (25.6-32.2) pg MCHC 31.1 L (32.2-35.5) g/dL RDW 17.7 H (11.7-14.4) % Plt Count 159 L (182-369) x10^3/uL MPV 11.9 (9.4-12.3) fL Gran % 87.4 H (34.0-71.1) % Immature Gran % (Auto) 1.5 H (0.001-0.429) % Nucleat RBC Rel Count 0.0 (0.00-0.2) % Eos # (Auto) 0.05 (0.04-0.36) x10^3/uL Immature Gran # (Auto) 0.18 H (0.001-0.031) x10^3u/L Absolute Lymphs (auto) 0.66 L (1.18-3.74) x10^3/uL Absolute Monos (auto) 0.63 (0.24-0.86) x10^3/uL Absolute Nucleated RBC 0.00 (0.00-0.012) x10^3u/L Lymphocytes % 5.4 L (19.3-51.7) % Monocytes % 5.2 (4.7-12.5) % Eosinophils % 0.4 L (0.7-5.8) % Basophils % 0.1 (0.1-1.2) % Absolute Granulocytes 10.68 H (1.56-6.13) x10^3/uL Basophils # 0.01 (0.01-0.08) x10^3/uL Puncture Site pCO2 (35-45) mmHg pO2 (75-100) mmHg Base Excess (-2.0-2.0) O2 Saturation (94-100) g/dF ABG pH (7.35-7.45) ABG HCO3 (22-28) ABG O2 Sat (Measured) (95-100) % Altaf Test A-a Gradient a/A Ratio Hemoglobin Carboxyhemoglobin (0.0-6.9) % THgb Methemoglobin (1.4-1.5) % Temperature C POC O2 Flow Rate % Sodium 139 (135-145) mmol/L Potassium 4.6 (3.5-5.1) mmol/L Chloride 100 (98-107) mmol/L Carbon Dioxide 32 H (22-30) mmol/L Anion Gap 11.0 (5-15) MEQ/L BUN 67 H (7-17) mg/dL Creatinine 0.74 (0.52-1.04) mg/dL Estimated GFR 80.7 ML/MIN Glucose 225 H (74-106) mg/dL POC Glucometer (74 to 106) mg/dL Calcium 8.5 (8.4-10.2) mg/dL Total Bilirubin 1.00 (0.2-1.3) mg/dL AST 30 (14-36) U/L ALT 25 (0-35) U/L Alkaline Phosphatase 50 (38-126) U/L Troponin I 0.040 H* (0.000-0.033) ng/mL NT-Pro-B Natriuret Pep (<300) pg/mL Serum Total Protein 5.0 L (6.3-8.2) g/dL Albumin 3.0 L (3.5-5.0) g/dL Urine Color (Yellow) Urine Appearance (Clear) Urine pH (4.6-8.0) Ur Specific Rupert (1.005-1.030) Urine Protein (Negative) Urine Glucose (UA) (Negative) mg/dL Urine Ketones (Negative) Urine Blood (Negative) Urine Nitrite (Negative) Urine Bilirubin (Negative) Urine Urobilinogen (0.2) mg/dL Ur Leukocyte Esterase (Negative) U Hyaline Cast (Auto) (0-2) /LPF Urine Microscopic RBC (0-5) /HPF Urine Microscopic WBC (0-5) /HPF Ur Epithelial Cells (None Seen) /HPF Urine Bacteria (None Seen) /HPF Urine Culture Reflexed (NO) 09/29/24 09/29/24 09/29/24 Range/Units 16:22 18:17 18:34 WBC (3.98-10.04) x10^3/uL RBC (3.93-5.22) x10^6/uL Hgb (11.2-15.7) g/dL Hct (34.1-44.9) % MCV (79.4-94.8) fL MCH (25.6-32.2) pg MCHC (32.2-35.5) g/dL RDW (11.7-14.4) % Plt Count (182-369) x10^3/uL MPV (9.4-12.3) fL Gran % (34.0-71.1) % Immature Gran % (Auto) (0.001-0.429) % Nucleat RBC Rel Count (0.00-0.2) % Eos # (Auto) (0.04-0.36) x10^3/uL Immature Gran # (Auto) (0.001-0.031) x10^3u/L Absolute Lymphs (auto) (1.18-3.74) x10^3/uL Absolute Monos (auto) (0.24-0.86) x10^3/uL Absolute Nucleated RBC (0.00-0.012) x10^3u/L Lymphocytes % (19.3-51.7) % Monocytes % (4.7-12.5) % Eosinophils % (0.7-5.8) % Basophils % (0.1-1.2) % Absolute Granulocytes (1.56-6.13) x10^3/uL Basophils # (0.01-0.08) x10^3/uL Puncture Site pCO2 (35-45) mmHg pO2 (75-100) mmHg Base Excess (-2.0-2.0) O2 Saturation (94-100) g/dF ABG pH (7.35-7.45) ABG HCO3 (22-28) ABG O2 Sat (Measured) (95-100) % Altaf Test A-a Gradient a/A Ratio Hemoglobin Carboxyhemoglobin (0.0-6.9) % THgb Methemoglobin (1.4-1.5) % Temperature C POC O2 Flow Rate % Sodium (135-145) mmol/L Potassium (3.5-5.1) mmol/L Chloride (98-107) mmol/L Carbon Dioxide (22-30) mmol/L Anion Gap (5-15) MEQ/L BUN (7-17) mg/dL Creatinine (0.52-1.04) mg/dL Estimated GFR ML/MIN Glucose (74-106) mg/dL POC Glucometer (74 to 106) mg/dL Calcium (8.4-10.2) mg/dL Total Bilirubin (0.2-1.3) mg/dL AST (14-36) U/L ALT (0-35) U/L Alkaline Phosphatase (38-126) U/L Troponin I 0.036 H* (0.000-0.033) ng/mL NT-Pro-B Natriuret Pep 8340 (<300) pg/mL Serum Total Protein (6.3-8.2) g/dL Albumin (3.5-5.0) g/dL Urine Color Yellow (Yellow) Urine Appearance Clear (Clear) Urine pH 7.0 (4.6-8.0) Ur Specific Rupert 1.025 (1.005-1.030) Urine Protein Negative (Negative) Urine Glucose (UA) >=1000 A (Negative) mg/dL Urine Ketones Trace A (Negative) Urine Blood Moderate A (Negative) Urine Nitrite Negative (Negative) Urine Bilirubin Negative (Negative) Urine Urobilinogen 0.2 (0.2) mg/dL Ur Leukocyte Esterase Negative (Negative) U Hyaline Cast (Auto) NONE SEEN (0-2) /LPF Urine Microscopic RBC 0-2 (0-5) /HPF Urine Microscopic WBC 3-5 (0-5) /HPF Ur Epithelial Cells None Seen (None Seen) /HPF Urine Bacteria Rare A (None Seen) /HPF Urine Culture Reflexed NO (NO) 09/29/24 09/29/24 09/30/24 Range/Units 19:52 19:54 01:56 WBC (3.98-10.04) x10^3/uL RBC (3.93-5.22) x10^6/uL Hgb (11.2-15.7) g/dL Hct (34.1-44.9) % MCV (79.4-94.8) fL MCH (25.6-32.2) pg MCHC (32.2-35.5) g/dL RDW (11.7-14.4) % Plt Count (182-369) x10^3/uL MPV (9.4-12.3) fL Gran % (34.0-71.1) % Immature Gran % (Auto) (0.001-0.429) % Nucleat RBC Rel Count (0.00-0.2) % Eos # (Auto) (0.04-0.36) x10^3/uL Immature Gran # (Auto) (0.001-0.031) x10^3u/L Absolute Lymphs (auto) (1.18-3.74) x10^3/uL Absolute Monos (auto) (0.24-0.86) x10^3/uL Absolute Nucleated RBC (0.00-0.012) x10^3u/L Lymphocytes % (19.3-51.7) % Monocytes % (4.7-12.5) % Eosinophils % (0.7-5.8) % Basophils % (0.1-1.2) % Absolute Granulocytes (1.56-6.13) x10^3/uL Basophils # (0.01-0.08) x10^3/uL Puncture Site RBA pCO2 40 (35-45) mmHg pO2 115 H (75-100) mmHg Base Excess 6.6 H (-2.0-2.0) O2 Saturation 97.2 (94-100) g/dF ABG pH 7.49 H (7.35-7.45) ABG HCO3 30.5 H* (22-28) ABG O2 Sat (Measured) 100.0 (95-100) % Altaf Test YES A-a Gradient 35 a/A Ratio 0.77 Hemoglobin 9.5 Carboxyhemoglobin 2.4 (0.0-6.9) % THgb Methemoglobin 0.4 L (1.4-1.5) % Temperature 37.0 C POC O2 Flow Rate 28 % Sodium (135-145) mmol/L Potassium 4.2 (3.5-5.1) mmol/L Chloride (98-107) mmol/L Carbon Dioxide (22-30) mmol/L Anion Gap (5-15) MEQ/L BUN (7-17) mg/dL Creatinine (0.52-1.04) mg/dL Estimated GFR ML/MIN Glucose (74-106) mg/dL POC Glucometer 260 H (74 to 106) mg/dL Calcium (8.4-10.2) mg/dL Total Bilirubin (0.2-1.3) mg/dL AST (14-36) U/L ALT (0-35) U/L Alkaline Phosphatase (38-126) U/L Troponin I 0.053 H* (0.000-0.033) ng/mL NT-Pro-B Natriuret Pep (<300) pg/mL Serum Total Protein (6.3-8.2) g/dL Albumin (3.5-5.0) g/dL Urine Color (Yellow) Urine Appearance (Clear) Urine pH (4.6-8.0) Ur Specific Rupert (1.005-1.030) Urine Protein (Negative) Urine Glucose (UA) (Negative) mg/dL Urine Ketones (Negative) Urine Blood (Negative) Urine Nitrite (Negative) Urine Bilirubin (Negative) Urine Urobilinogen (0.2) mg/dL Ur Leukocyte Esterase (Negative) U Hyaline Cast (Auto) (0-2) /LPF Urine Microscopic RBC (0-5) /HPF Urine Microscopic WBC (0-5) /HPF Ur Epithelial Cells (None Seen) /HPF Urine Bacteria (None Seen) /HPF Urine Culture Reflexed (NO) 09/30/24 09/30/24 09/30/24 Range/Units 02:00 02:00 04:35 WBC 12.6 H (3.98-10.04) x10^3/uL RBC 3.11 L (3.93-5.22) x10^6/uL Hgb 8.7 L (11.2-15.7) g/dL Hct 27.7 L (34.1-44.9) % MCV 89.1 (79.4-94.8) fL MCH 28.0 (25.6-32.2) pg MCHC 31.4 L (32.2-35.5) g/dL RDW 17.6 H (11.7-14.4) % Plt Count 141 L (182-369) x10^3/uL MPV 11.9 (9.4-12.3) fL Gran % 90.2 H (34.0-71.1) % Immature Gran % (Auto) 1.7 H (0.001-0.429) % Nucleat RBC Rel Count 0.0 (0.00-0.2) % Eos # (Auto) 0.01 L (0.04-0.36) x10^3/uL Immature Gran # (Auto) 0.21 H (0.001-0.031) x10^3u/L Absolute Lymphs (auto) 0.52 L (1.18-3.74) x10^3/uL Absolute Monos (auto) 0.48 (0.24-0.86) x10^3/uL Absolute Nucleated RBC 0.00 (0.00-0.012) x10^3u/L Lymphocytes % 4.1 L (19.3-51.7) % Monocytes % 3.8 L (4.7-12.5) % Eosinophils % 0.1 L (0.7-5.8) % Basophils % 0.1 (0.1-1.2) % Absolute Granulocytes 11.39 H (1.56-6.13) x10^3/uL Basophils # 0.01 (0.01-0.08) x10^3/uL Puncture Site pCO2 (35-45) mmHg pO2 (75-100) mmHg Base Excess (-2.0-2.0) O2 Saturation (94-100) g/dF ABG pH (7.35-7.45) ABG HCO3 (22-28) ABG O2 Sat (Measured) (95-100) % Altaf Test A-a Gradient a/A Ratio Hemoglobin Carboxyhemoglobin (0.0-6.9) % THgb Methemoglobin (1.4-1.5) % Temperature C POC O2 Flow Rate % Sodium 141 (135-145) mmol/L Potassium 4.4 (3.5-5.1) mmol/L Chloride 105 (98-107) mmol/L Carbon Dioxide 30 (22-30) mmol/L Anion Gap 10.2 (5-15) MEQ/L BUN 64 H (7-17) mg/dL Creatinine 0.76 (0.52-1.04) mg/dL Estimated GFR 78.2 ML/MIN Glucose 236 H (74-106) mg/dL POC Glucometer (74 to 106) mg/dL Calcium 7.9 L (8.4-10.2) mg/dL Total Bilirubin 1.00 (0.2-1.3) mg/dL AST 23 (14-36) U/L ALT 21 (0-35) U/L Alkaline Phosphatase 49 (38-126) U/L Troponin I 0.065 H* (0.000-0.033) ng/mL NT-Pro-B Natriuret Pep (<300) pg/mL Serum Total Protein 4.7 L (6.3-8.2) g/dL Albumin 2.8 L (3.5-5.0) g/dL Urine Color (Yellow) Urine Appearance (Clear) Urine pH (4.6-8.0) Ur Specific Rupert (1.005-1.030) Urine Protein (Negative) Urine Glucose (UA) (Negative) mg/dL Urine Ketones (Negative) Urine Blood (Negative) Urine Nitrite (Negative) Urine Bilirubin (Negative) Urine Urobilinogen (0.2) mg/dL Ur Leukocyte Esterase (Negative) U Hyaline Cast (Auto) (0-2) /LPF Urine Microscopic RBC (0-5) /HPF Urine Microscopic WBC (0-5) /HPF Ur Epithelial Cells (None Seen) /HPF Urine Bacteria (None Seen) /HPF Urine Culture Reflexed (NO) Radiology Exams: Radiology Procedures Category Date Time Status CHEST 1 VIEW (PORTABLE) Stat Exams 09/29/24 16:43 Completed HEAD WITHOUT CONTRAST [CT] Stat Exams 09/29/24 20:00 Completed Assessment/Plan (1) Right lower lobe pulmonary infiltrate Current Visit: Yes Status: Acute Assessment & Plan: -Supplemental oxygen for [place] spo2 >89%-baseline oxygen 2L -Nebs/INH -RT to follow -ABG prn if significant hypoxia/lethargy -Patient given levaquin due to multiple allergies will continue -Respiratory panel ordered -sputum culture -Bcult x 2 pending -sputum culture pending Code(s): R91.8 - OTHER NONSPECIFIC ABNORMAL FINDING OF LUNG FIELD (2) CAD (coronary artery disease) Current Visit: Yes Status: Acute Assessment & Plan: -s/p bypass -Tube Bender Hand - Dr. Gavin -continue home medications Code(s): I25.10 - ATHSCL HEART DISEASE OF [place] CORONARY ARTERY W/O ANG PCTRS (3) HLD (hyperlipidemia) Current Visit: Yes Status: Acute Assessment & Plan: -continue statin Code(s): E78.5 - HYPERLIPIDEMIA, UNSPECIFIED (4) CHF (congestive heart failure) Current Visit: Yes Status: Acute Qualifiers: Heart failure chronicity: chronic Assessment & Plan: s/p bypass -Tube Bender Hand - Dr. Gavin -continue home medications -lasix held Code(s): I50.9 - HEART FAILURE, UNSPECIFIED (5) Leukocytosis Current Visit: Yes Status: Acute Assessment & Plan: -09/15 to pneumonia - trend -UA negative - last culture from 09/27 negative Code(s): D72.829 - ELEVATED WHITE BLOOD CELL COUNT, UNSPECIFIED (6) Symptomatic anemia Current Visit: Yes Status: Acute Assessment & Plan: -Hgb reviewed at 8.7 -trend -add iron studies Code(s): D64.9 - ANEMIA, UNSPECIFIED (7) Weakness Current Visit: Yes Status: Acute Assessment & Plan: -PT eval -recurrent falls ? rehab placement Code(s): R53.1 - WEAKNESS (8) COPD exacerbation Current Visit: No Status: Chronic Assessment & Plan: -secondary to pneumonia - see plan above Code(s): J44.1 - CHRONIC OBSTRUCTIVE PULMONARY DISEASE W (ACUTE) EXACERBATION (9) HTN (hypertension) Current Visit: No Status: Chronic Assessment & Plan: -Has been hypotensive - hold bp meds for now-monitor Code(s): I10 - ESSENTIAL (PRIMARY) HYPERTENSION (10) Type 2 diabetes mellitus Current Visit: No Status: Chronic Assessment & Plan: Suspect some hypoglycemia in setting of infection - ADA diet when more awake - FSBS - D5 IVFs for now -Hold glipizide, jardiance VTE: lovenox PPI protonix Dispo: 1-2 days Code : JOSE RAMON
[2024-09-30] MEDS: Nitrostat 0.4 MG Tablet SL PRN (06:15)
[2024-09-30 06:36] LABS: INFLUENZA A NEGATIVE (NEGATIVE); INFLUENZA B NEGATIVE (NEGATIVE); RESPIRATORY SYNCTIAL VIRUS NEGATIVE (NEGATIVE); SARS-CoV-2 Xpert Express NEGATIVE (NEGATIVE)
[2024-09-30 07:56] VITALS: RESP 17
[2024-09-30] MEDS ORDERED: HUMALOG SQ PRN (07:58)
[2024-09-30 08:16] LABS: Iron 123 ug/dL (37-170); Iron Saturation 54 % (20-39); TIBC 227 ug/dL (265-462)
[2024-09-30] MEDS: Zofran 4 MG/2 ML VIAL IV PRN (08:40)
[2024-09-30] MEDS: NITRO-BID 2% UD PACKETS TOP ONE (09:26)
[2024-09-30] MEDS: Lopressor 25MG Tab PO ONE (09:26)
[2024-09-30 09:42] LABS: Folate (Folic Acid) 16.9 ng/mL (2.76 - >20)
[2024-09-30] MEDS: Spiriva 18 Mcg/Cap Inhaler IH SCH (09:45)
[2024-09-30] MEDS: PROVENTIL Solution 2.5 MG/0.5 ML IH SCH (09:45)
--- NOTE | 2024-09-30 09:56 | PCM.CONS ---
History of Present Illness - Date of Consult Date of Encounter: 09/30/24 Consulting Adobe Cq Developer: TAN SOTO MD Requesting Provider: Attending Provider: UZIEL HANSEN MD Primary Care Provider: PCP: JONNY BROWNE Consent was: Given for this tele-med encounter - Consult Narrative Reason for Consult: Troponin-I elevation HPI: Unable able to complete consult as patient was transferred. Spoke with ALEXANDRA Segura and STU Chan this am after reviewing chart and noticing that patient's HgG had dropped fom 13.0 to 8.7 in 2 days. Unable to see patient on telecart as either the cart was in use by primary attending or neurologist or the patient was off unit for imaging studies. Please see my assessment at end of note. cc:: The requesting physician will be sent a copy of the consult. - Past Medical History Past Medical History: Yes Neurological History: No Pertinent History ENT History: No Pertinent History Cardiac History: Congestive Heart Failure, Coronary Artery Disease, High Cholesterol, Hypertension, Myocardial Infarction (NM) Respiratory History: COPD, Other Endocrine Medical History: Diabetes Type II Musculoskelatal History: Osteoarthritis GI Medical History: No Pertinent History History: No Pertinent History Pyscho-Social History: No Pertinent History Reproductive Disorders: No Pertinent History Comment: CAROTID ENDARTERECTOMY ON LEFT, Adobe Cq Developer: Dr. Gavin - Past Surgical History Past Surgical History: Yes Neuro Surgical History: No Pertinent History Cardiac History: CABG, Vascular Surgery, Other Respiratory Surgery: No Pertinent History GI Surgical History: Other Genitourinary Surgical Hx: No Pertinent History Musculskeletal Surgical Hx: Orthopedic Surgery Female Surgical History: No Pertinent History Other Surgical History: right artery bypass graft, left hand surgery Significant Family History: heart disease - Social History Smoking Status: Former smoker How long have you smoked: 2010 Exposure to second hand smoke: No Alcohol: None Drug Use: none - Social Determinants of Health Will the patient participate in the screening: Unable to obtain Do you worry about a steady place to live?: No Do you have any problems with any of the following?: No known problems In the past 12 months,have you had to go without utilities?: No Have you or anyone in your house had to go without enough: No Transportation Issues: No Has anyone in your support network made you feel unsafe?: No Does the patient want assistance with any of the above?: No Medications & Allergies Home Medications: Home Medication List Glipizide 10 mg [Glucotrol 10 MG] 10 mg PO DAILY 06/11/13 [History Confirmed 09/29/24] Atorvastatin Calcium [Lipitor] 40 mg PO HS 06/19/13 [History Confirmed 09/29/24] Albuterol 2.5 mg/3 ml Neb [Proventil 2.5 mg/3 ml Neb] 2.5 mg IH TID 08/01/19 [History Confirmed 09/29/24] Meclizine HCl 12.5 mg PO TID PRN 07/26/24 [History Confirmed 09/29/24] Metoprolol Tartrate 25 mg [Lopressor 25MG Tab] 12.5 mg PO DAILY 07/26/24 [History Confirmed 09/29/24] Potassium Chloride 10 meq PO DAILY 07/26/24 [History Confirmed 09/29/24] Pregabalin 50 mg [Lyrica 50MG] 50 mg PO TID 07/26/24 [History Confirmed 09/29/24] Tiotropium [place] Inhaler [Spiriva 18 Mcg/Cap Inhaler] 2 puff IH Q6H PRN PRN 07/26/24 [History Confirmed 09/29/24] Nitroglycerin 0.4 mg Tablet [Nitrostat 0.4 MG Tablet] 0.4 mg PO Q5MIN PRN MR X 3 PRN 09/16/24 [History Confirmed 09/29/24] Midodrine HCl 5 mg PO TID 30 Days #90 tablet 09/19/24 [Rx Confirmed 09/29/24] Nitrofurantoin Macrocrystal [Nitrofurantoin] 100 mg PO BID 5 Days #10 cap 09/28/24 [Rx Confirmed 09/29/24] Nystatin/TCN/Hc/Diphenhydramin [Mey's Mouthwash] 10 ml PO QIDPRN PRN 09/28/24 [Rx Confirmed 09/29/24] Acetaminophen 325 mg [Tylenol 325 mg] 325 mg PO Q4H PRN PRN tablet 09/30/24 [Rx] Albuterol 2.5 mg/0.5 ml [PROVENTIL Solution 2.5 MG/0.5 ML] 2.5 mg IH TIDRT 09/30/24 [Rx] Ondansetron HCl 4 mg/2 ml [Zofran 4 MG/2 ML VIAL] 4 mg IV Q6H PRN PRN 09/30/24 [Rx] Pantoprazole 40 mg [Protonix 40 mg IV] 80 mg IV .Q10H 09/30/24 [Rx] Allergies/Adverse Reactions: Allergies Allergy/AdvReac Type Severity Reaction Status Date / Time Penicillins Allergy Severe Difficulty Verified 09/29/24 15:29 Breathing codeine Allergy Intermediate Nausea and Verified 09/29/24 15:29 Vomiting metformin Allergy Intermediate Nausea and Verified 09/29/24 15:29 Vomiting Sulfa (Sulfonamide Allergy Intermediate Itching Verified 09/29/24 15:29 Antibiotics) ibuprofen Allergy Verified 09/29/24 15:29 azithromycin [From Zithromax] AdvReac Intermediate Headache Verified 09/29/24 15:29 morphine AdvReac Intermediate HALLUCINATI Verified 09/29/24 15:29 ONS Exam - Vitals Vital Signs: Vital Signs - 24 hr Temp Pulse Resp BP BP Pulse Ox 09/30/24 09:41 97 09/30/24 09:20 97 09/30/24 08:47 98 H 113/66 09/30/24 07:55 93 H 17 115/64 94 L 09/30/24 06:15 119/71 09/30/24 04:00 96.7 F 97 H 18 99/52 94 L 09/30/24 00:00 97.3 F 101 H 17 100/57 99 09/29/24 22:14 95 H 16 98 09/29/24 21:24 95 09/29/24 20:50 97.7 F 102 H 16 102/58 99 09/29/24 18:16 99 09/29/24 18:00 71/56 100 09/29/24 17:30 96 H 3 L 83/58 99 09/29/24 17:00 97 H 5 L 83/50 09/29/24 16:42 100 09/29/24 16:35 98 H 20 72/53 95 09/29/24 16:30 103 H 18 80/56 100 09/29/24 16:00 102 H 16 81/60 84 L 09/29/24 15:30 98 H 18 93/57 100 09/29/24 15:23 97.9 F 99 H 14 101/72 99 SpO2: 97 Results Vital Signs: Vital Signs - 24 hr Temp Pulse Resp BP BP Pulse Ox 09/30/24 09:41 97 09/30/24 09:20 97 09/30/24 08:47 98 H 113/66 09/30/24 07:55 93 H 17 115/64 94 L 09/30/24 06:15 119/71 09/30/24 04:00 96.7 F 97 H 18 99/52 94 L 09/30/24 00:00 97.3 F 101 H 17 100/57 99 09/29/24 22:14 95 H 16 98 09/29/24 21:24 95 09/29/24 20:50 97.7 F 102 H 16 102/58 99 09/29/24 18:16 99 09/29/24 18:00 71/56 100 09/29/24 17:30 96 H 3 L 83/58 99 09/29/24 17:00 97 H 5 L 83/50 09/29/24 16:42 100 09/29/24 16:35 98 H 20 72/53 95 09/29/24 16:30 103 H 18 80/56 100 09/29/24 16:00 102 H 16 81/60 84 L 09/29/24 15:30 98 H 18 93/57 100 09/29/24 15:23 97.9 F 99 H 14 101/72 99 Pain Assessment - Last Documented Pain Intensity 5 Intake and Output: Intake & Output 09/27/24 09/28/24 09/29/24 09/30/24 11:59 11:59 11:59 11:59 Intake Total 1221 Output Total 500 Balance 721 Weight 50.5 kg LAB: I have reviewed the Labs in [employer] Serial troponin-I 09/29 - 09/30/2024: 0.040, 0.036, 0.053, 0.065, 0.089 09/15/2024: 0.027, 0.042, 0.050, 0.056 07/25/2024: 0.096, 0.108, 0.083 Serial H/H 09/28 - 09/30/2024: 13.0/42.9, 10.3/33.1, 8.7/27.7 Radiology Exams: Radiology Procedures Category Date Time Status CHEST 1 VIEW (PORTABLE) Stat Exams 09/29/24 16:43 Completed HEAD WITHOUT CONTRAST [CT] Stat Exams 09/29/24 20:00 Completed MRI BRAIN W/O CONTRAST [MRI] Routine Exams 09/30/24 08:37 Ordered Cardiology ECGs 09/30/2024 at 0858: NSR with frequent PACs andPVCs at 93 bpm. Right superior axis. RBBB. 09/30/2024 at 0631: Sinus tachycardia at 100 bpm. Right superior axis. RBBB. 09/17/2024: NSR at 90 bpm. Right superior axis. RBBB. 09/16/2024: Sinus tachycardia at 100 bpm. RAD. RBBB. 07/25/2024: NSR with first degree AV block at 86 bpm. PA 0.218. RAD. RBBB. TTE 07/26/2024: 1. Technically difficult study with limited sensitivity. 2. Normal LV size with moderately reduced systolic function. Visual EF of 30- 35%. Mild to moderate LVH. G2 diastolic dysfunction. Severe hypokinesis/akinesis of the anterolateral-inferolateral becker suggestive of LCx infarct. 3. Degenerative AV/MV disease. Suspect mild MS but not quantified. At least mild MR but suspect it's more in the moderate range although assessment limited by suboptimal images. Sclerotic AV. 4. RV is not well visualized but limited views suggest grossly normal size/function. 5. Est. RVSP at least 39 mmHg but may be underestimate due to insufficient TR waveform. Radiology CXR (AP) 09/29/2024: Scattered bilateral pulmonary reticulations (Stable) and a new right lower lung zone patchy opacity, could be inflammatory. Bilateral hilar vascular congestion (stable) Small left retrocardiac opacity of indeterminate origin could be a small nodule newly noted. Blunted right costophrenic angle, could denote minimal effusion (new) Head CT without contrast 09/29/2024: 1. No evidence of acute intracranial abnormality is demonstrated. 2. Chronic microvascular ischemic changes. 3. Cerebral atrophy. 4.Foci of calcification are seen in the right parietal lobe- likely to be old granulomas 5. No significant interval changes. Assessment & Plan - Encounter Encounter: ASSESSMENT: 1. Mild troponin-I elevation - Presentation not consistent with acute coronary syndrome. Secondary to demand ischemia caused by hypotension and acute blood loss anemia. 2. CAD - S/P CABG in 2010 3. Chest pain - not able to interview patient but patient had episodes around 0400 and 0900 today which were both relieved with NTG. Could have represented angina with her known history CAD + CABG. 4. Hypotension - Secondary to blood loss anemia. Responded this am to NS bolus when this occurred after receiving NTG. 5. Unresponsive episodes - occurred with raising head of bed. These episodes not witnessed by me but most likely were secondary to hypotension. 5. Blood loss anemia - source not identified. Transferred to higher level of care. Recommendations given with discusssions with RN. 1. 250 cc NS bolus X 2. 2. Type and Cross for 2 units of PRBCs. 3. Hold BP meds, diuretic, Lovenox, and anti-platelet agents. 4. Place SCD. Tan Soto MD [facility] [phone]
[2024-09-30] MEDS ORDERED: Cardizem 30 MG PO SCH (10:00)
[2024-09-30] MEDS ORDERED: Protonix 40MG Tablet PO SCH (10:00)
[2024-09-30] MEDS ORDERED: Lopressor 25MG Tab PO SCH (10:00)
[2024-09-30] MEDS ORDERED: MARY'S MOUTHWASH PO SCH (10:00)
--- NOTE | 2024-09-30 10:51 | XRAY ---
Indication: Dizziness. Falls. Negative CT head without contrast exam. Sagittal, coronal, and axial MRI brain performed without contrast using T1, T2, FLAIR, diffusion, and ADC sequences. Comparison: None Age-appropriate global atrophy and moderate periventricular degenerative micro-ischemia signal bilaterally. Right mid thorpe radiata demonstrates subcentimeter focus remote infarct. Diffusion images negative for restricted signal. No acute intracranial hemorrhage, abnormal extra-axial fluid collection, or mass effect. Fourth ventricle is midline without hydrocephalus. 7/8 cranial nerve complex bilaterally symmetric. Normal flow void signal within the major intracerebral circulation. Normal appearing craniocervical junction and sella turcica. Paranasal sinuses are clear. Impression: Global atrophy and degenerative micro-ischemia within normal limits. Subcentimeter remote infarct right thorpe radiata. No acute intracranial abnormalities or evidence for evolving large vessel territorial stroke.
[2024-09-30] MEDS: Sodium Chloride 0.9% 250 ML 250 ML IV SCH (10:53)
--- NOTE | 2024-09-30 12:34 | PCM.CONS ---
History of Present Illness - Neuro Consultation ED Arrival Date & Time: 09/29/24 15:20 Requesting Provider: Rocio Shukla Providers: Attending Provider: UZIEL HANSEN MD ED Provider: NATALYA BYNUM Consulting Provider: TAMMIE RHODES DO cc:: The requesting physician will be sent a copy of the consult. - History of Present Illness HPI: The patient is a 84F PMH stroke without residual deficits, DM with neuropathy, CHF, CAD, COPD, HTN, HLD presented with encephalopathy and generalized weakness Neurology consulted for episodes of unresponsiveness. Per family, at home had episodes of unresponsiveness, staring blankly, last no more than 1 minute or two, back to normal after. No shaking, gaze, incontinence. At home happened after coughing fit, in the hospital happened after sitting upright in the bed. No hx seizures. Does have hx remote stroke, on ASA. Per family she also has had difficult walking, gait instability for the past month, has been using walker more at home. 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 In the hospital MRI brain with remote R BG infarct, generalized atrophy and severe white matter disease. Found to have PNA, on abx. Anemia noted as well, no clear bleeding source. She also was found to have orthostatic hypotension, on midodrine. Location: Brain Quality: Encephalopathy Severity: Mild Timing: Intermittent Context: PNA, cognitive impairment Modifying: PNA on abx Associated: none Known stroke risk factors:: Diabetes, CAD, Hypertension, Prior Stroke/s, Dyslipidemia Review of Systems - Review of Systems Review of Systems (Narrative): Pertinent positive and negative findings as per HPI. All other systems negative. - Review of Systems Eyes (ROS): No Symptoms Ears, Nose, & Throat: No Symptoms Respiratory: Cough Cardiac: No Symptoms, Syncope Abdominal/Gastrointestinal: No Symptoms Musculoskeletal: No Symptoms Skin: No Symptoms Neurological: Gait Changes, Lethargy Psychological: No Symptoms - Past Medical History Past Medical History: Yes Neurological History: No Pertinent History ENT History: No Pertinent History Cardiac History: Congestive Heart Failure, Coronary Artery Disease, High Cholesterol, Hypertension, Myocardial Infarction ([place]) Respiratory History: COPD, Other Endocrine Medical History: Diabetes Type II Musculoskelatal History: Osteoarthritis GI Medical History: No Pertinent History History: No Pertinent History Pyscho-Social History: No Pertinent History Reproductive Disorders: No Pertinent History Comment: CAROTID ENDARTERECTOMY ON LEFT, Noc Technician: Dr. Gavin - Past Surgical History Past Surgical History: Yes Neuro Surgical History: No Pertinent History Cardiac History: CABG, Vascular Surgery, Other Respiratory Surgery: No Pertinent History GI Surgical History: Other Genitourinary Surgical Hx: No Pertinent History Musculskeletal Surgical Hx: Orthopedic Surgery Female Surgical History: No Pertinent History Other Surgical History: right artery bypass graft, left hand surgery Significant Family History: heart disease - Social History Smoking Status: Former smoker How long have you smoked: 2010 Exposure to second hand smoke: No Alcohol: None Drug Use: none - Social Determinants of Health Will the patient participate in the screening: Unable to obtain Do you worry about a steady place to live?: No Do you have any problems with any of the following?: No known problems In the past 12 months,have you had to go without utilities?: No Have you or anyone in your house had to go without enough: No Transportation Issues: No Has anyone in your support network made you feel unsafe?: No Does the patient want assistance with any of the above?: No Physical Exam - Vital Signs Vital Signs: Vital Signs - 24 hr 09/29/24 09/29/24 09/29/24 15:23 15:30 16:00 Temperature 97.9 F Pulse Rate 99 H 98 H 102 H Respiratory 14 18 16 Rate Blood Pressure 93/57 81/60 Blood Pressure 101/72 [Right Arm] O2 Sat by Pulse 99 100 84 L Oximetry 09/29/24 09/29/24 09/29/24 16:30 16:35 16:42 Temperature Pulse Rate 103 H 98 H Respiratory 18 20 Rate Blood Pressure 80/56 72/53 Blood Pressure [Right Arm] O2 Sat by Pulse 100 95 100 Oximetry 09/29/24 09/29/24 09/29/24 17:00 17:30 18:00 Temperature Pulse Rate 97 H 96 H Respiratory 5 L 3 L Rate Blood Pressure 83/50 83/58 71/56 Blood Pressure [Right Arm] O2 Sat by Pulse 99 100 Oximetry 09/29/24 09/29/24 09/29/24 18:16 20:50 21:24 Temperature 97.7 F Pulse Rate 102 H Respiratory 16 Rate Blood Pressure Blood Pressure 102/58 [Right Arm] O2 Sat by Pulse 99 99 95 Oximetry 09/29/24 09/30/24 09/30/24 22:14 00:00 04:00 Temperature 97.3 F 96.7 F Pulse Rate 95 H 101 H 97 H Respiratory 16 17 18 Rate Blood Pressure Blood Pressure 100/57 99/52 [Right Arm] O2 Sat by Pulse 98 99 94 L Oximetry 09/30/24 09/30/24 09/30/24 06:15 07:55 08:47 Temperature Pulse Rate 93 H 98 H Respiratory 17 Rate Blood Pressure 119/71 113/66 Blood Pressure 115/64 [Right Arm] O2 Sat by Pulse 94 L Oximetry 09/30/24 09/30/24 09/30/24 09:20 09:35 09:41 Temperature Pulse Rate Respiratory Rate Blood Pressure Blood Pressure 80/55 [Right Arm] O2 Sat by Pulse 97 97 Oximetry 09/30/24 09/30/24 09/30/24 10:40 11:49 11:52 Temperature 97.2 F Pulse Rate 102 H Respiratory 17 Rate Blood Pressure Blood Pressure 93/59 99/66 [Right Arm] O2 Sat by Pulse 97 100 Oximetry - Physical Exam General: no acute distress Mental Status: awake and oriented, fluent speech, no dysarthria, cooperative, lethargy Cranial nerves: extra ocular movements intact, sensation intact, face is symmetric, hearing intact, tongue midline Motor: antigravity in all 4 ext, no drift noted, normal bulk, no motor deficit Sens:: intact to touch in all 4 (length dependent sensory loss to pinprick in legs) Movement:: no tremors noted MSR:: unable to assess through telemedicine, no clonus noted. Results - Labs Lab/Micro Results: Lab Results-Last 24 Hours 09/29/24 09/29/24 09/29/24 Range/Units 16:22 16:22 16:22 WBC 12.2 H (3.98-10.04) x10^3/uL RBC 3.74 L (3.93-5.22) x10^6/uL Hgb 10.3 L D (11.2-15.7) g/dL Hct 33.1 L (34.1-44.9) % MCV 88.5 (79.4-94.8) fL MCH 27.5 (25.6-32.2) pg MCHC 31.1 L (32.2-35.5) g/dL RDW 17.7 H (11.7-14.4) % Plt Count 159 L (182-369) x10^3/uL MPV 11.9 (9.4-12.3) fL Gran % 87.4 H (34.0-71.1) % Immature Gran % (Auto) 1.5 H (0.001-0.429) % Nucleat RBC Rel Count 0.0 (0.00-0.2) % Eos # (Auto) 0.05 (0.04-0.36) x10^3/uL Immature Gran # (Auto) 0.18 H (0.001-0.031) x10^3u/L Absolute Lymphs (auto) 0.66 L (1.18-3.74) x10^3/uL Absolute Monos (auto) 0.63 (0.24-0.86) x10^3/uL Absolute Nucleated RBC 0.00 (0.00-0.012) x10^3u/L Lymphocytes % 5.4 L (19.3-51.7) % Monocytes % 5.2 (4.7-12.5) % Eosinophils % 0.4 L (0.7-5.8) % Basophils % 0.1 (0.1-1.2) % Absolute Granulocytes 10.68 H (1.56-6.13) x10^3/uL Basophils # 0.01 (0.01-0.08) x10^3/uL Puncture Site pCO2 (35-45) mmHg pO2 (75-100) mmHg Base Excess (-2.0-2.0) O2 Saturation (94-100) g/dF ABG pH (7.35-7.45) ABG HCO3 (22-28) ABG O2 Sat (Measured) (95-100) % Altaf Test A-a Gradient a/A Ratio Hemoglobin Carboxyhemoglobin (0.0-6.9) % THgb Methemoglobin (1.4-1.5) % Temperature C POC O2 Flow Rate % Sodium 139 (135-145) mmol/L Potassium 4.6 (3.5-5.1) mmol/L Chloride 100 (98-107) mmol/L Carbon Dioxide 32 H (22-30) mmol/L Anion Gap 11.0 (5-15) MEQ/L BUN 67 H (7-17) mg/dL Creatinine 0.74 (0.52-1.04) mg/dL Estimated GFR 80.7 ML/MIN Glucose 225 H (74-106) mg/dL POC Glucometer (74 to 106) mg/dL Calcium 8.5 (8.4-10.2) mg/dL Iron (37-170) ug/dL TIBC (265-462) ug/dL Iron Saturation (20-39) % Ferritin (11.1-264) ng/mL Total Bilirubin 1.00 (0.2-1.3) mg/dL AST 30 (14-36) U/L ALT 25 (0-35) U/L Alkaline Phosphatase 50 (38-126) U/L Troponin I 0.040 H* (0.000-0.033) ng/mL NT-Pro-B Natriuret Pep (<300) pg/mL Serum Total Protein 5.0 L (6.3-8.2) g/dL Albumin 3.0 L (3.5-5.0) g/dL Vitamin B12 (239-931) pg/mL Folic Acid (2.76 - >20) ng/mL Urine Color (Yellow) Urine Appearance (Clear) Urine pH (4.6-8.0) Ur Specific [place] (1.005-1.030) Urine Protein (Negative) Urine Glucose (UA) (Negative) mg/dL Urine Ketones (Negative) Urine Blood (Negative) Urine Nitrite (Negative) Urine Bilirubin (Negative) Urine Urobilinogen (0.2) mg/dL Ur Leukocyte Esterase (Negative) U Hyaline Cast (Auto) (0-2) /LPF Urine Microscopic RBC (0-5) /HPF Urine Microscopic WBC (0-5) /HPF Ur Epithelial Cells (None Seen) /HPF Urine Bacteria (None Seen) /HPF Urine Culture Reflexed (NO) Influenza Type A Ag (NEGATIVE) Influenza Type B Ag (NEGATIVE) RSV (PCR) (NEGATIVE) SARS-CoV-2 (PCR) (NEGATIVE) 09/29/24 09/29/24 09/29/24 Range/Units 16:22 18:17 18:34 WBC (3.98-10.04) x10^3/uL RBC (3.93-5.22) x10^6/uL Hgb (11.2-15.7) g/dL Hct (34.1-44.9) % MCV (79.4-94.8) fL MCH (25.6-32.2) pg MCHC (32.2-35.5) g/dL RDW (11.7-14.4) % Plt Count (182-369) x10^3/uL MPV (9.4-12.3) fL Gran % (34.0-71.1) % Immature Gran % (Auto) (0.001-0.429) % Nucleat RBC Rel Count (0.00-0.2) % Eos # (Auto) (0.04-0.36) x10^3/uL Immature Gran # (Auto) (0.001-0.031) x10^3u/L Absolute Lymphs (auto) (1.18-3.74) x10^3/uL Absolute Monos (auto) (0.24-0.86) x10^3/uL Absolute Nucleated RBC (0.00-0.012) x10^3u/L Lymphocytes % (19.3-51.7) % Monocytes % (4.7-12.5) % Eosinophils % (0.7-5.8) % Basophils % (0.1-1.2) % Absolute Granulocytes (1.56-6.13) x10^3/uL Basophils # (0.01-0.08) x10^3/uL Puncture Site pCO2 (35-45) mmHg pO2 (75-100) mmHg Base Excess (-2.0-2.0) O2 Saturation (94-100) g/dF ABG pH (7.35-7.45) ABG HCO3 (22-28) ABG O2 Sat (Measured) (95-100) % Altaf Test A-a Gradient a/A Ratio Hemoglobin Carboxyhemoglobin (0.0-6.9) % THgb Methemoglobin (1.4-1.5) % Temperature C POC O2 Flow Rate % Sodium (135-145) mmol/L Potassium (3.5-5.1) mmol/L Chloride (98-107) mmol/L Carbon Dioxide (22-30) mmol/L Anion Gap (5-15) MEQ/L BUN (7-17) mg/dL Creatinine (0.52-1.04) mg/dL Estimated GFR ML/MIN Glucose (74-106) mg/dL POC Glucometer (74 to 106) mg/dL Calcium (8.4-10.2) mg/dL Iron (37-170) ug/dL TIBC (265-462) ug/dL Iron Saturation (20-39) % Ferritin (11.1-264) ng/mL Total Bilirubin (0.2-1.3) mg/dL AST (14-36) U/L ALT (0-35) U/L Alkaline Phosphatase (38-126) U/L Troponin I 0.036 H* (0.000-0.033) ng/mL NT-Pro-B Natriuret Pep 8340 (<300) pg/mL Serum Total Protein (6.3-8.2) g/dL Albumin (3.5-5.0) g/dL Vitamin B12 (239-931) pg/mL Folic Acid (2.76 - >20) ng/mL Urine Color Yellow (Yellow) Urine Appearance Clear (Clear) Urine pH 7.0 (4.6-8.0) Ur Specific [place] 1.025 (1.005-1.030) Urine Protein Negative (Negative) Urine Glucose (UA) >=1000 A (Negative) mg/dL Urine Ketones Trace A (Negative) Urine Blood Moderate A (Negative) Urine Nitrite Negative (Negative) Urine Bilirubin Negative (Negative) Urine Urobilinogen 0.2 (0.2) mg/dL Ur Leukocyte Esterase Negative (Negative) U Hyaline Cast (Auto) NONE SEEN (0-2) /LPF Urine Microscopic RBC 0-2 (0-5) /HPF Urine Microscopic WBC 3-5 (0-5) /HPF Ur Epithelial Cells None Seen (None Seen) /HPF Urine Bacteria Rare A (None Seen) /HPF Urine Culture Reflexed NO (NO) Influenza Type A Ag (NEGATIVE) Influenza Type B Ag (NEGATIVE) RSV (PCR) (NEGATIVE) SARS-CoV-2 (PCR) (NEGATIVE) 09/29/24 09/29/24 09/30/24 Range/Units 19:52 19:54 01:56 WBC (3.98-10.04) x10^3/uL RBC (3.93-5.22) x10^6/uL Hgb (11.2-15.7) g/dL Hct (34.1-44.9) % MCV (79.4-94.8) fL MCH (25.6-32.2) pg MCHC (32.2-35.5) g/dL RDW (11.7-14.4) % Plt Count (182-369) x10^3/uL MPV (9.4-12.3) fL Gran % (34.0-71.1) % Immature Gran % (Auto) (0.001-0.429) % Nucleat RBC Rel Count (0.00-0.2) % Eos # (Auto) (0.04-0.36) x10^3/uL Immature Gran # (Auto) (0.001-0.031) x10^3u/L Absolute Lymphs (auto) (1.18-3.74) x10^3/uL Absolute Monos (auto) (0.24-0.86) x10^3/uL Absolute Nucleated RBC (0.00-0.012) x10^3u/L Lymphocytes % (19.3-51.7) % Monocytes % (4.7-12.5) % Eosinophils % (0.7-5.8) % Basophils % (0.1-1.2) % Absolute Granulocytes (1.56-6.13) x10^3/uL Basophils # (0.01-0.08) x10^3/uL Puncture Site RBA pCO2 40 (35-45) mmHg pO2 115 H (75-100) mmHg Base Excess 6.6 H (-2.0-2.0) O2 Saturation 97.2 (94-100) g/dF ABG pH 7.49 H (7.35-7.45) ABG HCO3 30.5 H* (22-28) ABG O2 Sat (Measured) 100.0 (95-100) % Altaf Test YES A-a Gradient 35 a/A Ratio 0.77 Hemoglobin 9.5 Carboxyhemoglobin 2.4 (0.0-6.9) % THgb Methemoglobin 0.4 L (1.4-1.5) % Temperature 37.0 C POC O2 Flow Rate 28 % Sodium (135-145) mmol/L Potassium 4.2 (3.5-5.1) mmol/L Chloride (98-107) mmol/L Carbon Dioxide (22-30) mmol/L Anion Gap (5-15) MEQ/L BUN (7-17) mg/dL Creatinine (0.52-1.04) mg/dL Estimated GFR ML/MIN Glucose (74-106) mg/dL POC Glucometer 260 H (74 to 106) mg/dL Calcium (8.4-10.2) mg/dL Iron (37-170) ug/dL TIBC (265-462) ug/dL Iron Saturation (20-39) % Ferritin (11.1-264) ng/mL Total Bilirubin (0.2-1.3) mg/dL AST (14-36) U/L ALT (0-35) U/L Alkaline Phosphatase (38-126) U/L Troponin I 0.053 H* (0.000-0.033) ng/mL NT-Pro-B Natriuret Pep (<300) pg/mL Serum Total Protein (6.3-8.2) g/dL Albumin (3.5-5.0) g/dL Vitamin B12 (239-931) pg/mL Folic Acid (2.76 - >20) ng/mL Urine Color (Yellow) Urine Appearance (Clear) Urine pH (4.6-8.0) Ur Specific [place] (1.005-1.030) Urine Protein (Negative) Urine Glucose (UA) (Negative) mg/dL Urine Ketones (Negative) Urine Blood (Negative) Urine Nitrite (Negative) Urine Bilirubin (Negative) Urine Urobilinogen (0.2) mg/dL Ur Leukocyte Esterase (Negative) U Hyaline Cast (Auto) (0-2) /LPF Urine Microscopic RBC (0-5) /HPF Urine Microscopic WBC (0-5) /HPF Ur Epithelial Cells (None Seen) /HPF Urine Bacteria (None Seen) /HPF Urine Culture Reflexed (NO) Influenza Type A Ag (NEGATIVE) Influenza Type B Ag (NEGATIVE) RSV (PCR) (NEGATIVE) SARS-CoV-2 (PCR) (NEGATIVE) 09/30/24 09/30/24 09/30/24 Range/Units 02:00 02:00 04:35 WBC 12.6 H (3.98-10.04) x10^3/uL RBC 3.11 L (3.93-5.22) x10^6/uL Hgb 8.7 L (11.2-15.7) g/dL Hct 27.7 L (34.1-44.9) % MCV 89.1 (79.4-94.8) fL MCH 28.0 (25.6-32.2) pg MCHC 31.4 L (32.2-35.5) g/dL RDW 17.6 H (11.7-14.4) % Plt Count 141 L (182-369) x10^3/uL MPV 11.9 (9.4-12.3) fL Gran % 90.2 H (34.0-71.1) % Immature Gran % (Auto) 1.7 H (0.001-0.429) % Nucleat RBC Rel Count 0.0 (0.00-0.2) % Eos # (Auto) 0.01 L (0.04-0.36) x10^3/uL Immature Gran # (Auto) 0.21 H (0.001-0.031) x10^3u/L Absolute Lymphs (auto) 0.52 L (1.18-3.74) x10^3/uL Absolute Monos (auto) 0.48 (0.24-0.86) x10^3/uL Absolute Nucleated RBC 0.00 (0.00-0.012) x10^3u/L Lymphocytes % 4.1 L (19.3-51.7) % Monocytes % 3.8 L (4.7-12.5) % Eosinophils % 0.1 L (0.7-5.8) % Basophils % 0.1 (0.1-1.2) % Absolute Granulocytes 11.39 H (1.56-6.13) x10^3/uL Basophils # 0.01 (0.01-0.08) x10^3/uL Puncture Site pCO2 (35-45) mmHg pO2 (75-100) mmHg Base Excess (-2.0-2.0) O2 Saturation (94-100) g/dF ABG pH (7.35-7.45) ABG HCO3 (22-28) ABG O2 Sat (Measured) (95-100) % Altaf Test A-a Gradient a/A Ratio Hemoglobin Carboxyhemoglobin (0.0-6.9) % THgb Methemoglobin (1.4-1.5) % Temperature C POC O2 Flow Rate % Sodium 141 (135-145) mmol/L Potassium 4.4 (3.5-5.1) mmol/L Chloride 105 (98-107) mmol/L Carbon Dioxide 30 (22-30) mmol/L Anion Gap 10.2 (5-15) MEQ/L BUN 64 H (7-17) mg/dL Creatinine 0.76 (0.52-1.04) mg/dL Estimated GFR 78.2 ML/MIN Glucose 236 H (74-106) mg/dL POC Glucometer (74 to 106) mg/dL Calcium 7.9 L (8.4-10.2) mg/dL Iron (37-170) ug/dL TIBC (265-462) ug/dL Iron Saturation (20-39) % Ferritin (11.1-264) ng/mL Total Bilirubin 1.00 (0.2-1.3) mg/dL AST 23 (14-36) U/L ALT 21 (0-35) U/L Alkaline Phosphatase 49 (38-126) U/L Troponin I 0.065 H* (0.000-0.033) ng/mL NT-Pro-B Natriuret Pep (<300) pg/mL Serum Total Protein 4.7 L (6.3-8.2) g/dL Albumin 2.8 L (3.5-5.0) g/dL Vitamin B12 (239-931) pg/mL Folic Acid (2.76 - >20) ng/mL Urine Color (Yellow) Urine Appearance (Clear) Urine pH (4.6-8.0) Ur Specific [place] (1.005-1.030) Urine Protein (Negative) Urine Glucose (UA) (Negative) mg/dL Urine Ketones (Negative) Urine Blood (Negative) Urine Nitrite (Negative) Urine Bilirubin (Negative) Urine Urobilinogen (0.2) mg/dL Ur Leukocyte Esterase (Negative) U Hyaline Cast (Auto) (0-2) /LPF Urine Microscopic RBC (0-5) /HPF Urine Microscopic WBC (0-5) /HPF Ur Epithelial Cells (None Seen) /HPF Urine Bacteria (None Seen) /HPF Urine Culture Reflexed (NO) Influenza Type A Ag (NEGATIVE) Influenza Type B Ag (NEGATIVE) RSV (PCR) (NEGATIVE) SARS-CoV-2 (PCR) (NEGATIVE) 09/30/24 09/30/24 09/30/24 Range/Units 04:35 04:35 05:58 WBC (3.98-10.04) x10^3/uL RBC (3.93-5.22) x10^6/uL Hgb (11.2-15.7) g/dL Hct (34.1-44.9) % MCV (79.4-94.8) fL MCH (25.6-32.2) pg MCHC (32.2-35.5) g/dL RDW (11.7-14.4) % Plt Count (182-369) x10^3/uL MPV (9.4-12.3) fL Gran % (34.0-71.1) % Immature Gran % (Auto) (0.001-0.429) % Nucleat RBC Rel Count (0.00-0.2) % Eos # (Auto) (0.04-0.36) x10^3/uL Immature Gran # (Auto) (0.001-0.031) x10^3u/L Absolute Lymphs (auto) (1.18-3.74) x10^3/uL Absolute Monos (auto) (0.24-0.86) x10^3/uL Absolute Nucleated RBC (0.00-0.012) x10^3u/L Lymphocytes % (19.3-51.7) % Monocytes % (4.7-12.5) % Eosinophils % (0.7-5.8) % Basophils % (0.1-1.2) % Absolute Granulocytes (1.56-6.13) x10^3/uL Basophils # (0.01-0.08) x10^3/uL Puncture Site pCO2 (35-45) mmHg pO2 (75-100) mmHg Base Excess (-2.0-2.0) O2 Saturation (94-100) g/dF ABG pH (7.35-7.45) ABG HCO3 (22-28) ABG O2 Sat (Measured) (95-100) % Altaf Test A-a Gradient a/A Ratio Hemoglobin Carboxyhemoglobin (0.0-6.9) % THgb Methemoglobin (1.4-1.5) % Temperature C POC O2 Flow Rate % Sodium (135-145) mmol/L Potassium (3.5-5.1) mmol/L Chloride (98-107) mmol/L Carbon Dioxide (22-30) mmol/L Anion Gap (5-15) MEQ/L BUN (7-17) mg/dL Creatinine (0.52-1.04) mg/dL Estimated GFR ML/MIN Glucose (74-106) mg/dL POC Glucometer (74 to 106) mg/dL Calcium (8.4-10.2) mg/dL Iron 123 (37-170) ug/dL TIBC 227 L (265-462) ug/dL Iron Saturation 54 H (20-39) % Ferritin 253 (11.1-264) ng/mL Total Bilirubin (0.2-1.3) mg/dL AST (14-36) U/L ALT (0-35) U/L Alkaline Phosphatase (38-126) U/L Troponin I (0.000-0.033) ng/mL NT-Pro-B Natriuret Pep (<300) pg/mL Serum Total Protein (6.3-8.2) g/dL Albumin (3.5-5.0) g/dL Vitamin B12 663 (239-931) pg/mL Folic Acid 16.9 (2.76 - >20) ng/mL Urine Color (Yellow) Urine Appearance (Clear) Urine pH (4.6-8.0) Ur Specific [place] (1.005-1.030) Urine Protein (Negative) Urine Glucose (UA) (Negative) mg/dL Urine Ketones (Negative) Urine Blood (Negative) Urine Nitrite (Negative) Urine Bilirubin (Negative) Urine Urobilinogen (0.2) mg/dL Ur Leukocyte Esterase (Negative) U Hyaline Cast (Auto) (0-2) /LPF Urine Microscopic RBC (0-5) /HPF Urine Microscopic WBC (0-5) /HPF Ur Epithelial Cells (None Seen) /HPF Urine Bacteria (None Seen) /HPF Urine Culture Reflexed (NO) Influenza Type A Ag NEGATIVE (NEGATIVE) Influenza Type B Ag NEGATIVE (NEGATIVE) RSV (PCR) NEGATIVE (NEGATIVE) SARS-CoV-2 (PCR) NEGATIVE (NEGATIVE) 09/30/24 09/30/24 09/30/24 Range/Units 07:39 07:48 12:21 WBC (3.98-10.04) x10^3/uL RBC (3.93-5.22) x10^6/uL Hgb (11.2-15.7) g/dL Hct (34.1-44.9) % MCV (79.4-94.8) fL MCH (25.6-32.2) pg MCHC (32.2-35.5) g/dL RDW (11.7-14.4) % Plt Count (182-369) x10^3/uL MPV (9.4-12.3) fL Gran % (34.0-71.1) % Immature Gran % (Auto) (0.001-0.429) % Nucleat RBC Rel Count (0.00-0.2) % Eos # (Auto) (0.04-0.36) x10^3/uL Immature Gran # (Auto) (0.001-0.031) x10^3u/L Absolute Lymphs (auto) (1.18-3.74) x10^3/uL Absolute Monos (auto) (0.24-0.86) x10^3/uL Absolute Nucleated RBC (0.00-0.012) x10^3u/L Lymphocytes % (19.3-51.7) % Monocytes % (4.7-12.5) % Eosinophils % (0.7-5.8) % Basophils % (0.1-1.2) % Absolute Granulocytes (1.56-6.13) x10^3/uL Basophils # (0.01-0.08) x10^3/uL Puncture Site pCO2 (35-45) mmHg pO2 (75-100) mmHg Base Excess (-2.0-2.0) O2 Saturation (94-100) g/dF ABG pH (7.35-7.45) ABG HCO3 (22-28) ABG O2 Sat (Measured) (95-100) % Altaf Test A-a Gradient a/A Ratio Hemoglobin Carboxyhemoglobin (0.0-6.9) % THgb Methemoglobin (1.4-1.5) % Temperature C POC O2 Flow Rate % Sodium (135-145) mmol/L Potassium (3.5-5.1) mmol/L Chloride (98-107) mmol/L Carbon Dioxide (22-30) mmol/L Anion Gap (5-15) MEQ/L BUN (7-17) mg/dL Creatinine (0.52-1.04) mg/dL Estimated GFR ML/MIN Glucose (74-106) mg/dL POC Glucometer 242 H 270 H (74 to 106) mg/dL Calcium (8.4-10.2) mg/dL Iron (37-170) ug/dL TIBC (265-462) ug/dL Iron Saturation (20-39) % Ferritin (11.1-264) ng/mL Total Bilirubin (0.2-1.3) mg/dL AST (14-36) U/L ALT (0-35) U/L Alkaline Phosphatase (38-126) U/L Troponin I 0.089 H* (0.000-0.033) ng/mL NT-Pro-B Natriuret Pep (<300) pg/mL Serum Total Protein (6.3-8.2) g/dL Albumin (3.5-5.0) g/dL Vitamin B12 (239-931) pg/mL Folic Acid (2.76 - >20) ng/mL Urine Color (Yellow) Urine Appearance (Clear) Urine pH (4.6-8.0) Ur Specific [place] (1.005-1.030) Urine Protein (Negative) Urine Glucose (UA) (Negative) mg/dL Urine Ketones (Negative) Urine Blood (Negative) Urine Nitrite (Negative) Urine Bilirubin (Negative) Urine Urobilinogen (0.2) mg/dL Ur Leukocyte Esterase (Negative) U Hyaline Cast (Auto) (0-2) /LPF Urine Microscopic RBC (0-5) /HPF Urine Microscopic WBC (0-5) /HPF Ur Epithelial Cells (None Seen) /HPF Urine Bacteria (None Seen) /HPF Urine Culture Reflexed (NO) Influenza Type A Ag (NEGATIVE) Influenza Type B Ag (NEGATIVE) RSV (PCR) (NEGATIVE) SARS-CoV-2 (PCR) (NEGATIVE) Accuchecks Date 09/30/24 Time 07:55 - Other Procedures & Test Other Procedures & Test: Respiratory Therapy 09/29/24 22:13 Respiratory Therapy Assessment DAILY 09/30/24 09:21 Oxygen Nasal Cannula 4 lpm - Radiology Orders Radiology Orders: Radiology Procedures Category Date Time Status ABDOMEN AND PELVIS W/0 CONTRAS [CT] Stat Exams 09/30/24 12:12 Ordered CHEST 1 VIEW (PORTABLE) Stat Exams 09/29/24 16:43 Completed CHEST WITHOUT CONTRAST [CT] Stat Exams 09/30/24 12:12 Ordered HEAD WITHOUT CONTRAST [CT] Stat Exams 09/29/24 20:00 Completed MRI BRAIN W/O CONTRAST [MRI] Routine Exams 09/30/24 08:37 Completed - CT Impressions CT Head w/o contrast Status: image reviewed by me (generalized atrophy, remote right BG infarct) - MRI Impressions MRI brain w/o contrast Status: image reviewed by me (remote right BG infarct, generalized atrophy, severe white matter disease) Impressions & Recommendations - ED Arrival Time ED Arrival Date & Time: ED Arrival Date and Time 09/29/24 15:20 Last known well time: - NIHSS IV Thrombolysis Standard of Care: IV thrombolysis as a standard of care in acute stroke discussed with NATALYA BYNUM. Risk, benefits, and options of IV thrombolytic therapy for acute ischemic stroke were discussed with the patient/family MIGEL TERRY JACK. We discussed that use of IV tenecteplase is in line with national stroke guidelines. We discussed that risks of IV thrombolytic use include intracranial hemorrhage, other fatal bleeding risks, and angioedema. Alternatives of treatment, including not proceeding with thrombolytic therapy were discussed. - Recommendations Recommendations: Impression: 84F PMH stroke without residual deficits, DM with neuropathy, CHF, CAD, COPD, HTN, HLD presented with encephalopathy and generalized weakness Neurology consulted for episodes of unresponsiveness. Multiple episodes of staring, lasting 1-2min without response, no clear shaking, incontinence, tongue bite. Back to normal immediately after. Often happens with position change, sitting up from laying position, coughing. No hx seizures and no clear seizure-like activity. MRI brain w/o showed generalized atrophy and right BG remote infarct. Suspect episodes are related to known orthostatic hypotension, less likely seizure. Hopefully this will improve with treatment of pneumonia as well. Of note, she also has known diabetic neuropathy and worsening gait instability over the past month at least, using a walker more at home. Likely all related to diabetic neuropathy, no clear weakness or focal deficit on exam other than length dependent neuropathy. Family also reports some cognitive impairment at home, mostly subtle memory deficit. Currently oriented x3. Recommendations: -No further inpatient neurologic workup at this time -On ASA 81mg qd for chronic stroke -Agree with midodrine for orthostatic hypotension, may need to increase dose -Abx per primary for PNA -Anemia workup per primary -PT/OT -Neurology f/u as outpatient for neuropathy and cognitive impairment Neurology will sign off at this time, please re-consult us if any questions or concerns. Discussed plan with family at bedside. Impression and recommendation were discussed with primary team, Thank you for allowing us to participate in this patient's care. Please call [facility] with questions, concerns, or change in patient's neurological status. This consult was performed via secure telemedicine audio/visual platform with RN assisting at bedside. Patient identity verified and consent obtained. Assessment & Plan - Encounter Encounter: "The entirety of this encounter was performed via Telemedicine using audio and visual "
[2024-09-30 12:37] LABS: Hematocrit 26.3 % (34.1-44.9); Hemoglobin 7.7 g/dL (11.2-15.7)
[2024-09-30] MEDS: ENOXAPARIN SODIUM SQ SCH (13:07)
[2024-09-30] MEDS: ECOTRIN 81 MG PO SCH (13:07)
--- NOTE | 2024-09-30 13:07 | PCM.DS ---
Discharge Summary Date of Admission: 09/29/24 19:00 Date of Discharge: 09/30/24 Admitting Physician: UZIEL HANSEN MD Consults: Consults on Case 09/30/24 08:21 Consult Cardiology ROUTINE 09/30/24 08:50 Consult Neurology ROUTINE Primary Care Provider: JONNY BROWNE ORLIN Allergies Allergies Penicillins Allergy (Severe, Verified 09/29/24 15:29) Difficulty Breathing codeine Allergy (Intermediate, Verified 09/29/24 15:29) Nausea and Vomiting metformin Allergy (Intermediate, Verified 09/29/24 15:29) Nausea and Vomiting Sulfa (Sulfonamide Antibiotics) Allergy (Intermediate, Verified 09/29/24 15:29) Itching ibuprofen Allergy (Verified 09/29/24 15:29) azithromycin [From Zithromax] Adverse Reaction (Intermediate, Verified 09/29/24 15:29) Headache IV ZITHROMAX CAUSEA HEADACHE AND MUSCLE SPASMS morphine Adverse Reaction (Intermediate, Verified 09/29/24 15:29) HALLUCINATIONS Hospital Summary - Hospital Course Hospital Course: is a 84 year old female with a pmhx of CHF, CAD (CABG 2010), COPD (2L at baseline), DMII, HLD, HTN, and OA Who presented to ED 09/29/24 for evaluation of increased weakness. Patient was discharged from the hospital the day prior for a hypoglycemic episode. CT head 09/27/24 was negative at that visit. Patient was in the bathroom. Patient felt weak and sat to the floor. Patient was assisted by her . No trauma. Patient is supposed to wear oxygen at all times. However patient has not been compliant. Patient's episode of weakness occurred while her oxygen was not in use. Initial labs show anemia and leukocytosis. CT head 09/29/24 with no acute findings. CXR Scattered bilateral pulmonary reticulations (Stable) and a new right lower lung zone patchy opacity, could be inflammatory. Bilateral hilar vascular congestion (stable) Small left retrocardiac opacity of indeterminate origin. Patient admitted with weakness and pneumonia. RN reported seizure like activity at bedside where patient appears to have blank stare and not responsive for less than a minute. She recovers quickly . I have also witnessed one of these episodes and it appears to be an orthostatic hypotensive event. MRI with no acute findings. Neurology consulted and also feels this is related to orthostasis rather than seizure activity. 09/30/24- Patient complaining of substernal chest pain with radiation to left arm. Vitals showing hypotension. Trops uptrending. EKG with sinus tach, atrial premature complex, RBB, and t wave abnormalities. Cardiology consulted - nitro, metoprolol given. Lab review showed a drop in hemoglobin of > 4 points since previous admission. Cardiac event most likely secondary to GI bleed. Transfer requested and accepted via air to ER department for higher level of care with GI for possible GI bleed. Unable to obtain CT imaging due to time constraints with flight arrival. 2 units of LPRBC ordered and protonix drip. IVF bolus run clay while waiting on blood transfusion. Patient and family updated on patient status and need for transfer - they agree to plan of care. Discharge Note I spent 45 minutes [id number] with the patient on the day of discharge performing discharge exam, discussing hospital stay and discharge instructions with patient and caregivers, preparation of discharge records, prescriptions & referral forms and addressing any questions/concerns the patient had as documented above. - Vitals & Intake/Output Vital Signs: Vital Signs Temperature 97.2 F 09/30/24 11:52 Pulse Rate 102 H 09/30/24 11:52 Respiratory Rate 17 09/30/24 11:52 Blood Pressure 99/66 09/30/24 11:52 O2 Sat by Pulse Oximetry 100 09/30/24 11:52 Intake & Output: Intake & Output 09/28/24 09/29/24 09/30/24 10/01/24 11:59 11:59 11:59 11:59 Intake Total 1221 Output Total 900 Balance 321 Weight 50.5 kg - Lab Result Diagrams: 09/30/24 12:27 09/30/24 02:00 Lab Results-Last 24 Hrs: Lab Results-Last 24 Hours 09/29/24 09/29/24 09/29/24 Range/Units 16:22 16:22 16:22 WBC 12.2 H (3.98-10.04) x10^3/uL RBC 3.74 L (3.93-5.22) x10^6/uL Hgb 10.3 L D (11.2-15.7) g/dL Hct 33.1 L (34.1-44.9) % MCV 88.5 (79.4-94.8) fL MCH 27.5 (25.6-32.2) pg MCHC 31.1 L (32.2-35.5) g/dL RDW 17.7 H (11.7-14.4) % Plt Count 159 L (182-369) x10^3/uL MPV 11.9 (9.4-12.3) fL Gran % 87.4 H (34.0-71.1) % Immature Gran % (Auto) 1.5 H (0.001-0.429) % Nucleat RBC Rel Count 0.0 (0.00-0.2) % Eos # (Auto) 0.05 (0.04-0.36) x10^3/uL Immature Gran # (Auto) 0.18 H (0.001-0.031) x10^3u/L Absolute Lymphs (auto) 0.66 L (1.18-3.74) x10^3/uL Absolute Monos (auto) 0.63 (0.24-0.86) x10^3/uL Absolute Nucleated RBC 0.00 (0.00-0.012) x10^3u/L Lymphocytes % 5.4 L (19.3-51.7) % Monocytes % 5.2 (4.7-12.5) % Eosinophils % 0.4 L (0.7-5.8) % Basophils % 0.1 (0.1-1.2) % Absolute Granulocytes 10.68 H (1.56-6.13) x10^3/uL Basophils # 0.01 (0.01-0.08) x10^3/uL Puncture Site pCO2 (35-45) mmHg pO2 (75-100) mmHg Base Excess (-2.0-2.0) O2 Saturation (94-100) g/dF ABG pH (7.35-7.45) ABG HCO3 (22-28) ABG O2 Sat (Measured) (95-100) % Altaf Test A-a Gradient a/A Ratio Hemoglobin Carboxyhemoglobin (0.0-6.9) % THgb Methemoglobin (1.4-1.5) % Temperature C POC O2 Flow Rate % Sodium 139 (135-145) mmol/L Potassium 4.6 (3.5-5.1) mmol/L Chloride 100 (98-107) mmol/L Carbon Dioxide 32 H (22-30) mmol/L Anion Gap 11.0 (5-15) MEQ/L BUN 67 H (7-17) mg/dL Creatinine 0.74 (0.52-1.04) mg/dL Estimated GFR 80.7 ML/MIN Glucose 225 H (74-106) mg/dL POC Glucometer (74 to 106) mg/dL Calcium 8.5 (8.4-10.2) mg/dL Iron (37-170) ug/dL TIBC (265-462) ug/dL Iron Saturation (20-39) % Ferritin (11.1-264) ng/mL Total Bilirubin 1.00 (0.2-1.3) mg/dL AST 30 (14-36) U/L ALT 25 (0-35) U/L Alkaline Phosphatase 50 (38-126) U/L Troponin I 0.040 H* (0.000-0.033) ng/mL NT-Pro-B Natriuret Pep (<300) pg/mL Serum Total Protein 5.0 L (6.3-8.2) g/dL Albumin 3.0 L (3.5-5.0) g/dL Vitamin B12 (239-931) pg/mL Folic Acid (2.76 - >20) ng/mL Urine Color (Yellow) Urine Appearance (Clear) Urine pH (4.6-8.0) Ur Specific [place] (1.005-1.030) Urine Protein (Negative) Urine Glucose (UA) (Negative) mg/dL Urine Ketones (Negative) Urine Blood (Negative) Urine Nitrite (Negative) Urine Bilirubin (Negative) Urine Urobilinogen (0.2) mg/dL Ur Leukocyte Esterase (Negative) U Hyaline Cast (Auto) (0-2) /LPF Urine Microscopic RBC (0-5) /HPF Urine Microscopic WBC (0-5) /HPF Ur Epithelial Cells (None Seen) /HPF Urine Bacteria (None Seen) /HPF Urine Culture Reflexed (NO) Influenza Type A Ag (NEGATIVE) Influenza Type B Ag (NEGATIVE) RSV (PCR) (NEGATIVE) SARS-CoV-2 (PCR) (NEGATIVE) 09/29/24 09/29/24 09/29/24 Range/Units 16:22 18:17 18:34 WBC (3.98-10.04) x10^3/uL RBC (3.93-5.22) x10^6/uL Hgb (11.2-15.7) g/dL Hct (34.1-44.9) % MCV (79.4-94.8) fL MCH (25.6-32.2) pg MCHC (32.2-35.5) g/dL RDW (11.7-14.4) % Plt Count (182-369) x10^3/uL MPV (9.4-12.3) fL Gran % (34.0-71.1) % Immature Gran % (Auto) (0.001-0.429) % Nucleat RBC Rel Count (0.00-0.2) % Eos # (Auto) (0.04-0.36) x10^3/uL Immature Gran # (Auto) (0.001-0.031) x10^3u/L Absolute Lymphs (auto) (1.18-3.74) x10^3/uL Absolute Monos (auto) (0.24-0.86) x10^3/uL Absolute Nucleated RBC (0.00-0.012) x10^3u/L Lymphocytes % (19.3-51.7) % Monocytes % (4.7-12.5) % Eosinophils % (0.7-5.8) % Basophils % (0.1-1.2) % Absolute Granulocytes (1.56-6.13) x10^3/uL Basophils # (0.01-0.08) x10^3/uL Puncture Site pCO2 (35-45) mmHg pO2 (75-100) mmHg Base Excess (-2.0-2.0) O2 Saturation (94-100) g/dF ABG pH (7.35-7.45) ABG HCO3 (22-28) ABG O2 Sat (Measured) (95-100) % Altaf Test A-a Gradient a/A Ratio Hemoglobin Carboxyhemoglobin (0.0-6.9) % THgb Methemoglobin (1.4-1.5) % Temperature C POC O2 Flow Rate % Sodium (135-145) mmol/L Potassium (3.5-5.1) mmol/L Chloride (98-107) mmol/L Carbon Dioxide (22-30) mmol/L Anion Gap (5-15) MEQ/L BUN (7-17) mg/dL Creatinine (0.52-1.04) mg/dL Estimated GFR ML/MIN Glucose (74-106) mg/dL POC Glucometer (74 to 106) mg/dL Calcium (8.4-10.2) mg/dL Iron (37-170) ug/dL TIBC (265-462) ug/dL Iron Saturation (20-39) % Ferritin (11.1-264) ng/mL Total Bilirubin (0.2-1.3) mg/dL AST (14-36) U/L ALT (0-35) U/L Alkaline Phosphatase (38-126) U/L Troponin I 0.036 H* (0.000-0.033) ng/mL NT-Pro-B Natriuret Pep 8340 (<300) pg/mL Serum Total Protein (6.3-8.2) g/dL Albumin (3.5-5.0) g/dL Vitamin B12 (239-931) pg/mL Folic Acid (2.76 - >20) ng/mL Urine Color Yellow (Yellow) Urine Appearance Clear (Clear) Urine pH 7.0 (4.6-8.0) Ur Specific [place] 1.025 (1.005-1.030) Urine Protein Negative (Negative) Urine Glucose (UA) >=1000 A (Negative) mg/dL Urine Ketones Trace A (Negative) Urine Blood Moderate A (Negative) Urine Nitrite Negative (Negative) Urine Bilirubin Negative (Negative) Urine Urobilinogen 0.2 (0.2) mg/dL Ur Leukocyte Esterase Negative (Negative) U Hyaline Cast (Auto) NONE SEEN (0-2) /LPF Urine Microscopic RBC 0-2 (0-5) /HPF Urine Microscopic WBC 3-5 (0-5) /HPF Ur Epithelial Cells None Seen (None Seen) /HPF Urine Bacteria Rare A (None Seen) /HPF Urine Culture Reflexed NO (NO) Influenza Type A Ag (NEGATIVE) Influenza Type B Ag (NEGATIVE) RSV (PCR) (NEGATIVE) SARS-CoV-2 (PCR) (NEGATIVE) 09/29/24 09/29/24 09/30/24 Range/Units 19:52 19:54 01:56 WBC (3.98-10.04) x10^3/uL RBC (3.93-5.22) x10^6/uL Hgb (11.2-15.7) g/dL Hct (34.1-44.9) % MCV (79.4-94.8) fL MCH (25.6-32.2) pg MCHC (32.2-35.5) g/dL RDW (11.7-14.4) % Plt Count (182-369) x10^3/uL MPV (9.4-12.3) fL Gran % (34.0-71.1) % Immature Gran % (Auto) (0.001-0.429) % Nucleat RBC Rel Count (0.00-0.2) % Eos # (Auto) (0.04-0.36) x10^3/uL Immature Gran # (Auto) (0.001-0.031) x10^3u/L Absolute Lymphs (auto) (1.18-3.74) x10^3/uL Absolute Monos (auto) (0.24-0.86) x10^3/uL Absolute Nucleated RBC (0.00-0.012) x10^3u/L Lymphocytes % (19.3-51.7) % Monocytes % (4.7-12.5) % Eosinophils % (0.7-5.8) % Basophils % (0.1-1.2) % Absolute Granulocytes (1.56-6.13) x10^3/uL Basophils # (0.01-0.08) x10^3/uL Puncture Site RBA pCO2 40 (35-45) mmHg pO2 115 H (75-100) mmHg Base Excess 6.6 H (-2.0-2.0) O2 Saturation 97.2 (94-100) g/dF ABG pH 7.49 H (7.35-7.45) ABG HCO3 30.5 H* (22-28) ABG O2 Sat (Measured) 100.0 (95-100) % Altaf Test YES A-a Gradient 35 a/A Ratio 0.77 Hemoglobin 9.5 Carboxyhemoglobin 2.4 (0.0-6.9) % THgb Methemoglobin 0.4 L (1.4-1.5) % Temperature 37.0 C POC O2 Flow Rate 28 % Sodium (135-145) mmol/L Potassium 4.2 (3.5-5.1) mmol/L Chloride (98-107) mmol/L Carbon Dioxide (22-30) mmol/L Anion Gap (5-15) MEQ/L BUN (7-17) mg/dL Creatinine (0.52-1.04) mg/dL Estimated GFR ML/MIN Glucose (74-106) mg/dL POC Glucometer 260 H (74 to 106) mg/dL Calcium (8.4-10.2) mg/dL Iron (37-170) ug/dL TIBC (265-462) ug/dL Iron Saturation (20-39) % Ferritin (11.1-264) ng/mL Total Bilirubin (0.2-1.3) mg/dL AST (14-36) U/L ALT (0-35) U/L Alkaline Phosphatase (38-126) U/L Troponin I 0.053 H* (0.000-0.033) ng/mL NT-Pro-B Natriuret Pep (<300) pg/mL Serum Total Protein (6.3-8.2) g/dL Albumin (3.5-5.0) g/dL Vitamin B12 (239-931) pg/mL Folic Acid (2.76 - >20) ng/mL Urine Color (Yellow) Urine Appearance (Clear) Urine pH (4.6-8.0) Ur Specific [place] (1.005-1.030) Urine Protein (Negative) Urine Glucose (UA) (Negative) mg/dL Urine Ketones (Negative) Urine Blood (Negative) Urine Nitrite (Negative) Urine Bilirubin (Negative) Urine Urobilinogen (0.2) mg/dL Ur Leukocyte Esterase (Negative) U Hyaline Cast (Auto) (0-2) /LPF Urine Microscopic RBC (0-5) /HPF Urine Microscopic WBC (0-5) /HPF Ur Epithelial Cells (None Seen) /HPF Urine Bacteria (None Seen) /HPF Urine Culture Reflexed (NO) Influenza Type A Ag (NEGATIVE) Influenza Type B Ag (NEGATIVE) RSV (PCR) (NEGATIVE) SARS-CoV-2 (PCR) (NEGATIVE) 09/30/24 09/30/24 09/30/24 Range/Units 02:00 02:00 04:35 WBC 12.6 H (3.98-10.04) x10^3/uL RBC 3.11 L (3.93-5.22) x10^6/uL Hgb 8.7 L (11.2-15.7) g/dL Hct 27.7 L (34.1-44.9) % MCV 89.1 (79.4-94.8) fL MCH 28.0 (25.6-32.2) pg MCHC 31.4 L (32.2-35.5) g/dL RDW 17.6 H (11.7-14.4) % Plt Count 141 L (182-369) x10^3/uL MPV 11.9 (9.4-12.3) fL Gran % 90.2 H (34.0-71.1) % Immature Gran % (Auto) 1.7 H (0.001-0.429) % Nucleat RBC Rel Count 0.0 (0.00-0.2) % Eos # (Auto) 0.01 L (0.04-0.36) x10^3/uL Immature Gran # (Auto) 0.21 H (0.001-0.031) x10^3u/L Absolute Lymphs (auto) 0.52 L (1.18-3.74) x10^3/uL Absolute Monos (auto) 0.48 (0.24-0.86) x10^3/uL Absolute Nucleated RBC 0.00 (0.00-0.012) x10^3u/L Lymphocytes % 4.1 L (19.3-51.7) % Monocytes % 3.8 L (4.7-12.5) % Eosinophils % 0.1 L (0.7-5.8) % Basophils % 0.1 (0.1-1.2) % Absolute Granulocytes 11.39 H (1.56-6.13) x10^3/uL Basophils # 0.01 (0.01-0.08) x10^3/uL Puncture Site pCO2 (35-45) mmHg pO2 (75-100) mmHg Base Excess (-2.0-2.0) O2 Saturation (94-100) g/dF ABG pH (7.35-7.45) ABG HCO3 (22-28) ABG O2 Sat (Measured) (95-100) % [place] Test A-a Gradient a/A Ratio Hemoglobin Carboxyhemoglobin (0.0-6.9) % THgb Methemoglobin (1.4-1.5) % Temperature C POC O2 Flow Rate % Sodium 141 (135-145) mmol/L Potassium 4.4 (3.5-5.1) mmol/L Chloride 105 (98-107) mmol/L Carbon Dioxide 30 (22-30) mmol/L Anion Gap 10.2 (5-15) MEQ/L BUN 64 H (7-17) mg/dL Creatinine 0.76 (0.52-1.04) mg/dL Estimated GFR 78.2 ML/MIN Glucose 236 H (74-106) mg/dL POC Glucometer (74 to 106) mg/dL Calcium 7.9 L (8.4-10.2) mg/dL Iron (37-170) ug/dL TIBC (265-462) ug/dL Iron Saturation (20-39) % Ferritin (11.1-264) ng/mL Total Bilirubin 1.00 (0.2-1.3) mg/dL AST 23 (14-36) U/L ALT 21 (0-35) U/L Alkaline Phosphatase 49 (38-126) U/L Troponin I 0.065 H* (0.000-0.033) ng/mL NT-Pro-B Natriuret Pep (<300) pg/mL Serum Total Protein 4.7 L (6.3-8.2) g/dL Albumin 2.8 L (3.5-5.0) g/dL Vitamin B12 (239-931) pg/mL Folic Acid (2.76 - >20) ng/mL Urine Color (Yellow) Urine Appearance (Clear) Urine pH (4.6-8.0) Ur Specific [place] (1.005-1.030) Urine Protein (Negative) Urine Glucose (UA) (Negative) mg/dL Urine Ketones (Negative) Urine Blood (Negative) Urine Nitrite (Negative) Urine Bilirubin (Negative) Urine Urobilinogen (0.2) mg/dL Ur Leukocyte Esterase (Negative) U Hyaline Cast (Auto) (0-2) /LPF Urine Microscopic RBC (0-5) /HPF Urine Microscopic WBC (0-5) /HPF Ur Epithelial Cells (None Seen) /HPF Urine Bacteria (None Seen) /HPF Urine Culture Reflexed (NO) Influenza Type A Ag (NEGATIVE) Influenza Type B Ag (NEGATIVE) RSV (PCR) (NEGATIVE) SARS-CoV-2 (PCR) (NEGATIVE) 09/30/24 09/30/24 09/30/24 Range/Units 04:35 04:35 05:58 WBC (3.98-10.04) x10^3/uL RBC (3.93-5.22) x10^6/uL Hgb (11.2-15.7) g/dL Hct (34.1-44.9) % MCV (79.4-94.8) fL MCH (25.6-32.2) pg MCHC (32.2-35.5) g/dL RDW (11.7-14.4) % Plt Count (182-369) x10^3/uL MPV (9.4-12.3) fL Gran % (34.0-71.1) % Immature Gran % (Auto) (0.001-0.429) % Nucleat RBC Rel Count (0.00-0.2) % Eos # (Auto) (0.04-0.36) x10^3/uL Immature Gran # (Auto) (0.001-0.031) x10^3u/L Absolute Lymphs (auto) (1.18-3.74) x10^3/uL Absolute Monos (auto) (0.24-0.86) x10^3/uL Absolute Nucleated RBC (0.00-0.012) x10^3u/L Lymphocytes % (19.3-51.7) % Monocytes % (4.7-12.5) % Eosinophils % (0.7-5.8) % Basophils % (0.1-1.2) % Absolute Granulocytes (1.56-6.13) x10^3/uL Basophils # (0.01-0.08) x10^3/uL Puncture Site pCO2 (35-45) mmHg pO2 (75-100) mmHg Base Excess (-2.0-2.0) O2 Saturation (94-100) g/dF ABG pH (7.35-7.45) ABG HCO3 (22-28) ABG O2 Sat (Measured) (95-100) % [place] Test A-a Gradient a/A Ratio Hemoglobin Carboxyhemoglobin (0.0-6.9) % THgb Methemoglobin (1.4-1.5) % Temperature C POC O2 Flow Rate % Sodium (135-145) mmol/L Potassium (3.5-5.1) mmol/L Chloride (98-107) mmol/L Carbon Dioxide (22-30) mmol/L Anion Gap (5-15) MEQ/L BUN (7-17) mg/dL Creatinine (0.52-1.04) mg/dL Estimated GFR ML/MIN Glucose (74-106) mg/dL POC Glucometer (74 to 106) mg/dL Calcium (8.4-10.2) mg/dL Iron 123 (37-170) ug/dL TIBC 227 L (265-462) ug/dL Iron Saturation 54 H (20-39) % Ferritin 253 (11.1-264) ng/mL Total Bilirubin (0.2-1.3) mg/dL AST (14-36) U/L ALT (0-35) U/L Alkaline Phosphatase (38-126) U/L Troponin I (0.000-0.033) ng/mL NT-Pro-B Natriuret Pep (<300) pg/mL Serum Total Protein (6.3-8.2) g/dL Albumin (3.5-5.0) g/dL Vitamin B12 663 (239-931) pg/mL Folic Acid 16.9 (2.76 - >20) ng/mL Urine Color (Yellow) Urine Appearance (Clear) Urine pH (4.6-8.0) Ur Specific [place] (1.005-1.030) Urine Protein (Negative) Urine Glucose (UA) (Negative) mg/dL Urine Ketones (Negative) Urine Blood (Negative) Urine Nitrite (Negative) Urine Bilirubin (Negative) Urine Urobilinogen (0.2) mg/dL Ur Leukocyte Esterase (Negative) U Hyaline Cast (Auto) (0-2) /LPF Urine Microscopic RBC (0-5) /HPF Urine Microscopic WBC (0-5) /HPF Ur Epithelial Cells (None Seen) /HPF Urine Bacteria (None Seen) /HPF Urine Culture Reflexed (NO) Influenza Type A Ag NEGATIVE (NEGATIVE) Influenza Type B Ag NEGATIVE (NEGATIVE) RSV (PCR) NEGATIVE (NEGATIVE) SARS-CoV-2 (PCR) NEGATIVE (NEGATIVE) 09/30/24 09/30/24 09/30/24 Range/Units 07:39 07:48 12:21 WBC (3.98-10.04) x10^3/uL RBC (3.93-5.22) x10^6/uL Hgb (11.2-15.7) g/dL Hct (34.1-44.9) % MCV (79.4-94.8) fL MCH (25.6-32.2) pg MCHC (32.2-35.5) g/dL RDW (11.7-14.4) % Plt Count (182-369) x10^3/uL MPV (9.4-12.3) fL Gran % (34.0-71.1) % Immature Gran % (Auto) (0.001-0.429) % Nucleat RBC Rel Count (0.00-0.2) % Eos # (Auto) (0.04-0.36) x10^3/uL Immature Gran # (Auto) (0.001-0.031) x10^3u/L Absolute Lymphs (auto) (1.18-3.74) x10^3/uL Absolute Monos (auto) (0.24-0.86) x10^3/uL Absolute Nucleated RBC (0.00-0.012) x10^3u/L Lymphocytes % (19.3-51.7) % Monocytes % (4.7-12.5) % Eosinophils % (0.7-5.8) % Basophils % (0.1-1.2) % Absolute Granulocytes (1.56-6.13) x10^3/uL Basophils # (0.01-0.08) x10^3/uL Puncture Site pCO2 (35-45) mmHg pO2 (75-100) mmHg Base Excess (-2.0-2.0) O2 Saturation (94-100) g/dF ABG pH (7.35-7.45) ABG HCO3 (22-28) ABG O2 Sat (Measured) (95-100) % [place] Test A-a Gradient a/A Ratio Hemoglobin Carboxyhemoglobin (0.0-6.9) % THgb Methemoglobin (1.4-1.5) % Temperature C POC O2 Flow Rate % Sodium (135-145) mmol/L Potassium (3.5-5.1) mmol/L Chloride (98-107) mmol/L Carbon Dioxide (22-30) mmol/L Anion Gap (5-15) MEQ/L BUN (7-17) mg/dL Creatinine (0.52-1.04) mg/dL Estimated GFR ML/MIN Glucose (74-106) mg/dL POC Glucometer 242 H 270 H (74 to 106) mg/dL Calcium (8.4-10.2) mg/dL Iron (37-170) ug/dL TIBC (265-462) ug/dL Iron Saturation (20-39) % Ferritin (11.1-264) ng/mL Total Bilirubin (0.2-1.3) mg/dL AST (14-36) U/L ALT (0-35) U/L Alkaline Phosphatase (38-126) U/L Troponin I 0.089 H* (0.000-0.033) ng/mL NT-Pro-B Natriuret Pep (<300) pg/mL Serum Total Protein (6.3-8.2) g/dL Albumin (3.5-5.0) g/dL Vitamin B12 (239-931) pg/mL Folic Acid (2.76 - >20) ng/mL Urine Color (Yellow) Urine Appearance (Clear) Urine pH (4.6-8.0) Ur Specific [place] (1.005-1.030) Urine Protein (Negative) Urine Glucose (UA) (Negative) mg/dL Urine Ketones (Negative) Urine Blood (Negative) Urine Nitrite (Negative) Urine Bilirubin (Negative) Urine Urobilinogen (0.2) mg/dL Ur Leukocyte Esterase (Negative) U Hyaline Cast (Auto) (0-2) /LPF Urine Microscopic RBC (0-5) /HPF Urine Microscopic WBC (0-5) /HPF Ur Epithelial Cells (None Seen) /HPF Urine Bacteria (None Seen) /HPF Urine Culture Reflexed (NO) Influenza Type A Ag (NEGATIVE) Influenza Type B Ag (NEGATIVE) RSV (PCR) (NEGATIVE) SARS-CoV-2 (PCR) (NEGATIVE) 02/17/25 Range/Units 12:27 WBC (3.98-10.04) x10^3/uL RBC (3.93-5.22) x10^6/uL Hgb 7.7 L (11.2-15.7) g/dL Hct 26.3 L (34.1-44.9) % MCV (79.4-94.8) fL MCH (25.6-32.2) pg MCHC (32.2-35.5) g/dL RDW (11.7-14.4) % Plt Count (182-369) x10^3/uL MPV (9.4-12.3) fL Gran % (34.0-71.1) % Immature Gran % (Auto) (0.001-0.429) % Nucleat RBC Rel Count (0.00-0.2) % Eos # (Auto) (0.04-0.36) x10^3/uL Immature Gran # (Auto) (0.001-0.031) x10^3u/L Absolute Lymphs (auto) (1.18-3.74) x10^3/uL Absolute Monos (auto) (0.24-0.86) x10^3/uL Absolute Nucleated RBC (0.00-0.012) x10^3u/L Lymphocytes % (19.3-51.7) % Monocytes % (4.7-12.5) % Eosinophils % (0.7-5.8) % Basophils % (0.1-1.2) % Absolute Granulocytes (1.56-6.13) x10^3/uL Basophils # (0.01-0.08) x10^3/uL Puncture Site pCO2 (35-45) mmHg pO2 (75-100) mmHg Base Excess (-2.0-2.0) O2 Saturation (94-100) g/dF ABG pH (7.35-7.45) ABG HCO3 (22-28) ABG O2 Sat (Measured) (95-100) % [place] Test A-a Gradient a/A Ratio Hemoglobin Carboxyhemoglobin (0.0-6.9) % THgb Methemoglobin (1.4-1.5) % Temperature C POC O2 Flow Rate % Sodium (135-145) mmol/L Potassium (3.5-5.1) mmol/L Chloride (98-107) mmol/L Carbon Dioxide (22-30) mmol/L Anion Gap (5-15) MEQ/L BUN (7-17) mg/dL Creatinine (0.52-1.04) mg/dL Estimated GFR ML/MIN Glucose (74-106) mg/dL POC Glucometer (74 to 106) mg/dL Calcium (8.4-10.2) mg/dL Iron (37-170) ug/dL TIBC (265-462) ug/dL Iron Saturation (20-39) % Ferritin (11.1-264) ng/mL Total Bilirubin (0.2-1.3) mg/dL AST (14-36) U/L ALT (0-35) U/L Alkaline Phosphatase (38-126) U/L Troponin I (0.000-0.033) ng/mL NT-Pro-B Natriuret Pep (<300) pg/mL Serum Total Protein (6.3-8.2) g/dL Albumin (3.5-5.0) g/dL Vitamin B12 (239-931) pg/mL Folic Acid (2.76 - >20) ng/mL Urine Color (Yellow) Urine Appearance (Clear) Urine pH (4.6-8.0) Ur Specific [place] (1.005-1.030) Urine Protein (Negative) Urine Glucose (UA) (Negative) mg/dL Urine Ketones (Negative) Urine Blood (Negative) Urine Nitrite (Negative) Urine Bilirubin (Negative) Urine Urobilinogen (0.2) mg/dL Ur Leukocyte Esterase (Negative) U Hyaline Cast (Auto) (0-2) /LPF Urine Microscopic RBC (0-5) /HPF Urine Microscopic WBC (0-5) /HPF Ur Epithelial Cells (None Seen) /HPF Urine Bacteria (None Seen) /HPF Urine Culture Reflexed (NO) Influenza Type A Ag (NEGATIVE) Influenza Type B Ag (NEGATIVE) RSV (PCR) (NEGATIVE) SARS-CoV-2 (PCR) (NEGATIVE) Micro Results-Entire Visit: Accuchecks Date 09/30/24 Time 07:55 - Radiology Exams Ordered Rad Exams-Entire Visit: Radiology Procedures Category Date Time Status ABDOMEN AND PELVIS W/0 CONTRAS [CT] Stat Exams 09/30/24 12:12 Ordered CHEST 1 VIEW (PORTABLE) Stat Exams 09/29/24 16:43 Completed CHEST WITHOUT CONTRAST [CT] Stat Exams 09/30/24 12:12 Ordered HEAD WITHOUT CONTRAST [CT] Stat Exams 09/29/24 20:00 Completed MRI BRAIN W/O CONTRAST [MRI] Routine Exams 09/30/24 08:37 Completed - Procedures and Test Procedures and Tests throughout Hospitalization: Therapy Orders & Screens 09/29/24 21:23 RT Screen per Nursing Assess ONCE Comment: Protocol Order Physician Instructions: Greater than 3 points order RT Admission Screen Reason For Exam: Triggered on Admission Diagnosis: Pneumonia, Symptomatic Anemia Diagnosis: Pneumonia, Symptomatic Anemia Pneumonia: Yes Home O2: Yes: 3 L baseline Asthma: Yes CHF: No Home CPAP/BIPAP: No Home Nebs/MDI: Yes Total Points: 17 ST Screen per Nursing Assess ONCE Comment: Protocol Order Physician Instructions: Greater than [address] Admission Screening Reason For Exam: Triggered on Admission Diagnosis: Pneumonia, Symptomatic Anemia CVA/Dysphagia/Aphasia: No Cognitive Deficits: No Dehydration/Nutrition Deficit: No Reflux: No Oral-Motor Difficulties: No Pneumonia: Yes [facility] Resident: No Total Points: 5 09/29/24 22:13 Respiratory Therapy Assessment DAILY Comment: Diagnosis: Pneumonia, Symptomatic Anemia 09/30/24 04:31 EKG ROUTINE Comment: Diagnosis: Pneumonia, Symptomatic Anemia 09/30/24 06:44 EKG ONCE Comment: Diagnosis: Pneumonia, Symptomatic Anemia 09/30/24 08:49 EKG STAT Comment: Diagnosis: Pneumonia, Symptomatic Anemia 09/30/24 09:21 Oxygen Nasal Cannula 4 lpm Comment: Diagnosis: Pneumonia, Symptomatic Anemia Discharge Exam General Appearance: no apparent distress Neurologic Exam: alert, oriented x 3, cooperative Eye Exam: PERRL Ears, Nose, Throat Exam: normal ENT inspection Neck Exam: normal inspection Respiratory Exam: crackles/rales, wheezing Cardiovascular Exam: tachycardia Gastrointestinal/Abdomen Exam: soft, normal bowel sounds Pelvic Exam: deferred Rectal Exam: deferred Extremity Exam: normal inspection, swelling (BLE +1 edema) Final Diagnosis/Problem List - Final Discharge Diagnosis/Problem (1) Right lower lobe pulmonary infiltrate Current Visit: Yes Status: Acute Code(s): R91.8 - OTHER NONSPECIFIC ABNORMAL FINDING OF LUNG FIELD (2) CAD (coronary artery disease) Current Visit: Yes Status: Acute Code(s): I25.10 - ATHSCL HEART DISEASE OF [place] CORONARY ARTERY W/O ANG PCTRS (3) HLD (hyperlipidemia) Current Visit: Yes Status: Acute Code(s): E78.5 - HYPERLIPIDEMIA, UNSPECIFIED (4) CHF (congestive heart failure) Current Visit: Yes Status: Acute Code(s): I50.9 - HEART FAILURE, UNSPECIFIED (5) Leukocytosis Current Visit: Yes Status: Acute Code(s): D72.829 - ELEVATED WHITE BLOOD CELL COUNT, UNSPECIFIED (6) Symptomatic anemia Current Visit: Yes Status: Acute Code(s): D64.9 - ANEMIA, UNSPECIFIED (7) Weakness Current Visit: Yes Status: Acute Code(s): R53.1 - WEAKNESS (8) COPD exacerbation Current Visit: No Status: Chronic Code(s): J44.1 - CHRONIC OBSTRUCTIVE PULMONARY DISEASE W (ACUTE) EXACERBATION (9) HTN (hypertension) Current Visit: No Status: Chronic Code(s): I10 - ESSENTIAL (PRIMARY) HYPERTENSION (10) Type 2 diabetes mellitus Current Visit: No Status: Chronic - Discharge Discharge Date: 09/30/24 Disposition: DC TO OTHER HOSP Condition: Serious Prescriptions: New Pantoprazole 40 mg [Protonix 40 mg IV] 80 mg IV .Q10H Albuterol 2.5 mg/0.5 ml [PROVENTIL Solution 2.5 MG/0.5 ML] 2.5 mg IH TIDRT Acetaminophen 325 mg [Tylenol 325 mg] 325 mg PO Q4H PRN PRN tablet PRN Reason: Pain, Fever, Headache Ondansetron HCl 4 mg/2 ml [Zofran 4 MG/2 ML VIAL] 4 mg IV Q6H PRN PRN PRN Reason: Nausea/Vomiting Continue Glipizide 10 mg [Glucotrol 10 MG] 10 mg PO DAILY Atorvastatin Calcium [Lipitor] 40 mg PO HS Albuterol 2.5 mg/3 ml Neb [Proventil 2.5 mg/3 ml Neb] 2.5 mg IH TID Metoprolol Tartrate 25 mg [Lopressor 25MG Tab] 12.5 mg PO DAILY Pregabalin 50 mg [Lyrica 50MG] 50 mg PO TID Potassium Chloride 10 meq PO DAILY Meclizine HCl 12.5 mg PO TID PRN PRN Reason: Dizziness Tiotropium [place] Inhaler [Spiriva 18 Mcg/Cap Inhaler] 2 puff IH Q6H PRN PRN PRN Reason: Shortness Of Breath Nitroglycerin 0.4 mg Tablet [Nitrostat 0.4 MG Tablet] 0.4 mg PO Q5MIN PRN MR X 3 PRN PRN Reason: Chest Pain Midodrine HCl 5 mg PO TID 30 Days #90 tablet Nystatin/TCN/Hc/Diphenhydramin [Mey's Mouthwash] 10 ml PO QIDPRN PRN PRN Reason: Pain Nitrofurantoin Macrocrystal [Nitrofurantoin] 100 mg PO BID 5 Days #10 cap Discontinued Aspirin [Aspirin EC] 81 mg PO DAILY Clopidogrel Bisulfate [PLAVIX Tablet] 75 mg PO DAILY Furosemide [Lasix] 20 mg PO DAILY Diltiazem HCl 30 mg [Cardizem 30 MG] 30 mg PO DAILY Empagliflozin [Jardiance] 10 mg PO DAILY ALPRAZolam [Alprazolam] 0.5 mg PO HS PRN PRN Reason: Anxiety/Agitation Follow up with: JONNY BROWNE MD [Primary Care Provider] -
[2024-09-30 13:27] LABS: ABO TYPING A; Antibody Screen NEGATIVE (NEGATIVE); RH TYPING POSITIVE
[2024-09-30 13:28] LABS: CROSS MATCH (PRBC) COMPATIBLE (COMPATIBLE)
[2024-09-30 13:34] LABS: CROSS MATCH (PRBC) COMPATIBLE (COMPATIBLE)
[2024-09-30] MEDS: PROTONIX 40 MG IV*** 80 MG in Sodium Chloride 0.9% 500 ML 500 ML IV SCH (13:35)
[2024-09-30] MEDS ORDERED: Sodium Chloride 0.9% 500 ML 500 ML IV ONE (13:37)
[2024-09-30 15:16] VITALS: BP 95/62; PULSE 106; TEMP 98.2
[2024-09-30 15:19] VITALS: O2SAT 97
[2024-09-30] MEDS ORDERED: Levofloxacin 500MG/100ML D5W 500 MG/100 ML BAG IV SCH (22:00)
[2024-09-30] MEDS ORDERED: Levaquin 250MG/50ML D5W 250 MG/50 ML BAG IV SCH (22:00)
[2024-09-30] MEDS ORDERED: ZOCOR 20MG PO SCH (22:00)
== END 2024-09-30 14:05 ==
LOC: ED 15:20 → MED SURG 19:00
PROVIDERS: ADMIT Internal Medicine; ATTEND Internal Medicine
DX: R91.8 Other nonspecific abnormal finding of lung field (principal); I25.10 Atherosclerotic heart disease of native coronary artery without angina pectoris; E78.5 Hyperlipidemia, unspecified; I11.0 Hypertensive heart disease with heart failure; I50.9 Heart failure, unspecified; D72.829 Elevated white blood cell count, unspecified; D64.9 Anemia, unspecified; R53.1 Weakness; J44.1 Chronic obstructive pulmonary disease with (acute) exacerbation; E11.9 Type 2 diabetes mellitus without complications; I25.2 Old myocardial infarction; Z79.899 Other long term (current) drug therapy; Z79.01 Long term (current) use of anticoagulants; Z95.0 Presence of cardiac pacemaker
CPT/HCPCS: 0241U; 36415; 36600; 70450; 70551; 71045; 80053; 81001; 82375; 82607; 82728; 82746; 82803; 82947; 83540; 83550; 83880; 84484; 85014; 85018; 85025; 86850; 86900; 86901; 86922; 87040; 93005; 93041; 94640; 94760; 94762; 96374; 99285; P9016; 36430; J1940; J1956; J2405; Q3014; A9270-GY